=== PATIENT | female | born 1960 | race Caucasian/White ===

== ENCOUNTER 2018-12-11 23:20 | Inpatient (IN) | payer BC ==
[2018-12-11] MEDS ORDERED: Naloxone 0.4 mg/ml Inj (Adult) IVP STA ×2 (23:31→23:41)
[2018-12-11] MEDS ORDERED: Sodium Chloride 0.9% 1,000 ML IV STA (23:31)
[2018-12-12 00:15] LABS: BASO % 0.3 % (0.0-2.0); EOS % 0.1 % (0.0-4.0); LYMPH # 0.8 K/uL (1.0-4.3); LYMPH % 6.3 % (20.0-40.0); MEAN CELL VOLUME 89.6 fl (81.0-99.0); MEAN CORPUSCULAR HEMOGLOBIN 30.2 pg (27.0-31.0); MEAN CORPUSCULAR HGB CONC 33.7 g/dL (33.0-37.0); MEAN PLATELET VOLUME 7.7 fl (7.2-11.7); MONO # 0.7 K/uL (0.0-0.8); MONO % 6.1 % (0.0-10.0); NEUT # 10.6 K/uL (1.8-7.0); NEUT % 87.2 % (50.0-75.0); PLATELET COUNT 258 K/uL (130-400); RBC 4.32 Mil/uL (3.80-5.20); RED CELL DISTRIBUTION WIDTH 12.9 % (11.5-14.5); WHITE BLOOD COUNT 12.2 K/uL (4.8-10.8)
[2018-12-12 00:22] LABS: VENOUS BLOOD GAS PCO2 51 mmHg (40-60); VENOUS BLOOD GAS PO2 68 mm/Hg (30-55)
[2018-12-12 00:25] LABS: PROTHROMBIN TIME 11.7 Seconds (9.8-13.1)
[2018-12-12 00:27] LABS: PARTIAL THROMBOPLASTIN TIME 32.7 Seconds (25.6-37.1)
[2018-12-12 00:53] LABS: ACETAMINOPHEN < 10.0 ug/ml (10.0-30.0); SALICYLATE < 1.0 mg/dl
[2018-12-12 00:59] LABS: ALB/GLOB RATIO 1.2 (1.0-2.1); ALBUMIN 3.3 g/dL (3.5-5.0); ALT/SGPT 30 U/L (9-52); AST/SGOT 25 U/L (14-36); BLOOD UREA NITROGEN 15 mg/dl (7-17); CALCIUM 8.5 mg/dL (8.4-10.2); GFR NON-AFRICAN AMERICAN > 60; LIPASE 188 U/L (23-300)
[2018-12-12] MEDS ORDERED: Sodium Chloride 0.9% 1,000 ML IV STA ×2 (01:37→04:30)
--- NOTE | 2018-12-12 02:28 | CP.PCM.CON ---
History of Present Illness - History of Present Illness History of Present Illness: PMD: Loan Patrick MD Reason for Consult: Critical Care management Chief complaint: Altered Mental Status The patient was seen and examined in the ED with her daughter present HPI: The hx is obtained from the patient's daughter and after review of the laboratory, radiological and medical records. This is a 58 years old female with hx of chronic back pain, Fibromyalgia and depression who was brought to the ED with suspected drug overdose of some or all of Xanax, Oxycodone, Trazodone and Cymbalta, which are her usual medications. She was found unresponsive in bed by her son, with erratic breathing and vomiting white material. EMS gave Narcan in field. She arrived at the ED unresponsive with [id number] reacting sluggish to light. PMH: Anxiety and Depression; Back Problems with Herneated disc; Hypothyroidism;Fibromyalgia; Migraine treated with Botos to the head; Pinched nerve at the neck PSH: Surgery to the nose; Varicose Vein Removal; Cholecystectomy; Hysterectomy SH: Heavy Smoker; No alcohol; No illegal drug use; Live with family FH: No known family hx Allergies: Hydromorphone Medication: Xanax 1mg; Oxycodone 10mg and 30mg; Baclofen 10mg; zofran 4mg; Trazodone HS; Vit D3 1000IU; Cymbalta; Stool softener Review of Systems - Review of Systems Systems not reviewed;Unavailable: Altered Mental Status Review of Systems: Review of system limited as the patient is Unresponsive. Past Patient History - Past Social History Smoking Status: Heavy Smoker > 10 Cigarettes Daily Chewing Tobacco Use: No Cigar Use: No Alcohol: None Drugs: Denies Home Situation {Lives}: With Family - CARDIAC Hx Cardiac Disorders: No - PULMONARY Hx Respiratory Disorders: No - NEUROLOGICAL Hx Neurological Disorder: No Hx Migraine: Yes - HEENT Hx HEENT Problems: No - RENAL Hx Chronic Kidney Disease: No - ENDOCRINE/METABOLIC Hx Hypothyroidism: Yes - HEMATOLOGICAL/ONCOLOGICAL Hx Blood Disorders: No - INTEGUMENTARY Hx Dermatological Problems: No - MUSCULOSKELETAL/RHEUMATOLOGICAL Hx Back Pain: Yes Hx Herniated Disk: Yes - GASTROINTESTINAL Hx Gastrointestinal Disorders: No - GENITOURINARY/GYNECOLOGICAL Hx Genitourinary Disorders: No - PSYCHIATRIC Hx Anxiety: Yes Hx Depression: Yes Hx Substance Use: No Other/Comment: INSOMNIA - SURGICAL HISTORY Hx Cholecystectomy: Yes Hx Hysterectomy: Yes Other/Comment: NOSE SURGERY. VARICOSE VEIN REMOVAL - ANESTHESIA Hx Anesthesia: Yes Hx Anesthesia Reactions: No Meds Allergies/Adverse Reactions: Allergies Allergy/AdvReac Type Severity Reaction Status Date / Time hydromorphone [From Dilaudid] AdvReac HEADACHE Verified 12/11/18 23:24 - Medications Medications: Current Medications Sodium Chloride (Sodium Chloride 0.9%) 1,000 mls @ 250 mls/hr IV .Q4H STA Stop: 12/12/18 05:36 Last Admin: 12/12/18 01:59 Dose: 250 mls/hr Physical Exam - Constitutional Appears: No Acute Distress - Head Exam Head Exam: ATRAUMATIC, NORMAL INSPECTION, NORMOCEPHALIC - Eye Exam Additional comments: Pupils 2mm reacting sluggish to light - ENT Exam ENT Exam: Mucous Membranes Dry, Normal Exam, Normal External Ear Exam - Neck Exam Neck exam: Positive for: Normal Inspection. Negative for: Lymphadenopathy - Respiratory Exam Additional comments: Generalized bilateral inspiratory crackles - Cardiovascular Exam Cardiovascular Exam: REGULAR RHYTHM, +S1, +S2. absent: Gallop, JVD - GI/Abdominal Exam GI & Abdominal Exam: Normal Bowel Sounds, Soft. absent: Mass, Organomegaly, Tenderness - Rectal Exam Rectal Exam: Deferred - Extremities Exam Extremities exam: Positive for: normal inspection. Negative for: joint swelling, pedal edema - Back Exam Back exam: NORMAL INSPECTION - Neurological Exam Additional comments: Unresponsive, no facial droop, pupils 2mm reacting sluggish to light, divergent extrabism, All extremities flaccid - Psychiatric Exam Additional comments: Unresponsive - Skin Skin Exam: Dry, Intact, Normal Color, Warm Results - Vital Signs Recent Vital Signs: Last Vital Signs Temp Pulse 73 12/11/18 23:30 Resp 16 12/11/18 23:30 BP 115/67 12/11/18 23:30 Pulse Ox 99 12/11/18 23:30 - Labs Result Diagrams: 12/11/18 23:50 12/11/18 23:50 Labs: Laboratory Results - last 24 hr 12/11/18 12/11/18 12/11/18 23:34 23:50 23:50 WBC RBC Hgb Hct MCV MCH MCHC RDW Plt Count MPV Neut % (Auto) Lymph % (Auto) Nolan % (Auto) Eos % (Auto) Baso % (Auto) Neut # (Auto) Lymph # (Auto) Nolan # (Auto) Eos # (Auto) Baso # (Auto) PT INR APTT pO2 VBG pH VBG pCO2 VBG HCO3 VBG Total CO2 VBG O2 Sat (Calc) VBG Base Excess VBG Potassium Glucose Lactate FiO2 Sodium 135 Potassium 3.8 Chloride 104 Carbon Dioxide 23 Anion Gap 12 BUN 15 Creatinine 0.7 Est GFR ( Amer) > 60 Est GFR (Non-Af Amer) > 60 POC Glucose (mg/dL) 171 H Random Glucose 161 H Calcium 8.5 Phosphorus Magnesium Total Bilirubin 0.6 AST 25 ALT 30 Alkaline Phosphatase 106 Total Protein 6.0 L Albumin 3.3 L Globulin 2.7 Albumin/Globulin Ratio 1.2 Lipase 188 Venous Blood Potassium Salicylates < 1.0 Acetaminophen < 10.0 L Alcohol, Quantitative < 10 12/11/18 12/11/18 12/12/18 23:50 23:50 00:17 WBC 12.2 H D RBC 4.32 Hgb 13.0 Hct 38.7 MCV 89.6 MCH 30.2 MCHC 33.7 RDW 12.9 Plt Count 258 MPV 7.7 Neut % (Auto) 87.2 H Lymph % (Auto) 6.3 L Nolan % (Auto) 6.1 Eos % (Auto) 0.1 Baso % (Auto) 0.3 Neut # (Auto) 10.6 H Lymph # (Auto) 0.8 L Nolan # (Auto) 0.7 Eos # (Auto) 0.0 Baso # (Auto) 0.0 PT 11.7 INR 1.0 APTT 32.7 pO2 68 H VBG pH 7.30 L VBG pCO2 51 VBG HCO3 23.2 VBG Total CO2 26.7 VBG O2 Sat (Calc) 97.7 H VBG Base Excess -2.0 L VBG Potassium 3.7 Glucose 178 H Lactate 1.5 FiO2 21.0 Sodium 133.0 Potassium Chloride 105.0 Carbon Dioxide Anion Gap BUN Creatinine Est GFR ( Amer) Est GFR (Non-Af Amer) POC Glucose (mg/dL) Random Glucose Calcium Phosphorus Magnesium Total Bilirubin AST ALT Alkaline Phosphatase Total Protein Albumin Globulin Albumin/Globulin Ratio Lipase Venous Blood Potassium 3.7 Salicylates Acetaminophen Alcohol, Quantitative 12/12/18 01:48 WBC RBC Hgb Hct MCV MCH MCHC RDW Plt Count MPV Neut % (Auto) Lymph % (Auto) Nolan % (Auto) Eos % (Auto) Baso % (Auto) Neut # (Auto) Lymph # (Auto) Nolan # (Auto) Eos # (Auto) Baso # (Auto) PT INR APTT pO2 VBG pH VBG pCO2 VBG HCO3 VBG Total CO2 VBG O2 Sat (Calc) VBG Base Excess VBG Potassium Glucose Lactate FiO2 Sodium Potassium Chloride Carbon Dioxide Anion Gap BUN Creatinine Est GFR ( Amer) Est GFR (Non-Af Amer) POC Glucose (mg/dL) Random Glucose Calcium Phosphorus 4.0 Magnesium 1.8 Total Bilirubin AST ALT Alkaline Phosphatase Total Protein Albumin Globulin Albumin/Globulin Ratio Lipase Venous Blood Potassium Salicylates Acetaminophen Alcohol, Quantitative - Impressions Impression: Sinus bradycardia 54/min T wave inversion in II, III; aVf; V3-6 QT prolongation - Imaging and Cardiology CT scan - head Status: Image reviewed by me, Report reviewed by me Additional comment: 0119 CT Head Findings: Normal size of the ventricles and extra-axial spaces for the patient's age. Normal white matter tracts of the supratentorial brain. Normal basal ganglia and thalami. Normal brainstem. Normal cerebellum. There is no demonstrated extra-axial, intraparenchymal, or intraventricular hemorrhage. There are no findings of an acute ischemic infarction. Normal calvarium. There is no demonstrated fracture. Normal soft tissue structures. Normal visualized paranasal sinuses. IMPRESSION: Normal unenhanced CT scan of the brain. Chest x-ray Status: Image reviewed by me Additional comment: Bilateral interstitial infiltrate Right > Left Assessment & Plan - Assessment and Plan (Free Text) Assessment: #. AMS #. Drug Overdose #.Pneumonitis vs Aspiration Pneumonia #. Leukocytosis #. Hyperglycemia #. Anxiety /Depression #. Hypothyroidism Plan: 58 years old female with hx of chronic back pain, Fibromyalgia and depression who was brought to the ED with suspected drug overdose of some or all of Xanax, Oxycodone, Trazodone and Cymbalta, which are her usual medications. She was found unresponsive in bed by her son, with erratic breathing and vomiting white material. #. AMS due to toxic encephalopathy due to the overdose of medication, which could be the combination of Cymbalta, Trazodone, Zofran and Xanax causing Prolonged QT, Hypotension and Bradycardia.Poison control was called. The patient will be observed and treated symptomatically, Cardiac Monitoring, Correct Electrolytes, Magnesium sulfate given, Potassium should be at highte level of normal, IV Fluids for Hypotension and vasopressors if not controlled. Orotracheal intubation respiratory depression or failure. #.Pneumonitis vs Aspiration Pneumonia. ARDS picture - Oxygen to maintain SpO2 >94% - Zosyn - Consider Pulmonary consult #. Hyperglycemia - HbA1c #. Anxiety /Depression - Psychiatric Consult #. Hypothyroidism - Levothyroxin - TS #. DVT Prophylaxis with SCV and Lovenox #. Code Status: Full Jay Perez MD - Date & Time Date: 12/12/18 Time: 02:28
--- NOTE | 2018-12-12 02:39 | ED PDOC ---
HPI: Psych/Substance Abuse Time Seen by Provider: 12/11/18 23:30 Chief Complaint (Nursing): Altered Mental Status Chief Complaint (Provider): Altered Mental Status History Per: EMS, Family () History/Exam Limitations: clinical condition Additional Complaint(s): 58 years old female with a history of depression and chronic pain brought to ER for overdose. History provided by family in EMS. According to , patient went to bed at 8 o'clock and when he went to bed at 11 o'clock he noticed she was breathing erratically and vomiting white stuff all over herself. He states patient takes Oxycodone, Xanx, Tradazone and cymbalta and it is unclear how much she took of meds. reports patient was unresponsive, EMS was called and Narcan was not given in field. On arrival to ED, patient is unresponsive. PMD: None provided Past Medical History Reviewed: Historical Data, Nursing Documentation, Vital Signs Vital Signs: Last Vital Signs Temp Pulse 73 12/11/18 23:30 Resp 16 12/11/18 23:30 BP 115/67 12/11/18 23:30 Pulse Ox 99 12/11/18 23:30 - Medical History PMH: Anxiety, Back Problems, Depression, Fibromyalgia - Surgical History Surgical History: Cholecystectomy - Family History Family History: States: Unknown Family Hx - Home Medications Home Medications: Ambulatory Orders Medication Instructions Recorded Cyclobenzaprine HCl [Flexeril] 10 mg PO Q8 #20 tab 05/09/14 Naproxen [Naprosyn] 500 mg PO BID #20 tab 05/09/14 Oxycodone Hydrochloride [Oxycodone] 30 mg PO TID 05/09/14 - Allergies Allergies/Adverse Reactions: Allergies Allergy/AdvReac Type Severity Reaction Status Date / Time hydromorphone [From Dilaudid] AdvReac HEADACHE Verified 12/11/18 23:24 Review of Systems Review Of Systems: ROS cannot be obtained secondary to pt's inabilty to answer questions. Physical Exam - Reviewed Nursing Documentation Reviewed: Yes Vital Signs Reviewed: Yes - Physical Exam Appears: Positive for: In Acute Distress. Negative for: Well Head Exam: Positive for: ATRAUMATIC Skin: Positive for: Pallor Eye Exam: Positive for: Other (Pinpoint pupils) ENT: Positive for: Other (White substance around mouth) Neck: Positive for: Normal Cardiovascular/Chest: Positive for: Regular Rate, Rhythm. Negative for: Murmur Respiratory: Positive for: Rhonchi. Negative for: Respiratory Distress Gastrointestinal/Abdominal: Positive for: Normal Exam, Soft. Negative for: Tenderness Back: Positive for: Normal Inspection. Negative for: L CVA Tenderness, R CVA Tenderness Neurological/Psych: Positive for: Other (unresponsive). Negative for: Awake, Al ert, Oriented - Laboratory Results Result Diagrams: 12/11/18 23:50 12/11/18 23:50 Lab Results: pO2 68 mm/Hg (30-55) H 12/12/18 00:17 VBG pH 7.30 (7.32-7.43) L 12/12/18 00:17 VBG pCO2 51 mmHg (40-60) 12/12/18 00:17 VBG HCO3 23.2 mmol/L 12/12/18 00:17 VBG Total CO2 26.7 mmol/L (22-28) 12/12/18 00:17 VBG O2 Sat (Calc) 97.7 % (40-65) H 12/12/18 00:17 VBG Base Excess -2.0 mmol/L (0.0-2.0) L 12/12/18 00:17 VBG Potassium 3.7 mmol/L (3.6-5.2) 12/12/18 00:17 Sodium 133.0 mmol/L (132-148) 12/12/18 00:17 Chloride 105.0 mmol/L (98-107) 12/12/18 00:17 Glucose 178 mg/dL (65-105) H 12/12/18 00:17 Lactate 1.5 mmol/L (0.7-2.1) 12/12/18 00:17 FiO2 21.0 % 12/12/18 00:17 PT 11.7 Seconds (9.8-13.1) 12/11/18 23:50 INR 1.0 12/11/18 23:50 APTT 32.7 Seconds (25.6-37.1) 12/11/18 23:50 Total Bilirubin 0.6 mg/dl (0.2-1.3) 12/11/18 23:50 AST 25 U/L (14-36) 12/11/18 23:50 ALT 30 U/L (9-52) 12/11/18 23:50 Alkaline Phosphatase 106 U/L (38-126) 12/11/18 23:50 Total Protein 6.0 G/DL (6.3-8.2) L 12/11/18 23:50 Albumin 3.3 g/dL (3.5-5.0) L 12/11/18 23:50 Globulin 2.7 gm/dL (2.2-3.9) 12/11/18 23:50 Albumin/Globulin Ratio 1.2 (1.0-2.1) 12/11/18 23:50 Lipase 188 U/L (23-300) 12/11/18 23:50 - ECG O2 Sat by Pulse Oximetry: 99 (RA) Pulse Ox Interpretation: Normal - Critical Care Total Time (In Min): 90 Documented Critical Care: Time excludes all time spent performint seperately billable procedures Medical Decision Making Medical Decision Making: Time: 2330 A/P: Patient was immediately brought to trauma room for reversal opioid effect --Narcan was given x2 with some response --Pupils dilated and patient is easily arousable but still lethargic --Respiration increased --Patient is able to tolerate nasal cannula 0119 CT Head Findings: Normal size of the ventricles and extra-axial spaces for the patient's age. Normal white matter tracts of the supratentorial brain. Normal basal ganglia and thalami. Normal brainstem. Normal cerebellum. There is no demonstrated extra-axial, intraparenchymal, or intraventricular hemorrhage. There are no findings of an acute ischemic infarction. Normal calvarium. There is no demonstrated fracture. Normal soft tissue structures. Normal visualized paranasal sinuses. IMPRESSION: Normal unenhanced CT scan of the brain. [address] Patrick regarding the case and agrees to management and will see patient tomorrow. Nurse spoke to poison control who recommends symptomatic treatment. Dr. Perez is aware for ICU admission. 300 Spoke with poison control provider service representative Amanda Lerner who recommends magnesium for QTC prolongation -------- --------- ScribeAttestation: Documented bySnow Taylor, acting as a scribe for Lenard Jeter MD. Provider ScribeAttestation: All medical record entries made by the Scribe were at my direction and personally dictated by me. I have reviewed the chart and agree that the record accurately reflects my personal performance of the history, physical exam, medical decision making, and the department course for this patient. Disposition - Clinical Impression Clinical Impression: Overdose - Patient ED Disposition Is Patient to be Admitted: Yes Counseled Patient/Family Regarding: Studies Performed, Diagnosis - Disposition Disposition Time: 01:24 Condition: IMPROVED
[2018-12-12] MEDS ORDERED: Magnesium Sulfate 2 gm/50 ml 2 GM/50 ML BAG IVPB ONE (03:14)
[2018-12-12 03:15] LABS: BANDS 5 % (0-2); BASOPHIL 1 % (0-2); LYMPHOCYTE 8 % (20-50); METAMYELOCYTE 1 % (0-0); MONOCYTE 6 % (0-10); MYELOCYTE 1 % (0-0); NEUTROPHIL 78 % (42-75); TOTAL CELLS COUNTED 100
[2018-12-12] MEDS: Sodium Chloride 0.9% 1,000 ML IV SCH ×2 (03:15→04:15)
[2018-12-12 03:16] LABS: HYPERSEGMENTATION PRESENT; LARGE PLATELETS PRESENT; PLATELET ESTIMATE NORMAL (NORMAL); TOXIC GRANULATION PRESENT
[2018-12-12 03:17] LABS: SMUDGE CELLS PRESENT
[2018-12-12 03:19] LABS: OVALOCYTES SLIGHT
[2018-12-12 04:17] VITALS: BMI 24.4
[2018-12-12] MEDS ORDERED: Magnesium Sulfate 2 gm/50 ml 2 GM/50 ML BAG ONE (04:21)
[2018-12-12] MEDS ORDERED: Piperacillin/Tazobact 3.375 GM in Sodium Chloride 0.9% 100 ML IVPB SCH (05:30)
[2018-12-12 05:48] LABS: URINE BACTERIA RARE (<OCC); URINE BILIRUBIN NEGATIVE (NEGATIVE); URINE BLOOD SMALL (NEGATIVE); URINE CLARITY CLEAR (Clear); URINE COLOR AMBER (YELLOW); URINE GLUCOSE (UA) NEG (NEGATIVE); URINE LEUKOCYTE ESTERASE NEG Leu/uL (Negative); URINE PROTEIN NEGATIVE (NEGATIVE)
[2018-12-12 05:50] LABS: BARBITURATES, UR NEGATIVE (NEGATIVE); OPIATES, UR POSITIVE (NEGATIVE); PHENCYCLIDINE, UR NEGATIVE (NEGATIVE)
--- NOTE | 2018-12-12 06:23 | PCM.PROC ---
Procedures Attestation:: I certify that I have explained the specified Operation(s) or Procedure(s), risks, benefits and reasonable alternatives to the Patient and/or other person responsible. The opportunity was given to ask questions and all questions answered - Central Line Placement Internal Jugular Triple Lumen Catheter CVP Time Out Performed: Yes Pt. Placed on Pulse Ox Monitor: Yes Central Line Prep: Chlorhexidine-Alcohol Combination Local Anesthesia Used: Lidocaine 2% Ultrasound Used for Placement: Yes Central Line Lumen Inserted: triple Central Line Length: 20 cm Post Procedure: Sutured in Place, Good Blood Return, All Ports Aspirated, Flushed, Capped, Sterile Dressing Applied Secured by: Suture Post procedure dressing: Clear vapor permeable Post Procedure X-Ray: Yes Patient Tolerated Procedure: Well, No Complications (Patient hypotensive.)
[2018-12-12 06:25] LABS: BENZODIAZEPINES, UR POSITIVE (NEGATIVE)
[2018-12-12] MEDS ORDERED: Naloxone 0.4 mg/ml Inj (Adult) IVP STA (07:04)
[2018-12-12] MEDS ORDERED: Naloxone HCl 2mg/2ml syr IVP ONE (07:06)
[2018-12-12] MEDS ORDERED: Naloxone 0.4 mg/ml Inj (Adult) ONE (07:14)
[2018-12-12] MEDS ORDERED: Chlorhexidine Gluconate 1 APPL/PKT TP ONE (07:42)
[2018-12-12] MEDS ORDERED: Naloxone 0.4 mg/ml Inj (Adult) IVP ONE (07:45)
--- NOTE | 2018-12-12 07:49 | CP.CCUPN ---
CCU Subjective - Physician Review Subjective (Free Text): Arrived to ICU hypotensive, bradycardic and unresponsive to pain. Levophed ordered at 621AM and remains pending. RR 9-10, SPO2 92% on nasal cannula, SBP 70, HR 50 sinus. Temp 95F on leila huggar warming blanket. ROS: No other pertinent negs or positives on 10+ system review: unobtainable due to obtundation. PMSFH: All other Nursing and physician documentation reviewed to date; no new pertinent info noted relevant to current medical problems. EXAM- HEENT: no icterus, no gaze preference, pupils2 mm equal and reactive NECK: no JVD visible, supple, carotids equal upstroke bilat/no bruit CHEST: decreased BS at the bases, no wheezes audible HEART: irregular, distant, josie S1S2, no rubs ABD: soft, no distension, no focal tenderness, no tympany, no guarding, no organomegaly, BS hypoactive. EXT: trace LE edema, no mottling; no calf tenderness or palpable cords, barely palpable distal pulses (femoral) intact and symmetrical NEURO: no tone. SKIN: no rashes, warm and dry. LABS: (admission) WBC= 12.2 HGB= 13.0 PLTs= 258K Na= 135 K= 3.8 CL= 104 HCO3= 23 BUN/Cr= 15/0.7 BS= 101 7.30/51/68 with 97% satn UDS+ +opiates, + Benzos CXR: increase interstitial markings R > L lung, suggestive of Aspiration. IMPRESSION / MAJOR PROBLEMS NOW: 1. Obtundation 2 Multiple Medication OD including antipsychotics, opioids, and BZDPs ( amounts unknown) 2. Acute Resp Insuff 2 #1 and Aspiration pneumonia 3. Hypothermia 4. h/o Suicide Attempts 5. h/o Chronic Back pain Syndrome, H/o Depression PLAN: 1. Volume expansion- has recd 3.0L + fluid challenge already, Norepinephrine ordered. 2. Repeat Narcan dose at 2 mg resulted in patient exhibiting yawning and deeper respiratory efforts. Narcan drip infusion ordered at 0.8mg /hr until she becomes awake and alert, and spontaneous respirations are acceptable. Otherwise, may need to be intubated for airway protection. Check ABG shock panel. 3. TFTs, random cortisol level; passive warming with Leila-Huggar for now. 4. Serial EKGs to assess for QT intervals, given one dose of Mag given in ER. Last EKG now shows QT at 618 ms, with normal admission EKG. Will keep K levels high normal. Atropine prn. Watch for TdP. 5. 1:1 supervision now; and Psychiatry eval when awake and alert. 6. Serial CXR, watch temps, WBCs, started on empiric Zosyn in ED. 7. Neurochecks Q1H, Seizure precautions, HOB elevation, NPO for now. 8. Check repeat CPK levels. Time spent with this patient did not overlap with any other provider's medical or critical care time. Additionally the code selected for the services rendered in this note includes the time spent: talking to the patients family, as sociated physicians and reviewing hospital data/results not listed here which extended to a total of 40 minutes of critical care. Critical Care Progress Note - Nutrition Nutrition: Nutrition Category Date Time Status NPO Diet [DIET] Diets 12/12/18 Breakfast Active
[2018-12-12 07:58] LABS: ABG ALLEN TEST YES; ARTERIAL BLOOD GAS HCO3 19.1 mmol/L (21-28); ARTERIAL BLOOD GAS O2 SAT 80.4 % (95-98); ARTERIAL BLOOD GAS PCO2 62 mm/Hg (35-45); ARTERIAL BLOOD GAS PH 7.17 (7.35-7.45); ARTERIAL BLOOD GAS PO2 45 mm/Hg (80-100); ARTERIAL BLOOD GAS TCO2 24.5 mmol/L (22-28)
[2018-12-12] MEDS ORDERED: Propofol 10 mg/ml 1,000 MG/100 ML VIAL ONE (08:05)
[2018-12-12] MEDS ORDERED: Propofol 10 mg/ml Inj (20 ML) IV ONE (08:18)
--- NOTE | 2018-12-12 08:23 | PCM.PROC ---
Procedures Attestation:: I certify that I have explained the specified Operation(s) or Procedure(s), risks, benefits and reasonable alternatives to the Patient and/or other person responsible. The opportunity was given to ask questions and all questions answered - Intubation Sedative: Other (Propofol 70 mg IVP) Laryngoscope: Talia ET Tube Size: 7.5 ET Tube Uncuffed: No ET Tube Secured at Depth: 21 ET Tube Secured Locarion: Teeth ET Tube Placement Confirmation: Visualized Passing Through Cords, Breath Sounds Equal Bilaterally, No Breath Sounds Over Epigastrum, Confirmation w/Capnometry Patient Tolerated Procedure: Well Procedure Immediate Complications: None Additional comments: Pooling of bilious gastric secretions noted in posterior oliverio-pharynx; and required immediate suctioning of ETT after passage into trachea after notin. expulsion of same yellowish bilious fluid.
[2018-12-12] MEDS ORDERED: Lactated Ringer's 500 ML IV SCH (08:45)
[2018-12-12] MEDS ORDERED: Phenylephrine 30 MG in Sodium Chloride 0.9% 250 ML IV SCH (08:45)
--- NOTE | 2018-12-12 08:49 | RAD ---
Date of service: 12/12/2018 HISTORY: intubation COMPARISON: Portable chest 12/12/2018, 6:19 a.m.. TECHNIQUE: 1 view obtained. FINDINGS: Interval deployment of endotracheal tube terminating 4.5 cm above the adria. In addition, nasogastric tube is in place with advancement into the left alex abdomen, tip off the image inferiorly. Right central venous line unchanged. LUNGS: Improved aeration is appreciated bilaterally with diminishing right-sided infiltrates noted. No left-sided infiltrate. PLEURA: No significant pleural effusion identified, no pneumothorax apparent. CARDIOVASCULAR: Calcific atherosclerotic changes are seen related to the thoracic aorta. Normal cardiac size. No pulmonary vascular congestion. OSSEOUS STRUCTURES: No significant abnormalities. VISUALIZED UPPER ABDOMEN: Again noted right upper quadrant abdomen. OTHER FINDINGS: None. IMPRESSION: Endotracheal intubation leads to improved aeration bilaterally with limited diminishing infiltrates right lung identified. No left-sided infiltrate. No pneumothorax or pleural effusion bilaterally. Adequate endotracheal intubation and nasogastric tube deployment.
--- NOTE | 2018-12-12 08:55 | RAD ---
Date of service: 12/12/2018 HISTORY: Post right TLC insertion COMPARISON: Portable chest 12/12/2018 12:15 a.m.. TECHNIQUE: 1 view obtained. FINDINGS: LUNGS: Interval right central venous line deployment is been made by an apparent right internal jugular approach with the tip terminating at the right atrium. Mild increase in upper and lower right lobe pulmonary infiltrates is suggested with none on the left. PLEURA: No significant pleural effusion identified, no pneumothorax apparent. CARDIOVASCULAR: Calcific atherosclerotic changes are seen related to the thoracic aorta. Normal cardiac size. No pulmonary vascular congestion. OSSEOUS STRUCTURES: No significant abnormalities. VISUALIZED UPPER ABDOMEN: Surgical clips reiterated right upper quadrant abdomen. OTHER FINDINGS: None. IMPRESSION: Patchy infiltrates are somewhat increased at the right apex and base with left lung clear. Interval right IJ central venous line deployment as per above.
[2018-12-12] MEDS: Piperacillin/Tazobact 3.375 GM in Sodium Chloride 0.9% 100 ML IVPB SCH ×3 (09:02→21:24)
--- NOTE | 2018-12-12 09:21 | RAD ---
Date of service: 12/12/2018 HISTORY: overdose, vomiting COMPARISON: Chest radiographs 10/11/2012. TECHNIQUE: 1 view obtained. FINDINGS: LUNGS: Mild patchy infiltrates are seen the right apex and right base with none on the left. PLEURA: No significant pleural effusion identified, no pneumothorax apparent. CARDIOVASCULAR: Calcific atherosclerotic changes are seen related to the thoracic aorta. Normal cardiac size. No pulmonary vascular congestion. OSSEOUS STRUCTURES: No significant abnormalities. VISUALIZED UPPER ABDOMEN: Normal. OTHER FINDINGS: None. IMPRESSION: Interval limited, patchy infiltrates right apex and right base with none identified at the left. Remaining lung snow are clear. No pulmonary vascular congestion, pleural effusion or pneumothorax bilaterally.
--- NOTE | 2018-12-12 09:54 | CP.PCM.HP ---
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 She had vomited and there were copious secretions in her oropharynx. A recently filled bottle of 90 Trazodone tablets could not be found. She also had some small number of oxycodone and xanax tablets missing, as she had been taking these chronically (see below). Her said she had been more depressed than usual because her son from the mother of his child and patient had only limited time with her grandchild. She was referred for counselling but did not go. So, immediately on finding patient her called 911 and patient was rushed to ER where she had a limited response to Narcan and IV hydration. Subsequently CXR confirmed aspiration pneumonia with hypoxia, respiratory acidosis (ph 7.17), bradycardia with prolonged QTc (580), hypotension and continued limited responsiveness. She was started on IV Clindamycin, then IV Zosyn, Levophed, continued hydration with improved blood pressure. She vomited and it became clear that oxygen by mask was insufficient she was intubated and placed on a ventilator. During the intubation process large amounts of yellow/bilious liquid came up through the endotracheal tube and she was suctioned repeatedly. Past Psychiatric History: The patient was followed by psychiatrists at [facility] who tried various antidepressants including Paxil, Prozac, Abilify, Trintellix, Effexor and Remeron. It seemed that Traxodone and Cymbalta worked best with Xanax for anxiety, but the results were not very good and electroconvulsive therapy was recommended. The patient refused this because he mother had had a bad experience with this in the past. Past Medical History: Fibromyalgia with severe chronic pain. Lyrica was tried but it caused severe leg edema and had to be discontinued. Gabapentin helped a little. She could not tolerate NSAIDs due to gastritis. So, she was treated with oxycodone which was being slowly tapered from 60mg q4h a year or so ago down to 40mg q6h (as one 30mg and one 10mg tab) q6h. We were in the process of trying to eliminate the 10mg tablet as part of that tapering process. Cervical disc disease involving spondylosis and "disc ridge comples" at C5-6. Multiple sites of DJD throughout the spine. Mel's thyroidits and parathyroid adenoma - has been under care by Dr. Kash Cruz stitcher around. Recent labs 12/10/18 showed normal free T4 and TSH and calcium was 9.6. HOME MEDICATIONS: Xanax 1 mg tid and 2mg hs Trazodone 100mg qhs Levothyroxine 75 mcg qam Vitamin D 1000 IU qd Gabapentine 300mg ii bid Protonix 40mg qd Oxycodone 40mg q6h Cymbalta 40mg qd Multivitamin 1 qd Present on Admission - Present on Admission Any Indicators Present on Admission: No Review of Systems - Review of Systems Systems not reviewed;Unavailable: Acuity of Condition, Unstable Vital Signs, Respiratory Distress, Dementia, Altered Mental Status, Intoxicated, Uncooperative, Psychotic, Intubated, Language Barrier, Other Past Patient History - Past Social History Smoking Status: Heavy Smoker > 10 Cigarettes Daily Chewing Tobacco Use: No Cigar Use: No Alcohol: None Drugs: Denies, Prescription medications Home Situation {Lives}: With Family - CARDIAC Hx Cardiac Disorders: No - PULMONARY Hx Respiratory Disorders: No - NEUROLOGICAL Hx Neurological Disorder: Yes (Fibromyalgia) Hx Migraine: Yes (Had received Botox injections in the past with relief.) - HEENT Hx HEENT Problems: No - RENAL Hx Chronic Kidney Disease: No - ENDOCRINE/METABOLIC Hx Endocrine Disorders: Yes - HEMATOLOGICAL/ONCOLOGICAL Hx Blood Disorders: No - INTEGUMENTARY Hx Dermatological Problems: No - MUSCULOSKELETAL/RHEUMATOLOGICAL Hx Musculoskeletal Disorders: Yes Hx Back Pain: Yes Hx Herniated Disk: Yes (Cervical spine) - GASTROINTESTINAL Hx Gastrointestinal Disorders: No Hx Gastroesophageal Reflux: Yes - GENITOURINARY/GYNECOLOGICAL Hx Genitourinary Disorders: No - PSYCHIATRIC Hx Psychophysiologic Disorder: Yes Hx Anxiety: Yes Hx Depression: Yes - SURGICAL HISTORY Hx Cholecystectomy: Yes Hx Hysterectomy: Yes ([facility] and [facility]SO 2012) - ANESTHESIA Hx Anesthesia: Yes Hx Anesthesia Reactions: No Meds Allergies/Adverse Reactions: Allergies Allergy/AdvReac Type Severity Reaction Status Date / Time hydromorphone [From Dilaudid] AdvReac HEADACHE Verified 12/11/18 23:24 Abilify AdvReac Severe agitation Uncoded 12/12/18 10:21 Lyrica AdvReac Severe SWELLING Uncoded 12/12/18 10:19 Physical Exam - Constitutional Appears: Other Additional comments: Patient is intubated, restrained, does open eyes, not clear if she recognizes persons, movements are not purposeful. - Head Exam Head Exam: ATRAUMATIC - Eye Exam Eye Exam: EOMI, Normal appearance Pupil Exam: Miosis - ENT Exam Additional comments: Oral endotracheal tube in place. - Neck Exam Additional comments: No palpable masses. Right internal jugular TLC in place. - Respiratory Exam Additional comments: Markedly increased secretions in all the large airways make it difficult to evaluate for small airway disease. Respirations supported by ventilator. - Cardiovascular Exam Cardiovascular Exam: Bradycardia Additional comments: Difficult to evaluate due to respiratory noise. - GI/Abdominal Exam GI & Abdominal Exam: Soft Additional comments: Nasogastric tube suctioning out bilious liquid. - Rectal Exam Rectal Exam: Deferred - Extremities Exam Additional comments: No edema, good pedal pulses. - Back Exam Additional comments: Unable to evaluate. - Neurological Exam Neurological exam: Altered - Psychiatric Exam Additional comments: Unable to evaluate at this time. - Skin Skin Exam: Dry, Intact, Normal Color, Warm Results - Vital Signs Recent Vital Signs: Last Vital Signs Temp 95.7 F L 12/12/18 06:35 Pulse 66 12/12/18 07:39 Resp 10 L 12/12/18 07:39 BP 113/41 L 12/12/18 07:39 Pulse Ox 87 L 12/12/18 07:39 - Labs Result Diagrams: 12/11/18 23:50 12/11/18 23:50 Labs: Laboratory Results - last 24 hr 12/11/18 12/11/18 12/11/18 23:34 23:50 23:50 WBC RBC Hgb Hct MCV MCH MCHC RDW Plt Count MPV Neut % (Auto) Lymph % (Auto) Scurry % (Auto) Eos % (Auto) Baso % (Auto) Neut # (Auto) Lymph # (Auto) Scurry # (Auto) Eos # (Auto) Baso # (Auto) Neutrophils % (Manual) Band Neutrophils % Lymphocytes % (Manual) Monocytes % (Manual) Basophils % (Manual) Metamyelocytes % Myelocytes % Hypersegmented Polys Smudge Cells Toxic Granulation Platelet Estimate Large Platelets Ovalocytes PT INR APTT pCO2 pO2 HCO3 ABG pH ABG Total CO2 ABG O2 Saturation ABG Base Excess Jose Test ABG Potassium VBG pH VBG pCO2 VBG HCO3 VBG Total CO2 VBG O2 Sat (Calc) VBG Base Excess VBG Potassium A-a O2 Difference Glucose Lactate FiO2 Blood Gas Comments Crit Value Called To Crit Value Called By Crit Value Read Back Blood Gas Notified Time Sodium 135 Potassium 3.8 Chloride 104 Carbon Dioxide 23 Anion Gap 12 BUN 15 Creatinine 0.7 Est GFR ( Amer) > 60 Est GFR (Non-Af Amer) > 60 POC Glucose (mg/dL) 171 H Random Glucose 161 H Calcium 8.5 Phosphorus Magnesium Total Bilirubin 0.6 AST 25 ALT 30 Alkaline Phosphatase 106 Total Creatine Kinase Total Protein 6.0 L Albumin 3.3 L Globulin 2.7 Albumin/Globulin Ratio 1.2 Lipase 188 TSH 3rd Generation Arterial Blood Potassium Venous Blood Potassium Urine Color Urine Clarity Urine pH Ur Specific Cool Urine Protein Urine Glucose (UA) Urine Ketones Urine Blood Urine Nitrate Urine Bilirubin Urine Urobilinogen Ur Leukocyte Esterase Urine RBC (Auto) Urine Microscopic WBC Urine Bacteria Hyaline Casts Salicylates < 1.0 Urine Opiates Screen Urine Methadone Screen Acetaminophen < 10.0 L Ur Barbiturates Screen Ur Phencyclidine Scrn Ur Amphetamines Screen U Benzodiazepines Scrn U Oth Cocaine Metabols U Cannabinoids Screen Alcohol, Quantitative < 10 12/11/18 12/11/18 12/12/18 23:50 23:50 00:17 WBC 12.2 H D RBC 4.32 Hgb 13.0 Hct 38.7 MCV 89.6 MCH 30.2 MCHC 33.7 RDW 12.9 Plt Count 258 MPV 7.7 Neut % (Auto) 87.2 H Lymph % (Auto) 6.3 L Scurry % (Auto) 6.1 Eos % (Auto) 0.1 Baso % (Auto) 0.3 Neut # (Auto) 10.6 H Lymph # (Auto) 0.8 L Scurry # (Auto) 0.7 Eos # (Auto) 0.0 Baso # (Auto) 0.0 Neutrophils % (Manual) 78 H Band Neutrophils % 5 H Lymphocytes % (Manual) 8 L Monocytes % (Manual) 6 Basophils % (Manual) 1 Metamyelocytes % 1 H Myelocytes % 1 H Hypersegmented Polys Present Smudge Cells Present Toxic Granulation Present Platelet Estimate Normal Large Platelets Present Ovalocytes Slight PT 11.7 INR 1.0 APTT 32.7 pCO2 pO2 68 H HCO3 ABG pH ABG Total CO2 ABG O2 Saturation ABG Base Excess Jose Test ABG Potassium VBG pH 7.30 L VBG pCO2 51 VBG HCO3 23.2 VBG Total CO2 26.7 VBG O2 Sat (Calc) 97.7 H VBG Base Excess -2.0 L VBG Potassium 3.7 A-a O2 Difference Glucose 178 H Lactate 1.5 FiO2 21.0 Blood Gas Comments Crit Value Called To Crit Value Called By Crit Value Read Back Blood Gas Notified Time Sodium 133.0 Potassium Chloride 105.0 Carbon Dioxide Anion Gap BUN Creatinine Est GFR ( Amer) Est GFR (Non-Af Amer) POC Glucose (mg/dL) Random Glucose Calcium Phosphorus Magnesium Total Bilirubin AST ALT Alkaline Phosphatase Total Creatine Kinase Total Protein Albumin Globulin Albumin/Globulin Ratio Lipase TSH 3rd Generation Arterial Blood Potassium Venous Blood Potassium 3.7 Urine Color Urine Clarity Urine pH Ur Specific Cool Urine Protein Urine Glucose (UA) Urine Ketones Urine Blood Urine Nitrate Urine Bilirubin Urine Urobilinogen Ur Leukocyte Esterase Urine RBC (Auto) Urine Microscopic WBC Urine Bacteria Hyaline Casts Salicylates Urine Opiates Screen Urine Methadone Screen Acetaminophen Ur Barbiturates Screen Ur Phencyclidine Scrn Ur Amphetamines Screen U Benzodiazepines Scrn U Oth Cocaine Metabols U Cannabinoids Screen Alcohol, Quantitative 12/12/18 12/12/18 12/12/18 01:48 05:02 05:06 WBC RBC Hgb Hct MCV MCH MCHC RDW Plt Count MPV Neut % (Auto) Lymph % (Auto) Scurry % (Auto) Eos % (Auto) Baso % (Auto) Neut # (Auto) Lymph # (Auto) Scurry # (Auto) Eos # (Auto) Baso # (Auto) Neutrophils % (Manual) Band Neutrophils % Lymphocytes % (Manual) Monocytes % (Manual) Basophils % (Manual) Metamyelocytes % Myelocytes % Hypersegmented Polys Smudge Cells Toxic Granulation Platelet Estimate Large Platelets Ovalocytes PT INR APTT pCO2 pO2 HCO3 ABG pH ABG Total CO2 ABG O2 Saturation ABG Base Excess Jose Test ABG Potassium VBG pH VBG pCO2 VBG HCO3 VBG Total CO2 VBG O2 Sat (Calc) VBG Base Excess VBG Potassium A-a O2 Difference Glucose Lactate FiO2 Blood Gas Comments Crit Value Called To Crit Value Called By Crit Value Read Back Blood Gas Notified Time Sodium Potassium Chloride Carbon Dioxide Anion Gap BUN Creatinine Est GFR ( Amer) Est GFR (Non-Af Amer) POC Glucose (mg/dL) Random Glucose Calcium Phosphorus 4.0 Magnesium 1.8 Total Bilirubin AST ALT Alkaline Phosphatase Total Creatine Kinase 355 H Total Protein Albumin Globulin Albumin/Globulin Ratio Lipase TSH 3rd Generation Arterial Blood Potassium Venous Blood Potassium Urine Color Alysa Urine Clarity Clear Urine pH 5.0 Ur Specific Cool 1.019 Urine Protein Negative Urine Glucose (UA) Neg Urine Ketones Trace Urine Blood Small Urine Nitrate Negative Urine Bilirubin Negative Urine Urobilinogen 4.0 H Ur Leukocyte Esterase Neg Urine RBC (Auto) < 1 Urine Microscopic WBC 2 Urine Bacteria Rare Hyaline Casts 3-5 H Salicylates Urine Opiates Screen Positive H Urine Methadone Screen Negative Acetaminophen Ur Barbiturates Screen Negative Ur Phencyclidine Scrn Negative Ur Amphetamines Screen Negative U Benzodiazepines Scrn Positive U Oth Cocaine Metabols Negative U Cannabinoids Screen Negative Alcohol, Quantitative 12/12/18 12/12/18 07:46 08:49 WBC RBC Hgb Hct MCV MCH MCHC RDW Plt Count MPV Neut % (Auto) Lymph % (Auto) Scurry % (Auto) Eos % (Auto) Baso % (Auto) Neut # (Auto) Lymph # (Auto) Scurry # (Auto) Eos # (Auto) Baso # (Auto) Neutrophils % (Manual) Band Neutrophils % Lymphocytes % (Manual) Monocytes % (Manual) Basophils % (Manual) Metamyelocytes % Myelocytes % Hypersegmented Polys Smudge Cells Toxic Granulation Platelet Estimate Large Platelets Ovalocytes PT INR APTT pCO2 62 H pO2 45 L HCO3 19.1 L ABG pH 7.17 L* ABG Total CO2 24.5 ABG O2 Saturation 80.4 L ABG Base Excess -6.8 L Jose Test Yes ABG Potassium 3.6 VBG pH VBG pCO2 VBG HCO3 VBG Total CO2 VBG O2 Sat (Calc) VBG Base Excess VBG Potassium A-a O2 Difference 234.0 Glucose 185 H Lactate 1.0 FiO2 50.0 Blood Gas Comments 7l/m nc Crit Value Called To Bonnie kiran Crit Value Called By 15 Crit Value Read Back Y Blood Gas Notified Time 757 Sodium 134.0 Potassium Chloride 111.0 H Carbon Dioxide Anion Gap BUN Creatinine Est GFR ( Amer) Est GFR (Non-Af Amer) POC Glucose (mg/dL) Random Glucose Calcium Phosphorus Magnesium Total Bilirubin AST ALT Alkaline Phosphatase Total Creatine Kinase Total Protein Albumin Globulin Albumin/Globulin Ratio Lipase TSH 3rd Generation 0.23 L Arterial Blood Potassium 3.6 Venous Blood Potassium Urine Color Urine Clarity Urine pH Ur Specific Cool Urine Protein Urine Glucose (UA) Urine Ketones Urine Blood Urine Nitrate Urine Bilirubin Urine Urobilinogen Ur Leukocyte Esterase Urine RBC (Auto) Urine Microscopic WBC Urine Bacteria Hyaline Casts Salicylates Urine Opiates Screen Urine Methadone Screen Acetaminophen Ur Barbiturates Screen Ur Phencyclidine Scrn Ur Amphetamines Screen U Benzodiazepines Scrn U Oth Cocaine Metabols U Cannabinoids Screen Alcohol, Quantitative - EKG Data EKG Interpreted by: Myself - Impressions Impression: Sinus arrhythmia, bradycardia, prolonged QTc. - Imaging and Cardiology Chest x-ray Status: Report reviewed by me (Infiltrates right lung. Normal heart. Left lung appears to be clear.) Assessment & Plan (1) Overdose of drug/medicinal substance Assessment and Plan: ICU management by intensivists. Discussed with Dr. Anaya the need to address prior opioid and benzodiazepine use to avoid withdrawal problems should member improve in alertness and symptomatology . At appropriate time, we will need to call in psychiatric consultation and pain management to assist with this. Status: Acute (2) Aspiration pneumonia due to inhalation of vomitus Assessment and Plan: To continue ventilatory support and iv antibiotics. Status: Acute (3) Major depression, chronic Status: Acute (4) Fibromyalgia affecting multiple sites Status: Acute (5) Mel's thyroiditis Assessment and Plan: Dr Monk called into endocrine consultation. Status: Acute (6) Parathyroid adenoma Assessment and Plan: Since calcium is normal at 9.6, there is no need for urgent attention to this. Status: Acute (7) GERD (gastroesophageal reflux disease) Assessment and Plan: Patient is on IV Pepcid. Status: Acute (8) superintendent terminal (current) use of opiate analgesic Assessment and Plan: It may be appropriate to begin a detoxification with the help of anesthesiology once patient becomes stable. Status: Acute (9) Long-term current use of anxiolytic medication Assessment and Plan: We should use a benzodiazepine for sedation as patient becomes more awake/aware so as to avoid seizures potential caused by abrupt withdrawal. Status: Acute (10) Other specified dorsopathies, cervical region Assessment and Plan: Also other areas of spine with DJD. Status: Acute
[2018-12-12 10:10] LABS: ABG ALLEN TEST YES; ARTERIAL BLOOD GAS HCO3 20.2 mmol/L (21-28); ARTERIAL BLOOD GAS PCO2 34 mm/Hg (35-45); ARTERIAL BLOOD GAS PH 7.35 (7.35-7.45); ARTERIAL BLOOD GAS PO2 527 mm/Hg (80-100); ARTERIAL BLOOD GAS TCO2 19.8 mmol/L (22-28)
[2018-12-12] MEDS: Clindamycin 600mg/50ml D5W 600 MG/50 ML VIAL IVPB SCH ×2 (10:22→18:00)
[2018-12-12] MEDS: Lactated Ringer's 1,000 ML IV SCH ×2 (10:23→23:30)
[2018-12-12] MEDS: Potassium CL 10mEq/100ml 100 ML IVPB SCH ×3 (10:23→14:22)
--- NOTE | 2018-12-12 10:36 | CT ---
Date of service: 12/12/2018 PROCEDURE: CT HEAD WITHOUT CONTRAST. HISTORY: overdose COMPARISON: Unenhanced head CT 04/06/2008. TECHNIQUE: Axial computed tomography images were obtained through the head/brain without intravenous contrast. Radiation dose: Total exam DLP = 976.96 mGy-cm. This CT exam was performed using one or more of the following dose reduction techniques: Automated exposure control, adjustment of the mA and/or kV according to patient size, and/or use of iterative reconstruction technique. FINDINGS: HEMORRHAGE: No intracranial hemorrhage. BRAIN: Normal dent-white matter differentiation and density are appreciated throughout the cerebrum and cerebellum with the brainstem appearing unremarkable as well. There is no mass effect. There is no suspicious extra-axial fluid collection and the midline brain anatomy appears diffusely unremarkable. VENTRICLES: Unremarkable. No hydrocephalus. CALVARIUM: No destructive bony lesion or displaced fracture identified including through the skullbase. PARANASAL SINUSES: Unremarkable as visualized. No significant inflammatory changes. MASTOID AIR CELLS: Unremarkable as visualized. No inflammatory changes. OTHER FINDINGS: None. IMPRESSION: Stable, unremarkable unenhanced head CT. No acute intracranial findings or fracture identified. Concordant preliminary report from [facility], 12/12/2018, 1:19 a.m..
[2018-12-12] MEDS: Enoxaparin 40 mg Syringe SC SCH (11:15)
--- NOTE | 2018-12-12 13:36 | CARD ---
APPROVED REPORT Date of service: 12/11/2018 EKG Measurement Heart [id number] <Conclusion> Normal sinus rhythm Possible Left atrial enlargement T wave abnormality, consider anterolateral ischemia Abnormal ECG
[2018-12-12 14:34] LABS: BLOOD UREA NITROGEN 13 mg/dl (7-17); CALCIUM 8.1 mg/dL (8.4-10.2); GFR NON-AFRICAN AMERICAN > 60
--- NOTE | 2018-12-12 20:22 | CARD ---
APPROVED REPORT Date of service: 12/12/2018 EKG Measurement Heart [id number] <Conclusion> Normal sinus rhythm Prolonged QT Abnormal ECG
--- NOTE | 2018-12-12 20:36 | CARD ---
APPROVED REPORT Date of service: 12/12/2018 EKG Measurement Heart [id number] <Conclusion> Sinus bradycardia with premature atrial complexes Nonspecific ST and T wave abnormality Prolonged QT Abnormal ECG
[2018-12-13] MEDS: Clindamycin 600mg/50ml D5W 600 MG/50 ML VIAL IVPB SCH ×3 (00:03→16:25)
[2018-12-13] MEDS: Piperacillin/Tazobact 3.375 GM in Sodium Chloride 0.9% 100 ML IVPB SCH ×4 (03:17→21:39)
[2018-12-13 05:05] LABS: ABG ALLEN TEST YES; ARTERIAL BLOOD GAS HCO3 24.4 mmol/L (21-28); ARTERIAL BLOOD GAS HEMOGLOBIN 12.7 g/dL (11.7-17.4); ARTERIAL BLOOD GAS O2 CAPACITY 17.5 mL/dL (16-24); ARTERIAL BLOOD GAS O2 CONTENT 17.4 ML/dL (15-23); ARTERIAL BLOOD GAS O2 SAT 99.4 % (95-98); ARTERIAL BLOOD GAS PCO2 36 mm/Hg (35-45); ARTERIAL BLOOD GAS PH 7.42 (7.35-7.45); ARTERIAL BLOOD GAS PO2 121 mm/Hg (80-100); ARTERIAL BLOOD GAS TCO2 24.5 mmol/L (22-28)
[2018-12-13 05:17] LABS: HEMOGLOBIN 12.6 g/dL (12.0-16.0); MEAN CELL VOLUME 90.3 fl (81.0-99.0); MEAN CORPUSCULAR HEMOGLOBIN 30.4 pg (27.0-31.0); MEAN CORPUSCULAR HGB CONC 33.7 g/dL (33.0-37.0); RBC 4.15 Mil/uL (3.80-5.20); RED CELL DISTRIBUTION WIDTH 13.4 % (11.5-14.5); WHITE BLOOD COUNT 15.1 K/uL (4.8-10.8)
[2018-12-13 05:26] LABS: BLOOD UREA NITROGEN 12 mg/dl (7-17); CALCIUM 8.6 mg/dL (8.4-10.2); GFR NON-AFRICAN AMERICAN > 60
[2018-12-13] MEDS: Lactated Ringer's 1,000 ML IV SCH ×3 (05:56→17:27)
--- NOTE | 2018-12-13 06:43 | CON ---
DATE: 12/12/2018 ENDOCRINOLOGY CONSULTATION LOCATION: Room 435, ICU. HISTORY OF PRESENT ILLNESS: This is a 58-year-old female with known history of hypothyroidism and has been euthyroid, on levothyroxine replacement therapy and was actually found unresponsive by her son following an apparent drug overdose and is now here in the ICU unresponsive and intubated and is being referred now also for endocrine evaluation and management. PAST MEDICAL HISTORY: As mentioned above, history of generalized anxiety and depression, on multiple psychotropic medications, history of lumbar disc disease with chronic lower back pain and supervening fibromyalgia; history of hypothyroidism, on levothyroxine replacement therapy at 75 mcg daily; history of chronic migraine headaches and had previous treatment with Botox as given; history of cervicalgia with underlying cervical disk disease as noted. FAMILY HISTORY: Positive for hypertension and heart disease. SOCIAL HISTORY: The patient has a supportive family. She is a current active and heavy smoker. No known illicit drug use. REVIEW OF SYSTEMS: Not possible at this time but the chart has been reviewed in detail and the primary physician has discussed the details of the history accordingly. PHYSICAL EXAMINATION: GENERAL: This is an average-built female, currently intubated and unresponsive. VITAL SIGNS: Blood pressure of 80/60, pulse of 100 beats per minute and regular, temperature 99, respirations 20. Height is 5 feet 5 inches, weight is 147 pounds. HEENT: Head: Normocephalic. Eyes: Anicteric with pink conjunctivae. Funduscopy not possible at this time. Ears, nose and throat otherwise normal. NECK: Supple. Thyroid gland is normal in size. No carotid bruits or any cervical adenopathy. CARDIOPULMONARY: Some adynamic precordium. S1, S2, is rapid and regular. LUNGS: Show scattered rhonchi. ABDOMEN: Flat, soft with positive bowel sounds. EXTREMITIES: No peripheral edema. Pulses are +2 bilaterally. LABORATORY DATA: Her WBCs 12.2, hemoglobin of 13, hematocrit of 39, MCV 90, platelets is 258. Her chemistry showed a BUN of 15, sodium 135, potassium 3.8, chloride 104, CO2 of 23, glucose 164, and creatinine 0.7. Her CK is 385. Her TSH is 0.23 and subsequent creatinine kinase is 1587. Calcium is 8.1. Hemoglobin A1c is 5.8. ASSESSMENT: This is a 58-year-old female with an apparent drug overdose of multiple medications to include her psychotropic medications, narcotic analgesics, and anxiolytics as noted with severe underlying major depressive disorder with a previous suicidal gesture some years ago. She remains endotracheally intubated and unresponsive at this time with intravenous pressors and vigorous intravenous hydration as given and ongoing at this time. She has remained clinically and biochemically euthyroid on levothyroxine replacement therapy, but at this time, her suppressed thyroid stimulating hormone is expected with acute physical stressors as noted, and superimposed acute sick euthyroid syndrome. PLAN OF MANAGEMENT: We will concur with the present medical management as given and ordered, and we will obtain serial thyroid studies and observe her fluctuating thyroid values accordingly, and we will adjust her levothyroxine as indicated. We will obtain serial chemistries and supplement accordingly as needed. We will, at this time, actually hold the levothyroxine resumption because we are not sure if this was also one of the medications that she overdose on. We will obtain serial thyroid studies accordingly. We will follow. Ashlee Monk MD
[2018-12-13] MEDS: Enoxaparin 40 mg Syringe SC SCH (08:21)
--- NOTE | 2018-12-13 09:00 | CP.CCUPN ---
CCU Subjective - Physician Review Subjective (Free Text): Awake and following commands, becoming agitated, on bilat soft wrist restraints to prevent self extubation and maintain patient safety. Tolerating CPAP 5, PS 10, 40%. Narcan drip stopped after approx. 8 hr infusion. Afebrile, SBP 130s, HR 100, RR 17 when on AC 14 mode, SPO2 100% on 40% oxygen. ROS: No other pertinent negs or positives on 10+ system review: unobtainable due to obtundation. PMSFH: All other Nursing and physician documentation reviewed to date; no new pertinent info noted relevant to current medical problems. EXAM- HEENT: no icterus, no gaze preference, pupils 3 mm equal and reactive NECK: no JVD visible, supple, carotids equal upstroke bilat/no bruit CHEST: decreased BS at the bases, no wheezes audible HEART: irregular, distant, josie S1S2, no rubs ABD: soft, no distension, no focal tenderness, no tympany, no guarding, no organomegaly, BS hypoactive. EXT: trace LE edema, no mottling; no calf tenderness or palpable cords, distal pulses intact and symmetrical NEURO: no tone. SKIN: no rashes, warm and dry. LABS: WBC= 15.1 HGB= 12.6 PLTs= 216K 7.42/36/121 Na= 136 K= 4.1 CL= 108 HCO3= 24 BUN/Cr= 12/0.7 BS= 110 CPK 1587 CXR: (my interp): ETT position OK above adria, slight increase in bilat interstitial marking, no gross consolidation. IMPRESSION / MAJOR PROBLEMS NOW: 1. Obtundation 2 Multiple Medication OD including antipsychotics, opioids, and BZDPs ( amounts unknown) 2. Acute Resp Insuff 2 #1 and Aspiration pneumonia 3. Hypothermia 4. h/o Suicide Attempts 5. h/o Chronic Back pain Syndrome, H/o Depression PLAN: 1. Good tolerance to CPAP PS trial, may be extubated today, then 1:1 supervision, pending Psychiatric eval. 2. Body temps improved, off warming blankets. 3. Repeat EKGs show normal QT intervals. 4. Maintain IVF hydration, follow serial CPK levels.
[2018-12-13] MEDS: Acetaminophen 650mg/20.3ml solution UD PO PRN ×2 (13:24→23:14)
--- NOTE | 2018-12-13 13:51 | PN ---
DATE: 12/13/2018 LOCATION: Room 435, ICU SUBJECTIVE: This is a 58-year-old female with known history of hypothyroidism related to autoimmune thyroiditis, has presented here with an acute drug overdose of multiple medications and was found unresponsive by her son at home and subsequently intubated and sedated here in the hospital at this time and is being followed closely in the ICU for hemodynamic monitoring. She has become more awake and agitated this morning as noted, but remains intubated and tolerating the CPAP device as given. She remains clinically and biochemically euthyroid at this time. Her chemistry showed a BUN of 12, sodium 136, potassium 4.1, chloride 108, CO2 24, glucose 110 and creatinine 0.7. Her serum cortisol level is 47.2. Her TSH is 0.23 done yesterday and we are awaiting the reports of the thyroid indices done today as noted. ASSESSMENT This is a 58-year-old female with a suicidal gesture and drug overdose of multiple psychotropic and analgesic medications, presenting here unresponsive with concomitant acute aspiration pneumonitis as noted. She remains clinically euthyroid with biochemical evidence of TSH suppression which most likely could be related to the so-called acute sick euthyroid syndrome, but the strong possibility also of concomitant drug overdose from the levothyroxine medications is yet to be ascertained and clarified and this would also contribute to the TSH suppression thereof. PLAN OF MANAGEMENT: We will continue to hold off the resumption of the levothyroxine medications at this time and observe serial thyroid studies and determine the need to restart it accordingly. Serial chemistries will be obtained and will supplement accordingly needed. We will continue the present medical management and close hemodynamic monitoring in the ICU as given. We will follow. Ashlee Monk MD
--- NOTE | 2018-12-13 14:35 | RAD ---
Date of service: 12/13/2018 HISTORY: intubated COMPARISON: No prior. TECHNIQUE: 1 view obtained. FINDINGS: In situ ETT, tip of which lies approximately 3.9 cm above adria. NGT is present, the tip of which has not been included on this film though distal aspect does lie well below EG junction. Right IJ central line with tip in the SVC/RA junction unchanged. LUNGS: Poor inspiration with low lung volumes common crowded bronchovascular markings and mild bibasilar atelectasis. PLEURA: No significant pleural effusion identified, no pneumothorax apparent. CARDIOVASCULAR: No aortic atherosclerotic calcification present. Normal cardiac size. No pulmonary vascular congestion. OSSEOUS STRUCTURES: No significant abnormalities. VISUALIZED UPPER ABDOMEN: Normal. OTHER FINDINGS: None. IMPRESSION: Support lines and tubes as above. Poor inspiration with low lung volumes common crowded bronchovascular markings and mild bibasilar atelectasis.
--- NOTE | 2018-12-13 18:31 | CP.PCM.PN ---
Subjective - Date & Time of Evaluation Date of Evaluation: 12/13/18 Time of Evaluation: 18:20 - Subjective Subjective: As per Dr. Anaya's note, patient's respiratory status and mentation improved to the point where she could be extubated successfully. Patient is still quite "spaced out" and could not give a detailed account of what (she said "sleeping pills") or how many pills she took. She acknowledged that she has been upset about the condition of her grandchild (rashes, dirty diapers when comes for visitation). She also indicated marital problems. At this time I will focus on treating her physical condition and request psychiatric consultation to both explore the marital/grandchild situation and to revisit ECT (which had been recimmended by her previous [place] psychiatrist.) Earlier she complained to her daughter of being in pain and she was somewhat agitated. So, she received methadone 10mg for pain relief and xanax 0.5mg for anxiety. We are planning small tapering doses of methadone reduce any opioid withdrawal symptoms and small doses of xanax to treat anxiety and reduce the risk of seizures due to abrupt benzodiazepine withdrawal. I indicated to the patient that under the present circumstances we can no longer prescribe oxycodone and that we will be calling upon pain management to help her. She has been taking clear liquids in small amounts but without difficulty. Objective - Vital Signs/Intake and Output Vital Signs (last 24 hours): Temp Pulse Resp BP Pulse Ox 99.1 F 99 H 31 H 112/68 100 12/13/18 16:00 12/13/18 18:00 12/13/18 18:00 12/13/18 18:00 12/13/18 18:00 Intake and Output: 12/13/18 12/13/18 06:59 18:59 Intake Total 1350 2540 Output Total 950 5550 Balance 400 -3010 - Medications Medications: Current Medications Acetaminophen (Tylenol 650mg/20.3ml Solution Ud) 650 mg PO Q6 PRN PRN Reason: Headache Last Admin: 12/13/18 13:24 Dose: 650 mg Enoxaparin Sodium (Lovenox) 40 mg SC DAILY [facility]; Protocol Last Admin: 12/13/18 08:21 Dose: 40 mg Famotidine (Pepcid) 40 mg PO DAILY [facility] Piperacillin Sod/Tazobactam (Sod 3.375 gm/ Sodium Chloride) 100 mls @ 100 mls/hr IVPB Q6 [facility]; Protocol Last Admin: 12/13/18 16:26 Dose: 100 mls/hr Clindamycin Phosphate (Cleocin 600mg/50ml D5w) 600 mg in 50 mls @ 50 mls/hr IVPB Q8 [facility]; Protocol Last Admin: 12/13/18 16:25 Dose: 50 mls/hr Lactated Ringer's (Lactated Ringer's) 1,000 mls @ 100 mls/hr IV .Q10H [facility] Last Admin: 12/13/18 17:27 Dose: 100 mls/hr Methadone HCl (Methadone) 10 mg PO DAILY PRN PRN Reason: Pain, severe (8-10) Last Admin: 12/13/18 14:27 Dose: 10 mg Nicotine (Nicoderm Cq) 1 patch TD DAILY [facility] Last Admin: 12/13/18 10:44 Dose: 1 patch Ondansetron HCl (Zofran Inj) 4 mg IVP Q6 PRN PRN Reason: Nausea/Vomiting - Labs Labs: 12/13/18 04:19 12/13/18 04:19 PT 11.7 Seconds (9.8-13.1) 12/11/18 23:50 INR 1.0 12/11/18 23:50 APTT 32.7 Seconds (25.6-37.1) 12/11/18 23:50 - Constitutional Appears: Confused - Head Exam Head Exam: ATRAUMATIC - Eye Exam Eye Exam: EOMI, Normal appearance, PERRL - ENT Exam ENT Exam: Mucous Membranes Moist - Neck Exam Additional comments: Supple. TLC in right carotid. No palpable thyhromegaly or masses or adenopathy. - Respiratory Exam Additional comments: Markedly decreased breath sounds at right base, somewhat decreased breath soun ds at left base. Increased secretions in large airways. - Cardiovascular Exam Cardiovascular Exam: REGULAR RHYTHM, +S1, +S2 - GI/Abdominal Exam GI & Abdominal Exam: Soft - Extremities Exam Additional comments: Trace edema, good pulses. - Back Exam Back Exam: NORMAL INSPECTION - Neurological Exam Neurological Exam: Altered Additional comments: No focal or lateralizing deficits, but sl. confused and drowsy. - Psychiatric Exam Psychiatric exam: Depressed, Flat Affect Additional comments: Patient does not comment on her overdose in terms of suicide attempt, but simply states that she tood "some sleeping pills." Assessment and Plan (1) Overdose of drug/medicinal substance Assessment & Plan: Patient is now off the ventilator and pressor support and is maintaining good oxygen levels and other vital signs. ECG is improved, with normal QTc. Status: Acute (2) Aspiration pneumonia due to inhalation of vomitus Assessment & Plan: To continue IV Clindamycin and IV Zosyn. Continue nasal oxygen. Advance diet to regular soft starting in the AM. Status: Acute (3) Major depression, chronic Assessment & Plan: Psychiatric consultation requested for long-term major depression. This is second suicide attempt (lst in 2006). Patient was on Cymbalta, Trazodone, gabapentin, and xanax. Poor response to many other anti-depressants in the past( See my H & P). Need to address issues that precipitated this overdose - marital problms, grandchild issues, fear of ECT (based on her mother's experiences). Status: Acute (4) Fibromyalgia affecting multiple sites Assessment & Plan: Pain management consult reqjuested. She had severe swelling of legs on Lyrica and cannot take NSAIDs due to gastritis. She had been on gabapentin previously, but it is not clear how helpful this was. Status: Acute (5) Mel's thyroiditis Assessment & Plan: Awaiting endocrine consult Dr. Monk Status: Acute (6) Parathyroid adenoma Assessment & Plan: Awaiting endocrine consult Dr. Monk. 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 Anaya. We will try to use methadone judiciously over the next 5-7 days for relief of pain and gradual taper off opioids. I have told patient she cannot receive oxycodone any more given the present situation. Status: Acute (9) Long-term current use of anxiolytic medication Assessment & Plan: I have ordered Xanax 0.25mg po bid (not prn, but it will be held for oversedation). We need to use this judiciously to prevent the seizures that can occur with abrupt benzodiazepine withdrawal. Status: Acute (10) Other specified dorsopathies, cervical region Status: Acute
[2018-12-14] MEDS: Clindamycin 600mg/50ml D5W 600 MG/50 ML VIAL IVPB SCH ×3 (00:07→16:59)
[2018-12-14] MEDS: Piperacillin/Tazobact 3.375 GM in Sodium Chloride 0.9% 100 ML IVPB SCH ×4 (03:05→21:01)
[2018-12-14] MEDS: Lactated Ringer's 1,000 ML IV SCH ×2 (03:30→22:17)
[2018-12-14 05:24] LABS: BASO % 0.3 % (0.0-2.0); EOS % 0.4 % (0.0-4.0); HEMOGLOBIN 10.8 g/dL (12.0-16.0); LYMPH # 1.2 K/uL (1.0-4.3); LYMPH % 10.2 % (20.0-40.0); MEAN CELL VOLUME 89.9 fl (81.0-99.0); MEAN CORPUSCULAR HEMOGLOBIN 30.2 pg (27.0-31.0); MEAN CORPUSCULAR HGB CONC 33.6 g/dL (33.0-37.0); MEAN PLATELET VOLUME 8.2 fl (7.2-11.7); MONO # 0.6 K/uL (0.0-0.8); MONO % 4.6 % (0.0-10.0); NEUT # 10.3 K/uL (1.8-7.0); NEUT % 84.5 % (50.0-75.0); RBC 3.58 Mil/uL (3.80-5.20); RED CELL DISTRIBUTION WIDTH 13.6 % (11.5-14.5); WHITE BLOOD COUNT 12.2 K/uL (4.8-10.8)
[2018-12-14 05:52] LABS: ALBUMIN 2.3 g/dL (3.5-5.0); ALT/SGPT 34 U/L (9-52); AST/SGOT 87 U/L (14-36); BLOOD UREA NITROGEN 14 mg/dl (7-17); CALCIUM 8.3 mg/dL (8.4-10.2); GFR NON-AFRICAN AMERICAN > 60
[2018-12-14] MEDS ORDERED: Potassium Chloride 20 mEq ER Tab PO STA (06:40)
[2018-12-14] MEDS: Enoxaparin 40 mg Syringe SC SCH (08:50)
[2018-12-14] MEDS ORDERED: Potassium Chloride 20 mEq ER Tab PO ONE (09:00)
[2018-12-14] MEDS ORDERED: Magnesium Sulfate 1 gm in D5W 1 GM/100 ML BAG IVPB ONE (09:18)
[2018-12-14] MEDS ORDERED: Potassium Phosphate 30 MMOLE in Dextrose 5% In Water 250 ML IV ONE (09:18)
--- NOTE | 2018-12-14 09:18 | CP.CCUPN ---
CCU Subjective - Physician Review Subjective (Free Text): Awake and following commands, flat affect, not too talkative, no obvious distress. Afebrile, SBP 110s, HR 80s, RR 17, SPO2 96% on NC oxygen. ROS: No other pertinent negs or positives on 10+ system review: unobtainable due to obtundation. PMSFH: All other Nursing and physician documentation reviewed to date; no new pertinent info noted relevant to current medical problems. EXAM- HEENT: no icterus, no gaze preference, pupils 3 mm equal and reactive NECK: no JVD visible, supple, carotids equal upstroke bilat/no bruit CHEST: decreased BS at the bases, no wheezes audible HEART: irregular, distant, josie S1S2, no rubs ABD: soft, no distension, no focal tenderness, no tympany, no guarding, no organomegaly, BS hypoactive. EXT: trace LE edema, no mottling; no calf tenderness or palpable cords, distal pulses intact and symmetrical NEURO: no tone. SKIN: no rashes, warm and dry. LABS: WBC= 12.2 HGB= 10.8 PLTs= 195K Na= 141 K= 3.2 CL= 111 HCO3= 28 BUN/Cr= 14/0.7 BS= 80 CPK = 943 Phos= 1.8 Mag= 1.9 IMPRESSION / MAJOR PROBLEMS NOW: 1. Obtundation 2 Multiple Medication OD including antipsychotics, opioids, and BZDPs ( amounts unknown) 2. Acute Resp Insuff 2 #1 and Aspiration pneumonia 3. Hypothermia 4. h/o Suicide Attempts 5. h/o Chronic Back pain Syndrome, H/o Depression PLAN: 1. Psychiatric eval ordered, will place patient under 1:1 supervision pending eval. 2. Methadone started yesterday in order to avoid resuming her usual narcotic analgesics for chronic LBP. Low dose Xanax prn to avoid BZDP withdrawal. 3. Empiric abx coverage day # 3 4. Continue IVF hydration, replete Phos, supplement Magnesium. 5. Mobilize OOB, advance diet, discontinue Donovan; stable for tele bed.
--- NOTE | 2018-12-14 09:54 | CP.PCM.PN ---
Subjective - Date & Time of Evaluation Date of Evaluation: 12/14/18 Time of Evaluation: 09:51 - Subjective Subjective: Patient remains slightly obtunded - little spontaneous verbalization, very soft voice sl dysarthric. Respiratioins remain rapid (31/min) but with oxygen sat of 96 % on 3L/min nasal cannula. Pulse rapid. I note that wastewater process engineer added Toradol to medication regimen. We must be cautious because patient has a hx of NSAID intolerance due to gastritis, and she is on Lovenox. Awaiting psychiatry and pain management consults. Objective - Vital Signs/Intake and Output Vital Signs (last 24 hours): Temp Pulse Resp BP Pulse Ox 98.0 F 78 29 H 112/58 L 91 L 12/14/18 08:00 12/14/18 08:00 12/14/18 08:00 12/14/18 08:00 12/14/18 08:00 Intake and Output: 12/14/18 12/14/18 06:59 18:59 Intake Total 1470 Output Total 380 Balance 1090 - Medications Medications: Current Medications Acetaminophen (Tylenol 325mg Tab) 650 mg PO Q4 PRN PRN Reason: Headache Last Admin: 12/14/18 05:13 Dose: 650 mg Alprazolam (Xanax) 0.25 mg PO Q12 [facility] Stop: 12/20/18 21:01 Last Admin: 12/14/18 08:52 Dose: 0.25 mg Enoxaparin Sodium (Lovenox) 40 mg SC DAILY [facility]; Protocol Last Admin: 12/14/18 08:50 Dose: 40 mg Famotidine (Pepcid) 40 mg PO DAILY [facility] Last Admin: 12/14/18 08:51 Dose: 40 mg Piperacillin Sod/Tazobactam (Sod 3.375 gm/ Sodium Chloride) 100 mls @ 100 mls /hr IVPB Q6 [facility]; Protocol Last Admin: 12/14/18 03:05 Dose: 100 mls/hr Clindamycin Phosphate (Cleocin 600mg/50ml D5w) 600 mg in 50 mls @ 50 mls/hr IVPB Q8 [facility]; Protocol Last Admin: 12/14/18 08:48 Dose: 50 mls/hr Lactated Ringer's (Lactated Ringer's) 1,000 mls @ 100 mls/hr IV .Q10H [facility] Last Admin: 12/14/18 03:30 Dose: 100 mls/hr Magnesium Sulfate/Dextrose (Magnesium Sulfate 1 Gm/100 Ml D5w) 1 gm in 100 mls @ 100 mls/hr IVPB ONCE ONE Stop: 12/14/18 10:17 Potassium Phosphate 30 mmole/ (Dextrose) 260 mls @ 84 mls/hr IV .Q3H6M ONE Stop: 12/14/18 12:23 Ketorolac Tromethamine (Toradol) 15 mg IVP Q6 PRN PRN Reason: Pain, moderate (4-7) Last Admin: 12/13/18 20:33 Dose: 15 mg Ketorolac Tromethamine (Toradol) 30 mg IVP Q6 PRN PRN Reason: Pain, severe (8-10) Methadone HCl (Methadone) 10 mg PO DAILY PRN PRN Reason: Pain, severe (8-10) Last Admin: 12/13/18 14:27 Dose: 10 mg Nicotine (Nicoderm Cq) 1 patch TD DAILY [facility] Last Admin: 12/14/18 08:50 Dose: 1 patch Ondansetron HCl (Zofran Inj) 4 mg IVP Q6 PRN PRN Reason: Nausea/Vomiting Last Admin: 12/14/18 00:28 Dose: 4 mg - Labs Labs: 12/14/18 04:10 12/14/18 04:10 PT 11.7 Seconds (9.8-13.1) 12/11/18 23:50 INR 1.0 12/11/18 23:50 APTT 32.7 Seconds (25.6-37.1) 12/11/18 23:50 - Constitutional Appears: Other (Slightly obtunded, but a bit improved since yesterday. Little spontaneous speech.) - Head Exam Head Exam: NORMAL INSPECTION - ENT Exam ENT Exam: Mucous Membranes Moist - Neck Exam Additional comments: As before TLC right carotid. Otherwise negative. - Respiratory Exam Additional comments: Rapid rate (31/min) Dullness and almost absent breath sounds right base. L lung clear. Increased secretions in all large airways. - Cardiovascular Exam Cardiovascular Exam: Tachycardia, REGULAR RHYTHM, +S1, +S2 - GI/Abdominal Exam GI & Abdominal Exam: Soft - Extremities Exam Additional comments: Edema right hand. Trace pedal edema. - Back Exam Back Exam: NORMAL INSPECTION - Neurological Exam Additional comments: SEE PSYCHIATRIC EVALUATION. No focal or lateralizing signs. Altered mental state. Assessment and Plan (1) Overdose of drug/medicinal substance Assessment & Plan: See H & P and my note of 12/13 for details. Discussed with Dr. Chavez, psychiatrist who will follow patient and arrange psychiatric admission once medically stable. Status: Acute (2) Aspiration pneumonia due to inhalation of vomitus Assessment & Plan: Still with severe aspiration pneumonia right lung. To continue present tx. Status: Acute (3) Major depression, chronic Assessment & Plan: See above. Status: Acute (4) Fibromyalgia affecting multiple sites Assessment & Plan: Electronics Hardware Design Engineer ordered Toradol. Since this is an NSAID we must observe closely for adverse effects. SEE SUBJECTIVE ABOVE. Status: Acute (5) Mel's thyroiditis Assessment & Plan: AWAITING ENDOCRINE CONSULT - We should probably resume levothyroxine tomorrow. Status: Acute (6) Parathyroid adenoma Status: Acute (7) GERD (gastroesophageal reflux disease) Assessment & Plan: Continue Pepcid 40mg daily . 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 Mello. Status: Acute (9) Long-term current use of anxiolytic medication Assessment & Plan: Continue Xanax 0.25mg bid to avoid abrupt benzodiazepine withdrawal. Status: Acute (10) Other specified dorsopathies, cervical region Status: Acute
--- NOTE | 2018-12-14 14:45 | CP.PCM.CON ---
History of Present Illness - History of Present Illness History of Present Illness: PT IS A 58 year old female with previous diagnosis of major depression and at least one previous suicide attempt in 2006 was brought to ER after a suicidal attempt by overdose pt was found in her bed unresponsive last evening. A recently filled bottle of 90 Trazodone tablets could not be found. She also had some small number of oxycodone and xanax tablets pt reported that she has been lately more depressed because her son from the mother of his child and patient had only limited time with her grandchild. pt also has been having conflicts with her who as per pt has been increasingly mean to her on day of admission pt reported that she felt hopeless about her situation and wanted to end her life on evaluation pt is alert and awake, partial eye contact, speech is soft and slow mood depressed affect tearfull, thought form coherent continues to report passive suicidal ideation , denied perceptual disturbances Past Patient History - Past Medical History & Family History Past Medical History?: Yes - Past Social History Smoking Status: Heavy Smoker > 10 Cigarettes Daily Chewing Tobacco Use: No Cigar Use: No Alcohol: None Drugs: Denies, Prescription medications Home Situation {Lives}: With Family - CARDIAC Hx Cardiac Disorders: No - PULMONARY Hx Respiratory Disorders: No - NEUROLOGICAL Hx Neurological Disorder: Yes (Fibromyalgia) Hx Migraine: Yes (Had received Botox injections in the past with relief.) - HEENT Hx HEENT Problems: No - RENAL Hx Chronic Kidney Disease: No - ENDOCRINE/METABOLIC Hx Endocrine Disorders: Yes - HEMATOLOGICAL/ONCOLOGICAL Hx Blood Disorders: No - INTEGUMENTARY Hx Dermatological Problems: No - MUSCULOSKELETAL/RHEUMATOLOGICAL Hx Musculoskeletal Disorders: Yes Hx Back Pain: Yes Hx Herniated Disk: Yes (Cervical spine) - GASTROINTESTINAL Hx Gastrointestinal Disorders: No Hx Gastroesophageal Reflux: Yes - GENITOURINARY/GYNECOLOGICAL Hx Genitourinary Disorders: No - PSYCHIATRIC Hx Psychophysiologic Disorder: Yes Hx Anxiety: Yes Hx Depression: Yes - SURGICAL HISTORY Hx Cholecystectomy: Yes Hx Hysterectomy: Yes ([facility] and BSO 2012) - ANESTHESIA Hx Anesthesia: Yes Hx Anesthesia Reactions: No Meds Allergies/Adverse Reactions: Allergies Allergy/AdvReac Type Severity Reaction Status Date / Time hydromorphone [From Dilaudid] AdvReac HEADACHE Verified 12/11/18 23:24 Abilify AdvReac Severe agitation Uncoded 12/12/18 10:21 Lyrica AdvReac Severe SWELLING Uncoded 12/12/18 10:19 - Medications Medications: Current Medications Acetaminophen (Tylenol 325mg Tab) 650 mg PO Q4 PRN PRN Reason: Headache Last Admin: 12/14/18 11:54 Dose: 650 mg Alprazolam (Xanax) 0.25 mg PO Q12 [facility] Stop: 12/20/18 21:01 Last Admin: 12/14/18 08:52 Dose: 0.25 mg Clotrimazole (Lotrimin 1% Cream) 1 applic TOP BID [facility] Enoxaparin Sodium (Lovenox) 40 mg SC DAILY [facility]; Protocol Last Admin: 12/14/18 08:50 Dose: 40 mg Famotidine (Pepcid) 40 mg PO DAILY [facility] Last Admin: 12/14/18 08:51 Dose: 40 mg Piperacillin Sod/Tazobactam (Sod 3.375 gm/ Sodium Chloride) 100 mls @ 100 mls/hr IVPB Q6 [facility]; Protocol Last Admin: 12/14/18 10:00 Dose: 100 mls/hr Clindamycin Phosphate (Cleocin 600mg/50ml D5w) 600 mg in 50 mls @ 50 mls/hr IVPB Q8 [facility]; Protocol Last Admin: 12/14/18 08:48 Dose: 50 mls/hr Lactated Ringer's (Lactated Ringer's) 1,000 mls @ 100 mls/hr IV .Q10H [facility] Last Admin: 12/14/18 03:30 Dose: 100 mls/hr Ketorolac Tromethamine (Toradol) 15 mg IVP Q6 PRN PRN Reason: Pain, moderate (4-7) Last Admin: 12/13/18 20:33 Dose: 15 mg Ketorolac Tromethamine (Toradol) 30 mg IVP Q6 PRN PRN Reason: Pain, severe (8-10) Methadone HCl (Methadone) 10 mg PO DAILY PRN PRN Reason: Pain, severe (8-10) Last Admin: 12/13/18 14:27 Dose: 10 mg Nicotine (Nicoderm Cq) 1 patch TD DAILY [facility] Last Admin: 12/14/18 08:50 Dose: 1 patch Ondansetron HCl (Zofran Inj) 4 mg IVP Q6 PRN PRN Reason: Nausea/Vomiting Last Admin: 12/14/18 00:28 Dose: 4 mg Results - Vital Signs Recent Vital Signs: Last Vital Signs Temp 983 F H 12/14/18 12:00 Pulse 97 H 12/14/18 12:00 Resp 23 12/14/18 12:00 BP 116/49 L 12/14/18 12:00 Pulse Ox 965 H 12/14/18 12:00 - Labs Result Diagrams: 12/14/18 04:10 12/14/18 04:10 Labs: Laboratory Results - last 24 hr 12/14/18 12/14/18 12/14/18 04:10 04:10 04:10 WBC 12.2 H RBC 3.58 L Hgb 10.8 L Hct 32.2 L MCV 89.9 MCH 30.2 MCHC 33.6 RDW 13.6 Plt Count 195 MPV 8.2 Neut % (Auto) 84.5 H Lymph % (Auto) 10.2 L [place] % (Auto) 4.6 Eos % (Auto) 0.4 Baso % (Auto) 0.3 Neut # (Auto) 10.3 H Lymph # (Auto) 1.2 [place] # (Auto) 0.6 Eos # (Auto) 0.0 Baso # (Auto) 0.0 Sodium 141 Potassium 3.2 L Chloride 111 H Carbon Dioxide 28 Anion Gap 5 L BUN 14 Creatinine 0.7 Est GFR ( Amer) > 60 Est GFR (Non-Af Amer) > 60 Random Glucose 80 Lactic Acid Calcium 8.3 L Phosphorus 1.8 L Magnesium 1.9 Total Bilirubin 0.4 AST 87 H D ALT 34 Alkaline Phosphatase 75 Total Creatine Kinase 943 H Total Protein 4.8 L Albumin 2.3 L D Globulin 2.4 Albumin/Globulin Ratio 1.0 Free T4 1.47 12/14/18 04:15 WBC RBC Hgb Hct MCV MCH MCHC RDW Plt Count MPV Neut % (Auto) Lymph % (Auto) [place] % (Auto) Eos % (Auto) Baso % (Auto) Neut # (Auto) Lymph # (Auto) [place] # (Auto) Eos # (Auto) Baso # (Auto) Sodium Potassium Chloride Carbon Dioxide Anion Gap BUN Creatinine Est GFR ( Amer) Est GFR (Non-Af Amer) Random Glucose Lactic Acid 0.6 L Calcium Phosphorus Magnesium Total Bilirubin AST ALT Alkaline Phosphatase Total Creatine Kinase Total Protein Albumin Globulin Albumin/Globulin Ratio Free T4 Assessment & Plan - Assessment and Plan (Free Text) Assessment: major depression recurrent severe without psychotic features Plan: continue 1;1 observation as pt continues to be high risk of suicide upon medical clearance pt needs to be transferred to psychiatry for further stabilization pt could be restarted on cymbalta 40mg daily after normal qtc on ekg recommend to discontinue xananx and start ativan 0.5mg q12 prn
--- NOTE | 2018-12-14 20:25 | PN ---
DATE: 12/14/2018 ENDOCRINOLOGY FOLLOWUP NOTE LOCATION: ICU, room 435. SUBJECTIVE: This is a 58-year-old female presenting here with acute drug overdose and respiratory failure and subsequent intubation and has since then improved clinically and hemodynamically as noted thereof. She was extubated yesterday and has tolerated oxygen by nasal cannula as given. She remains more awake and responsive at this time. Her chemistries today showed a BUN of 14, sodium 141, potassium 3.2, chloride 111, CO2 28, glucose 80 and creatinine 0.7. Her thyroid levels initially showed a TSH of 0.23 and repeat thyroid studies done today are still pending at this time. Her free T4 is 1.47 as noted. ASSESSMENT: This is a 58-year-old female with known history of hypothyroidism and was previously clinically and biochemically euthyroid on low-dose levothyroxine replacement therapy and presented here with acute drug overdose of multiple medications with acute respiratory failure and has since then improved clinically and hemodynamically with subsequent extubation and has remained alert and responsive at this time. PLAN OF MANAGEMENT: We will hold off the resumption of levothyroxine replacement therapy as there was initial evidence of TSH suppression biochemically, which could have been either from the concomitant drug overdose including her levothyroxine medications with superimposed acute sick thyroid syndrome. We will await the reports of the repeat thyroid stimulating hormone and thyroxine levels accordingly and determine the need to restart her levothyroxine replacement therapy as indicated. We will obtain serial chemistries and supplement accordingly as needed. We will follow. Ashlee Monk MD
[2018-12-15] MEDS: Piperacillin/Tazobact 3.375 GM in Sodium Chloride 0.9% 100 ML IVPB SCH ×4 (04:20→22:00)
[2018-12-15 06:15] LABS: BASO # 0.1 K/uL (0.0-0.2); BASO % 0.4 % (0.0-2.0); EOS # 0.3 K/uL (0.0-0.7); EOS % 2.4 % (0.0-4.0); LYMPH # 1.3 K/uL (1.0-4.3); LYMPH % 8.9 % (20.0-40.0); MEAN CELL VOLUME 89.9 fl (81.0-99.0); MEAN CORPUSCULAR HEMOGLOBIN 29.8 pg (27.0-31.0); MEAN CORPUSCULAR HGB CONC 33.1 g/dL (33.0-37.0); MEAN PLATELET VOLUME 7.6 fl (7.2-11.7); MONO # 0.7 K/uL (0.0-0.8); MONO % 5.2 % (0.0-10.0); NEUT # 11.7 K/uL (1.8-7.0); NEUT % 83.1 % (50.0-75.0); PLATELET COUNT 213 K/uL (130-400); RED CELL DISTRIBUTION WIDTH 13.6 % (11.5-14.5); WHITE BLOOD COUNT 14.1 K/uL (4.8-10.8)
[2018-12-15 06:32] LABS: ALBUMIN 2.5 g/dL (3.5-5.0); ALT/SGPT 37 U/L (9-52); AST/SGOT 53 U/L (14-36); BLOOD UREA NITROGEN 11 mg/dl (7-17); CALCIUM 8.1 mg/dL (8.4-10.2); GFR NON-AFRICAN AMERICAN > 60
--- NOTE | 2018-12-15 07:47 | CP.PCM.CON ---
History of Present Illness - History of Present Illness History of Present Illness: Chart reviewed, case discussed with staff. Patient was admitted to ICU after suicide attempt by overdose and resultant aspiration PNA and is now referred for pain management. Patient appears comfortable in bed but overnight had complained of severe headache. She's been started on Methadone, which is ordered as a PRN order for now. At home, she takes Oxycodone 30mg, 3x daily. She's under the management of a neurologist for chronic migraine, and has gotten botox injections in the past. She does have neck pain as well, which radiates into her arms. She's too lethargic to provide a more detailed history this morning. Per chart, she has a diagnosis of fibromyalgia as well. There is documented allergy to Lyrica. Past Patient History - Past Medical History & Family History Past Medical History?: Yes - Past Social History Smoking Status: Heavy Smoker > 10 Cigarettes Daily Chewing Tobacco Use: No Cigar Use: No Alcohol: None Drugs: Denies, Prescription medications Home Situation {Lives}: With Family - CARDIAC Hx Cardiac Disorders: No - PULMONARY Hx Respiratory Disorders: No - NEUROLOGICAL Hx Neurological Disorder: Yes (Fibromyalgia) Hx Migraine: Yes (Had received Botox injections in the past with relief.) - HEENT Hx HEENT Problems: No - RENAL Hx Chronic Kidney Disease: No - ENDOCRINE/METABOLIC Hx Endocrine Disorders: Yes - HEMATOLOGICAL/ONCOLOGICAL Hx Blood Disorders: No - INTEGUMENTARY Hx Dermatological Problems: No - MUSCULOSKELETAL/RHEUMATOLOGICAL Hx Musculoskeletal Disorders: Yes Hx Back Pain: Yes Hx Herniated Disk: Yes (Cervical spine) - GASTROINTESTINAL Hx Gastrointestinal Disorders: No Hx Gastroesophageal Reflux: Yes - GENITOURINARY/GYNECOLOGICAL Hx Genitourinary Disorders: No - PSYCHIATRIC Hx Substance Use: No - SURGICAL HISTORY Hx Cholecystectomy: Yes Hx Hysterectomy: Yes ([facility] and BSO 2012) - ANESTHESIA Hx Anesthesia: Yes Hx Anesthesia Reactions: No Meds Allergies/Adverse Reactions: Allergies Allergy/AdvReac Type Severity Reaction Status Date / Time hydromorphone [From Dilaudid] AdvReac HEADACHE Verified 12/11/18 23:24 Abilify AdvReac Severe agitation Uncoded 12/12/18 10:21 Lyrica AdvReac Severe SWELLING Uncoded 12/12/18 10:19 - Medications Medications: Current Medications Acetaminophen (Tylenol 325mg Tab) 650 mg PO Q4 PRN PRN Reason: Temperature Last Admin: 12/14/18 17:05 Dose: 650 mg Clotrimazole (Lotrimin 1% Cream) 1 applic TOP BID [facility] Last Admin: 12/14/18 16:59 Dose: 1 applic Enoxaparin Sodium (Lovenox) 40 mg SC DAILY [facility]; Protocol Last Admin: 12/14/18 08:50 Dose: 40 mg Famotidine (Pepcid) 40 mg PO DAILY [facility] Last Admin: 12/14/18 08:51 Dose: 40 mg Piperacillin Sod/Tazobactam (Sod 3.375 gm/ Sodium Chloride) 100 mls @ 100 mls/hr IVPB Q6 [facility]; Protocol Last Admin: 12/15/18 04:20 Dose: 100 mls/hr Lactated Ringer's (Lactated Ringer's) 1,000 mls @ 100 mls/hr IV .Q10H [facility] Last Admin: 12/14/18 22:17 Dose: 100 mls/hr Vancomycin HCl 1 gm/ Sodium (Chloride) 250 mls @ 166.667 mls/hr IVPB DAILY [facility]; Protocol Last Admin: 12/14/18 18:50 Dose: 166.667 mls/hr Ketorolac Tromethamine (Toradol) 15 mg IVP Q6 PRN PRN Reason: Pain, moderate (4-7) Last Admin: 12/13/18 20:33 Dose: 15 mg Ketorolac Tromethamine (Toradol) 30 mg IVP Q6 PRN PRN Reason: Pain, severe (8-10) Last Admin: 12/14/18 18:30 Dose: 30 mg Lorazepam (Ativan) 0.5 mg PO Q12 PRN PRN Reason: Anxiety Methadone HCl (Methadone) 10 mg PO DAILY PRN PRN Reason: Pain, severe (8-10) Last Admin: 12/14/18 21:03 Dose: 10 mg Nicotine (Nicoderm Cq) 1 patch TD DAILY [facility] Last Admin: 12/14/18 08:50 Dose: 1 patch Ondansetron HCl (Zofran Inj) 4 mg IVP Q6 PRN PRN Reason: Nausea/Vomiting Last Admin: 12/14/18 00:28 Dose: 4 mg Physical Exam - Constitutional Appears: Non-toxic, No Acute Distress - Head Exam Head Exam: NORMAL INSPECTION - Neck Exam Neck exam: Positive for: Full Rom, Normal Inspection, Tenderness Results - Vital Signs Recent Vital Signs: Last Vital Signs Temp 98.7 F 12/15/18 04:00 Pulse 90 12/15/18 06:00 Resp 26 H 12/15/18 06:00 BP 130/70 12/15/18 06:00 Pulse Ox 97 12/15/18 06:00 - Labs Result Diagrams: 12/15/18 06:10 12/15/18 06:10 Labs: Laboratory Results - last 24 hr 12/15/18 12/15/18 12/15/18 06:10 06:10 06:10 WBC 14.1 H RBC 3.70 L Hgb 11.0 L Hct 33.2 L MCV 89.9 MCH 29.8 MCHC 33.1 RDW 13.6 Plt Count 213 MPV 7.6 Neut % (Auto) 83.1 H Lymph % (Auto) 8.9 L [place] % (Auto) 5.2 Eos % (Auto) 2.4 Baso % (Auto) 0.4 Neut # (Auto) 11.7 H Lymph # (Auto) 1.3 [place] # (Auto) 0.7 Eos # (Auto) 0.3 Baso # (Auto) 0.1 Sodium 139 Potassium 3.7 Chloride 109 H Carbon Dioxide 27 Anion Gap 7 L BUN 11 Creatinine 0.6 L Est GFR ( Amer) > 60 Est GFR (Non-Af Amer) > 60 Random Glucose 87 Calcium 8.1 L Phosphorus 2.8 Magnesium 1.9 Total Bilirubin 0.5 AST 53 H D ALT 37 Alkaline Phosphatase 78 Total Creatine Kinase 307 H Total Protein 5.0 L Albumin 2.5 L Globulin 2.5 Albumin/Globulin Ratio 1.0 Free T4 1.14 Thyroxine (T4) 6.16 TSH 3rd Generation 0.75 Assessment & Plan (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 Psych is onboard and recommends psych admission after she's medically cleared. Patient is not able to give a clear history of her chronic pain at the moment, but given the circumstances of her admission, outpatient opioid use is likely not advisable. Opioid use is also not indicated for fibromyalgia and migraine, but I will defer to treating neurologist and PMD for now. Methadone has been started, which I think is appropriate in the current setting in order to prevent withdrawal. Going forward, patient should see an icu specialist to be put on medications like Subuxone or Belbuca. - f/u psych rec's - change Methadone to 10mg daily for now, wouldn't recommend increasing further, as larger doses aren't likely to help her pain and will just make transitioning to another agonist/antagonist that much more difficult, will need a couple of more days before the full effect of Methadone is evident - maximize neuropathic medications, will defer to neurology/PMD since I do not know patient's medication history, though caution will need to be exercised since patient can overdose on these as well - patient needs to see an icu specialist after discharge Status: Acute
--- NOTE | 2018-12-15 08:01 | CP.CCUPN ---
CCU Subjective - Physician Review Events Since Last Encounter (Free Text): 12/15/18 17:16 The patient was Seen/interviewed and examined by me at the bedside during ICU round, Medical records reviewed and Management issues were discussed and formulated with the house staff. Events reviewed Patient is 68 years old female with past medical history of anxiety/depression, fibromyalgia, cervical disc disease and chronic back pain Who presents to the emergency room for evaluation of drug overdose According to the the patient with breathing erratically and vomited thing, he stated that she took oxycodone, Xanax, trazodone and Cymbalta but is unclear about how much she took Hospital course complicated by acute respiratory failure requiring mechanical ventilation for airway protection The patient was successfully extubated Currently being treated for aspiration pneumonia with IV via vancomycin and Zosyn She was evaluated this morning by the pain management consult On medication that she overdosed on currently on hold She is currently on inch on methadone plus as needed Xanax Patient doing slightly better today, she is alert and awake In no apparent distress at rest but she is dyspneic with minimal exertion CCU Objective - Vital Signs / Intake & Output Vital Signs (Last 4 hours): Vital Signs Pulse Resp BP Pulse Ox 12/15/18 06:00 90 26 H 130/70 97 Intake and Output (Last 8hrs): Intake & Output 12/14/18 12/15/18 12/15/18 22:59 06:59 14:59 Intake Total 1050 800 Balance 1050 800 Weight 160 lb Intake: IV 400 800 Intake, Piggyback 300 Oral 350 Other: # Voids Urethral (Donovan) 1 1 0 # Bowel Movements 1 - Physical Exam Physical Exam Limitations: Positive for: Clinical Condition Head: Positive for: Atraumatic, Normocephalic Pupils: Positive for: PERRL Extroacular Muscles: Positive for: EOMI Conjunctiva: Positive for: Normal Mouth: Positive for: Moist Mucous Membranes Neck: Positive for: Normal Range of Motion, Trachea Midline Respiratory/Chest: Positive for: Wheezes, Rales, Rhonchi. Negative for: Clear to Auscultation, Respiratory Distress, Accessory Muscle Use Cardiovascular: Positive for: Regular Rate and Rhythm, Normal S1, S2, Peripheal Pulses Present, Tachycardic. Negative for: Murmurs, Rub, Gallop Abdomen: Positive for: Normal Bowel Sounds. Negative for: Tenderness, Distention Psychiatric: Positive for: Alert, Oriented x 3, Normal Insight, Anxious - Medications Active Medications: Active Medications Generic Name Dose Route Start Last Admin Trade Name Freq PRN Reason Stop Dose Admin Acetaminophen 650 mg 12/14/18 17:00 12/14/18 17:05 Tylenol 325mg Tab PO 650 mg Q4 PRN Administration Temperature Clotrimazole 1 applic 12/14/18 14:24 12/14/18 16:59 Lotrimin 1% Cream TOP 1 applic BID [facility] Administration Enoxaparin Sodium 40 mg 12/12/18 09:00 12/14/18 08:50 Lovenox SC 40 mg DAILY [facility] Administration Protocol Famotidine 40 mg 12/14/18 09:00 12/14/18 08:51 Pepcid PO 40 mg DAILY [facility] Administration Piperacillin Sod/Tazobactam 100 mls @ 100 mls/hr 12/12/18 10:00 12/15/18 04:20 Sod 3.375 gm/ Sodium Chloride IVPB 100 mls/hr Q6 [facility]ICA[facility]A Administration Protocol Lactated Ringer's 1,000 mls @ 100 mls/hr 12/13/18 16:51 12/14/18 22:17 Lactated Ringer's IV 100 mls/hr .Q10H [facility] Administration Vancomycin HCl 1 gm/ Sodium 250 mls @ 166.667 mls/hr 12/14/18 17:01 12/14/18 18:50 Chloride IVPB 166.667 mls/hr DAILY [facility] Administration Protocol Ketorolac Tromethamine 15 mg 12/13/18 20:15 12/13/18 20:33 Toradol IVP 15 mg Q6 PRN Administration Pain, moderate (4-7) Ketorolac Tromethamine 30 mg 12/13/18 20:20 12/14/18 18:30 Toradol IVP 30 mg Q6 PRN Administration Pain, severe (8-10) Lorazepam 0.5 mg 12/14/18 14:53 Ativan PO Q12 PRN Anxiety Methadone HCl 10 mg 12/15/18 09:00 Methadone PO DAILY [facility] Nicotine 1 patch 12/13/18 10:00 12/14/18 08:50 Nicoderm Cq TD 1 patch DAILY [facility] Administration Ondansetron HCl 4 mg 12/12/18 07:38 12/14/18 00:28 Zofran Inj IVP 4 mg Q6 PRN Administration Nausea/Vomiting - Patient Studies Lab Studies: Microbiology Studies 12/11/18 00:15 Blood Culture - Preliminary Blood-Venous NO GROWTH AFTER 3 DAYS 12/11/18 23:50 Blood Culture - Preliminary Blood-Venous NO GROWTH AFTER 3 DAYS 12/12/18 14:00 Gram Stain - Final Sputum Sputum Culture - Final Staphylococcus Aureus Lab Studies 12/15/18 12/15/18 12/15/18 Range/Units 06:10 06:10 06:10 WBC 14.1 H (4.8-10.8) K/uL RBC 3.70 L (3.80-5.20) Mil/uL Hgb 11.0 L (12.0-16.0) g/dL Hct 33.2 L (34.0-47.0) % MCV 89.9 (81.0-99.0) fl MCH 29.8 (27.0-31.0) pg MCHC 33.1 (33.0-37.0) g/dL RDW 13.6 (11.5-14.5) % Plt Count 213 (130-400) K/uL MPV 7.6 (7.2-11.7) fl Neut % (Auto) 83.1 H (50.0-75.0) % Lymph % (Auto) 8.9 L (20.0-40.0) % [place] % (Auto) 5.2 (0.0-10.0) % Eos % (Auto) 2.4 (0.0-4.0) % Baso % (Auto) 0.4 (0.0-2.0) % Neut # (Auto) 11.7 H (1.8-7.0) K/uL Lymph # (Auto) 1.3 (1.0-4.3) K/uL [place] # (Auto) 0.7 (0.0-0.8) K/uL Eos # (Auto) 0.3 (0.0-0.7) K/uL Baso # (Auto) 0.1 (0.0-0.2) K/uL Sodium 139 (132-148) mmol/l Potassium 3.7 (3.6-5.0) MMOL/L Chloride 109 H (98-107) mmol/L Carbon Dioxide 27 (22-30) mmol/L Anion Gap 7 L (10-20) BUN 11 (7-17) mg/dl Creatinine 0.6 L (0.7-1.2) mg/dl Est GFR ( Amer) > 60 Est GFR (Non-Af Amer) > 60 Random Glucose 87 (65-105) mg/dL Calcium 8.1 L (8.4-10.2) mg/dL Phosphorus 2.8 (2.5-4.5) mg/dl Magnesium 1.9 (1.6-2.3) MG/DL Total Bilirubin 0.5 (0.2-1.3) mg/dl AST 53 H D (14-36) U/L ALT 37 (9-52) U/L Alkaline Phosphatase 78 (38-126) U/L Total Creatine Kinase 307 H (30-135) U/L Total Protein 5.0 L (6.3-8.2) G/DL Albumin 2.5 L (3.5-5.0) g/dL Globulin 2.5 (2.2-3.9) gm/dL Albumin/Globulin Ratio 1.0 (1.0-2.1) Free T4 1.14 (0.78-2.19) ng/dL Thyroxine (T4) 6.16 (5.5-11.0) ug/dl TSH 3rd Generation 0.75 (0.46-4.68) mIU/ML Laboratory Results - last 24 hr 12/15/18 12/15/18 12/15/18 06:10 06:10 06:10 WBC 14.1 H RBC 3.70 L Hgb 11.0 L Hct 33.2 L MCV 89.9 MCH 29.8 MCHC 33.1 RDW 13.6 Plt Count 213 MPV 7.6 Neut % (Auto) 83.1 H Lymph % (Auto) 8.9 L [place] % (Auto) 5.2 Eos % (Auto) 2.4 Baso % (Auto) 0.4 Neut # (Auto) 11.7 H Lymph # (Auto) 1.3 [place] # (Auto) 0.7 Eos # (Auto) 0.3 Baso # (Auto) 0.1 Sodium 139 Potassium 3.7 Chloride 109 H Carbon Dioxide 27 Anion Gap 7 L BUN 11 Creatinine 0.6 L Est GFR ( Amer) > 60 Est GFR (Non-Af Amer) > 60 Random Glucose 87 Calcium 8.1 L Phosphorus 2.8 Magnesium 1.9 Total Bilirubin 0.5 AST 53 H D ALT 37 Alkaline Phosphatase 78 Total Creatine Kinase 307 H Total Protein 5.0 L Albumin 2.5 L Globulin 2.5 Albumin/Globulin Ratio 1.0 Free T4 1.14 Thyroxine (T4) 6.16 TSH 3rd Generation 0.75 Fingerstick Blood Sugar Results: 171 Review of Systems - Constitutional Constitutional: absent: Fever, Chills - Cardiovascular Cardiovascular: absent: Chest Pain, Chest Pain at Rest, Chest Pain with Activity, Claudication, Diaphoresis - Respiratory Respiratory: Cough, Dyspnea, Dyspnea on Exertion, Wheezing. absent: Hemoptysis, Snoring, Stridor Critical Care Progress Note - Extremities/Vascular Does the Patient have a Central Venous Catheter?: No Does the Patient need a Central Venous Catheter?: No Does the Patient have a Donovan Catheter?: No Does the Patient need a Donovan Catheter?: No - Nutrition Nutrition: Nutrition Category Date Time Status Regular Diet [DIET] Diets 12/14/18 Breakfast Active Assessment/Plan (1) Aspiration pneumonia Current Visit: Yes Status: Acute Priority: High Comment: Continue current intravenous antibiotic Patient on broad-spectrum antibiotic with IV vancomycin and Zosyn Maintain aspiration precaution Supplemental oxygen to keep saturation above 92% Bronchodilator nebulizer treatment (2) Overdose of drug/medicinal substance Current Visit: Yes Status: Acute Priority: High Comment: Patient overdosed on oxycodone, Xanax, trazodone and Cymbalta Patient was evaluated by pain management consult Currently on methadone and the plan for quick taper As needed Ativan Methadone HCl (Methadone) 10 mg PO DAILY Lorazepam (Ativan) 0.5 mg PO Q12 PRN (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
[2018-12-15] MEDS: Enoxaparin 40 mg Syringe SC SCH (08:52)
--- NOTE | 2018-12-15 09:18 | CP.PCM.CON ---
History of Present Illness - History of Present Illness History of Present Illness: Asked to evaluate this 58 yesar old female who was admitted to ICU with altered mental status due to suspected drug overdose, was orally intubated and mechanically ventilated, treated with fluid resuscitation and antibiotics. Responded to therapy and was successfully extubated on the following day. There was vomiting and suspected aspiration pneumonia was entertained. Noted also was bilious fluid suctioned from the endotracheal tube during intubation. She is awake and cooperative with the exam and states that her cough is congested, but it is presently non-productive. Past Patient History - Past Medical History & Family History Past Medical History?: Yes - Past Social History Smoking Status: Heavy Smoker > 10 Cigarettes Daily Chewing Tobacco Use: No Cigar Use: No Alcohol: None Drugs: Denies, Prescription medications Home Situation {Lives}: With Family - CARDIAC Hx Cardiac Disorders: No - PULMONARY Hx Respiratory Disorders: No - NEUROLOGICAL Hx Neurological Disorder: Yes (Fibromyalgia) Hx Migraine: Yes (Had received Botox injections in the past with relief.) - HEENT Hx HEENT Problems: No - RENAL Hx Chronic Kidney Disease: No - ENDOCRINE/METABOLIC Hx Hypothyroidism: Yes - HEMATOLOGICAL/ONCOLOGICAL Hx Blood Disorders: No - INTEGUMENTARY Hx Dermatological Problems: No - MUSCULOSKELETAL/RHEUMATOLOGICAL Hx Back Pain: Yes Hx Herniated Disk: Yes (Cervical spine) - GASTROINTESTINAL Hx Gastroesophageal Reflux: Yes - GENITOURINARY/GYNECOLOGICAL Hx Genitourinary Disorders: No - PSYCHIATRIC Hx Depression: Yes Hx Substance Use: No - SURGICAL HISTORY Hx Cholecystectomy: Yes Hx Hysterectomy: Yes ([facility] and [facility]SO 2012) - ANESTHESIA Hx Anesthesia: Yes Hx Anesthesia Reactions: No Meds Allergies/Adverse Reactions: Allergies Allergy/AdvReac Type Severity Reaction Status Date / Time hydromorphone [From Dilaudid] AdvReac HEADACHE Verified 12/11/18 23:24 Abilify AdvReac Severe agitation Uncoded 12/12/18 10:21 Lyrica AdvReac Severe SWELLING Uncoded 12/12/18 10:19 - Medications Medications: Current Medications Acetaminophen (Tylenol 325mg Tab) 650 mg PO Q4 PRN PRN Reason: Temperature Last Admin: 12/14/18 17:05 Dose: 650 mg Clotrimazole (Lotrimin 1% Cream) 1 applic TOP BID [facility] Last Admin: 12/15/18 08:58 Dose: 1 applic Enoxaparin Sodium (Lovenox) 40 mg SC DAILY [facility]; Protocol Last Admin: 12/15/18 08:52 Dose: 40 mg Famotidine (Pepcid) 40 mg PO DAILY [facility] Last Admin: 12/15/18 08:52 Dose: 40 mg Piperacillin Sod/Tazobactam (Sod 3.375 gm/ Sodium Chloride) 100 mls @ 100 mls/hr IVPB Q6 [facility]; Protocol Last Admin: 12/15/18 04:20 Dose: 100 mls/hr Lactated Ringer's (Lactated Ringer's) 1,000 mls @ 100 mls/hr IV .Q10H [facility] Last Admin: 12/14/18 22:17 Dose: 100 mls/hr Vancomycin HCl 1 gm/ Sodium (Chloride) 250 mls @ 166.667 mls/hr IVPB DAILY [facility]; Protocol Last Admin: 12/15/18 08:47 Dose: 166.667 mls/hr Ketorolac Tromethamine (Toradol) 15 mg IVP Q6 PRN PRN Reason: Pain, moderate (4-7) Last Admin: 12/13/18 20:33 Dose: 15 mg Ketorolac Tromethamine (Toradol) 30 mg IVP Q6 PRN PRN Reason: Pain, severe (8-10) Last Admin: 12/14/18 18:30 Dose: 30 mg Lorazepam (Ativan) 0.5 mg PO Q12 PRN PRN Reason: Anxiety Methadone HCl (Methadone) 10 mg PO DAILY [facility] Last Admin: 12/15/18 08:50 Dose: 10 mg Nicotine (Nicoderm Cq) 1 patch TD DAILY [facility] Last Admin: 12/15/18 08:53 Dose: 1 patch Ondansetron HCl (Zofran Inj) 4 mg IVP Q6 PRN PRN Reason: Nausea/Vomiting Last Admin: 12/14/18 00:28 Dose: 4 mg Physical Exam - Additional Findings Additional findings: Well nourished, well developed female seated upright in bed. Awake and cooperative with the exam. Pharynx is injected, MM moist, no exudate. Conjunctivae pink and non-icteric. Neck supple and trachea midline, no carotid bruit, no JVD. No dullness on chest percussion anteriorly, dull in lower lobes posteriorly. Scattered rhonchi bilaterally with dry rales antrriorly on the left. Bronchial breath sounds/egophony present bilaterally in LLs. No audible wheezes appreciated. Heart sounds well heard, regular rhythm. No dependant edema, no cyanosis. Results - Vital Signs Recent Vital Signs: Last Vital Signs Temp 97.5 F L 12/15/18 08:00 Pulse 95 H 12/15/18 08:00 Resp 38 H 12/15/18 08:00 BP 153/75 H 12/15/18 08:00 Pulse Ox 96 12/15/18 08:00 - Labs Result Diagrams: 12/15/18 06:10 12/15/18 06:10 Labs: Laboratory Results - last 24 hr 12/11/18 12/15/18 12/15/18 23:18 06:10 06:10 WBC 14.1 H RBC 3.70 L Hgb 11.0 L Hct 33.2 L MCV 89.9 MCH 29.8 MCHC 33.1 RDW 13.6 Plt Count 213 MPV 7.6 Neut % (Auto) 83.1 H Lymph % (Auto) 8.9 L [place] % (Auto) 5.2 Eos % (Auto) 2.4 Baso % (Auto) 0.4 Neut # (Auto) 11.7 H Lymph # (Auto) 1.3 [place] # (Auto) 0.7 Eos # (Auto) 0.3 Baso # (Auto) 0.1 Sodium 139 Potassium 3.7 Chloride 109 H Carbon Dioxide 27 Anion Gap 7 L BUN 11 Creatinine 0.6 L Est GFR ( Amer) > 60 Est GFR (Non-Af Amer) > 60 POC Glucose (mg/dL) 157 H Random Glucose 87 Calcium 8.1 L Phosphorus 2.8 Magnesium 1.9 Total Bilirubin 0.5 AST 53 H D ALT 37 Alkaline Phosphatase 78 Total Creatine Kinase 307 H Total Protein 5.0 L Albumin 2.5 L Globulin 2.5 Albumin/Globulin Ratio 1.0 Free T4 Thyroxine (T4) 6.16 TSH 3rd Generation 0.75 12/15/18 06:10 WBC RBC Hgb Hct MCV MCH MCHC RDW Plt Count MPV Neut % (Auto) Lymph % (Auto) [place] % (Auto) Eos % (Auto) Baso % (Auto) Neut # (Auto) Lymph # (Auto) [place] # (Auto) Eos # (Auto) Baso # (Auto) Sodium Potassium Chloride Carbon Dioxide Anion Gap BUN Creatinine Est GFR ( Amer) Est GFR (Non-Af Amer) POC Glucose (mg/dL) Random Glucose Calcium Phosphorus Magnesium Total Bilirubin AST ALT Alkaline Phosphatase Total Creatine Kinase Total Protein Albumin Globulin Albumin/Globulin Ratio Free T4 1.14 Thyroxine (T4) TSH 3rd Generation Assessment & Plan (1) Aspiration pneumonia due to inhalation of vomitus Status: Suspected Priority: High Comment: Presently has adequate oxygenation, but remains tachypneic. Leukocytosis remains elevated at 14, renal function stable. May require more NPPV to avoid fatigue, watch closely for possible need for re-intubation. Initial sputum culture report is staph aureus (clinda resistant/vanco sensitive). Diffuse clinical and radiographic disease in both lungs. Will add low to moderate dose steroids. Consider ID consult if not further improved by the AM. - Date & Time Date: 12/15/18 Time: 09:18
--- NOTE | 2018-12-15 09:23 | CP.PCM.PN ---
Subjective - Date & Time of Evaluation Date of Evaluation: 12/15/18 Time of Evaluation: 09:12 - Subjective Subjective: Day # 3 post overdose of multiple meds for suicide attempt. Patient was found unresponsive, had massive aspiration of vomitus, was intubated and is now awake but remains somewhat "spaced out" with slow,quiet, dysarthric speech. Although on iv Clindamycin and Zosyn for right lung aspiration pneumonia, she continues to have dullness and decr breath sounds at right base and copious secretions in large airways. After sputum culture came back positive for Staph aureus, she was started on iv Vancomycin. I have asked Dr. Richardson to see her in pulmonary consultation. Chronic pain - fibromyalgia and cervical disc disease - I have informed her that oxycodone is no longer an option. She is now on methadone 10mg daily, and I will decrease to 5 mg starting tomorrow with a view to discontinuing all methadone in a few days. Patient was seen in pain management consultation by Dr. Mello. I told him that I did not believe she would be appropriate for Suboxone, but that I hope he will follow her here and that she will be able to follow-up in the pain management clinic after discharge. Last ecg on 12/12 still showed some QTc prolongation, so will get repeat ecg at his suggestion to see if we can restart Cymbalta at 40mg/d. Xanax was stopped and patent is now on Ativan 0.5mg q12h prn. (Hx of assisted benzodiazepine use) Hypothyroidism and parathyroid adenoma. Await re-evaluation by Dr. Monk. She should probably be restarted on levothyroxine at this time. Objective - Vital Signs/Intake and Output Vital Signs (last 24 hours): Temp Pulse Resp BP Pulse Ox 97.5 F L 95 H 38 H 153/75 H 96 12/15/18 08:00 12/15/18 08:00 12/15/18 08:00 12/15/18 08:00 12/15/18 08:00 Intake and Output: 12/15/18 12/15/18 06:59 18:59 Intake Total 1350 Balance 1350 - Medications Medications: Current Medications Acetaminophen (Tylenol 325mg Tab) 650 mg PO Q4 PRN PRN Reason: Temperature Last Admin: 12/14/18 17:05 Dose: 650 mg Clotrimazole (Lotrimin 1% Cream) 1 applic TOP BID [facility] Last Admin: 12/15/18 08:58 Dose: 1 applic Enoxaparin Sodium (Lovenox) 40 mg SC DAILY [facility]; Protocol Last Admin: 12/15/18 08:52 Dose: 40 mg Famotidine (Pepcid) 40 mg PO DAILY [facility] Last Admin: 12/15/18 08:52 Dose: 40 mg Piperacillin Sod/Tazobactam (Sod 3.375 gm/ Sodium Chloride) 100 mls @ 100 mls/hr IVPB Q6 [facility]; Protocol Last Admin: 12/15/18 04:20 Dose: 100 mls/hr Lactated Ringer's (Lactated Ringer's) 1,000 mls @ 100 mls/hr IV .Q10H [facility] Last Admin: 12/14/18 22:17 Dose: 100 mls/hr Vancomycin HCl 1 gm/ Sodium (Chloride) 250 mls @ 166.667 mls/hr IVPB DAILY [facility]; Protocol Last Admin: 12/15/18 08:47 Dose: 166.667 mls/hr Ketorolac Tromethamine (Toradol) 15 mg IVP Q6 PRN PRN Reason: Pain, moderate (4-7) Last Admin: 12/13/18 20:33 Dose: 15 mg Ketorolac Tromethamine (Toradol) 30 mg IVP Q6 PRN PRN Reason: Pain, severe (8-10) Last Admin: 12/14/18 18:30 Dose: 30 mg Lorazepam (Ativan) 0.5 mg PO Q12 PRN PRN Reason: Anxiety Methadone HCl (Methadone) 10 mg PO DAILY [facility] Last Admin: 12/15/18 08:50 Dose: 10 mg Nicotine (Nicoderm Cq) 1 patch TD DAILY [facility] Last Admin: 12/15/18 08:53 Dose: 1 patch Ondansetron HCl (Zofran Inj) 4 mg IVP Q6 PRN PRN Reason: Nausea/Vomiting Last Admin: 12/14/18 00:28 Dose: 4 mg - Labs Labs: 12/15/18 06:10 12/15/18 06:10 PT 11.7 Seconds (9.8-13.1) 12/11/18 23:50 INR 1.0 12/11/18 23:50 APTT 32.7 Seconds (25.6-37.1) 12/11/18 23:50 - Constitutional Appears: Other (Drowsy, slow, quiet, sl dysarthric speech. Knows place, year, month, etc.) - Eye Exam Eye Exam: Normal appearance - ENT Exam ENT Exam: Mucous Membranes Moist - Neck Exam Additional comments: TLC right carotid. No masses or thyromegaly. - Respiratory Exam Additional comments: Dullness and very decreased breath sounds right base. Copious secretions in all the large airways and some expiratory wheeze. - Cardiovascular Exam Cardiovascular Exam: REGULAR RHYTHM, +S1, +S2 - GI/Abdominal Exam GI & Abdominal Exam: Soft - Extremities Exam Extremities Exam: Normal Inspection - Back Exam Back Exam: NORMAL INSPECTION - Psychiatric Exam Psychiatric exam: Depressed, Flat Affect - Skin Skin Exam: Dry, Intact, Normal Color, Warm Assessment and Plan (1) Overdose of drug/medicinal substance Assessment & Plan: Psychaitric eval and care begun. Status: Acute (2) Aspiration pneumonia due to inhalation of vomitus Assessment & Plan: Requested pulmonary consult Dr. Richardson. Status: Acute (3) Major depression, chronic Status: Acute (4) Fibromyalgia affecting multiple sites Assessment & Plan: Will check ECG and if QTc OK we could restart the Cymbalta at 40mg daily. Status: Acute (5) Mel's thyroiditis Assessment & Plan: Awaiting endocrine consult - Dr. Monk Status: Acute (6) Parathyroid adenoma Status: Acute (7) GERD (gastroesophageal reflux disease) Assessment & Plan: Continue Pepcid 40mg daily. Try to avoid oral NSAIDs. Status: Acute (8) senior living (current) use of opiate analgesic Assessment & Plan: As per subjective (above) we are tapering off the Methadone. Status: Acute (9) Long-term current use of anxiolytic medication Assessment & Plan: Off Xanax and now on Ativan 0.5mg q12h prn only. Status: Acute (10) Other specified dorsopathies, cervical region Status: Acute
[2018-12-15] MEDS: Lactated Ringer's 1,000 ML IV SCH (13:38)
[2018-12-15 15:01] LABS: TOTAL CELLS COUNTED 100
[2018-12-15 15:02] LABS: EOSINOPHIL 3 % (0-7); HYPOCHROMIC SLIGHT; LYMPHOCYTE 11 % (20-50); MONOCYTE 5 % (0-10); NEUTROPHIL 81 % (42-75); PLATELET ESTIMATE NORMAL (NORMAL)
[2018-12-15] MEDS ORDERED: Albuterol-Ipratrop 3 mg / 0.5 (3 ml) UD INH PRN (17:24)
[2018-12-15] MEDS: Albuterol 0.083% Inhal Sol (2.5 mg/3 mL) UD INH SCH (20:47)
[2018-12-15] MEDS: Acetylcysteine 20% Inhal Soln (4ml) INH SCH (20:47)
[2018-12-16] MEDS ORDERED: Hydrocortisone- 100 MG in Sodium Chloride 0.9% 100 ML IV SCH (01:00)
--- NOTE | 2018-12-16 01:28 | PN ---
DATE: 12/15/2018 ENDOCRINOLOGY FOLLOWUP NOTE LOCATION: Room 435, ICU. SUBJECTIVE: This is a 58-year-old female with recent drug overdose and suicidal gestures with intake of multiple medications and supervening unresponsiveness and acute respiratory failure and since then improved clinically and hemodynamically as noted thereof. She has since then been extubated and is improving both clinically and metabolically as noted thereof. Her repeat chemistry showed a BUN of 11, sodium 139, potassium of 3.7, chloride of 109, CO2 of 27, glucose 87, and creatinine 0.6. Her repeat thyroid studies showed T4 or thyroxine level of 6.16 with a TSH of 0.75 and a free T4 of 1.14. ASSESSMENT: This is a 58-year-old female with a recent drug overdose and suicidal gestures with also concomitant transient thyroid-stimulating hormone suppression with acute sick euthyroid syndrome superimposed on the aforementioned and is now being followed closely for metabolic management. PLAN OF MANAGEMENT: There is also the possibility that the patient also inadvertently took extra levothyroxine replacement therapy possibly with transient TSH supression thereof. So we will prudently hold off the levothyroxine replacement therapy at this time and obtain serial thyroid studies and determine the need to resume her levothyroxine medications as indicated. We will obtain serial chemistries and supplement accordingly as needed. We will follow. Ashlee Monk MD
[2018-12-16] MEDS: Piperacillin/Tazobact 3.375 GM in Sodium Chloride 0.9% 100 ML IVPB SCH ×4 (04:10→21:52)
[2018-12-16 05:02] LABS: ABG ALLEN TEST YES; ARTERIAL BLOOD GAS HCO3 27.6 mmol/L (21-28); ARTERIAL BLOOD GAS HEMOGLOBIN 11.8 g/dL (11.7-17.4); ARTERIAL BLOOD GAS O2 CAPACITY 15.9 mL/dL (16-24); ARTERIAL BLOOD GAS O2 CONTENT 14.1 ML/dL (15-23); ARTERIAL BLOOD GAS O2 SAT 88.6 % (95-98); ARTERIAL BLOOD GAS PCO2 52 mm/Hg (35-45); ARTERIAL BLOOD GAS PH 7.37 (7.35-7.45); ARTERIAL BLOOD GAS PO2 48 mm/Hg (80-100); ARTERIAL BLOOD GAS TCO2 31.7 mmol/L (22-28)
[2018-12-16 05:21] LABS: HEMOGLOBIN 10.8 g/dL (12.0-16.0); MEAN CELL VOLUME 90.7 fl (81.0-99.0); MEAN CORPUSCULAR HEMOGLOBIN 29.4 pg (27.0-31.0); MEAN CORPUSCULAR HGB CONC 32.4 g/dL (33.0-37.0); RBC 3.67 Mil/uL (3.80-5.20); RED CELL DISTRIBUTION WIDTH 13.6 % (11.5-14.5); WHITE BLOOD COUNT 15.1 K/uL (4.8-10.8)
[2018-12-16 05:43] LABS: ALBUMIN 2.6 g/dL (3.5-5.0); ALT/SGPT 32 U/L (9-52); AST/SGOT 37 U/L (14-36); BLOOD UREA NITROGEN 10 mg/dl (7-17); CALCIUM 8.2 mg/dL (8.4-10.2); GFR NON-AFRICAN AMERICAN > 60
--- NOTE | 2018-12-16 08:28 | RAD ---
Date of service: 12/16/2018 HISTORY: pneumonia COMPARISON: Portable chest 12/15/2018. TECHNIQUE: 1 view obtained. FINDINGS: Right central venous line unchanged in position. LUNGS: Extensive diffuse left infiltrate is unchanged with potentially increased infiltrate the mid inferior right lung zones previously sequestered at the right base. PLEURA: Mild right pleural effusion is unchanged. None is appreciated at the left. No pneumothorax bilaterally. CARDIOVASCULAR: No aortic atherosclerotic calcification present. Normal cardiac size. No pulmonary vascular congestion. OSSEOUS STRUCTURES: No significant abnormalities. VISUALIZED UPPER ABDOMEN: Normal. OTHER FINDINGS: None. IMPRESSION: No interval change in left-sided pulmonary infiltrate diffusely with increasing mid to inferior right sided pulmonary infiltrate. Stable limited right pleural effusion with none on the left. No definite pulmonary vascular congestion.
[2018-12-16] MEDS: Enoxaparin 40 mg Syringe SC SCH (09:04)
[2018-12-16] MEDS: Acetylcysteine 20% Inhal Soln (4ml) INH SCH ×2 (09:05→19:13)
[2018-12-16] MEDS: Albuterol 0.083% Inhal Sol (2.5 mg/3 mL) UD INH SCH ×2 (09:05→19:13)
--- NOTE | 2018-12-16 09:29 | CP.PCM.PN ---
Subjective - Date & Time of Evaluation Date of Evaluation: 12/16/18 Time of Evaluation: 09:27 - Subjective Subjective: Interim events reviewed. All chest x-rays reviewed. Case discussed with PMD and functional architect. Has remained afebrile, O2 via HFNC increased to 60%. Leukocytosis slightly higher this morning. Arterial blood gas with PaCO2 up to 52, PaO2 48, pH 7.37. Follow up CXRs show diffuse left lung infiltrates plus RLL infiltrate as well as pleural effusion. She has been afebrile for the past 36 hours on Vanco/Zosyn. Hydrocortisone was added yesterday evening along with aerosolized mucomyst.albuterol. Cough is congested, but remains non-productive. She is seated up in bed with HFNC at 60% oxygen with SpO2 94%. There is respiratory muscle recruitment, but no IC retractions. She speaks in full sentences, is well oriented, mildly tachypneic. + dependant edema without cyanosis or calf tenderness. Neck is supple and trachea midline. Dullness on percussion noted in both bases. Sonorous rhonchi in both lower lobes with few medium rales. No audible wheezes are heard, but E phase is slightly prolonged. Spoke to Infectious disease who recommends adding doxycycline to the current regimen. Will continue present aerosol therapy and solucortef as well as HFNC. Discussed with functional architect regarding possibility of reintubation. Close monitoring of the respiratory status for signs of deterioration agreed upon. If she is indeed reintubated, flexible bronchoscopy via the ETT would be indicated. Objective - Vital Signs/Intake and Output Vital Signs (last 24 hours): Temp Pulse Resp BP Pulse Ox 97.3 F L 96 H 27 H 151/79 H 95 12/16/18 08:00 12/16/18 08:00 12/16/18 08:00 12/16/18 08:00 12/16/18 08:00 Intake and Output: 12/15/18 12/16/18 23:59 11:59 Intake Total 1820 1854 Output Total 500 Balance 1320 1854 - Medications Medications: Current Medications Acetaminophen (Tylenol 325mg Tab) 650 mg PO Q4 PRN PRN Reason: Temperature Last Admin: 12/16/18 07:18 Dose: 650 mg Acetylcysteine (Acetylcysteine 20%) 2 ml INH RBID [facility] Last Admin: 12/15/18 20:47 Dose: 2 ml Albuterol Sulfate (Albuterol 0.083% Inhal Judith (2.5 Mg/3 Ml) Ud) 2.5 mg INH RBID [facility] Last Admin: 12/15/18 20:47 Dose: 2.5 mg Albuterol/Ipratropium (Duoneb 3 Mg/0.5 Mg (3 Ml) Ud) 3 ml INH RQ4 PRN PRN Reason: Shortness of Breath Last Admin: 12/15/18 17:58 Dose: 3 ml Clotrimazole (Lotrimin 1% Cream) 1 applic TOP BID [facility] Last Admin: 12/16/18 09:03 Dose: 1 applic Enoxaparin Sodium (Lovenox) 40 mg SC DAILY [facility]; Protocol Last Admin: 12/16/18 09:04 Dose: 40 mg Famotidine (Pepcid) 40 mg PO DAILY [facility] Last Admin: 12/16/18 09:06 Dose: 40 mg Hydrocortisone Sodium Succinate (Solu-Cortef) 100 mg IV Q8 [facility] Last Admin: 12/16/18 09:06 Dose: 100 mg Piperacillin Sod/Tazobactam (Sod 3.375 gm/ Sodium Chloride) 100 mls @ 100 mls/hr IVPB Q6 [facility]; Protocol Last Admin: 12/16/18 09:07 Dose: 100 mls/hr Lactated Ringer's (Lactated Ringer's) 1,000 mls @ 100 mls/hr IV .Q10H [facility] Last Admin: 12/15/18 13:38 Dose: 100 mls/hr Vancomycin HCl 1 gm/ Sodium (Chloride) 250 mls @ 166.667 mls/hr IVPB DAILY [facility]; Protocol Last Admin: 12/15/18 08:47 Dose: 166.667 mls/hr Doxycycline Hyclate 100 mg/ (Sodium Chloride) 100 mls @ 100 mls/hr IVPB Q12 [facility]; Protocol Ketorolac Tromethamine (Toradol) 15 mg IVP Q6 PRN PRN Reason: Pain, moderate (4-7) Last Admin: 12/13/18 20:33 Dose: 15 mg Ketorolac Tromethamine (Toradol) 30 mg IVP Q6 PRN PRN Reason: Pain, severe (8-10) Last Admin: 12/16/18 01:50 Dose: 30 mg Lorazepam (Ativan) 0.5 mg PO Q12 PRN PRN Reason: Anxiety Last Admin: 12/15/18 17:26 Dose: 0.5 mg Methadone HCl (Methadone) 10 mg PO DAILY [facility] Last Admin: 12/16/18 09:05 Dose: 10 mg Nicotine (Nicoderm Cq) 1 patch TD DAILY [facility] Last Admin: 12/16/18 09:05 Dose: 1 patch Ondansetron HCl (Zofran Inj) 4 mg IVP Q6 PRN PRN Reason: Nausea/Vomiting Last Admin: 12/16/18 07:18 Dose: 4 mg Ondansetron HCl (Zofran Inj) 4 mg IVP Q6 PRN PRN Reason: Nausea/Vomiting - Labs Labs: 12/16/18 05:13 12/16/18 05:13 PT 11.7 Seconds (9.8-13.1) 12/11/18 23:50 INR 1.0 12/11/18 23:50 APTT 32.7 Seconds (25.6-37.1) 12/11/18 23:50 Assessment and Plan (1) Aspiration pneumonia due to inhalation of vomitus Status: Acute (2) Hypoxemia requiring supplemental oxygen Status: Acute (3) Hypercapnia Status: Acute
--- NOTE | 2018-12-16 11:37 | CP.PCM.PN ---
Subjective - Date & Time of Evaluation Date of Evaluation: 12/16/18 Time of Evaluation: 11:30 - Subjective Subjective: Patient is more awake today. Per staff, she's starting to show signs of withdrawal, ie tachycardia and diarrhea, as well as headache, nausea, and generalized pain. The PNA is also progressing, but there hasn't been signs of decompensation clinically. She's on Methadone 10mg qdaily currently. Objective - Vital Signs/Intake and Output Vital Signs (last 24 hours): Temp Pulse Resp BP Pulse Ox 97.3 F L 80 20 155/86 H 95 12/16/18 08:00 12/16/18 10:00 12/16/18 10:00 12/16/18 10:00 12/16/18 10:00 Intake and Output: 12/16/18 12/16/18 06:59 18:59 Intake Total 2254 850 Balance 2254 850 - Medications Medications: Current Medications Acetaminophen (Tylenol 325mg Tab) 650 mg PO Q4 PRN PRN Reason: Temperature Last Admin: 12/16/18 07:18 Dose: 650 mg Acetylcysteine (Acetylcysteine 20%) 2 ml INH RBID [facility] Last Admin: 12/16/18 09:05 Dose: 2 ml Albuterol Sulfate (Albuterol 0.083% Inhal Judith (2.5 Mg/3 Ml) Ud) 2.5 mg INH RBID [facility] Last Admin: 12/16/18 09:05 Dose: 2.5 mg Albuterol/Ipratropium (Duoneb 3 Mg/0.5 Mg (3 Ml) Ud) 3 ml INH RQ4 PRN PRN Reason: Shortness of Breath Last Admin: 12/15/18 17:58 Dose: 3 ml Clotrimazole (Lotrimin 1% Cream) 1 applic TOP BID [facility] Last Admin: 12/16/18 09:03 Dose: 1 applic Enoxaparin Sodium (Lovenox) 40 mg SC DAILY [facility]; Protocol Last Admin: 12/16/18 09:04 Dose: 40 mg Famotidine (Pepcid) 40 mg PO DAILY [facility] Last Admin: 12/16/18 09:06 Dose: 40 mg Hydrocortisone Sodium Succinate (Solu-Cortef) 100 mg IV Q8 [facility] Last Admin: 12/16/18 09:06 Dose: 100 mg Piperacillin Sod/Tazobactam (Sod 3.375 gm/ Sodium Chloride) 100 mls @ 100 mls/hr IVPB Q6 [facility]; Protocol Last Admin: 12/16/18 09:07 Dose: 100 mls/hr Lactated Ringer's (Lactated Ringer's) 1,000 mls @ 100 mls/hr IV .Q10H [facility] Last Admin: 12/15/18 13:38 Dose: 100 mls/hr Vancomycin HCl 1 gm/ Sodium (Chloride) 250 mls @ 166.667 mls/hr IVPB DAILY [facility]; Protocol Last Admin: 12/16/18 10:08 Dose: 166.667 mls/hr Doxycycline Hyclate 100 mg/ (Sodium Chloride) 100 mls @ 100 mls/hr IVPB Q12 [facility]; Protocol Ketorolac Tromethamine (Toradol) 15 mg IVP Q6 PRN PRN Reason: Pain, moderate (4-7) Last Admin: 12/13/18 20:33 Dose: 15 mg Ketorolac Tromethamine (Toradol) 30 mg IVP Q6 PRN PRN Reason: Pain, severe (8-10) Last Admin: 12/16/18 01:50 Dose: 30 mg Lorazepam (Ativan) 0.5 mg PO Q12 PRN PRN Reason: Anxiety Last Admin: 12/15/18 17:26 Dose: 0.5 mg Methadone HCl (Methadone) 10 mg PO DAILY [facility] Last Admin: 12/16/18 09:05 Dose: 10 mg Nicotine (Nicoderm Cq) 1 patch TD DAILY [facility] Last Admin: 12/16/18 09:05 Dose: 1 patch Ondansetron HCl (Zofran Inj) 4 mg IVP Q6 PRN PRN Reason: Nausea/Vomiting Last Admin: 12/16/18 07:18 Dose: 4 mg Ondansetron HCl (Zofran Inj) 4 mg IVP Q6 PRN PRN Reason: Nausea/Vomiting - Labs Labs: 12/16/18 05:13 12/16/18 05:13 PT 11.7 Seconds (9.8-13.1) 12/11/18 23:50 INR 1.0 12/11/18 23:50 APTT 32.7 Seconds (25.6-37.1) 12/11/18 23:50 - Constitutional Appears: Non-toxic, No Acute Distress - Neck Exam Neck Exam: Normal Inspection, Tenderness Assessment and Plan (1) halfway (current) use of opiate analgesic Assessment & Plan: 58 yo woman w/ aspiration PNA from a suicide attempt, chronic pain on high dose opioids. Patient is starting to exhibit signs of withdrawal, after being transitioned from Oxycodone 30mg + 10mg at home to Methadone 10mg qdaily. - may increase Methadone to 10mg BID if patient continues to have tachycardia/diarrhea attributable to withdrawal - would recommend weaning pain medications once patient is in in-patient psych and medically stable - pain management follow-up as outpatient for interventions only Status: Chronic
--- NOTE | 2018-12-16 12:42 | RAD ---
Date of service: 12/15/2018 HISTORY: Shortness of breath COMPARISON: 12/13/2018 FINDINGS: The right IJV line terminates in the right atrium. LUNGS: The lungs are well inflated. There is interval development of fluffy confluent airspace disease in the right lower lobe with diffuse involvement of the left lung. PLEURA: New small right pleural effusion. No large left pleural effusion. No pneumothorax CARDIOVASCULAR: The heart is normal in size. No aortic atherosclerotic calcifications present. OSSEOUS STRUCTURES: Within normal limits for the patient's age. VISUALIZED UPPER ABDOMEN: Normal. OTHER FINDINGS: None. IMPRESSION: Findings may represent interval development of pulmonary edema versus multifocal pneumonia. Small right pleural effusion.
--- NOTE | 2018-12-16 12:43 | RAD ---
Date of service: 12/15/2018 HISTORY: nausea COMPARISON: None available. TECHNIQUE: 1 view obtained. FINDINGS: BOWEL: There is mild gaseous distension of the small bowel loops and gas in the colon. BONES: Normal. OTHER FINDINGS: None. IMPRESSION: Gas-filled small bowel loops and colon. No bowel obstruction.
--- NOTE | 2018-12-16 16:58 | PN ---
DATE: 12/16/2018 ENDO FOLLOWUP NOTE LOCATION: ICU room 435. SUBJECTIVE: This is a 58-year-old female with recent acute suicidal gesture and drug overdose with a brief bout of unresponsiveness and acute respiratory failure and has since then improved clinically and hemodynamically as noted thereof. She is more awake and responsive at this time and is currently tolerating nasal cannula oxygen delivery as noted. She has remained clinically euthyroid and biochemically, had transient TSH suppression as noted thereof. Her latest chemistry showed a BUN of 10, sodium 138, potassium 3.7, chloride 106, CO2 31, glucose 102 and creatinine 0.6. Her thyroxine levels done yesterday showed a T4 of 6.16 with a free T4 of 1.14 and a TSH of 0.75. So at this time, we will continue the present medical management, especially she also has persistent leukocytosis from the recent acute aspiration pneumonitis as noted. We will continue the serial chemistries and supplement accordingly needed. We will also obtain serial thyroid studies and determine the need to resume her levothyroxine oral replacement therapy as indicated. For now, we will hold off the medical therapy for hypothyroidism until her TSH levels have improved accordingly. We will follow. ASSESSMENT: This is a 58-year-old female with known history of hypothyroidism and has been clinically and biochemically euthyroid on levothyroxine replacement therapy, presenting here with an acute drug overdose and supervening acute respiratory failure and has since then improved hemodynamically with subsequent extubation as noted thereof. Ashlee Monk MD
--- NOTE | 2018-12-16 17:14 | CP.PCM.PN ---
Subjective - Date & Time of Evaluation Date of Evaluation: 12/16/18 Time of Evaluation: 17:08 - Subjective Subjective: Consultations by Drs. Richardson, Riaz, and Joshua appreciated. As per detailed note by Dr. Richardson (see his note), IV Doxycycline as been added to the antibiotic regimen. Nasal oxygen has been increased to high flow. Her respiratory status remains precarious Patient is more alert but anxious and having symptoms of opioid withdrawal - diarrhea, restlessness, nausea, headache. So methadone was increase to 10mg bid. Patient had been on gabapentin 300mg tid in the past per neurologist for rocking agitatin. Will restart this at 200mg bid. Will check ecg and if QTc is not prolongd will restart Cymbalta at 40mg for fibromyalgia pain. Objective - Vital Signs/Intake and Output Vital Signs (last 24 hours): Temp Pulse Resp BP Pulse Ox 98.2 F 114 H 24 160/91 H 96 12/16/18 16:00 12/16/18 16:00 12/16/18 15:49 12/16/18 16:00 12/16/18 16:00 Intake and Output: 12/16/18 12/16/18 06:59 18:59 Intake Total 2254 1550 Balance 2254 1550 - Medications Medications: Current Medications Acetaminophen (Tylenol 325mg Tab) 650 mg PO Q4 PRN PRN Reason: Temperature Last Admin: 12/16/18 07:18 Dose: 650 mg Acetylcysteine (Acetylcysteine 20%) 2 ml INH RBID [facility] Last Admin: 12/16/18 09:05 Dose: 2 ml Albuterol Sulfate (Albuterol 0.083% Inhal Judith (2.5 Mg/3 Ml) Ud) 2.5 mg INH RBID [facility] Last Admin: 12/16/18 09:05 Dose: 2.5 mg Albuterol/Ipratropium (Duoneb 3 Mg/0.5 Mg (3 Ml) Ud) 3 ml INH RQ4 PRN PRN Reason: Shortness of Breath Last Admin: 12/15/18 17:58 Dose: 3 ml Clotrimazole (Lotrimin 1% Cream) 1 applic TOP BID [facility] Last Admin: 12/16/18 16:14 Dose: 1 applic Enoxaparin Sodium (Lovenox) 40 mg SC DAILY [facility]; Protocol Last Admin: 12/16/18 09:04 Dose: 40 mg Famotidine (Pepcid) 40 mg PO DAILY [facility] Last Admin: 12/16/18 09:06 Dose: 40 mg Hydrocortisone Sodium Succinate (Solu-Cortef) 100 mg IV Q8 [facility] Last Admin: 12/16/18 16:15 Dose: 100 mg Piperacillin Sod/Tazobactam (Sod 3.375 gm/ Sodium Chloride) 100 mls @ 100 mls/hr IVPB Q6 [facility]; Protocol Last Admin: 12/16/18 16:15 Dose: 100 mls/hr Lactated Ringer's (Lactated Ringer's) 1,000 mls @ 100 mls/hr IV .Q10H [facility] Last Admin: 12/15/18 13:38 Dose: 100 mls/hr Vancomycin HCl 1 gm/ Sodium (Chloride) 250 mls @ 166.667 mls/hr IVPB DAILY [facility]; Protocol Last Admin: 12/16/18 10:08 Dose: 166.667 mls/hr Doxycycline Hyclate 100 mg/ (Sodium Chloride) 100 mls @ 100 mls/hr IVPB Q12 [facility]; Protocol Last Admin: 12/16/18 13:10 Dose: 100 mls/hr Ketorolac Tromethamine (Toradol) 15 mg IVP Q6 PRN PRN Reason: Pain, moderate (4-7) Last Admin: 12/13/18 20:33 Dose: 15 mg Ketorolac Tromethamine (Toradol) 30 mg IVP Q6 PRN PRN Reason: Pain, severe (8-10) Last Admin: 12/16/18 01:50 Dose: 30 mg Lorazepam (Ativan) 0.5 mg PO Q12 PRN PRN Reason: Anxiety Last Admin: 12/16/18 16:14 Dose: 0.5 mg Methadone HCl (Methadone) 10 mg PO Q12 [facility] Nicotine (Nicoderm Cq) 1 patch TD DAILY [facility] Last Admin: 12/16/18 09:05 Dose: 1 patch Ondansetron HCl (Zofran Inj) 4 mg IVP Q6 PRN PRN Reason: Nausea/Vomiting Last Admin: 12/16/18 13:10 Dose: 4 mg Ondansetron HCl (Zofran Inj) 4 mg IVP Q4 PRN PRN Reason: Nausea/Vomiting Last Admin: 12/16/18 16:19 Dose: 4 mg - Labs Labs: 12/16/18 05:13 12/16/18 05:13 PT 11.7 Seconds (9.8-13.1) 12/11/18 23:50 INR 1.0 12/11/18 23:50 APTT 32.7 Seconds (25.6-37.1) 12/11/18 23:50 - Constitutional Appears: Agitated, Chronically Ill, Other (No longer confused.) - Head Exam Head Exam: NORMAL INSPECTION - Eye Exam Eye Exam: Normal appearance - ENT Exam ENT Exam: Mucous Membranes Moist - Neck Exam Neck Exam: Normal Inspection - Respiratory Exam Additional comments: Dullness and decreased breath sounds at both bases with cough on inspiration but non-productive. Increased secretions in large airways. - Cardiovascular Exam Cardiovascular Exam: REGULAR RHYTHM - GI/Abdominal Exam GI & Abdominal Exam: Soft, Hyperactive Bowel Sounds - Extremities Exam Additional comments: Trace edema. - Back Exam Back Exam: NORMAL INSPECTION Assessment and Plan (1) Overdose of drug/medicinal substance Assessment & Plan: Mentation is back to normal. Status: Acute (2) Aspiration pneumonia due to inhalation of vomitus Assessment & Plan: see subjective. Status: Acute (3) Major depression, chronic Status: Acute (4) Fibromyalgia affecting multiple sites Status: Acute (5) Mel's thyroiditis Status: Acute (6) Parathyroid adenoma Status: Chronic (7) GERD (gastroesophageal reflux disease) Status: Acute (8) half-way (current) use of opiate analgesic Assessment & Plan: Methadone increased to bid. Status: Chronic (9) Long-term current use of anxiolytic medication Assessment & Plan: On Ativan 0.5mg [id number]. Status: Acute (10) Other specified dorsopathies, cervical region Status: Acute
[2018-12-16] MEDS: Lactated Ringer's 1,000 ML IV SCH (18:16)
--- NOTE | 2018-12-16 18:19 | CP.CCUPN ---
CCU Subjective - Physician Review Subjective (Free Text): 12/16/18 17:27 The patient was Seen/interviewed and examined by me at the bedside during ICU round, Medical records reviewed and Management issues were discussed and formulated with the house staff. Events reviewed Patient is 58 years old female with past medical history of anxiety/depression, fibromyalgia, cervical disc disease and chronic back pain Who presents to the emergency room for evaluation of drug overdose According to the the patient with breathing erratically and vomited thing, he stated that she took oxycodone, Xanax, trazodone and Cymbalta but is unclear about how much she took Hospital course complicated by acute respiratory failure requiring mechanical ventilation for airway protection The patient was successfully extubated on 12/13 Patient doing slightly better today, she is alert and awake In no apparent distress at rest but she is dyspneic with minimal exertion Patient more awake today, All medication that she overdosed on currently on hold Currently being treated for aspiration pneumonia with IV via vancomycin and Zosyn and Doxycycline was added today since the CXR revealed the bilateral infiltrate She was evaluated by the pain management consult and currently on Methadone 10 mg daily, but since she showing Sx of withdrawal will increase to twice daily CCU Objective - Vital Signs / Intake & Output Vital Signs (Last 4 hours): Vital Signs Temp Pulse Resp BP Pulse Ox 12/16/18 16:00 98.2 F 114 H 160/91 H 96 12/16/18 15:49 24 12/16/18 14:00 98 H 13 157/86 H 95 Intake and Output (Last 8hrs): Intake & Output 12/16/18 12/16/18 12/16/18 06:59 14:59 22:59 Intake Total 1854 1550 Balance 1854 1550 Weight 159 lb Intake: IV 1504 800 Intake, Piggyback 350 450 Oral 300 - Physical Exam Head: Positive for: Atraumatic, Normocephalic Pupils: Positive for: PERRL Extroacular Muscles: Positive for: EOMI Conjunctiva: Positive for: Normal Mouth: Positive for: Moist Mucous Membranes Neck: Positive for: Normal Range of Motion, Trachea Midline Respiratory/Chest: Positive for: Wheezes, Rales, Rhonchi. Negative for: Clear to Auscultation, Respiratory Distress, Accessory Muscle Use Cardiovascular: Positive for: Regular Rate and Rhythm, Normal S1, S2, Peripheal Pulses Present, Tachycardic. Negative for: Murmurs, Rub, Gallop Abdomen: Positive for: Normal Bowel Sounds. Negative for: Tenderness, Distention Psychiatric: Positive for: Alert, Oriented x 3, Normal Insight, Anxious - Medications Active Medications: Active Medications Generic Name Dose Route Start Last Admin Trade Name Freq PRN Reason Stop Dose Admin Acetaminophen 650 mg 12/14/18 17:00 12/16/18 07:18 Tylenol 325mg Tab PO 650 mg Q4 PRN Administration Temperature Acetylcysteine 2 ml 12/15/18 20:00 12/16/18 09:05 Acetylcysteine 20% INH 2 ml RBID [facility] Administration Albuterol Sulfate 2.5 mg 12/15/18 20:15 12/16/18 09:05 Albuterol 0.083% Inhal Judith (2.5 Mg/3 Ml) Ud INH 2.5 mg RBID [facility] Administration Albuterol/Ipratropium 3 ml 12/15/18 17:24 12/15/18 17:58 Duoneb 3 Mg/0.5 Mg (3 Ml) Ud INH 3 ml RQ4 PRN Administration Shortness of Breath Clotrimazole 1 applic 12/14/18 14:24 12/16/18 16:14 Lotrimin 1% Cream TOP 1 applic BID [facility] Administration Enoxaparin Sodium 40 mg 12/12/18 09:00 12/16/18 09:04 Lovenox SC 40 mg DAILY [facility] Administration Protocol Famotidine 40 mg 12/14/18 09:00 12/16/18 09:06 Pepcid PO 40 mg DAILY [facility] Administration Gabapentin 200 mg 12/16/18 18:00 Neurontin PO BID [facility] Hydrocortisone Sodium Succinate 100 mg 12/16/18 01:00 12/16/18 16:15 Solu-Cortef IV 100 mg Q8 [facility] Administration Piperacillin Sod/Tazobactam 100 mls @ 100 mls/hr 12/12/18 10:00 12/16/18 16:15 Sod 3.375 gm/ Sodium Chloride IVPB 100 mls/hr Q6 [facility] Administration Protocol Lactated Ringer's 1,000 mls @ 100 mls/hr 12/13/18 16:51 12/15/18 13:38 Lactated Ringer's IV 100 mls/hr .Q10H [facility] Administration Vancomycin HCl 1 gm/ Sodium 250 mls @ 166.667 mls/hr 12/14/18 17:01 12/16/18 10:08 Chloride IVPB 166.667 mls/hr DAILY [facility] Administration Protocol Doxycycline Hyclate 100 mg/ 100 mls @ 100 mls/hr 12/16/18 09:30 12/16/18 13:1 0 Sodium Chloride IVPB 100 mls/hr Q12 [facility] Administration Protocol Ketorolac Tromethamine 15 mg 12/13/18 20:15 12/13/18 20:33 Toradol IVP 15 mg Q6 PRN Administration Pain, moderate (4-7) Ketorolac Tromethamine 30 mg 12/13/18 20:20 12/16/18 01:50 Toradol IVP 30 mg Q6 PRN Administration Pain, severe (8-10) Lorazepam 0.5 mg 12/14/18 14:53 12/16/18 16:14 Ativan PO 0.5 mg Q12 PRN Administration Anxiety Methadone HCl 10 mg 12/16/18 21:00 Methadone PO Q12 [facility] Nicotine 1 patch 12/13/18 10:00 12/16/18 09:05 Nicoderm Cq TD 1 patch DAILY [facility] Administration Ondansetron HCl 4 mg 12/12/18 07:38 12/16/18 13:10 Zofran Inj IVP 4 mg Q6 PRN Administration Nausea/Vomiting Ondansetron HCl 4 mg 12/16/18 16:04 12/16/18 16:19 Zofran Inj IVP 4 mg Q4 PRN Administration Nausea/Vomiting - Patient Studies Lab Studies: Microbiology Studies 12/11/18 00:15 Blood Culture - Preliminary Blood-Venous NO GROWTH AFTER 4 DAYS 12/11/18 23:50 Blood Culture - Preliminary Blood-Venous NO GROWTH AFTER 4 DAYS Lab Studies 12/16/18 12/16/18 12/16/18 Range/Units 05:13 05:13 04:44 WBC 15.1 H (4.8-10.8) K/uL RBC 3.67 L (3.80-5.20) Mil/uL Hgb 10.8 L (12.0-16.0) g/dL Hct 33.3 L (34.0-47.0) % MCV 90.7 (81.0-99.0) fl MCH 29.4 (27.0-31.0) pg MCHC 32.4 L (33.0-37.0) g/dL RDW 13.6 (11.5-14.5) % Plt Count 215 (130-400) K/uL pCO2 52 H (35-45) mm/Hg pO2 48 L (80-100) mm/Hg HCO3 27.6 (21-28) mmol/L ABG pH 7.37 (7.35-7.45) ABG Total CO2 31.7 H (22-28) mmol/L ABG O2 Saturation 88.6 L (95-98) % ABG O2 Content 14.1 L (15-23) ML/dL ABG Base Excess 3.8 H (-2.0-3.0) mmol/L ABG Hemoglobin 11.8 (11.7-17.4) g/dL ABG Carboxyhemoglobin 2.0 H (0.5-1.5) % POC ABG HHb (Measured) 11.0 H (0.0-5.0) % ABG Methemoglobin 1.6 (0.0-3.0) % ABG O2 Capacity 15.9 L (16-24) mL/dL Jose Test Yes A-a O2 Difference 315.0 mm/Hg Hgb O2 Saturation 85.3 L (95.0-98.0) % Liter Flow 35 Vent Mode High flow lpm FiO2 60.0 % Sodium 138 (132-148) mmol/l Potassium 3.7 (3.6-5.0) MMOL/L Chloride 106 (98-107) mmol/L Carbon Dioxide 31 H (22-30) mmol/L Anion Gap 5 L (10-20) BUN 10 (7-17) mg/dl Creatinine 0.6 L (0.7-1.2) mg/dl Est GFR ( Amer) > 60 Est GFR (Non-Af Amer) > 60 Random Glucose 102 (65-105) mg/dL Calcium 8.2 L (8.4-10.2) mg/dL Total Bilirubin 0.4 (0.2-1.3) mg/dl AST 37 H D (14-36) U/L ALT 32 (9-52) U/L Alkaline Phosphatase 94 (38-126) U/L Total Protein 5.2 L (6.3-8.2) G/DL Albumin 2.6 L (3.5-5.0) g/dL Globulin 2.6 (2.2-3.9) gm/dL Albumin/Globulin Ratio 1.0 (1.0-2.1) Laboratory Results - last 24 hr 12/16/18 12/16/18 12/16/18 04:44 05:13 05:13 WBC 15.1 H RBC 3.67 L Hgb 10.8 L Hct 33.3 L MCV 90.7 MCH 29.4 MCHC 32.4 L RDW 13.6 Plt Count 215 pCO2 52 H pO2 48 L HCO3 27.6 ABG pH 7.37 ABG Total CO2 31.7 H ABG O2 Saturation 88.6 L ABG O2 Content 14.1 L ABG Base Excess 3.8 H ABG Hemoglobin 11.8 ABG Carboxyhemoglobin 2.0 H POC ABG HHb (Measured) 11.0 H ABG Methemoglobin 1.6 ABG O2 Capacity 15.9 L Jose Test Yes A-a O2 Difference 315.0 Hgb O2 Saturation 85.3 L Liter Flow 35 Vent Mode High flow lpm FiO2 60.0 Sodium 138 Potassium 3.7 Chloride 106 Carbon Dioxide 31 H Anion Gap 5 L BUN 10 Creatinine 0.6 L Est GFR ( Amer) > 60 Est GFR (Non-Af Amer) > 60 Random Glucose 102 Calcium 8.2 L Total Bilirubin 0.4 AST 37 H D ALT 32 Alkaline Phosphatase 94 Total Protein 5.2 L Albumin 2.6 L Globulin 2.6 Albumin/Globulin Ratio 1.0 Radiology Impressions: Radiology Impressions Abdomen X-Ray 12/15/18 17:07 IMPRESSION: Gas-filled small bowel loops and colon. No bowel obstruction. Chest X-Ray 12/15/18 17:07 IMPRESSION: Findings may represent interval development of pulmonary edema versus multifocal pneumonia. Small right pleural effusion. Chest X-Ray 12/16/18 05:00 IMPRESSION: No interval change in left-sided pulmonary infiltrate diffusely with increasing mid to inferior right sided pulmonary infiltrate. Stable limited right pleural effusion with none on the left. No definite pulmonary vascular congestion. EKG/Cardiology Studies: Cardiology / EKG Studies 12/17/18 17:19 ELECTROCARDIOGRAM Routine Comment: Mode Of Transportation: PORTABLE Reason For Exam: Check for prolonged QTc and for ischemia Fingerstick Blood Sugar Results: 171 Review of Systems - Cardiovascular Cardiovascular: absent: Chest Pain, Chest Pain at Rest, Chest Pain with Activity, Claudication - Respiratory Respiratory: Cough, Dyspnea, Dyspnea on Exertion. absent: Hemoptysis, Wheezing, Snoring, Stridor Critical Care Progress Note - Extremities/Vascular Does the Patient have a Central Venous Catheter?: No Does the Patient need a Central Venous Catheter?: No Does the Patient have a Donovan Catheter?: No Does the Patient need a Donovan Catheter?: No - Nutrition Nutrition: Nutrition Category Date Time Status Regular Diet [DIET] Diets 12/14/18 Breakfast Active Assessment/Plan (1) Aspiration pneumonia Current Visit: Yes Status: Acute Priority: High Comment: Continue current intravenous antibiotic Patient on broad-spectrum antibiotic with IV vancomycin and Zosyn Doxycycline was added today since the CXR revealed the bilateral infiltrate Maintain aspiration precaution Supplemental oxygen to keep saturation above 92% Bronchodilator nebulizer treatment (2) Overdose of drug/medicinal substance Current Visit: Yes Status: Acute Priority: High Comment: Patient overdosed on oxycodone, Xanax, trazodone and Cymbalta Patient was evaluated by pain management consult Currently on methadone and the plan for quick taper As needed Ativan Methadone HCl (Methadone) 10 mg PO DAILY Lorazepam (Ativan) 0.5 mg PO Q12 PRN (3) group home (current) use of opiate analgesic Current Visit: Yes Status: Chronic Priority: High (4) Fibromyalgia affecting multiple sites Current Visit: Yes Status: Acute Priority: High (5) Nicotine dependence Current Visit: Yes Status: Chronic Priority: High Comment: Nicotine (Nicoderm Cq) 1 patch TD DAILY Continue nebulizer treatment (6) Hypothyroidism Current Visit: Yes Status: Chronic Priority: High (7) Parathyroid adenoma Current Visit: Yes Status: Chronic Priority: Medium
--- NOTE | 2018-12-16 19:30 | CP.PCM.PN ---
Subjective - Date & Time of Evaluation Date of Evaluation: 12/16/18 Time of Evaluation: 07:28 - Subjective Subjective: I D NOTE PATIENT EXAMINED ,CHART REVIEWED HISTORY TAKEN ,DISCUSSED c PATIENT AND FAMILY RX :CONTINUE ANTIBIOTICS DISCUSSED c Objective - Vital Signs/Intake and Output Vital Signs (last 24 hours): Temp Pulse Resp BP Pulse Ox 98.2 F 86 20 164/80 H 96 12/16/18 16:00 12/16/18 18:00 12/16/18 19:13 12/16/18 18:00 12/16/18 18:00 Intake and Output: 12/16/18 12/17/18 18:59 06:59 Intake Total 1720 Balance 1720 - Medications Medications: Current Medications Acetaminophen (Tylenol 325mg Tab) 650 mg PO Q4 PRN PRN Reason: Temperature Last Admin: 12/16/18 07:18 Dose: 650 mg Acetylcysteine (Acetylcysteine 20%) 2 ml INH RBID [facility] Last Admin: 12/16/18 19:13 Dose: 2 ml Albuterol Sulfate (Albuterol 0.083% Inhal Judith (2.5 Mg/3 Ml) Ud) 2.5 mg INH RBID [facility] Last Admin: 12/16/18 19:13 Dose: 2.5 mg Albuterol/Ipratropium (Duoneb 3 Mg/0.5 Mg (3 Ml) Ud) 3 ml INH RQ4 PRN PRN Reason: Shortness of Breath Last Admin: 12/15/18 17:58 Dose: 3 ml Clotrimazole (Lotrimin 1% Cream) 1 applic TOP BID [facility] Last Admin: 12/16/18 16:14 Dose: 1 applic Enoxaparin Sodium (Lovenox) 40 mg SC DAILY [facility]; Protocol Last Admin: 12/16/18 09:04 Dose: 40 mg Famotidine (Pepcid) 40 mg PO DAILY [facility] Last Admin: 12/16/18 09:06 Dose: 40 mg Gabapentin (Neurontin) 200 mg PO BID [facility] Last Admin: 12/16/18 18:15 Dose: 200 mg Hydrocortisone Sodium Succinate (Solu-Cortef) 100 mg IV Q8 [facility] Last Admin: 12/16/18 16:15 Dose: 100 mg Piperacillin Sod/Tazobactam (Sod 3.375 gm/ Sodium Chloride) 100 mls @ 100 mls/hr IVPB Q6 [facility]; Protocol Last Admin: 12/16/18 16:15 Dose: 100 mls/hr Vancomycin HCl 1 gm/ Sodium (Chloride) 250 mls @ 166.667 mls/hr IVPB DAILY [facility]; Protocol Last Admin: 12/16/18 10:08 Dose: 166.667 mls/hr Doxycycline Hyclate 100 mg/ (Sodium Chloride) 100 mls @ 100 mls/hr IVPB Q12 [facility]; Protocol Last Admin: 12/16/18 13:10 Dose: 100 mls/hr Ketorolac Tromethamine (Toradol) 15 mg IVP Q6 PRN PRN Reason: Pain, moderate (4-7) Last Admin: 12/13/18 20:33 Dose: 15 mg Ketorolac Tromethamine (Toradol) 30 mg IVP Q6 PRN PRN Reason: Pain, severe (8-10) Last Admin: 12/16/18 01:50 Dose: 30 mg Lorazepam (Ativan) 0.5 mg PO Q12 PRN PRN Reason: Anxiety Last Admin: 12/16/18 16:14 Dose: 0.5 mg Methadone HCl (Methadone) 10 mg PO Q12 [facility] Nicotine (Nicoderm Cq) 1 patch TD DAILY [facility] Last Admin: 12/16/18 09:05 Dose: 1 patch Ondansetron HCl (Zofran Inj) 4 mg IVP Q6 PRN PRN Reason: Nausea/Vomiting Last Admin: 12/16/18 13:10 Dose: 4 mg Ondansetron HCl (Zofran Inj) 4 mg IVP Q4 PRN PRN Reason: Nausea/Vomiting Last Admin: 12/16/18 16:19 Dose: 4 mg - Labs Labs: 12/16/18 05:13 12/16/18 05:13 PT 11.7 Seconds (9.8-13.1) 12/11/18 23:50 INR 1.0 12/11/18 23:50 APTT 32.7 Seconds (25.6-37.1) 12/11/18 23:50
[2018-12-17] MEDS: Piperacillin/Tazobact 3.375 GM in Sodium Chloride 0.9% 100 ML IVPB SCH ×4 (04:27→21:04)
[2018-12-17 05:01] LABS: BASO % 0.2 % (0.0-2.0); EOS % 0.1 % (0.0-4.0); HEMOGLOBIN 10.5 g/dL (12.0-16.0); LYMPH # 0.9 K/uL (1.0-4.3); LYMPH % 6.7 % (20.0-40.0); MEAN CELL VOLUME 89.8 fl (81.0-99.0); MEAN CORPUSCULAR HEMOGLOBIN 29.8 pg (27.0-31.0); MEAN CORPUSCULAR HGB CONC 33.2 g/dL (33.0-37.0); MEAN PLATELET VOLUME 7.7 fl (7.2-11.7); MONO # 0.8 K/uL (0.0-0.8); MONO % 6.4 % (0.0-10.0); NEUT # 11.2 K/uL (1.8-7.0); NEUT % 86.6 % (50.0-75.0); RBC 3.52 Mil/uL (3.80-5.20); RED CELL DISTRIBUTION WIDTH 13.7 % (11.5-14.5); WHITE BLOOD COUNT 12.9 K/uL (4.8-10.8)
[2018-12-17 05:03] LABS: ALB/GLOB RATIO 0.9 (1.0-2.1); ALBUMIN 2.6 g/dL (3.5-5.0); ALT/SGPT 30 U/L (9-52); AST/SGOT 32 U/L (14-36); BLOOD UREA NITROGEN 13 mg/dl (7-17); CALCIUM 8.8 mg/dL (8.4-10.2); GFR NON-AFRICAN AMERICAN > 60
--- NOTE | 2018-12-17 05:48 | CON ---
DATE: 12/16/2018 INFECTIOUS DISEASE CONSULT HISTORY OF PRESENT ILLNESS: The patient is a 58-year-old female who was in ICU with altered mental status after a suspected . She was mechanically ventilated and intubated and also treated with antibiotics. She responded to therapy and was successfully extubated the following day. The working diagnosis on this besides struggle with those was that it was an aspiration pneumonia, and there was fluid suctioned from the ET tube during intubation. I saw her on 12/16/2018 in the evening, and she is awake, alert, and again off the respirator. She states she has history of fever and chills. PAST MEDICAL HISTORY: History of hypothyroidism and had history of herniated disc, esophageal reflux. PAST SURGICAL HISTORY: History of SEAMUS and cholecystectomy. SOCIAL HISTORY: Includes cigarette smoking. No alcohol. The patient lives with her family. MEDICATIONS: The patient had been on vancomycin and Zosyn and discussed with Dr. Richardson this morning and put her also on doxycycline. Her microbiology cultures in the sputum grew MMSA but was resistant to clindamycin. PHYSICAL EXAMINATION: GENERAL: The patient is alert, cooperative, and oriented to time and place. HEENT: Pharynx is injected. NECK: Supple. No JVP. No bruits. LUNGS: Scattered rhonchi at the bases and possibly rales at the bases also underneath. HEART: Regular sinus rhythm. ABDOMEN: Soft. Positive bowel sounds. EXTREMITIES: No edema. ASSESSMENT AND PLAN: At the present time, I agree that this is an aspiration pneumonia. We would continue treatment with vancomycin, Zosyn, and doxycycline. If no improvement, may consider a change to Unasyn from the Zosyn. Krunal Lewis MD
[2018-12-17] MEDS: Lactated Ringer's 1,000 ML IV SCH ×2 (06:00→16:06)
[2018-12-17] MEDS: Acetylcysteine 20% Inhal Soln (4ml) INH SCH (07:48)
[2018-12-17] MEDS: Albuterol 0.083% Inhal Sol (2.5 mg/3 mL) UD INH SCH (07:48)
--- NOTE | 2018-12-17 08:14 | CP.PCM.PN ---
Subjective - Date & Time of Evaluation Date of Evaluation: 12/17/18 Time of Evaluation: 08:14 - Subjective Subjective: Chest x-ray reviewed. Interim events and EMR entries noted. Remains on HFNC at 60%-35L with good oxygenation. Complaining of nausea and relating it to need for resumption of Cymbalta. No complaints of dyspnea or chest pain. Still no sputum expectorated. Vital signs have remained stable, afebrile. Leukocytosis decreased slightly this morning. Hgb and platelets are stable, renal function stable, TCO2 slightly higher today. Generalized edema +, no cyanosis. Extremities are pink and warm. No calf tenderness , ecchymosis or rash. Neck is supple, trachea midline. No dullness on percussion of anterior chest wall. Breath sounds are still diminished posteriorly in the lower lobes. medium rales are present in lower lobes, but less pronounced. No bronchial breath sounds or egophony. Heart sounds are distant, rhythm is regular. May begin weaning HFNC as tolerated. Continue triple antibiotic use for the present. Will back of slightly on aerosol therapy. Appears as though re-intubation has been averted. ICU time 30min. Objective - Vital Signs/Intake and Output Vital Signs (last 24 hours): Temp Pulse Resp BP Pulse Ox 97.7 F 64 22 146/74 94 L 12/17/18 04:00 12/17/18 06:00 12/17/18 07:48 12/17/18 06:00 12/17/18 04:00 Intake and Output: 12/16/18 12/17/18 23:59 11:59 Intake Total 1470 1000 Balance 1470 1000 - Medications Medications: Current Medications Acetaminophen (Tylenol 325mg Tab) 650 mg PO Q4 PRN PRN Reason: Temperature Last Admin: 12/16/18 07:18 Dose: 650 mg Acetaminophen (Tylenol 325mg Tab) 650 mg PO Q6 PRN PRN Reason: Pain, Mild (1-3) Last Admin: 12/17/18 00:54 Dose: 650 mg Acetylcysteine (Acetylcysteine 20%) 2 ml INH RBID [facility] Last Admin: 12/17/18 07:48 Dose: 2 ml Albuterol Sulfate (Albuterol 0.083% Inhal Judith (2.5 Mg/3 Ml) Ud) 2.5 mg INH RBID [facility] Last Admin: 12/17/18 07:48 Dose: 2.5 mg Albuterol/Ipratropium (Duoneb 3 Mg/0.5 Mg (3 Ml) Ud) 3 ml INH RQ4 PRN PRN Reason: Shortness of Breath Last Admin: 12/15/18 17:58 Dose: 3 ml Clotrimazole (Lotrimin 1% Cream) 1 applic TOP BID [facility] Last Admin: 12/16/18 16:14 Dose: 1 applic Enoxaparin Sodium (Lovenox) 40 mg SC DAILY [facility]; Protocol Last Admin: 12/16/18 09:04 Dose: 40 mg Famotidine (Pepcid) 40 mg PO DAILY [facility] Last Admin: 12/16/18 09:06 Dose: 40 mg Gabapentin (Neurontin) 200 mg PO BID [facility] Last Admin: 12/16/18 18:15 Dose: 200 mg Hydrocortisone Sodium Succinate (Solu-Cortef) 100 mg IV Q8 [facility] Last Admin: 12/17/18 00:35 Dose: 100 mg Piperacillin Sod/Tazobactam (Sod 3.375 gm/ Sodium Chloride) 100 mls @ 100 mls/hr IVPB Q6 [facility]; Protocol Last Admin: 12/17/18 04:27 Dose: 100 mls/hr Vancomycin HCl 1 gm/ Sodium (Chloride) 250 mls @ 166.667 mls/hr IVPB DAILY [facility]; Protocol Last Admin: 12/16/18 10:08 Dose: 166.667 mls/hr Doxycycline Hyclate 100 mg/ (Sodium Chloride) 100 mls @ 100 mls/hr IVPB Q12 [facility]; Protocol Last Admin: 12/16/18 21:51 Dose: 100 mls/hr Lactated Ringer's (Lactated Ringer's) 1,000 mls @ 100 mls/hr IV .Q10H [facility] Last Admin: 12/17/18 06:00 Dose: 100 mls/hr Ketorolac Tromethamine (Toradol) 15 mg IVP Q6 PRN PRN Reason: Pain, moderate (4-7) Last Admin: 12/13/18 20:33 Dose: 15 mg Ketorolac Tromethamine (Toradol) 30 mg IVP Q6 PRN PRN Reason: Pain, severe (8-10) Last Admin: 12/17/18 02:26 Dose: 30 mg Lorazepam (Ativan) 0.5 mg PO Q12 PRN PRN Reason: Anxiety Last Admin: 12/17/18 06:00 Dose: 0.5 mg Methadone HCl (Methadone) 10 mg PO Q12 [facility] Last Admin: 12/16/18 21:50 Dose: 10 mg Nicotine (Nicoderm Cq) 1 patch TD DAILY [facility] Last Admin: 12/16/18 09:05 Dose: 1 patch Ondansetron HCl (Zofran Inj) 4 mg IVP Q6 PRN PRN Reason: Nausea/Vomiting Last Admin: 12/16/18 13:10 Dose: 4 mg Ondansetron HCl (Zofran Inj) 4 mg IVP Q4 PRN PRN Reason: Nausea/Vomiting Last Admin: 12/17/18 00:35 Dose: 4 mg - Labs Labs: 12/17/18 04:10 12/17/18 04:10 PT 11.7 Seconds (9.8-13.1) 12/11/18 23:50 INR 1.0 12/11/18 23:50 APTT 32.7 Seconds (25.6-37.1) 12/11/18 23:50 Assessment and Plan (1) Aspiration pneumonia due to inhalation of vomitus Status: Acute (2) Hypoxemia requiring supplemental oxygen Status: Acute (3) Hypercapnia Status: Acute
[2018-12-17] MEDS: Enoxaparin 40 mg Syringe SC SCH (08:31)
[2018-12-17] MEDS ORDERED: Albuterol 0.083% Inhal Sol (2.5 mg/3 mL) UD INH PRN (09:02)
--- NOTE | 2018-12-17 10:03 | CP.PCM.PN ---
Subjective - Date & Time of Evaluation Date of Evaluation: 12/17/18 Time of Evaluation: 09:58 - Subjective Subjective: Patient is very agitated. C/o nausea, c/o perineal rash, She did receive methadone and Ativan as well as Zofran this morning. She believes that restarting Cymbalta would help. I explained that she has an underlying condition of anxiey-depression, which Dr. Chavez will be addressing. However, much of her distress is part of the opioid withdrawal process. We can hope to ameliorate this, but we cannot eliminate it completely. ECG reviewed. QTc is 453. So will restart Cymbalta 40mg daily. Discussed with Dr. Richardson (see his note). Dr. Lewis's note also appreciated, and blood tests are pending. Discussed with Dr. Monk who repeated thyroid studies this morning and recommended restart of L-thyroxine at 75mcg daily. Will order. Poor appetite - will request dietary supplement. Objective - Vital Signs/Intake and Output Vital Signs (last 24 hours): Temp Pulse Resp BP Pulse Ox 97.7 F 64 22 146/74 94 L 12/17/18 04:00 12/17/18 06:00 12/17/18 07:48 12/17/18 06:00 12/17/18 04:00 Intake and Output: 12/17/18 12/17/18 06:59 18:59 Intake Total 1600 200 Balance 1600 200 - Medications Medications: Current Medications Acetaminophen (Tylenol 325mg Tab) 650 mg PO Q4 PRN PRN Reason: Temperature Last Admin: 12/16/18 07:18 Dose: 650 mg Acetaminophen (Tylenol 325mg Tab) 650 mg PO Q6 PRN PRN Reason: Pain, Mild (1-3) Last Admin: 12/17/18 00:54 Dose: 650 mg Albuterol Sulfate (Albuterol 0.083% Inhal Judith (2.5 Mg/3 Ml) Ud) 2.5 mg INH RQ4 PRN PRN Reason: Shortness of Breath Clotrimazole (Lotrimin 1% Cream) 1 applic TOP BID [facility] Last Admin: 12/16/18 16:14 Dose: 1 applic Enoxaparin Sodium (Lovenox) 40 mg SC DAILY [facility]; Protocol Last Admin: 12/17/18 08:31 Dose: 40 mg Famotidine (Pepcid) 40 mg PO DAILY [facility] Last Admin: 12/17/18 08:33 Dose: 40 mg Gabapentin (Neurontin) 200 mg PO BID [facility] Last Admin: 12/17/18 08:32 Dose: 200 mg Hydrocortisone Sodium Succinate (Solu-Cortef) 100 mg IV Q12H [facility] Piperacillin Sod/Tazobactam (Sod 3.375 gm/ Sodium Chloride) 100 mls @ 100 mls/hr IVPB Q6 [facility]; Protocol Last Admin: 12/17/18 04:27 Dose: 100 mls/hr Vancomycin HCl 1 gm/ Sodium (Chloride) 250 mls @ 166.667 mls/hr IVPB DAILY [facility]; Protocol Last Admin: 12/17/18 08:43 Dose: 166.667 mls/hr Doxycycline Hyclate 100 mg/ (Sodium Chloride) 100 mls @ 100 mls/hr IVPB Q12 [facility]; Protocol Last Admin: 12/17/18 08:42 Dose: 100 mls/hr Lactated Ringer's (Lactated Ringer's) 1,000 mls @ 100 mls/hr IV .Q10H [facility] Last Admin: 12/17/18 06:00 Dose: 100 mls/hr Ketorolac Tromethamine (Toradol) 15 mg IVP Q6 PRN PRN Reason: Pain, moderate (4-7) Last Admin: 12/13/18 20:33 Dose: 15 mg Ketorolac Tromethamine (Toradol) 30 mg IVP Q6 PRN PRN Reason: Pain, severe (8-10) Last Admin: 12/17/18 02:26 Dose: 30 mg Lorazepam (Ativan) 0.5 mg PO Q12 PRN PRN Reason: Anxiety Last Admin: 12/17/18 06:00 Dose: 0.5 mg Methadone HCl (Methadone) 10 mg PO Q12 [facility] Last Admin: 12/17/18 08:47 Dose: 10 mg Nicotine (Nicoderm Cq) 1 patch TD DAILY [facility] Last Admin: 12/17/18 08:33 Dose: 1 patch Ondansetron HCl (Zofran Inj) 4 mg IVP Q6 PRN PRN Reason: Nausea/Vomiting Last Admin: 12/16/18 13:10 Dose: 4 mg Ondansetron HCl (Zofran Inj) 4 mg IVP Q4 PRN PRN Reason: Nausea/Vomiting Last Admin: 12/17/18 08:48 Dose: 4 mg - Labs Labs: 12/17/18 04:10 12/17/18 04:10 PT 11.7 Seconds (9.8-13.1) 12/11/18 23:50 INR 1.0 12/11/18 23:50 APTT 32.7 Seconds (25.6-37.1) 12/11/18 23:50 - Constitutional Appears: Agitated - Head Exam Head Exam: NORMAL INSPECTION - Eye Exam Eye Exam: Normal appearance - ENT Exam ENT Exam: Mucous Membranes Moist - Neck Exam Neck Exam: Normal Inspection Additional comments: TLC right carotid - dressing intact. No palpable thyromegaly or masses or adenopathy. No JVD. - Respiratory Exam Additional comments: Still with decreased breath sounds at bases and inspiratory crackles at bases. Cough but no sputum production. - Cardiovascular Exam Cardiovascular Exam: REGULAR RHYTHM, +S1, +S2 - GI/Abdominal Exam GI & Abdominal Exam: Soft - Extremities Exam Additional comments: Edema 2+ of hands and feet and legs. Non-tender. - Back Exam Back Exam: NORMAL INSPECTION - Neurological Exam Neurological Exam: Alert, Awake, CN II-XII Intact Additional comments: No sensory or motor deficits. - Psychiatric Exam Psychiatric exam: Agitated, Anxious, Depressed - Skin Skin Exam: Dry, Intact, Normal Color, Warm Assessment and Plan (1) Overdose of drug/medicinal substance Assessment & Plan: We are working on gradual taper of methadone, but at this time since patient is exhibiting very distressing withdrawal symptoms will continue methadone at 10mg bid. Status: Acute (2) Aspiration pneumonia due to inhalation of vomitus Assessment & Plan: Improving slowly on IV Zosyn, Vancomycin, and doxycycline - with the help of pulmonary and ID consultants. To begin taper of high flow nasal oxygen as able. Status: Acute (3) Major depression, chronic Assessment & Plan: Once medically stable, patient will be transferred to psychiatric unit. Dr. Chavez is following. Status: Acute (4) Fibromyalgia affecting multiple sites Assessment & Plan: gabapentin restarted at 200mg bid. Since she is not oversedated will increase to 300mg tid po. Also restarted Cymbalta at 40mg daily. Status: Acute (5) Mel's thyroiditis Assessment & Plan: As discussed with Dr. Monk, will restart levothyroxine. Status: Acute (6) Parathyroid adenoma Assessment & Plan: Monitoring. Status: Chronic (7) GERD (gastroesophageal reflux disease) Assessment & Plan: Continue Pepcid 40mg daily po. Status: Acute (8) [facility] (current) use of opiate analgesic Assessment & Plan: Being addressed. Status: Chronic (9) Long-term current use of anxiolytic medication Assessment & Plan: Being addressed. Status: Acute (10) Other specified dorsopathies, cervical region Assessment & Plan: We want to avoid oral NSAIDs, so will call upon pain management (Dr. Mello) for help with this. Status: Acute
--- NOTE | 2018-12-17 11:02 | CARD ---
APPROVED REPORT Date of service: 12/17/2018 EKG Measurement Heart [id number] <Conclusion> Normal sinus rhythm with sinus arrhythmia Normal Electrocardiogram
[2018-12-17] MEDS: Levothyroxine 75 MCG TAB PO SCH (12:10)
--- NOTE | 2018-12-17 13:18 | PN ---
DATE: 12/17/2018 ENDOCRINOLOGY FOLLOWUP NOTE LOCATION: Room 435, ICU. SUBJECTIVE: This is a 58-year-old female with recent acute drug overdose and suicidal gestures, admitted here unresponsive and subsequently intubated with remarkable hemodynamic and clinical response thereof. She has since then been extubated and is improving clinically as noted thereof. She remains clinically euthyroid, biochemically hypertension, TSH suppression as noted thereof. LABORATORY DATA: Her latest thyroid studies showed a T4 or thyroxine of 6.16 with a TSH of 0.75 and a free T4 of 1.14. Her latest chemistry showed a BUN of 13, sodium 140, potassium 3.8, chloride 105, CO2 of 33, glucose 125, and creatinine 0.6. ASSESSMENT AND PLAN: So at this time, we will recommend resumption of her levothyroxine replacement therapy given as 75 mcg once daily as ordered. We will obtain serial chemistries and supplement accordingly as needed. We will also obtain serial thyroid studies and titrate her dose regimen accordingly. Ashlee Monk MD
--- NOTE | 2018-12-17 13:24 | CP.PCM.PN ---
Subjective - Date & Time of Evaluation Date of Evaluation: 12/17/18 Time of Evaluation: 13:15 - Subjective Subjective: Patient denies diarrhea, but continues to have nausea. Pain is present, but at baseline, mainly around the neck. Clinically she's stable, though still being treated for PNA. Objective - Vital Signs/Intake and Output Vital Signs (last 24 hours): Temp Pulse Resp BP Pulse Ox 97.5 F L 70 19 160/81 H 96 12/17/18 12:00 12/17/18 12:00 12/17/18 12:00 12/17/18 12:00 12/17/18 12:00 Intake and Output: 12/17/18 12/17/18 06:59 18:59 Intake Total 1600 650 Balance 1600 650 - Medications Medications: Current Medications Acetaminophen (Tylenol 325mg Tab) 650 mg PO Q4 PRN PRN Reason: Temperature Last Admin: 12/16/18 07:18 Dose: 650 mg Acetaminophen (Tylenol 325mg Tab) 650 mg PO Q6 PRN PRN Reason: Pain, Mild (1-3) Last Admin: 12/17/18 00:54 Dose: 650 mg Albuterol Sulfate (Albuterol 0.083% Inhal Judith (2.5 Mg/3 Ml) Ud) 2.5 mg INH RQ4 PRN PRN Reason: Shortness of Breath Clotrimazole (Lotrimin 1% Cream) 1 applic TOP BID [facility] Last Admin: 12/16/18 16:14 Dose: 1 applic Duloxetine HCl (Cymbalta) 40 mg PO DAILY [facility] Last Admin: 12/17/18 10:09 Dose: 40 mg Enoxaparin Sodium (Lovenox) 40 mg SC DAILY [facility]; Protocol Last Admin: 12/17/18 08:31 Dose: 40 mg Famotidine (Pepcid) 40 mg PO DAILY [facility] Last Admin: 12/17/18 08:33 Dose: 40 mg Gabapentin (Neurontin) 300 mg PO TID [facility] Last Admin: 12/17/18 12:10 Dose: 300 mg Hydrocortisone Sodium Succinate (Solu-Cortef) 100 mg IV Q12H [facility] Last Admin: 12/17/18 10:38 Dose: Not Given Piperacillin Sod/Tazobactam (Sod 3.375 gm/ Sodium Chloride) 100 mls @ 100 mls/hr IVPB Q6 [facility]; Protocol Last Admin: 12/17/18 10:09 Dose: 100 mls/hr Vancomycin HCl 1 gm/ Sodium (Chloride) 250 mls @ 166.667 mls/hr IVPB DAILY [facility]; Protocol Last Admin: 12/17/18 08:43 Dose: 166.667 mls/hr Doxycycline Hyclate 100 mg/ (Sodium Chloride) 100 mls @ 100 mls/hr IVPB Q12 [facility]; Protocol Last Admin: 12/17/18 08:42 Dose: 100 mls/hr Lactated Ringer's (Lactated Ringer's) 1,000 mls @ 100 mls/hr IV .Q10H [facility] Last Admin: 12/17/18 06:00 Dose: 100 mls/hr Levothyroxine Sodium (Synthroid) 75 mcg PO DAILY@0630 [facility] Last Admin: 12/17/18 12:10 Dose: 75 mcg Lorazepam (Ativan) 0.5 mg PO Q12 PRN PRN Reason: Anxiety Last Admin: 12/17/18 06:00 Dose: 0.5 mg Methadone HCl (Methadone) 10 mg PO Q12 [facility] Last Admin: 12/17/18 08:47 Dose: 10 mg Nicotine (Nicoderm Cq) 1 patch TD DAILY [facility] Last Admin: 12/17/18 08:33 Dose: 1 patch Ondansetron HCl (Zofran Inj) 4 mg IVP Q4 PRN PRN Reason: Nausea/Vomiting Last Admin: 12/17/18 08:48 Dose: 4 mg - Labs Labs: 12/17/18 04:10 12/17/18 04:10 PT 11.7 Seconds (9.8-13.1) 12/11/18 23:50 INR 1.0 12/11/18 23:50 APTT 32.7 Seconds (25.6-37.1) 12/11/18 23:50 - Constitutional Appears: Non-toxic, No Acute Distress - Neck Exam Neck Exam: Tenderness Assessment and Plan (1) [facility] (current) use of opiate analgesic Assessment & Plan: 58 yo woman s/p suicidal attempt/overose, chronic pain, and now aspiration PNA. Methadone 10mg BID is probably appropriate for her current condition. Further increase might exacerbate nausea, and it's probably premature to start weaning. - continue Methadone 10mg BID for now - will f/u once patient is in in-patient psych to touch base regarding future injections - care per ICU, primary, pulm, and psych Status: Chronic
--- NOTE | 2018-12-17 14:02 | RAD ---
Date of service: 12/17/2018 HISTORY: pneumonia COMPARISON: Multiple serial examinations preceding the most recent study: December 16, 2018. FINDINGS: LUNGS: Extensive bilateral infiltrates left greater than right. PLEURA: Right pleural effusion again identified. CARDIOVASCULAR: No atherosclerotic calcification present Venous access catheter in stable, satisfactory position. OSSEOUS STRUCTURES: No significant abnormalities. VISUALIZED UPPER ABDOMEN: Normal. OTHER FINDINGS: None. IMPRESSION: Accounting for differences in technique, stable bilateral multifocal infiltrates. Overall no interval change.
--- NOTE | 2018-12-17 15:58 | CP.CCUPN ---
CCU Subjective - Physician Review Subjective (Free Text): Awake and following commands, sitting up in bed, flat affect, not too talkative, no obvious distress. Afebrile, no temp spikes last 2 days. SBP 110s, HR 80s, RR 17, SPO2 96% on HFNC 45% oxygen at 35 LPM. ROS: No other pertinent negs or positives on 10+ system review: unobtainable due to obtundation. PMSFH: All other Nursing and physician documentation reviewed to date; no new pertinent info noted relevant to current medical problems. EXAM- HEENT: no icterus, no gaze preference, pupils 3 mm equal and reactive NECK: no JVD visible, supple, carotids equal upstroke bilat/no bruit CHEST: decreased BS at the bases, no wheezes audible HEART: irregular, distant, josie S1S2, no rubs ABD: soft, no distension, no focal tenderness, no tympany, no guarding, no organomegaly, BS hypoactive. EXT: trace LE edema, no mottling; no calf tenderness or palpable cords, distal pulses intact and symmetrical NEURO: no tone. SKIN: no rashes, warm and dry. LABS: WBC= 12.9 HGB= 10.5 PLTs= 219K Na= 140 K= 3.8 CL= 105 HCO3= 33 BUN/Cr= 13/0.6 BS= 125 Last CPK on 12/15/18 = 943 to 307 Phos= 2.9 Mag= 2.0 IMPRESSION / MAJOR PROBLEMS NOW: 1. s/p Obtundation 2 Multiple Medication OD including antipsychotics, opioids, and BZDPs ( amounts unknown) 2. Acute Resp Insuff 2 #1 and Aspiration pneumonia 3. Hypothermia 4. h/o Suicide Attempts 5. h/o Chronic Back pain Syndrome, H/o Depression PLAN: 1. Ongoing Abx coverage with Zosyn/Vanco/Vibramycin. 2. CXR shows persistent bilay infiltrates, with Left worse than Right. 3. Cymbalta resumed as per PMD / Psych. 4. Follow repeat CPK levels. 5. Get OOB to chair as tolerated. 6. She remains stable for Tele bed unless she needs MV or other hemodynamic support. 7. Try to obtain peripheral IV access, if satisfactory, could remove TLC from R neck.
[2018-12-17] MEDS: Alum-Mag Hydrox-Simethicone Susp (30 mL) PO PRN (20:46)
[2018-12-18] MEDS: Lactated Ringer's 1,000 ML IV SCH (02:38)
[2018-12-18] MEDS: Piperacillin/Tazobact 3.375 GM in Sodium Chloride 0.9% 100 ML IVPB SCH ×4 (03:47→21:06)
[2018-12-18] MEDS ORDERED: Propofol 10 mg/ml 1,000 MG/100 ML VIAL ONE (05:12)
[2018-12-18] MEDS: Levothyroxine 75 MCG TAB PO SCH (05:30)
[2018-12-18 07:10] LABS: BASO % 0.1 % (0.0-2.0); EOS % 0.3 % (0.0-4.0); HEMOGLOBIN 11.2 g/dL (12.0-16.0); LYMPH # 1.2 K/uL (1.0-4.3); MEAN CELL VOLUME 90.2 fl (81.0-99.0); MEAN CORPUSCULAR HEMOGLOBIN 29.9 pg (27.0-31.0); MEAN CORPUSCULAR HGB CONC 33.2 g/dL (33.0-37.0); MEAN PLATELET VOLUME 7.5 fl (7.2-11.7); MONO # 0.9 K/uL (0.0-0.8); MONO % 6.8 % (0.0-10.0); NEUT # 11.5 K/uL (1.8-7.0); NEUT % 83.8 % (50.0-75.0); RBC 3.72 Mil/uL (3.80-5.20); RED CELL DISTRIBUTION WIDTH 13.6 % (11.5-14.5); WHITE BLOOD COUNT 13.7 K/uL (4.8-10.8)
[2018-12-18 07:28] LABS: ALBUMIN 2.9 g/dL (3.5-5.0); ALT/SGPT 29 U/L (9-52); AST/SGOT 30 U/L (14-36); BLOOD UREA NITROGEN 18 mg/dl (7-17); CALCIUM 9.1 mg/dL (8.4-10.2); GFR NON-AFRICAN AMERICAN > 60
[2018-12-18] MEDS: Enoxaparin 40 mg Syringe SC SCH (08:23)
--- NOTE | 2018-12-18 10:09 | CP.CCUPN ---
CCU Subjective - Physician Review Subjective (Free Text): Sleeping now after being given methadone and anxiolytics, was reported very agitated and uncooperative overnight, required multiple doses of Ativan and Haldol for sedation and preventing self injury. Afebrile, no temp spikes last 3 days. SBP 150s, HR 80-100s, RR 18, SPO2 96% on HFNC 45% oxygen at 35 LPM. ROS: No other pertinent negs or positives on 10+ system review: unobtainable due to sedation. PMSFH: All other Nursing and physician documentation reviewed to date; no new pertinent info noted relevant to current medical problems. EXAM- HEENT: no icterus, no gaze preference, pupils 3 mm equal and reactive NECK: no JVD visible, supple, carotids equal upstroke bilat/no bruit CHEST: decreased BS at the bases, no wheezes audible HEART: irregular, distant, josie S1S2, no rubs ABD: soft, no distension, no focal tenderness, no tympany, no guarding, no organomegaly, BS hypoactive. EXT: trace LE edema, no mottling; no calf tenderness or palpable cords, distal pulses intact and symmetrical NEURO: no tone. SKIN: no rashes, warm and dry. LABS: WBC= 13.7 HGB= 11.2 PLTs= 340K Na= 142 K= 3.4 CL= 103 HCO3= 33 BUN/Cr= 18/0.6 BS= 110 CPK = 26 today PCT= 0.32 normal IMPRESSION / MAJOR PROBLEMS NOW: 1. s/p Obtundation 2 Multiple Medication OD including antipsychotics, opioids, and BZDPs (amounts unknown) 2. Acute Resp Insuff 2 #1 and Aspiration pneumonia 3. Hypothermia 4. h/o Suicide Attempts 5. h/o Chronic Back pain Syndrome, H/o Depression PLAN: 1. Ongoing Abx coverage with Zosyn/Vanco/Vibramycin. 2. CXR shows persistent bilay infiltrates, with Left worse than Right: now suspect most likely Aspiration pneumonitis and not pneumonia. 3. Cymbalta resumed as per PMD / Psych. 4. Normalization of CPK levels with IVFs noted, supplement K. 5. Get OOB to chair as tolerated, may help any Delirium component thats present. 6. Try to obtain peripheral IV access, if satisfactory, could remove TLC from R neck.
--- NOTE | 2018-12-18 11:11 | RAD ---
Date of service: 12/18/2018 HISTORY: pneumonia COMPARISON: 12/17/2018 FINDINGS: Right IJV line terminates in the right atrium. LUNGS: The lungs are well inflated. There is little interval change in confluent airspace disease in the right upper and lower lobes and diffuse airspace disease in the left lung. PLEURA: Small right pleural effusion. No pneumothorax. CARDIOVASCULAR: The heart is normal in size. No aortic atherosclerotic calcifications present. OSSEOUS STRUCTURES: Within normal limits for the patient's age. VISUALIZED UPPER ABDOMEN: Normal. OTHER FINDINGS: None. IMPRESSION: Little interval change in multifocal confluent airspace disease in the lungs, with diffuse opacification of the left lung. Findings could represent multifocal pneumonia however pulmonary edema is also a consideration. Follow-up is advised.
--- NOTE | 2018-12-18 16:18 | PN ---
DATE: 12/18/2018 ENDO FOLLOWUP NOTE LOCATION: ICU room 435. SUBJECTIVE: This is a 58-year-old female with recent acute drug overdose and suicidal gesture with underlying chronic schizoaffective disorder and is now being followed closely for metabolic management. She has remained clinically euthyroid at this time and biochemically her thyroid indices have improved accordingly since admission as noted. Her repeat thyroxine or T4 level is 7.7 with a TSH of 2.23 and a free T4 of 0.96. Her chemistry showed a BUN of 18, sodium 142, potassium 3.4, chloride 103, CO2 33, glucose 110 and creatinine 0.6. So at this time, we will recommend the resumption of her levothyroxine replacement therapy given as 75 mcg once daily as ordered. We will obtain serial thyroid studies and titrate her dose regimen accordingly. We will also obtain serial chemistries and supplement accordingly as needed, especially with a low normal potassium levels as noted. We will follow. Ashlee Monk MD
--- NOTE | 2018-12-18 16:56 | CP.PCM.PN ---
Subjective - Date & Time of Evaluation Date of Evaluation: 12/18/18 Time of Evaluation: 16:52 - Subjective Subjective: Notes by Drs. Mello and Héctor appreciated. As discussed with Dr. Anaya and nursing staff, patient became extremely agitated last night, cursing at nurses and attempting to pull out her iv lines and oxygen. She required manual restraints and was given multiple doses of IV Ativan along with her pm methadone dose. When this failed to subdue her she was given 5mg of Haldol IV, and she became calm. In the morning she received her usual doses of Cymbalta 0mg, gabapentin 600mg, methadone 10mg and Ativan 0.5mg po. She subsequently became very lethargic, with slurred speech and inability to stay awake unless stimulated. As discussed with Dr. Anaya, the patient's low procalcitonin suggests that the pneumonis is not bacterial, but rather that she has a chemical pneumonitis due to aspiration of gastric acid and bile. Dr. Richardson has ordered high dose coticosteroids for the chemical pneumonitis. She seems to be breathing easier today with good oxygenaton on high flow nasal oxygen, but pulmonary exam remains quite abnrmal. The current thinking is that the patient may be suffering from steroid psychosis or even "ICU psychosis," with opioid and benzodiazepine withdrawal as less likely causes of behavioral/mental change. As per Dr. Mello, we should not decrease methadone yet until patient is more stable medically. Now on levothyroxine per Dr. Monk's recommendation. She continues on triple IV antibiotics. Objective - Vital Signs/Intake and Output Vital Signs (last 24 hours): Temp Pulse Resp BP Pulse Ox 98.0 F 80 13 156/86 H 92 L 12/18/18 16:00 12/18/18 16:00 12/18/18 16:00 12/18/18 16:00 12/18/18 16:00 Intake and Output: 12/18/18 12/18/18 06:59 18:59 Intake Total 1300 1270 Output Total 150 Balance 1300 1120 - Medications Medications: Current Medications Acetaminophen (Tylenol 325mg Tab) 650 mg PO Q4 PRN PRN Reason: Temperature Last Admin: 12/16/18 07:18 Dose: 650 mg Acetaminophen (Tylenol 325mg Tab) 650 mg PO Q6 PRN PRN Reason: Pain, Mild (1-3) Last Admin: 12/17/18 00:54 Dose: 650 mg Al Hydrox/Mg Hydrox/Simethicone (Maalox Plus 30 Ml) 30 ml PO Q6 PRN PRN Reason: Indigestion / Heartburn Last Admin: 12/17/18 20:46 Dose: 30 ml Albuterol Sulfate (Albuterol 0.083% Inhal Judith (2.5 Mg/3 Ml) Ud) 2.5 mg INH RQ4 PRN PRN Reason: Shortness of Breath Clotrimazole (Lotrimin 1% Cream) 1 applic TOP BID [facility] Last Admin: 12/18/18 16:12 Dose: 1 applic Duloxetine HCl (Cymbalta) 40 mg PO DAILY [facility] Last Admin: 12/18/18 08:24 Dose: 40 mg Enoxaparin Sodium (Lovenox) 40 mg SC DAILY [facility]; Protocol Last Admin: 12/18/18 08:23 Dose: 40 mg Famotidine (Pepcid) 40 mg PO DAILY [facility] Last Admin: 12/18/18 08:23 Dose: 40 mg Gabapentin (Neurontin) 300 mg PO TID [facility] Last Admin: 12/18/18 16:11 Dose: 300 mg Hydrocortisone Sodium Succinate (Solu-Cortef) 100 mg IV DAILY [facility] Last Admin: 12/18/18 12:52 Dose: Not Given Piperacillin Sod/Tazobactam (Sod 3.375 gm/ Sodium Chloride) 100 mls @ 100 mls/hr IVPB Q6 [facility]; Protocol Last Admin: 12/18/18 15:49 Dose: 100 mls/hr Vancomycin HCl 1 gm/ Sodium (Chloride) 250 mls @ 166.667 mls/hr IVPB DAILY [facility]; Protocol Last Admin: 12/18/18 08:56 Dose: 166.667 mls/hr Doxycycline Hyclate 100 mg/ (Sodium Chloride) 100 mls @ 100 mls/hr IVPB Q12 [facility]; Protocol Last Admin: 12/18/18 08:26 Dose: 100 mls/hr Lactated Ringer's (Lactated Ringer's) 1,000 mls @ 100 mls/hr IV .Q10H [facility] Last Admin: 12/18/18 02:38 Dose: 100 mls/hr Ketorolac Tromethamine (Toradol) 30 mg IVP Q6 PRN PRN Reason: Pain, severe (8-10) Last Admin: 12/17/18 17:26 Dose: 30 mg Levothyroxine Sodium (Synthroid) 75 mcg PO DAILY@0630 [facility] Last Admin: 12/18/18 05:30 Dose: Not Given Lorazepam (Ativan) 0.5 mg PO Q12 PRN PRN Reason: Anxiety Last Admin: 12/17/18 23:25 Dose: 0.5 mg Methadone HCl (Methadone) 10 mg PO Q12 [facility] Last Admin: 12/18/18 08:40 Dose: 10 mg Nicotine (Nicoderm Cq) 1 patch TD DAILY [facility] Last Admin: 12/18/18 08:24 Dose: 1 patch Ondansetron HCl (Zofran Inj) 4 mg IVP Q4 PRN PRN Reason: Nausea/Vomiting Last Admin: 12/17/18 21:04 Dose: 4 mg - Labs Labs: 12/18/18 05:40 12/18/18 05:40 PT 11.7 Seconds (9.8-13.1) 12/11/18 23:50 INR 1.0 12/11/18 23:50 APTT 32.7 Seconds (25.6-37.1) 12/11/18 23:50 - Constitutional Appears: Other (Obtunded, lacking in insight and memory with regard to events of last night.) - Eye Exam Additional comments: Sl droop left upper eyelid is not new and did occur after receiving Botox for migraines. - ENT Exam ENT Exam: Mucous Membranes Moist - Neck Exam Neck Exam: Normal Inspection - Respiratory Exam Additional comments: Still with very decreased breath sounds at both bases, dullness at right base, inspiratory crackles at bases bilaterally. - Cardiovascular Exam Cardiovascular Exam: REGULAR RHYTHM, +S1, +S2 - GI/Abdominal Exam GI & Abdominal Exam: Soft - Extremities Exam Additional comments: 1+ hand and pedal edema. good peripheral pulses. - Back Exam Back Exam: NORMAL INSPECTION - Neurological Exam Neurological Exam: Altered - Psychiatric Exam Psychiatric exam: Anxious, Depressed, Flat Affect - Skin Skin Exam: Dry, Intact, Normal Color, Warm Assessment and Plan (1) Overdose of drug/medicinal substance Status: Acute (2) Aspiration pneumonia due to inhalation of vomitus Assessment & Plan: Being managed by Dr. Richadrson Status: Acute (3) Major depression, chronic Assessment & Plan: Last nigh's episode of agitation could be steroid psychosis, ICU psychosis, psychosis associated with severe depression. Less likely is it due to opioid or benzodiazepine withdrawal. Will ask Dr. Chavez to re-evaluate patient tomorrow. Status: Acute (4) Fibromyalgia affecting multiple sites Assessment & Plan: Pain is not severe and is being managed by Toradol. 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
[2018-12-18] MEDS: Alum-Mag Hydrox-Simethicone Susp (30 mL) PO PRN (20:08)
[2018-12-19] MEDS: Piperacillin/Tazobact 3.375 GM in Sodium Chloride 0.9% 100 ML IVPB SCH ×4 (04:04→22:15)
[2018-12-19 05:33] LABS: BASO % 0.1 % (0.0-2.0); EOS # 0.6 K/uL (0.0-0.7); EOS % 3.6 % (0.0-4.0); HEMOGLOBIN 10.2 g/dL (12.0-16.0); LYMPH # 2.8 K/uL (1.0-4.3); LYMPH % 18.3 % (20.0-40.0); MEAN CELL VOLUME 89.4 fl (81.0-99.0); MEAN CORPUSCULAR HEMOGLOBIN 29.9 pg (27.0-31.0); MEAN CORPUSCULAR HGB CONC 33.5 g/dL (33.0-37.0); MONO # 1.3 K/uL (0.0-0.8); MONO % 8.6 % (0.0-10.0); NEUT # 10.8 K/uL (1.8-7.0); NEUT % 69.4 % (50.0-75.0); RBC 3.41 Mil/uL (3.80-5.20); RED CELL DISTRIBUTION WIDTH 13.5 % (11.5-14.5); WHITE BLOOD COUNT 15.5 K/uL (4.8-10.8)
[2018-12-19 05:41] LABS: BLOOD UREA NITROGEN 16 mg/dl (7-17); CALCIUM 8.6 mg/dL (8.4-10.2); GFR NON-AFRICAN AMERICAN > 60
[2018-12-19 05:43] LABS: MEAN PLATELET VOLUME 6.9 fl (7.2-11.7)
[2018-12-19] MEDS: Levothyroxine 75 MCG TAB PO SCH (06:16)
[2018-12-19] MEDS: Enoxaparin 40 mg Syringe SC SCH (08:49)
--- NOTE | 2018-12-19 09:04 | CP.PCM.PN ---
Subjective - Date & Time of Evaluation Date of Evaluation: 12/19/18 Time of Evaluation: 09:04 - Subjective Subjective: Seen on rounds in the ICU this morning. Case discussed with PMD and fountain waitress/waiter. SpO2 93-97%, RR 20 BPM. Awake and alert, mildly sedated. No chest x-ray this morning. Remains on HFNC at 35 LPM - 55% O2. Has complaint of diarrhea today. Respiratory muscle recruitment noted, no IC retractions. Neck is supple and trachea midline. No palpable adenopathy. No dullness on chest percussion. Breath sounds are well heard bilaterally. Coarse sonorous and sibilant rhonchi are heard in both lungs. No discrete wheezing or bronchial breathing. Expiratory phase appears prolonged. Heart sounds are well heard. + dependant edema of ankles and hands bilaterally. Ongoing infectious process seems improved, but chemical pneumonitis is pronounced. Will increase hydrocortisone to 100MG Q8H. Mucomyst with albuterol via neb BID. Continue antibiotic regimen for the present time. Agree with c dif screening. HFNC changes O2 50% and flow 30 LPM. Objective - Vital Signs/Intake and Output Vital Signs (last 24 hours): Temp Pulse Resp BP Pulse Ox 98.4 F 70 18 156/72 H 95 12/19/18 04:00 12/19/18 06:00 12/19/18 06:00 12/19/18 06:00 12/19/18 06:00 Intake and Output: 12/18/18 12/19/18 23:59 11:59 Intake Total 1044 212 Output Total 150 4 Balance 894 208 - Medications Medications: Current Medications Acetaminophen (Tylenol 325mg Tab) 650 mg PO Q4 PRN PRN Reason: Temperature Last Admin: 12/16/18 07:18 Dose: 650 mg Acetaminophen (Tylenol 325mg Tab) 650 mg PO Q6 PRN PRN Reason: Pain, Mild (1-3) Last Admin: 12/19/18 06:18 Dose: 650 mg Al Hydrox/Mg Hydrox/Simethicone (Maalox Plus 30 Ml) 30 ml PO Q6 PRN PRN Reason: Indigestion / Heartburn Last Admin: 12/18/18 20:08 Dose: 30 ml Albuterol Sulfate (Albuterol 0.083% Inhal Judith (2.5 Mg/3 Ml) Ud) 2.5 mg INH RQ4 PRN PRN Reason: Shortness of Breath Clotrimazole (Lotrimin 1% Cream) 1 applic TOP BID [facility] Last Admin: 12/19/18 08:52 Dose: 1 applic Duloxetine HCl (Cymbalta) 40 mg PO DAILY [facility] Last Admin: 12/19/18 08:48 Dose: 40 mg Enoxaparin Sodium (Lovenox) 40 mg SC DAILY [facility]; Protocol Last Admin: 12/19/18 08:49 Dose: 40 mg Famotidine (Pepcid) 40 mg PO DAILY [facility] Last Admin: 12/19/18 09:00 Dose: 40 mg Gabapentin (Neurontin) 300 mg PO TID [facility] Last Admin: 12/19/18 08:48 Dose: 300 mg Hydrocortisone Sodium Succinate (Solu-Cortef) 100 mg IV DAILY [facility] Last Admin: 12/19/18 08:49 Dose: 100 mg Piperacillin Sod/Tazobactam (Sod 3.375 gm/ Sodium Chloride) 100 mls @ 100 mls/hr IVPB Q6 [facility]; Protocol Last Admin: 12/19/18 04:04 Dose: 100 mls/hr Vancomycin HCl 1 gm/ Sodium (Chloride) 250 mls @ 166.667 mls/hr IVPB DAILY [facility]; Protocol Last Admin: 12/19/18 08:51 Dose: 166.667 mls/hr Doxycycline Hyclate 100 mg/ (Sodium Chloride) 100 mls @ 100 mls/hr IVPB Q12 [facility]; Protocol Last Admin: 12/19/18 08:50 Dose: 100 mls/hr Lactated Ringer's (Lactated Ringer's) 1,000 mls @ 100 mls/hr IV .Q10H [facility] Last Admin: 12/18/18 02:38 Dose: 100 mls/hr Ketorolac Tromethamine (Toradol) 30 mg IVP Q6 PRN PRN Reason: Pain, severe (8-10) Last Admin: 12/19/18 04:03 Dose: 30 mg Levothyroxine Sodium (Synthroid) 75 mcg PO DAILY@0630 [facility] Last Admin: 12/19/18 06:16 Dose: 75 mcg Lorazepam (Ativan) 0.5 mg PO Q12 PRN PRN Reason: Anxiety Last Admin: 12/17/18 23:25 Dose: 0.5 mg Methadone HCl (Methadone) 10 mg PO Q12 [facility] Last Admin: 12/19/18 08:54 Dose: 10 mg Nicotine (Nicoderm Cq) 1 patch TD DAILY [facility] Last Admin: 12/19/18 08:48 Dose: 1 patch Ondansetron HCl (Zofran Inj) 4 mg IVP Q4 PRN PRN Reason: Nausea/Vomiting Last Admin: 12/19/18 09:00 Dose: 4 mg - Labs Labs: 12/19/18 05:10 12/19/18 05:10 PT 11.7 Seconds (9.8-13.1) 12/11/18 23:50 INR 1.0 12/11/18 23:50 APTT 32.7 Seconds (25.6-37.1) 12/11/18 23:50 Assessment and Plan (1) Aspiration pneumonia due to inhalation of vomitus Status: Acute (2) Hypoxemia requiring supplemental oxygen Status: Acute (3) Hypercapnia Status: Acute
--- NOTE | 2018-12-19 09:05 | CP.PCM.PN ---
Subjective - Date & Time of Evaluation Date of Evaluation: 12/19/18 Time of Evaluation: 08:57 - Subjective Subjective: Patient was sleeping, breakfast tray by the side of the bed. She did awake when her name was called, but she is a bit "groggy" with sl. slurred speech. She complained that it was a male aide who cleaned her "private parts" last nigh t after she had incontinence of water stool. She said he did not touch her inappropriately, but that she was not comfortable having a man do that. She complains of headache and that she is unhappy here in the ICU with the way the staff is treating her, but she was not specific. Her blood pressure went up to 179 systolic last night so she was given clonidine 0.2mg po. This may be contributing to her lethargic state. Patient continues to have watery diarrhea - is on 3 antibiotics (Zosyn, Vanco, Doxycycline). I discussed this with Dr. Richardson, who thinks we may be able to cut back on antibiotics since the pneumonitis appears to be "chemical" in nature. He will re-evaluate . Meanwhile, he is increasing the corticosteroids, and I will order clostridium difficile studies. We are requesting that Dr. Chavez, psychiatrist, re-evaluate the patient's medications. It may be that the benzodiazepine can now be discontinued or reduced to 0.25mg of Ativan bid (instead of 0.5mg). Since Dr. Richardson is increasing the iv corticosteroid dose, we may need to add an anti-psychotic in view of her meltdown the night before last when she needed iv Haldol. Objective - Vital Signs/Intake and Output Vital Signs (last 24 hours): Temp Pulse Resp BP Pulse Ox 98.4 F 70 18 156/72 H 95 12/19/18 04:00 12/19/18 06:00 12/19/18 06:00 12/19/18 06:00 12/19/18 06:00 Intake and Output: 12/19/18 12/19/18 06:59 18:59 Intake Total 316 Output Total 3 1 Balance 313 -1 - Medications Medications: Current Medications Acetaminophen (Tylenol 325mg Tab) 650 mg PO Q4 PRN PRN Reason: Temperature Last Admin: 12/16/18 07:18 Dose: 650 mg Acetaminophen (Tylenol 325mg Tab) 650 mg PO Q6 PRN PRN Reason: Pain, Mild (1-3) Last Admin: 12/19/18 06:18 Dose: 650 mg Al Hydrox/Mg Hydrox/Simethicone (Maalox Plus 30 Ml) 30 ml PO Q6 PRN PRN Reason: Indigestion / Heartburn Last Admin: 12/18/18 20:08 Dose: 30 ml Albuterol Sulfate (Albuterol 0.083% Inhal Judith (2.5 Mg/3 Ml) Ud) 2.5 mg INH RQ4 PRN PRN Reason: Shortness of Breath Clotrimazole (Lotrimin 1% Cream) 1 applic TOP BID [facility] Last Admin: 12/19/18 08:52 Dose: 1 applic Duloxetine HCl (Cymbalta) 40 mg PO DAILY [facility] Last Admin: 12/19/18 08:48 Dose: 40 mg Enoxaparin Sodium (Lovenox) 40 mg SC DAILY [facility]; Protocol Last Admin: 12/19/18 08:49 Dose: 40 mg Famotidine (Pepcid) 40 mg PO DAILY [facility] Last Admin: 12/18/18 08:23 Dose: 40 mg Gabapentin (Neurontin) 300 mg PO TID [facility] Last Admin: 12/19/18 08:48 Dose: 300 mg Hydrocortisone Sodium Succinate (Solu-Cortef) 100 mg IV DAILY [facility] Last Admin: 12/19/18 08:49 Dose: 100 mg Piperacillin Sod/Tazobactam (Sod 3.375 gm/ Sodium Chloride) 100 mls @ 100 mls/hr IVPB Q6 [facility]; Protocol Last Admin: 12/19/18 04:04 Dose: 100 mls/hr Vancomycin HCl 1 gm/ Sodium (Chloride) 250 mls @ 166.667 mls/hr IVPB DAILY [facility]; Protocol Last Admin: 12/19/18 08:51 Dose: 166.667 mls/hr Doxycycline Hyclate 100 mg/ (Sodium Chloride) 100 mls @ 100 mls/hr IVPB Q12 [facility]; Protocol Last Admin: 12/19/18 08:50 Dose: 100 mls/hr Lactated Ringer's (Lactated Ringer's) 1,000 mls @ 100 mls/hr IV .Q10H [facility] Last Admin: 12/18/18 02:38 Dose: 100 mls/hr Ketorolac Tromethamine (Toradol) 30 mg IVP Q6 PRN PRN Reason: Pain, severe (8-10) Last Admin: 12/19/18 04:03 Dose: 30 mg Levothyroxine Sodium (Synthroid) 75 mcg PO DAILY@0630 [facility] Last Admin: 12/19/18 06:16 Dose: 75 mcg Lorazepam (Ativan) 0.5 mg PO Q12 PRN PRN Reason: Anxiety Last Admin: 12/17/18 23:25 Dose: 0.5 mg Methadone HCl (Methadone) 10 mg PO Q12 [facility] Last Admin: 12/19/18 08:54 Dose: 10 mg Nicotine (Nicoderm Cq) 1 patch TD DAILY [facility] Last Admin: 12/19/18 08:48 Dose: 1 patch Ondansetron HCl (Zofran Inj) 4 mg IVP Q4 PRN PRN Reason: Nausea/Vomiting Last Admin: 12/18/18 21:11 Dose: 4 mg - Labs Labs: 12/19/18 05:10 12/19/18 05:10 PT 11.7 Seconds (9.8-13.1) 12/11/18 23:50 INR 1.0 12/11/18 23:50 APTT 32.7 Seconds (25.6-37.1) 12/11/18 23:50 - Head Exam Head Exam: NORMAL INSPECTION - Eye Exam Eye Exam: Normal appearance - ENT Exam ENT Exam: Mucous Membranes Moist - Neck Exam Neck Exam: Normal Inspection - Respiratory Exam Additional comments: Decreased breath sounds at bases with loud inspiratory crackling and prolonged expiration. Increased secretions in large airways, but patient is not coughing up sputum. - Cardiovascular Exam Cardiovascular Exam: REGULAR RHYTHM, +S1, +S2 - GI/Abdominal Exam GI & Abdominal Exam: Soft - Extremities Exam Additional comments: 1-2+ hand and foot edema. No calf tenderness. good pulses. - Back Exam Back Exam: NORMAL INSPECTION - Neurological Exam Neurological Exam: Altered - Psychiatric Exam Psychiatric exam: Anxious, Depressed - Skin Skin Exam: Dry, Intact, Normal Color, Warm Assessment and Plan (1) Overdose of drug/medicinal substance Status: Acute (2) Aspiration pneumonia due to inhalation of vomitus Assessment & Plan: SEE SUBJECTIVE Status: Acute (3) Major depression, chronic Assessment & Plan: SEE SUBJECTIVE Status: Acute (4) Fibromyalgia affecting multiple sites Status: Acute (5) Mel's thyroiditis Status: Acute (6) Parathyroid adenoma Status: Chronic (7) GERD (gastroesophageal reflux disease) Status: Acute (8) roasterman (current) use of opiate analgesic Status: Chronic (9) Long-term current use of anxiolytic medication Status: Acute (10) Other specified dorsopathies, cervical region Status: Acute
--- NOTE | 2018-12-19 16:00 | PN ---
DATE: 12/19/2018 ENDO FOLLOWUP NOTE LOCATION: ICU room 435. SUBJECTIVE: This is a 58-year-old female with known history of hypothyroidism related to underlying autoimmune thyroiditis, presenting here with acute drug overdose and suicidal gestures and is now being followed closely for metabolic management. She remains clinically euthyroid and biochemically. Her thyroid indices have improved remarkably since admission. The latest thyroxine or T4 level is 7.77 with a TSH of 2.23 and a free T4 of 0.96. Her chemistry showed a BUN of 16, sodium 141, potassium 3, chloride 103, CO2 of 37, glucose 96, and creatinine 0.6. So at this time, we will continue the same levothyroxine given as 75 mcg daily as resumed yesterday morning as ordered. We will obtain serial thyroid studies and titrate her dose regimen accordingly. We will also obtain serial chemistries and supplement accordingly as needed, especially now with a lower potassium levels as noted. We will follow and advise accordingly. Ashlee Monk MD
[2018-12-19] MEDS: Potassium Chloride 20 mEq/15 ml LIQ UD PO ONE ×2 (16:16→16:27)
[2018-12-19] MEDS ORDERED: Potassium Chloride 20 mEq ER Tab PO ONE (16:27)
[2018-12-19] MEDS: Acetylcysteine 20% Inhal Soln (4ml) INH SCH (19:18)
[2018-12-19] MEDS: Albuterol 0.083% Inhal Sol (2.5 mg/3 mL) UD INH SCH (19:19)
[2018-12-19] MEDS ORDERED: DiphenhydrAMINE 50 mg/ml Inj IM STA (21:56)
[2018-12-19] MEDS ORDERED: DiphenhydrAMINE 50 mg/ml Inj ONE (21:56)
[2018-12-20] MEDS: Piperacillin/Tazobact 3.375 GM in Sodium Chloride 0.9% 100 ML IVPB SCH ×4 (03:31→22:14)
[2018-12-20] MEDS: Levothyroxine 75 MCG TAB PO SCH (06:15)
[2018-12-20 07:50] LABS: BASO # 0.1 K/uL (0.0-0.2); BASO % 0.3 % (0.0-2.0); EOS % 0.2 % (0.0-4.0); HEMOGLOBIN 11.5 g/dL (12.0-16.0); LYMPH # 1.8 K/uL (1.0-4.3); MEAN CELL VOLUME 90.2 fl (81.0-99.0); MEAN CORPUSCULAR HEMOGLOBIN 29.9 pg (27.0-31.0); MEAN CORPUSCULAR HGB CONC 33.1 g/dL (33.0-37.0); MEAN PLATELET VOLUME 7.4 fl (7.2-11.7); MONO # 0.8 K/uL (0.0-0.8); NEUT # 17.2 K/uL (1.8-7.0); NEUT % 86.5 % (50.0-75.0); PLATELET COUNT 441 K/uL (130-400); RBC 3.84 Mil/uL (3.80-5.20); RED CELL DISTRIBUTION WIDTH 13.4 % (11.5-14.5); WHITE BLOOD COUNT 19.8 K/uL (4.8-10.8)
--- NOTE | 2018-12-20 08:11 | CP.CCUPN ---
CCU Subjective - Physician Review Events Since Last Encounter (Free Text): Patient awake, no distress, no fever, no vomiting, events reviewed CCU Objective - Vital Signs / Intake & Output Vital Signs (Last 4 hours): Vital Signs Pulse Resp BP Pulse Ox 12/20/18 06:31 21 12/20/18 06:00 79 16 156/72 H 87 L Intake and Output (Last 8hrs): Intake & Output 12/19/18 12/20/18 12/20/18 22:59 06:59 14:59 Intake Total 204 304 Output Total 250 Balance -46 304 Weight 171 lb 4.8 oz Intake: IV 4 4 Intake, Piggyback 200 300 Output: Urine 250 Urethral (Donovan) 250 Other: # Voids Urethral (Donovan) 1 Urine, Voided 2 # Bowel Movements 2 - Physical Exam Head: Positive for: Atraumatic, Normocephalic Pupils: Positive for: PERRL Extroacular Muscles: Positive for: EOMI Conjunctiva: Positive for: Normal Mouth: Positive for: Moist Mucous Membranes Neck: Positive for: Normal Range of Motion, Trachea Midline Respiratory/Chest: Positive for: Wheezes, Rales, Rhonchi. Negative for: Clear to Auscultation, Respiratory Distress, Accessory Muscle Use Cardiovascular: Positive for: Regular Rate and Rhythm, Normal S1, S2, Peripheal Pulses Present, Tachycardic. Negative for: Murmurs, Rub, Gallop Abdomen: Positive for: Normal Bowel Sounds. Negative for: Tenderness, Distention Upper Extremity: Positive for: Normal Inspection Lower Extremity: Positive for: Normal Inspection Psychiatric: Positive for: Alert, Oriented x 3, Normal Insight, Anxious - Medications Active Medications: Active Medications Generic Name Dose Route Start Last Admin Trade Name Freq PRN Reason Stop Dose Admin Acetaminophen 650 mg 12/14/18 17:00 12/16/18 07:18 Tylenol 325mg Tab PO 650 mg Q4 PRN Administration Temperature Acetaminophen 650 mg 12/17/18 00:45 12/19/18 06:18 Tylenol 325mg Tab PO 650 mg Q6 PRN Administration Pain, Mild (1-3) Acetylcysteine 2 ml 12/19/18 20:00 12/19/18 19:18 Acetylcysteine 20% INH 2 ml RBID [facility] Administration Al Hydrox/Mg Hydrox/Simethicone 30 ml 12/17/18 20:38 12/18/18 20:08 Maalox Plus 30 Ml PO 30 ml Q6 PRN Administration Indigestion / Heartburn Albuterol Sulfate 2.5 mg 12/17/18 09:02 Albuterol 0.083% Inhal Judith (2.5 Mg/3 Ml) Ud INH RQ4 PRN Shortness of Breath Albuterol Sulfate 2.5 mg 12/19/18 20:00 12/19/18 19:19 Albuterol 0.083% Inhal Judith (2.5 Mg/3 Ml) Ud INH 2.5 mg RBID [facility] Administration Clotrimazole 1 applic 12/14/18 14:24 12/19/18 16:18 Lotrimin 1% Cream TOP 1 applic BID [facility] Administration Duloxetine HCl 40 mg 12/17/18 11:00 12/19/18 08:48 Cymbalta PO 40 mg DAILY [facility] Administration Enoxaparin Sodium 40 mg 12/12/18 09:00 12/19/18 08:49 Lovenox SC 40 mg DAILY [facility] Administration Protocol Famotidine 40 mg 12/14/18 09:00 12/19/18 09:00 Pepcid PO 40 mg DAILY [facility] Administration Gabapentin 300 mg 12/17/18 13:00 12/19/18 16:19 Neurontin PO 300 mg TID [facility] Administration Hydrocortisone Sodium Succinate 100 mg 12/19/18 09:15 12/20/18 01:03 Solu-Cortef IV 100 mg Q8H [facility] Administration Piperacillin Sod/Tazobactam 100 mls @ 100 mls/hr 12/12/18 10:00 12/20/18 03:31 Sod 3.375 gm/ Sodium Chloride IVPB 100 mls/hr Q6 [facility] Administration Protocol Vancomycin HCl 1 gm/ Sodium 250 mls @ 166.667 mls/hr 12/14/18 17:01 12/19/18 08:51 Chloride IVPB 166.667 mls/hr DAILY [facility] Administration Protocol Doxycycline Hyclate 100 mg/ 100 mls @ 100 mls/hr 12/16/18 09:30 12/20/18 08:01 Sodium Chloride IVPB 100 mls/hr Q12 [facility] Administration Protocol Lactated Ringer's 1,000 mls @ 100 mls/hr 12/17/18 06:00 12/18/18 02:38 Lactated Ringer's IV 100 mls/hr .Q10H [facility] Administration Ketorolac Tromethamine 30 mg 12/17/18 17:16 12/19/18 04:03 Toradol IVP 30 mg Q6 PRN Administration Pain, severe (8-10) Levothyroxine Sodium 75 mcg 12/17/18 11:45 12/20/18 06:15 Synthroid PO 75 mcg DAILY@0630 [facility] Administration Lorazepam 0.5 mg 12/14/18 14:53 12/17/18 23:25 Ativan PO 0.5 mg Q12 PRN Administration Anxiety Methadone HCl 10 mg 12/16/18 21:00 12/19/18 21:03 Methadone PO 10 mg Q12 [facility] Administration Nicotine 1 patch 12/13/18 10:00 12/19/18 08:48 Nicoderm Cq TD 1 patch DAILY [facility] Administration Ondansetron HCl 4 mg 12/16/18 16:04 12/19/18 09:00 Zofran Inj IVP 4 mg Q4 PRN Administration Nausea/Vomiting - Patient Studies Lab Studies: Lab Studies 12/20/18 Range/Units 06:00 WBC 19.8 H (4.8-10.8) K/uL RBC 3.84 (3.80-5.20) Mil/uL Hgb 11.5 L (12.0-16.0) g/dL Hct 34.7 (34.0-47.0) % MCV 90.2 (81.0-99.0) fl MCH 29.9 (27.0-31.0) pg MCHC 33.1 (33.0-37.0) g/dL RDW 13.4 (11.5-14.5) % Plt Count 441 H (130-400) K/uL MPV 7.4 (7.2-11.7) fl Neut % (Auto) 86.5 H (50.0-75.0) % Lymph % (Auto) 9.0 L (20.0-40.0) % [place] % (Auto) 4.0 (0.0-10.0) % Eos % (Auto) 0.2 (0.0-4.0) % Baso % (Auto) 0.3 (0.0-2.0) % Neut # (Auto) 17.2 H (1.8-7.0) K/uL Lymph # (Auto) 1.8 (1.0-4.3) K/uL [place] # (Auto) 0.8 (0.0-0.8) K/uL Eos # (Auto) 0.0 (0.0-0.7) K/uL Baso # (Auto) 0.1 (0.0-0.2) K/uL Laboratory Results - last 24 hr 12/20/18 06:00 WBC 19.8 H RBC 3.84 Hgb 11.5 L Hct 34.7 MCV 90.2 MCH 29.9 MCHC 33.1 RDW 13.4 Plt Count 441 H MPV 7.4 Neut % (Auto) 86.5 H Lymph % (Auto) 9.0 L [place] % (Auto) 4.0 Eos % (Auto) 0.2 Baso % (Auto) 0.3 Neut # (Auto) 17.2 H Lymph # (Auto) 1.8 [place] # (Auto) 0.8 Eos # (Auto) 0.0 Baso # (Auto) 0.1 Fingerstick Blood Sugar Results: 171 Critical Care Progress Note - Nutrition Nutrition: Nutrition Category Date Time Status Regular Diet [DIET] Diets 12/14/18 Breakfast Active Assessment/Plan - Assessment and Plan (Free Text) Assessment: A/P Respiratory insufficiency, drug overdose, hypothermia, h/o suicidal attempts, h/o depression, h/o chronic back pain - Continue meds - Pulmonary toilets - Psychiatry follow up - Follow up labs
[2018-12-20 08:17] LABS: BLOOD UREA NITROGEN 10 mg/dl (7-17); CALCIUM 8.8 mg/dL (8.4-10.2); GFR NON-AFRICAN AMERICAN > 60
[2018-12-20] MEDS: Acetylcysteine 20% Inhal Soln (4ml) INH SCH ×2 (08:31→19:32)
[2018-12-20] MEDS: Albuterol 0.083% Inhal Sol (2.5 mg/3 mL) UD INH SCH ×2 (08:31→19:32)
[2018-12-20] MEDS: Enoxaparin 40 mg Syringe SC SCH (08:35)
--- NOTE | 2018-12-20 08:38 | RAD ---
Date of service: 12/20/2018 HISTORY: pneumonia COMPARISON: Portable chest 12/18/2018. TECHNIQUE: 1 view obtained. FINDINGS: LUNGS: Right central venous line unchanged in position. Persistent mixed infiltrates are identified at the left chest, not simply changed in the interval. Mixed infiltrate at the right upper lobe is increased now abutting the minor fissure although right basilar opacity is diminished. PLEURA: No significant pleural effusion identified, no pneumothorax apparent. CARDIOVASCULAR: No aortic atherosclerotic calcification present. Normal cardiac size. No pulmonary vascular congestion. OSSEOUS STRUCTURES: No significant abnormalities. VISUALIZED UPPER ABDOMEN: Normal. OTHER FINDINGS: None. IMPRESSION: Stable diffuse left mixed alveolar and interstitial infiltrate with mild increase in right upper lobe and infiltrate. Exam otherwise stable in the interval.
[2018-12-20 11:28] LABS: EOSINOPHIL 1 % (0-7); LYMPHOCYTE 10 % (20-50); MONOCYTE 6 % (0-10); NEUTROPHIL 83 % (42-75); TOTAL CELLS COUNTED 100
[2018-12-20 11:32] LABS: PLATELET ESTIMATE SLIGHTLY INCREASED (NORMAL)
--- NOTE | 2018-12-20 11:47 | CP.PCM.PN ---
Subjective - Date & Time of Evaluation Date of Evaluation: 12/20/18 Time of Evaluation: 11:44 - Subjective Subjective: Seen on rounds in the intensive care unit. Case discussed with guest relations coordinator. Interim events and recent EMR entries noted. Today's CXR was reviewed showing further increased infiltrates in the RUL. Diffuse patchy infiltrates throughout the left lung is essentially the same. Cough is non-productive when coached, sounds congested. Not visibly SOB, oxygenation has remained good. Leukocytosis is up to 19.8 this morning. Restless, heavily sedated. Not in respiratory distress although muscle recruitment is noted. No intercostal retractions seen. Breath sounds are well heard in both lungs. Low pitched sonorous rhonchi throughout the left lung and RUL. No bronchial breath sounds or egophony, no wheezes.] Few scattered medium rales are heard in the LLL. Heart sounds are well heard, regular rhythm. + generalized edema, no cyanosis, extremities are pink and warm. Continue current antibiotic regimen and re-eval daily. Monitor chest x-ray daily. HFNC has been reduced to 25L/40%. Will reduce solucortef to 100MG Q12H. Continues to manifest major psychiatric symptoms. Good oxygenation is positive sign despite the progression of infiltrates on CXR. Continue close monitoring for development of ARDS. CC time 45 min. Objective - Vital Signs/Intake and Output Vital Signs (last 24 hours): Temp Pulse Resp BP Pulse Ox 99.1 F 69 20 141/63 100 12/20/18 08:00 12/20/18 11:00 12/20/18 11:33 12/20/18 11:00 12/20/18 11:00 Intake and Output: 12/19/18 12/20/18 23:59 11:59 Intake Total 304 874 Output Total 250 200 Balance 54 674 - Medications Medications: Current Medications Acetaminophen (Tylenol 325mg Tab) 650 mg PO Q4 PRN PRN Reason: Temperature Last Admin: 12/16/18 07:18 Dose: 650 mg Acetaminophen (Tylenol 325mg Tab) 650 mg PO Q6 PRN PRN Reason: Pain, Mild (1-3) Last Admin: 12/19/18 06:18 Dose: 650 mg Acetylcysteine (Acetylcysteine 20%) 2 ml INH RBID [facility] Last Admin: 04/06/19 08:31 Dose: 2 ml Al Hydrox/Mg Hydrox/Simethicone (Maalox Plus 30 Ml) 30 ml PO Q6 PRN PRN Reason: Indigestion / Heartburn Last Admin: 12/18/18 20:08 Dose: 30 ml Albuterol Sulfate (Albuterol 0.083% Inhal Judith (2.5 Mg/3 Ml) Ud) 2.5 mg INH RQ4 PRN PRN Reason: Shortness of Breath Albuterol Sulfate (Albuterol 0.083% Inhal Judith (2.5 Mg/3 Ml) Ud) 2.5 mg INH RBID [facility] Last Admin: 12/20/18 08:31 Dose: 2.5 mg Clotrimazole (Lotrimin 1% Cream) 1 applic TOP BID [facility] Last Admin: 12/19/18 16:18 Dose: 1 applic Duloxetine HCl (Cymbalta) 40 mg PO DAILY [facility] Last Admin: 12/20/18 08:35 Dose: 40 mg Enoxaparin Sodium (Lovenox) 40 mg SC DAILY [facility]; Protocol Last Admin: 12/20/18 08:35 Dose: 40 mg Famotidine (Pepcid) 40 mg PO DAILY [facility] Last Admin: 12/20/18 08:35 Dose: 40 mg Gabapentin (Neurontin) 300 mg PO TID [facility] Last Admin: 12/20/18 08:35 Dose: 300 mg Hydrocortisone Sodium Succinate (Solu-Cortef) 100 mg IV Q8H [facility] Stop: 12/21/18 09:00 Last Admin: 12/20/18 08:33 Dose: 100 mg Hydrocortisone Sodium Succinate (Solu-Cortef) 100 mg IV Q12H [facility] Piperacillin Sod/Tazobactam (Sod 3.375 gm/ Sodium Chloride) 100 mls @ 100 mls/hr IVPB Q6 [facility]; Protocol Last Admin: 12/20/18 09:34 Dose: 100 mls/hr Vancomycin HCl 1 gm/ Sodium (Chloride) 250 mls @ 166.667 mls/hr IVPB DAILY [facility]; Protocol Last Admin: 12/20/18 08:36 Dose: 166.667 mls/hr Doxycycline Hyclate 100 mg/ (Sodium Chloride) 100 mls @ 100 mls/hr IVPB Q12 [facility]; Protocol Last Admin: 12/20/18 08:01 Dose: 100 mls/hr Lactated Ringer's (Lactated Ringer's) 1,000 mls @ 100 mls/hr IV .Q10H [facility] Last Admin: 12/18/18 02:38 Dose: 100 mls/hr Ketorolac Tromethamine (Toradol) 30 mg IVP Q6 PRN PRN Reason: Pain, severe (8-10) Last Admin: 12/19/18 04:03 Dose: 30 mg Levothyroxine Sodium (Synthroid) 75 mcg PO DAILY@0630 [facility] Last Admin: 12/20/18 06:15 Dose: 75 mcg Lorazepam (Ativan) 0.5 mg PO Q12 PRN PRN Reason: Anxiety Last Admin: 12/17/18 23:25 Dose: 0.5 mg Methadone HCl (Methadone) 10 mg PO Q12 [facility] Last Admin: 12/20/18 08:38 Dose: 10 mg Nicotine (Nicoderm Cq) 1 patch TD DAILY [facility] Last Admin: 12/20/18 08:34 Dose: 1 patch Ondansetron HCl (Zofran Inj) 4 mg IVP Q4 PRN PRN Reason: Nausea/Vomiting Last Admin: 12/19/18 09:00 Dose: 4 mg - Labs Labs: 12/20/18 06:00 12/20/18 06:00 PT 11.7 Seconds (9.8-13.1) 12/11/18 23:50 INR 1.0 12/11/18 23:50 APTT 32.7 Seconds (25.6-37.1) 12/11/18 23:50 Assessment and Plan (1) Aspiration pneumonia due to inhalation of vomitus Status: Acute (2) Hypoxemia requiring supplemental oxygen Status: Acute (3) Hypercapnia Status: Acute
--- NOTE | 2018-12-20 16:44 | PN ---
DATE: 12/20/2018 ENDOCRINOLOGY FOLLOWUP NOTE LOCATION: ICU Room 435. SUBJECTIVE: This is a 58-year-old female with recent acute drug overdose and suicidal gestures, currently being followed closely for metabolic management. She also has developed acute aspiration pneumonia, most prominent in the right upper lobe with productive cough and intermittent shortness of breath and generalized body weakness as noted. She is currently on nasal cannula oxygen delivery as noted. She has remained clinically euthyroid at this time and tolerating the levothyroxine given orally as noted. LABORATORY DATA: Her chemistries today showed a BUN of 10, sodium 140, potassium 3.3, chloride 98, CO2 of 36, glucose 112, and creatinine 0.4. Her glycemic fluctuations are expected with intercurrent IV steroids as given. Her latest thyroid studies showed a thyroxine or T4 level of 7.77 with a free T4 of 0.96 and a TSH of 2.23 as noted. ASSESSMENT: This is a 58-year-old female with acute aspiration pneumonitis and previous acute respiratory failure and has since then been extubated and doing fairly well on nasal oxygen delivery as given. She also has remained clinically euthyroid and biochemically has improved her thyroid function studies as noted. She has underlying autoimmune thyroiditis with a concomitant nodular goiter. PLAN OF MANAGEMENT: We will continue the levothyroxine given as 75 mcg once daily in the morning as ordered. We will titrate incrementally as indicated to optimize metabolic control. We will obtain serial chemistries and supplement accordingly as needed. We will also continue the low dose correction scale using regular insulin as ordered. Moreover, we will continue also the serial thyroid studies and we will titrate the dose regimen accordingly. Ashlee Monk MD
--- NOTE | 2018-12-20 17:35 | CP.PCM.PN ---
Subjective - Date & Time of Evaluation Date of Evaluation: 12/20/18 Time of Evaluation: 17:32 - Subjective Subjective: SUMMARY UPDATE - PLEASE SEE MY ADMISSION H & P FOR DETAILS OF PAST HISTORY Patient was admitted to ICU on 12/12 after attempted suicide by drug overdose (involving large quantity of Trazodone, some opioids and benzodiazepines). She was found unconscious by and had aspirated large amount of gastric and bilious fluids. She was hypoxic (required intubation/ventilatio) and hypotensive (required pressors). Pneumonia has been treated with triple antibiotics, but based on poor response to this, she was begun on high dose iv corticosteroids for chemical pneumonitis. There has been improvement in respiratory status with stable oxygenation on high flow nasal oxygen. Patient has a long hx of major depression (see H & P) which has responded poorly to medications. Dr. Chavez saw her initially and was planning to accept her to the psychiatric unit once medically cleared. Mel's thyroiditis is well managed by levothyroxine. GERD is controlled with iv Pepcid. Fibromyalgia is a chronic problem as is painful cervical disc disease. She is on Cymbalta 40mg daily for this. Dr. Mello (anesthesia/pain managemet) has been recommending continuation of DrChar methadone 10mg bid (for prior opioid dependence) and low dose Ativan bid prn (for prior benzodiazepine dependence). The plan is to taper off both these medications. As the patient's medical condition has improved, her mental state has deteriorated. She has become agitated, trying to pull out her iv lines, trying to remove her nasal oxygen, spitting out medications and arguing with nurses. She believes people are mistreating her here in the ICU. She is now hearing disturbing noises, but not "voices." Of course, she is on 1:1 observation. Of note, the patient has requested removal of the nicotine patch, which she has had daily x 24 hrs. She says it is giving her a headache. At home she would remove the patch at hs and replace in the morning. Her believes she may not need the patch anymore, so I will discontinue it and observe. Over the past few days the medical team for ICU has had to give iv Haldol several times, and the patient has required physical restraints at times. But, then she becomes very oversedated. This evening I just gave Seroquel 25mg po, and it seems to have helped calm her (but not entirely). I was unable to reach Dr. Chavez and had to leave a message on her voice mail. The psychiatrist recreation programmer is Dr. Latanya Bowman. I had to leave a message on her phone also, asking for her help in treating Ms. Sykes. At this time the differential dx for the psychosis is: (1) corticosteroid induced (so Dr. Richardson just decreased the iv solumedrol to 100mg q12h) (2) "ICU psychosis" (so we are trying to get her oob to chair, etc etc) (3) psychosis associated with major depressive disorder Objective - Vital Signs/Intake and Output Vital Signs (last 24 hours): Temp Pulse Resp BP Pulse Ox 99.1 F 81 21 150/71 94 L 12/20/18 16:00 12/20/18 17:00 12/20/18 17:00 12/20/18 17:00 12/20/18 17:00 Intake and Output: 12/20/18 12/20/18 06:59 18:59 Intake Total 408 1030 Output Total 200 Balance 408 830 - Medications Medications: Current Medications Acetaminophen (Tylenol 325mg Tab) 650 mg PO Q4 PRN PRN Reason: Temperature Last Admin: 12/16/18 07:18 Dose: 650 mg Acetaminophen (Tylenol 325mg Tab) 650 mg PO Q6 PRN PRN Reason: Pain, Mild (1-3) Last Admin: 12/19/18 06:18 Dose: 650 mg Acetylcysteine (Acetylcysteine 20%) 2 ml INH RBID [facility] Last Admin: 12/20/18 08:31 Dose: 2 ml Al Hydrox/Mg Hydrox/Simethicone (Maalox Plus 30 Ml) 30 ml PO Q6 PRN PRN Reason: Indigestion / Heartburn Last Admin: 12/18/18 20:08 Dose: 30 ml Albuterol Sulfate (Albuterol 0.083% Inhal Judith (2.5 Mg/3 Ml) Ud) 2.5 mg INH RQ4 PRN PRN Reason: Shortness of Breath Albuterol Sulfate (Albuterol 0.083% Inhal Judith (2.5 Mg/3 Ml) Ud) 2.5 mg INH RBID [facility] Last Admin: 12/20/18 08:31 Dose: 2.5 mg Clotrimazole (Lotrimin 1% Cream) 1 applic TOP BID [facility] Last Admin: 12/20/18 16:21 Dose: 1 applic Duloxetine HCl (Cymbalta) 40 mg PO DAILY [facility] Last Admin: 12/20/18 08:35 Dose: 40 mg Enoxaparin Sodium (Lovenox) 40 mg SC DAILY [facility]; Protocol Last Admin: 12/20/18 08:35 Dose: 40 mg Famotidine (Pepcid) 40 mg PO DAILY [facility] Last Admin: 12/20/18 08:35 Dose: 40 mg Gabapentin (Neurontin) 300 mg PO TID [facility] Last Admin: 12/20/18 16:06 Dose: 300 mg Hydrocortisone Sodium Succinate (Solu-Cortef) 100 mg IV Q8H [facility] Stop: 12/21/18 09:00 Last Admin: 12/20/18 16:22 Dose: 100 mg Hydrocortisone Sodium Succinate (Solu-Cortef) 100 mg IV Q12H [facility] Piperacillin Sod/Tazobactam (Sod 3.375 gm/ Sodium Chloride) 100 mls @ 100 mls/hr IVPB Q6 [facility]; Protocol Last Admin: 12/20/18 15:08 Dose: 100 mls/hr Vancomycin HCl 1 gm/ Sodium (Chloride) 250 mls @ 166.667 mls/hr IVPB DAILY [facility]; Protocol Last Admin: 12/20/18 08:36 Dose: 166.667 mls/hr Doxycycline Hyclate 100 mg/ (Sodium Chloride) 100 mls @ 100 mls/hr IVPB Q12 [facility]; Protocol Last Admin: 12/20/18 08:01 Dose: 100 mls/hr Lactated Ringer's (Lactated Ringer's) 1,000 mls @ 100 mls/hr IV .Q10H [facility] Last Admin: 12/18/18 02:38 Dose: 100 mls/hr Ketorolac Tromethamine (Toradol) 30 mg IVP Q6 PRN PRN Reason: Pain, severe (8-10) Last Admin: 12/19/18 04:03 Dose: 30 mg Levothyroxine Sodium (Synthroid) 75 mcg PO DAILY@0630 [facility] Last Admin: 12/20/18 06:15 Dose: 75 mcg Lorazepam (Ativan) 0.5 mg PO Q12 PRN PRN Reason: Anxiety Last Admin: 12/17/18 23:25 Dose: 0.5 mg Methadone HCl (Methadone) 10 mg PO Q12 [facility] Last Admin: 12/20/18 08:38 Dose: 10 mg Nicotine (Nicoderm Cq) 1 patch TD DAILY [facility] Last Admin: 12/20/18 08:34 Dose: 1 patch Ondansetron HCl (Zofran Inj) 4 mg IVP Q4 PRN PRN Reason: Nausea/Vomiting Last Admin: 12/19/18 09:00 Dose: 4 mg - Labs Labs: 12/20/18 06:00 12/20/18 06:00 PT 11.7 Seconds (9.8-13.1) 12/11/18 23:50 INR 1.0 12/11/18 23:50 APTT 32.7 Seconds (25.6-37.1) 12/11/18 23:50 CLOSTRIDIUM DIFFICILE AG/AB - NEGATIVE - Constitutional Appears: Agitated, Other (paranoid) - Head Exam Head Exam: NORMAL INSPECTION - Eye Exam Eye Exam: Normal appearance - ENT Exam ENT Exam: Mucous Membranes Moist - Neck Exam Neck Exam: Normal Inspection - Respiratory Exam Additional comments: Breath sounds are now clearly audible at the bases although there are inspiratory crackles throuhout the lungs. The expirations are no longer prolonged. Overall, there is improved air flow. - Cardiovascular Exam Cardiovascular Exam: REGULAR RHYTHM, +S1, +S2 - GI/Abdominal Exam GI & Abdominal Exam: Soft Additional comments: Bowel movements are now soft, but not liquid. - Extremities Exam Additional comments: Marked had and foot edema. - Neurological Exam Neurological Exam: Altered Additional comments: No focal or lateralizing sensory or motor deficits - Psychiatric Exam Psychiatric exam: Agitated Additional comments: hearing "noises" paranoid ideation - Skin Skin Exam: Dry, Intact, Normal Color, Warm Assessment and Plan (1) Overdose of drug/medicinal substance Assessment & Plan: SEE SUBJECTIVE. Status: Acute (2) Aspiration pneumonia due to inhalation of vomitus Assessment & Plan: SEE SUBJECTIVE Status: Acute (3) Major depression, chronic Assessment & Plan: SEE SUBJECTIVE Status: Acute (4) Fibromyalgia affecting multiple sites Assessment & Plan: SEE SUBJECTIVE Status: Acute (5) Mel's thyroiditis Assessment & Plan: SEE SUBJECTIVE Status: Acute (6) Parathyroid adenoma Status: Chronic (7) GERD (gastroesophageal reflux disease) Assessment & Plan: SEE SUBJECTIVE Status: Acute (8) [facility] (current) use of opiate analgesic Status: Chronic (9) Long-term current use of anxiolytic medication Status: Acute (10) Other specified dorsopathies, cervical region Status: Acute
[2018-12-21] MEDS: Piperacillin/Tazobact 3.375 GM in Sodium Chloride 0.9% 100 ML IVPB SCH ×2 (03:17→09:03)
[2018-12-21] MEDS: Levothyroxine 75 MCG TAB PO SCH ×2 (06:36→06:39)
[2018-12-21 06:40] LABS: HEMOGLOBIN 9.4 g/dL (12.0-16.0); MEAN CELL VOLUME 89.3 fl (81.0-99.0); MEAN CORPUSCULAR HEMOGLOBIN 29.4 pg (27.0-31.0); MEAN CORPUSCULAR HGB CONC 32.9 g/dL (33.0-37.0); RBC 3.21 Mil/uL (3.80-5.20); RED CELL DISTRIBUTION WIDTH 13.3 % (11.5-14.5); WHITE BLOOD COUNT 17.7 K/uL (4.8-10.8)
[2018-12-21 06:54] LABS: ALB/GLOB RATIO 0.9 (1.0-2.1); ALBUMIN 2.5 g/dL (3.5-5.0); ALT/SGPT 42 U/L (9-52); AST/SGOT 33 U/L (14-36); BLOOD UREA NITROGEN 13 mg/dl (7-17); CALCIUM 8.4 mg/dL (8.4-10.2); GFR NON-AFRICAN AMERICAN > 60
--- NOTE | 2018-12-21 07:21 | CP.CCUPN ---
CCU Subjective - Physician Review Events Since Last Encounter (Free Text): Patient awake, no distress, no fever, no vomiting, events reviewed CCU Objective - Vital Signs / Intake & Output Vital Signs (Last 4 hours): Vital Signs Pulse Resp BP Pulse Ox 12/21/18 06:00 68 18 143/49 L 92 L 12/21/18 04:50 22 12/21/18 04:00 71 22 158/82 H 96 Intake and Output (Last 8hrs): Intake & Output 12/20/18 12/21/18 12/21/18 22:59 06:59 14:59 Intake Total 642 304 Output Total 300 200 Balance 342 104 Weight 163 lb 11.2 oz Intake: IV 2 24 Intake, Piggyback 200 200 Oral 440 80 Output: Urine 300 200 Urine, Voided 300 200 Other: # Bowel Movements 1 - Physical Exam Head: Positive for: Atraumatic, Normocephalic Pupils: Positive for: PERRL Extroacular Muscles: Positive for: EOMI Conjunctiva: Positive for: Normal Mouth: Positive for: Moist Mucous Membranes Neck: Positive for: Normal Range of Motion, Trachea Midline Respiratory/Chest: Positive for: Wheezes, Rales, Rhonchi. Negative for: Clear to Auscultation, Respiratory Distress, Accessory Muscle Use Cardiovascular: Positive for: Regular Rate and Rhythm, Normal S1, S2, Peripheal Pulses Present, Tachycardic. Negative for: Murmurs, Rub, Gallop Abdomen: Positive for: Normal Bowel Sounds. Negative for: Tenderness, Distention Upper Extremity: Positive for: Normal Inspection Lower Extremity: Positive for: Normal Inspection Psychiatric: Positive for: Alert, Oriented x 3, Normal Insight, Anxious - Medications Active Medications: Active Medications Generic Name Dose Route Start Last Admin Trade Name Freq PRN Reason Stop Dose Admin Acetaminophen 650 mg 12/14/18 17:00 12/16/18 07:18 Tylenol 325mg Tab PO 650 mg Q4 PRN Administration Temperature Acetaminophen 650 mg 12/17/18 00:45 12/19/18 06:18 Tylenol 325mg Tab PO 650 mg Q6 PRN Administration Pain, Mild (1-3) Acetylcysteine 2 ml 12/19/18 20:00 12/20/18 19:32 Acetylcysteine 20% INH 2 ml RBID MICAELA Administration Al Hydrox/Mg Hydrox/Simethicone 30 ml 12/17/18 20:38 12/18/18 20:08 Maalox Plus 30 Ml PO 30 ml Q6 PRN Administration Indigestion / Heartburn Albuterol Sulfate 2.5 mg 12/17/18 09:02 Albuterol 0.083% Inhal Judith (2.5 Mg/3 Ml) Ud INH RQ4 PRN Shortness of Breath Albuterol Sulfate 2.5 mg 12/19/18 20:00 12/20/18 19:32 Albuterol 0.083% Inhal Judith (2.5 Mg/3 Ml) Ud INH 2.5 mg RBID MICAELA Administration Clotrimazole 1 applic 12/14/18 14:24 12/20/18 16:21 Lotrimin 1% Cream TOP 1 applic BID MICAELA Administration Duloxetine HCl 40 mg 12/17/18 11:00 12/20/18 08:35 Cymbalta PO 40 mg DAILY MICAELA Administration Enoxaparin Sodium 40 mg 12/12/18 09:00 12/20/18 08:35 Lovenox SC 40 mg DAILY MICAELA Administration Protocol Famotidine 40 mg 12/14/18 09:00 12/20/18 08:35 Pepcid PO 40 mg DAILY MICAELA Administration Gabapentin 300 mg 12/17/18 13:00 12/20/18 16:06 Neurontin PO 300 mg TID MICAELA Administration Hydrocortisone Sodium Succinate 100 mg 12/19/18 09:15 12/21/18 01:10 Solu-Cortef IV 12/21/18 09:00 100 mg Q8H MICAELA Administration Hydrocortisone Sodium Succinate 100 mg 12/21/18 09:00 Solu-Cortef IV Q12H MICAELA Piperacillin Sod/Tazobactam 100 mls @ 100 mls/hr 12/12/18 10:00 12/21/18 03:17 Sod 3.375 gm/ Sodium Chloride IVPB 100 mls/hr Q6 MICAELA Administration Protocol Vancomycin HCl 1 gm/ Sodium 250 mls @ 166.667 mls/hr 12/14/18 17:01 12/20/18 08:36 Chloride IVPB 166.667 mls/hr DAILY MICAELA Administration Protocol Doxycycline Hyclate 100 mg/ 100 mls @ 100 mls/hr 12/16/18 09:30 12/20/18 20:21 Sodium Chloride IVPB 100 mls/hr Q12 MICAELA Administration Protocol Lactated Ringer's 1,000 mls @ 100 mls/hr 12/17/18 06:00 12/18/18 02:38 Lactated Ringer's IV 100 mls/hr .Q10H MICAELA Administration Ketorolac Tromethamine 30 mg 12/17/18 17:16 12/19/18 04:03 Toradol IVP 30 mg Q6 PRN Administration Pain, severe (8-10) Levothyroxine Sodium 75 mcg 12/17/18 11:45 12/21/18 06:39 Synthroid PO Not Given DAILY@0630 [facility] Lorazepam 0.5 mg 12/14/18 14:53 12/21/18 03:19 Ativan PO 0.5 mg Q12 PRN Administration Anxiety Methadone HCl 10 mg 12/16/18 21:00 12/20/18 21:32 Methadone PO 10 mg Q12 MICAELA Administration Ondansetron HCl 4 mg 12/16/18 16:04 12/21/18 03:06 Zofran Inj IVP 4 mg Q4 PRN Administration Nausea/Vomiting - Patient Studies Lab Studies: Lab Studies 12/21/18 12/21/18 12/20/18 Range/Units 04:30 04:30 13:51 WBC 17.7 H (4.8-10.8) K/uL RBC 3.21 L (3.80-5.20) Mil/uL Hgb 9.4 L D (12.0-16.0) g/dL Hct 28.7 L (34.0-47.0) % MCV 89.3 (81.0-99.0) fl MCH 29.4 (27.0-31.0) pg MCHC 32.9 L (33.0-37.0) g/dL RDW 13.3 (11.5-14.5) % Plt Count 429 H (130-400) K/uL MPV (7.2-11.7) fl Neut % (Auto) (50.0-75.0) % Lymph % (Auto) (20.0-40.0) % [place] % (Auto) (0.0-10.0) % Eos % (Auto) (0.0-4.0) % Baso % (Auto) (0.0-2.0) % Neut # (Auto) (1.8-7.0) K/uL Lymph # (Auto) (1.0-4.3) K/uL [place] # (Auto) (0.0-0.8) K/uL Eos # (Auto) (0.0-0.7) K/uL Baso # (Auto) (0.0-0.2) K/uL Neutrophils % (Manual) (42-75) % Lymphocytes % (Manual) (20-50) % Monocytes % (Manual) (0-10) % Eosinophils % (Manual) (0-7) % Platelet Estimate (NORMAL) RBC Morphology (NORMAL) Sodium 140 (132-148) mmol/l Potassium 2.8 L (3.6-5.0) MMOL/L Chloride 98 (98-107) mmol/L Carbon Dioxide 37 H (22-30) mmol/L Anion Gap 8 L (10-20) BUN 13 (7-17) mg/dl Creatinine 0.5 L (0.7-1.2) mg/dl Est GFR ( Amer) > 60 Est GFR (Non-Af Amer) > 60 Random Glucose 100 (65-105) mg/dL Calcium 8.4 (8.4-10.2) mg/dL Total Bilirubin 0.6 (0.2-1.3) mg/dl AST 33 (14-36) U/L ALT 42 (9-52) U/L Alkaline Phosphatase 73 (38-126) U/L Total Protein 5.3 L (6.3-8.2) G/DL Albumin 2.5 L (3.5-5.0) g/dL Globulin 2.7 (2.2-3.9) gm/dL Albumin/Globulin Ratio 0.9 L (1.0-2.1) C. difficile Ag & Toxin Negative (NEGATIVE) 12/20/18 12/20/18 Range/Units 06:00 06:00 WBC 19.8 H (4.8-10.8) K/uL RBC 3.84 (3.80-5.20) Mil/uL Hgb 11.5 L (12.0-16.0) g/dL Hct 34.7 (34.0-47.0) % MCV 90.2 (81.0-99.0) fl MCH 29.9 (27.0-31.0) pg MCHC 33.1 (33.0-37.0) g/dL RDW 13.4 (11.5-14.5) % Plt Count 441 H (130-400) K/uL MPV 7.4 (7.2-11.7) fl Neut % (Auto) 86.5 H (50.0-75.0) % Lymph % (Auto) 9.0 L (20.0-40.0) % [place] % (Auto) 4.0 (0.0-10.0) % Eos % (Auto) 0.2 (0.0-4.0) % Baso % (Auto) 0.3 (0.0-2.0) % Neut # (Auto) 17.2 H (1.8-7.0) K/uL Lymph # (Auto) 1.8 (1.0-4.3) K/uL [place] # (Auto) 0.8 (0.0-0.8) K/uL Eos # (Auto) 0.0 (0.0-0.7) K/uL Baso # (Auto) 0.1 (0.0-0.2) K/uL Neutrophils % (Manual) 83 H (42-75) % Lymphocytes % (Manual) 10 L (20-50) % Monocytes % (Manual) 6 (0-10) % Eosinophils % (Manual) 1 (0-7) % Platelet Estimate Slightly increased H (NORMAL) RBC Morphology Normal (NORMAL) Sodium 140 (132-148) mmol/l Potassium 3.3 L (3.6-5.0) MMOL/L Chloride 98 (98-107) mmol/L Carbon Dioxide 36 H (22-30) mmol/L Anion Gap 9 L (10-20) BUN 10 (7-17) mg/dl Creatinine 0.4 L (0.7-1.2) mg/dl Est GFR ( Amer) > 60 Est GFR (Non-Af Amer) > 60 Random Glucose 112 H (65-105) mg/dL Calcium 8.8 (8.4-10.2) mg/dL Total Bilirubin (0.2-1.3) mg/dl AST (14-36) U/L ALT (9-52) U/L Alkaline Phosphatase (38-126) U/L Total Protein (6.3-8.2) G/DL Albumin (3.5-5.0) g/dL Globulin (2.2-3.9) gm/dL Albumin/Globulin Ratio (1.0-2.1) C. difficile Ag & Toxin (NEGATIVE) Laboratory Results - last 24 hr 12/20/18 12/20/18 12/20/18 06:00 06:00 13:51 WBC 19.8 H RBC 3.84 Hgb 11.5 L Hct 34.7 MCV 90.2 MCH 29.9 MCHC 33.1 RDW 13.4 Plt Count 441 H MPV 7.4 Neut % (Auto) 86.5 H Lymph % (Auto) 9.0 L [place] % (Auto) 4.0 Eos % (Auto) 0.2 Baso % (Auto) 0.3 Neut # (Auto) 17.2 H Lymph # (Auto) 1.8 [place] # (Auto) 0.8 Eos # (Auto) 0.0 Baso # (Auto) 0.1 Neutrophils % (Manual) 83 H Lymphocytes % (Manual) 10 L Monocytes % (Manual) 6 Eosinophils % (Manual) 1 Platelet Estimate Slightly increased H RBC Morphology Normal Sodium 140 Potassium 3.3 L Chloride 98 Carbon Dioxide 36 H Anion Gap 9 L BUN 10 Creatinine 0.4 L Est GFR ( Amer) > 60 Est GFR (Non-Af Amer) > 60 Random Glucose 112 H Calcium 8.8 Total Bilirubin AST ALT Alkaline Phosphatase Total Protein Albumin Globulin Albumin/Globulin Ratio C. difficile Ag & Toxin Negative 12/21/18 12/21/18 04:30 04:30 WBC 17.7 H RBC 3.21 L Hgb 9.4 L D Hct 28.7 L MCV 89.3 MCH 29.4 MCHC 32.9 L RDW 13.3 Plt Count 429 H MPV Neut % (Auto) Lymph % (Auto) [place] % (Auto) Eos % (Auto) Baso % (Auto) Neut # (Auto) Lymph # (Auto) [place] # (Auto) Eos # (Auto) Baso # (Auto) Neutrophils % (Manual) Lymphocytes % (Manual) Monocytes % (Manual) Eosinophils % (Manual) Platelet Estimate RBC Morphology Sodium 140 Potassium 2.8 L Chloride 98 Carbon Dioxide 37 H Anion Gap 8 L BUN 13 Creatinine 0.5 L Est GFR ( Amer) > 60 Est GFR (Non-Af Amer) > 60 Random Glucose 100 Calcium 8.4 Total Bilirubin 0.6 AST 33 ALT 42 Alkaline Phosphatase 73 Total Protein 5.3 L Albumin 2.5 L Globulin 2.7 Albumin/Globulin Ratio 0.9 L C. difficile Ag & Toxin Radiology Impressions: Radiology Impressions Chest X-Ray 12/20/18 05:00 IMPRESSION: Stable diffuse left mixed alveolar and interstitial infiltrate with mild increase in right upper lobe and infiltrate. Exam otherwise stable in the interval. Fingerstick Blood Sugar Results: 171 Critical Care Progress Note - Nutrition Nutrition: Nutrition Category Date Time Status Regular Diet [DIET] Diets 12/14/18 Breakfast Active Assessment/Plan - Assessment and Plan (Free Text) Assessment: A/P Respiratory insufficiency, drug overdose, hypothermia, h/o suicidal attempts, h/o depression, h/o chronic back pain - Continue meds - Pulmonary toilets - Psychiatry follow up - Follow up labs
[2018-12-21] MEDS: Acetylcysteine 20% Inhal Soln (4ml) INH SCH ×2 (08:10→19:05)
[2018-12-21] MEDS: Albuterol 0.083% Inhal Sol (2.5 mg/3 mL) UD INH SCH ×2 (08:10→19:05)
--- NOTE | 2018-12-21 08:23 | RAD ---
Date of service: 12/21/2018 HISTORY: pneumonia COMPARISON: Portable chest 12/20/2018. TECHNIQUE: 1 view obtained. FINDINGS: LUNGS: Right central venous line unchanged. No significant interval change in bilateral mixed infiltrates which remain greater the left than right. PLEURA: No significant pleural effusion identified, no pneumothorax apparent. CARDIOVASCULAR: No aortic atherosclerotic calcification present. Normal cardiac size. No pulmonary vascular congestion. OSSEOUS STRUCTURES: No significant abnormalities. VISUALIZED UPPER ABDOMEN: Normal. OTHER FINDINGS: None. IMPRESSION: No interval change in left greater than right mixed infiltrates. Right central venous line unchanged.
[2018-12-21] MEDS: Enoxaparin 40 mg Syringe SC SCH (08:59)
--- NOTE | 2018-12-21 11:54 | CP.PCM.PN ---
Subjective - Date & Time of Evaluation Date of Evaluation: 12/21/18 Time of Evaluation: 11:46 - Subjective Subjective: Patient is much improved after receiving Seroquel 25mg po last night. We also discontinued the nicotine patch. She slept most of the night, ate a fairly good breakfast, and is now calm and no longer exhibiting psychotic symptoms. We are awaiting recommendations from psychiatry. (See yesterday's note). Meanwhile, I have ordered daily Seroquel 25mg to be given at suppertime. Pt is coughing now, somewhat looser but still not raising much sputum. Dr. Richardson had decreased both the iv corticosteroid dose and the flow rate for nasal oxygen. She is showing good oxygenation on the lower rate of oxygen and her vital signs are stable. Labs show low potassium of 2.8 this morning, so I have ordered IV KCL to be administered slowly over the next 20 hrs. Edema persists. Ensure-HP reordered for bid to help with this. She is still on methadone 10mg bid. Will consider decrease to 7.5mg bid tomorrow - if OK with Dr. Mello. Will decrease the Ativan to 0.25mg q12h prn. Cymbalta appears to be helping the fibromyalgia and cervical disc disease pain. Objective - Vital Signs/Intake and Output Vital Signs (last 24 hours): Temp Pulse Resp BP Pulse Ox 98.1 F 91 H 20 147/69 97 12/21/18 08:00 12/21/18 08:00 12/21/18 08:10 12/21/18 08:00 12/21/18 08:00 Intake and Output: 12/21/18 12/21/18 06:59 18:59 Intake Total 606 12 Output Total 500 200 Balance 106 -188 - Medications Medications: Current Medications Acetaminophen (Tylenol 325mg Tab) 650 mg PO Q4 PRN PRN Reason: Temperature Last Admin: 12/16/18 07:18 Dose: 650 mg Acetaminophen (Tylenol 325mg Tab) 650 mg PO Q6 PRN PRN Reason: Pain, Mild (1-3) Last Admin: 12/19/18 06:18 Dose: 650 mg Acetylcysteine (Acetylcysteine 20%) 2 ml INH RBID MICAELA Last Admin: 12/21/18 08:10 Dose: 2 ml Al Hydrox/Mg Hydrox/Simethicone (Maalox Plus 30 Ml) 30 ml PO Q6 PRN PRN Reason: Indigestion / Heartburn Last Admin: 12/18/18 20:08 Dose: 30 ml Albuterol Sulfate (Albuterol 0.083% Inhal Judith (2.5 Mg/3 Ml) Ud) 2.5 mg INH RQ4 PRN PRN Reason: Shortness of Breath Albuterol Sulfate (Albuterol 0.083% Inhal Judith (2.5 Mg/3 Ml) Ud) 2.5 mg INH RBID [facility] Last Admin: 12/21/18 08:10 Dose: 2.5 mg Clotrimazole (Lotrimin 1% Cream) 1 applic TOP BID [facility] Last Admin: 12/21/18 09:00 Dose: 1 applic Duloxetine HCl (Cymbalta) 40 mg PO DAILY [facility] Last Admin: 12/21/18 09:00 Dose: 40 mg Enoxaparin Sodium (Lovenox) 40 mg SC DAILY [facility]; Protocol Last Admin: 12/21/18 08:59 Dose: 40 mg Famotidine (Pepcid) 40 mg PO DAILY [facility] Last Admin: 12/21/18 08:59 Dose: 40 mg Gabapentin (Neurontin) 300 mg PO TID [facility] Last Admin: 12/21/18 08:59 Dose: 300 mg Hydrocortisone Sodium Succinate (Solu-Cortef) 100 mg IV Q12H [facility] Last Admin: 12/21/18 09:01 Dose: 100 mg Piperacillin Sod/Tazobactam (Sod 3.375 gm/ Sodium Chloride) 100 mls @ 100 mls/hr IVPB Q6 MICAELA; Protocol Last Admin: 12/21/18 09:03 Dose: 100 mls/hr Vancomycin HCl 1 gm/ Sodium (Chloride) 250 mls @ 166.667 mls/hr IVPB DAILY [facility]; Protocol Last Admin: 12/21/18 09:02 Dose: 166.667 mls/hr Doxycycline Hyclate 100 mg/ (Sodium Chloride) 100 mls @ 100 mls/hr IVPB Q12 [facility]; Protocol Last Admin: 12/21/18 09:03 Dose: 100 mls/hr Lactated Ringer's (Lactated Ringer's) 1,000 mls @ 100 mls/hr IV .Q10H [facility]ICAELA Last Admin: 12/18/18 02:38 Dose: 100 mls/hr Potassium Chloride/Dextrose/Sod Cl (D5-Ns1l+40meq Kcl) 1,000 mls @ 100 mls/hr IV .Q10H [facility] Stop: 12/22/18 06:00 Ketorolac Tromethamine (Toradol) 30 mg IVP Q6 PRN PRN Reason: Pain, severe (8-10) Last Admin: 12/19/18 04:03 Dose: 30 mg Levothyroxine Sodium (Synthroid) 75 mcg PO DAILY@0630 [facility] Last Admin: 12/21/18 06:39 Dose: Not Given Lorazepam (Ativan) 0.5 mg PO Q12 PRN PRN Reason: Anxiety Last Admin: 12/21/18 03:19 Dose: 0.5 mg Methadone HCl (Methadone) 10 mg PO Q12 [facility] Last Admin: 12/21/18 09:08 Dose: 10 mg Ondansetron HCl (Zofran Inj) 4 mg IVP Q4 PRN PRN Reason: Nausea/Vomiting Last Admin: 12/21/18 03:06 Dose: 4 mg Quetiapine Fumarate (Seroquel) 25 mg PO HS [facility] - Labs Labs: 12/21/18 04:30 12/21/18 04:30 PT 11.7 Seconds (9.8-13.1) 12/11/18 23:50 INR 1.0 12/11/18 23:50 APTT 32.7 Seconds (25.6-37.1) 12/11/18 23:50 - Constitutional Appears: Other (Alert and oriented, calm and coherent, but looks ill) - Head Exam Head Exam: NORMAL INSPECTION - Eye Exam Eye Exam: Normal appearance - ENT Exam ENT Exam: Mucous Membranes Moist - Neck Exam Neck Exam: Normal Inspection Additional comments: TLC R internal carotid intact. - Respiratory Exam Additional comments: Much improved breath sounds but still inspiratory crackles especially at bases and increased secretions in the large airways. No wheezes. - Cardiovascular Exam Cardiovascular Exam: REGULAR RHYTHM, +S1, +S2 - GI/Abdominal Exam GI & Abdominal Exam: Soft - Extremities Exam Extremities Exam: Normal Capillary Refill, Pedal Edema Additional comments: Edema in hands and feet. No calf tenderness. Good pulses. - Back Exam Back Exam: NORMAL INSPECTION - Neurological Exam Neurological Exam: Alert, Oriented x3 Additional comments: We are going to get patient oob today. - Psychiatric Exam Psychiatric exam: Anxious, Depressed - Skin Skin Exam: Dry, Intact, Normal Color, Warm Assessment and Plan (1) Overdose of drug/medicinal substance Assessment & Plan: Patient is being weaned off opioids and benzoeiazepines - per instructions by Dr. Mello, anesthesiologist/pain mgmt. Status: Acute (2) Aspiration pneumonia due to inhalation of vomitus Assessment & Plan: Will see if antibiotic regimen can be changed - Dr. Richardson and Dr. Lewis are attending to this. Patient is on lowered corticosteroid dosing as her chemical pneumonitis appears to be improving. Status: Acute (3) Major depression, chronic Assessment & Plan: Now on serogquel 25mg po daily. SEE SUBJECTIVE ABOVE. Status: Acute (4) Fibromyalgia affecting multiple sites Assessment & Plan: cONTINUE CYMBALTA. Status: Acute (5) Mel's thyroiditis Status: Acute (6) Parathyroid adenoma Status: Chronic (7) GERD (gastroesophageal reflux disease) Status: Acute (8) Other specified dorsopathies, cervical region Status: Acute
--- NOTE | 2018-12-21 12:06 | CP.PCM.CON ---
History of Present Illness - History of Present Illness History of Present Illness: Psychiatry consult follow-up note CC: Periods of confusion/agitation/paranoia, now improving HPI: 58 yo female admitted to the ICU s/p suicide attempt by overdose, has had periods of agitation, confusion and paranoia towards staff. Patient currently calm, cooperative, oriented x 3. She denies acute AH/VH. She continues to express some mild paranoia towards an unnamed nurse that bothered her by playing music, but denies acute paranoia that someone wants to harm/kill her. She expresses remorse about her recent suicide attempt. She was started on Seroquel 25 mg PO HS by her primary team. She is not agreeable to psychiatric admission at this time. Marketing Support Coordinator informed patient that we will offer her psychiatric admission when she is medically stable. Impression: 58 yo female w/ recent suicide attempt, has had periods of delirium and paranoia, could be secondary to acute medical issues vs steriod induced psychosis. -Recommend to continue Cymbalta -Recommend acute psychiatric admission when she is medically stable -Can continue Seroquel 25 mg PO HS; can titrate if patient continues to have periods of agitation and paranoia Past Patient History - Past Medical History & Family History Past Medical History?: Yes - Past Social History Smoking Status: Heavy Smoker > 10 Cigarettes Daily Chewing Tobacco Use: No Cigar Use: No Alcohol: None Drugs: Denies, Prescription medications Home Situation {Lives}: With Family - CARDIAC Hx Cardiac Disorders: No - PULMONARY Hx Respiratory Disorders: No - NEUROLOGICAL Hx Neurological Disorder: Yes (Fibromyalgia) Hx Migraine: Yes (Had received Botox injections in the past with relief.) - HEENT Hx HEENT Problems: No - RENAL Hx Chronic Kidney Disease: No - ENDOCRINE/METABOLIC Hx Hypothyroidism: Yes - HEMATOLOGICAL/ONCOLOGICAL Hx Blood Disorders: No - INTEGUMENTARY Hx Dermatological Problems: No - MUSCULOSKELETAL/RHEUMATOLOGICAL Hx Back Pain: Yes Hx Herniated Disk: Yes (Cervical spine) - GASTROINTESTINAL Hx Gastroesophageal Reflux: Yes - GENITOURINARY/GYNECOLOGICAL Hx Genitourinary Disorders: No - PSYCHIATRIC Hx Substance Use: Yes - SURGICAL HISTORY Hx Cholecystectomy: Yes Hx Hysterectomy: Yes ([facility] and BSO 2012) - ANESTHESIA Hx Anesthesia: Yes Hx Anesthesia Reactions: No Meds Allergies/Adverse Reactions: Allergies Allergy/AdvReac Type Severity Reaction Status Date / Time hydromorphone [From Dilaudid] AdvReac HEADACHE Verified 12/11/18 23:24 [place] AdvReac Severe agitation Uncoded 12/12/18 10:21 Lyrica AdvReac Severe SWELLING Uncoded 12/12/18 10:19 - Medications Medications: Current Medications Acetaminophen (Tylenol 325mg Tab) 650 mg PO Q4 PRN PRN Reason: Temperature Last Admin: 12/16/18 07:18 Dose: 650 mg Acetaminophen (Tylenol 325mg Tab) 650 mg PO Q6 PRN PRN Reason: Pain, Mild (1-3) Last Admin: 12/19/18 06:18 Dose: 650 mg Acetylcysteine (Acetylcysteine 20%) 2 ml INH RBID [facility]ICAEL[facility] Last Admin: 12/21/18 08:10 Dose: 2 ml Al Hydrox/Mg Hydrox/Simethicone (Maalox Plus 30 Ml) 30 ml PO Q6 PRN PRN Reason: Indigestion / Heartburn Last Admin: 12/18/18 20:08 Dose: 30 ml Albuterol Sulfate (Albuterol 0.083% Inhal Judith (2.5 Mg/3 Ml) Ud) 2.5 mg INH RQ4 PRN PRN Reason: Shortness of Breath Albuterol Sulfate (Albuterol 0.083% Inhal Judith (2.5 Mg/3 Ml) Ud) 2.5 mg INH RBID [facility] Last Admin: 12/21/18 08:10 Dose: 2.5 mg Clotrimazole (Lotrimin 1% Cream) 1 applic TOP BID [facility] Last Admin: 12/21/18 09:00 Dose: 1 applic Duloxetine HCl (Cymbalta) 40 mg PO DAILY [facility] Last Admin: 12/21/18 09:00 Dose: 40 mg Enoxaparin Sodium (Lovenox) 40 mg SC DAILY [facility]; Protocol Last Admin: 12/21/18 08:59 Dose: 40 mg Famotidine (Pepcid) 40 mg PO DAILY [facility] Last Admin: 12/21/18 08:59 Dose: 40 mg Gabapentin (Neurontin) 300 mg PO TID [facility] Last Admin: 12/21/18 08:59 Dose: 300 mg Hydrocortisone Sodium Succinate (Solu-Cortef) 100 mg IV Q12H [facility] Last Admin: 12/21/18 09:01 Dose: 100 mg Piperacillin Sod/Tazobactam (Sod 3.375 gm/ Sodium Chloride) 100 mls @ 100 mls/hr IVPB Q6 [facility]; Protocol Last Admin: 12/21/18 09:03 Dose: 100 mls/hr Vancomycin HCl 1 gm/ Sodium (Chloride) 250 mls @ 166.667 mls/hr IVPB DAILY [facility]; Protocol Last Admin: 12/21/18 09:02 Dose: 166.667 mls/hr Doxycycline Hyclate 100 mg/ (Sodium Chloride) 100 mls @ 100 mls/hr IVPB Q12 [facility]; Protocol Last Admin: 12/21/18 09:03 Dose: 100 mls/hr Lactated Ringer's (Lactated Ringer's) 1,000 mls @ 100 mls/hr IV .Q10H [facility] Last Admin: 12/18/18 02:38 Dose: 100 mls/hr Potassium Chloride/Dextrose/Sod Cl (D5-Ns1l+40meq Kcl) 1,000 mls @ 100 mls/hr IV .Q10H [facility] Stop: 12/22/18 06:00 Ketorolac Tromethamine (Toradol) 30 mg IVP Q6 PRN PRN Reason: Pain, severe (8-10) Last Admin: 12/19/18 04:03 Dose: 30 mg Levothyroxine Sodium (Synthroid) 75 mcg PO DAILY@0630 [facility] Last Admin: 12/21/18 06:39 Dose: Not Given Lorazepam (Ativan) 0.5 mg PO Q12 PRN PRN Reason: Anxiety Last Admin: 12/21/18 03:19 Dose: 0.5 mg Methadone HCl (Methadone) 10 mg PO Q12 [facility] Last Admin: 12/21/18 09:08 Dose: 10 mg Ondansetron HCl (Zofran Inj) 4 mg IVP Q4 PRN PRN Reason: Nausea/Vomiting Last Admin: 12/21/18 03:06 Dose: 4 mg Quetiapine Fumarate (Seroquel) 25 mg PO [facility] Results - Vital Signs Recent Vital Signs: Last Vital Signs Temp 98.1 F 12/21/18 08:00 Pulse 91 H 12/21/18 08:00 Resp 20 12/21/18 08:10 BP 147/69 12/21/18 08:00 Pulse Ox 97 12/21/18 08:00 - Labs Result Diagrams: 12/21/18 04:30 12/21/18 04:30 Labs: Laboratory Results - last 24 hr 12/20/18 12/21/18 12/21/18 13:51 04:30 04:30 WBC 17.7 H RBC 3.21 L Hgb 9.4 L D Hct 28.7 L MCV 89.3 MCH 29.4 MCHC 32.9 L RDW 13.3 Plt Count 429 H Sodium 140 Potassium 2.8 L Chloride 98 Carbon Dioxide 37 H Anion Gap 8 L BUN 13 Creatinine 0.5 L Est GFR ( Amer) > 60 Est GFR (Non-Af Amer) > 60 Random Glucose 100 Calcium 8.4 Total Bilirubin 0.6 AST 33 ALT 42 Alkaline Phosphatase 73 Total Protein 5.3 L Albumin 2.5 L Globulin 2.7 Albumin/Globulin Ratio 0.9 L C. difficile Ag & Toxin Negative
--- NOTE | 2018-12-21 13:05 | CP.PCM.PN ---
Subjective - Date & Time of Evaluation Date of Evaluation: 12/21/18 Time of Evaluation: 13:00 - Subjective Subjective: I D NOTE REVIEWED CXRs AND WBCs AND HAVE D/Dionte ZOSYN and STARTED UNASYN AND INCREASED DOSE OF VANCOMYCIN Objective - Vital Signs/Intake and Output Vital Signs (last 24 hours): Temp Pulse Resp BP Pulse Ox 98.1 F 91 H 22 147/69 97 12/21/18 08:00 12/21/18 08:00 12/21/18 12:08 12/21/18 08:00 12/21/18 08:00 Intake and Output: 12/21/18 12/21/18 06:59 18:59 Intake Total 606 12 Output Total 500 200 Balance 106 -188 - Medications Medications: Current Medications Acetaminophen (Tylenol 325mg Tab) 650 mg PO Q4 PRN PRN Reason: Temperature Last Admin: 12/16/18 07:18 Dose: 650 mg Acetaminophen (Tylenol 325mg Tab) 650 mg PO Q6 PRN PRN Reason: Pain, Mild (1-3) Last Admin: 12/19/18 06:18 Dose: 650 mg Acetylcysteine (Acetylcysteine 20%) 2 ml INH RBID [facility] Last Admin: 12/21/18 08:10 Dose: 2 ml Al Hydrox/Mg Hydrox/Simethicone (Maalox Plus 30 Ml) 30 ml PO Q6 PRN PRN Reason: Indigestion / Heartburn Last Admin: 12/18/18 20:08 Dose: 30 ml Albuterol Sulfate (Albuterol 0.083% Inhal Judith (2.5 Mg/3 Ml) Ud) 2.5 mg INH RQ4 PRN PRN Reason: Shortness of Breath Albuterol Sulfate (Albuterol 0.083% Inhal Judith (2.5 Mg/3 Ml) Ud) 2.5 mg INH RBID [facility] Last Admin: 12/21/18 08:10 Dose: 2.5 mg Clotrimazole (Lotrimin 1% Cream) 1 applic TOP BID [facility] Last Admin: 12/21/18 09:00 Dose: 1 applic Duloxetine HCl (Cymbalta) 40 mg PO DAILY [facility] Last Admin: 12/21/18 09:00 Dose: 40 mg Enoxaparin Sodium (Lovenox) 40 mg SC DAILY [facility]; Protocol Last Admin: 12/21/18 08:59 Dose: 40 mg Famotidine (Pepcid) 40 mg PO DAILY [facility] Last Admin: 12/21/18 08:59 Dose: 40 mg Gabapentin (Neurontin) 300 mg PO TID [facility] Last Admin: 12/21/18 12:39 Dose: 300 mg Hydrocortisone Sodium Succinate (Solu-Cortef) 100 mg IV Q12H [facility] Last Admin: 12/21/18 09:01 Dose: 100 mg Doxycycline Hyclate 100 mg/ (Sodium Chloride) 100 mls @ 100 mls/hr IVPB Q12 [facility]; Protocol Last Admin: 12/21/18 09:03 Dose: 100 mls/hr Lactated Ringer's (Lactated Ringer's) 1,000 mls @ 100 mls/hr IV .Q10H [facility] Last Admin: 12/18/18 02:38 Dose: 100 mls/hr Potassium Chloride/Dextrose/Sod Cl (D5-Ns1l+40meq Kcl) 1,000 mls @ 100 mls/hr IV .Q10H [facility] Stop: 12/22/18 06:00 Vancomycin HCl 1 gm/ Sodium (Chloride) 250 mls @ 166.667 mls/hr IVPB Q12 [facility]; Protocol Ampicillin Sodium/Sulbactam (Sodium 1.5 gm/ Sodium Chloride) 100 mls @ 100 mls/hr IVPB Q8H [facility]; Protocol Ketorolac Tromethamine (Toradol) 30 mg IVP Q6 PRN PRN Reason: Pain, severe (8-10) Last Admin: 12/19/18 04:03 Dose: 30 mg Levothyroxine Sodium (Synthroid) 75 mcg PO DAILY@0630 [facility] Last Admin: 12/21/18 06:39 Dose: Not Given Lorazepam (Ativan) 0.25 mg PO Q12 PRN PRN Reason: Anxiety Methadone HCl (Methadone) 10 mg PO Q12 [facility] Last Admin: 12/21/18 09:08 Dose: 10 mg Ondansetron HCl (Zofran Inj) 4 mg IVP Q4 PRN PRN Reason: Nausea/Vomiting Last Admin: 12/21/18 03:06 Dose: 4 mg Quetiapine Fumarate (Seroquel) 25 mg PO HS [facility] - Labs Labs: 12/21/18 04:30 12/21/18 04:30 PT 11.7 Seconds (9.8-13.1) 12/11/18 23:50 INR 1.0 12/11/18 23:50 APTT 32.7 Seconds (25.6-37.1) 12/11/18 23:50
[2018-12-21] MEDS: Potassium Chl 40 mEq in D5-NS 1,000 ML IV SCH (13:23)
--- NOTE | 2018-12-21 21:13 | PN ---
DATE: 12/21/2018 LOCATION: Room 435 ICU. SUBJECTIVE: This is a 58-year-old female with recent acute drug overdose and suicidal gestures and supervening respiratory failure and has since then improved clinically and hemodynamically and currently extubated at this time and doing fairly well on nasal oxygen delivery as given. However, she has intermittent bouts of agitation and restlessness as noted thereof. She remains clinically euthyroid at this time and biochemically, her latest thyroid indices have improved remarkably with a total T4 or thyroxine level of 7.77 with a TSH of 2.23 and a free T4 of 0.96. Her chemistry showed a BUN of 13, sodium 140, potassium 2.8, chloride 98, CO2 of 37, glucose 100 and creatinine 0.5. She has also ongoing IV antibiotic management for recent acute right aspiration pneumonitis as given and noted. We will continue also at this time the same levothyroxine replacement therapy given as 75 mcg once daily as ordered. We will obtain serial chemistries and supplement accordingly as needed. We will also obtain serial thyroid studies and titrate her dose regimen accordingly. We will follow up. Ashlee Monk MD
[2018-12-22] MEDS: Potassium Chl 40 mEq in D5-NS 1,000 ML IV SCH (00:11)
[2018-12-22 05:43] LABS: HEMOGLOBIN 9.6 g/dL (12.0-16.0); MEAN CELL VOLUME 89.3 fl (81.0-99.0); MEAN CORPUSCULAR HEMOGLOBIN 30.2 pg (27.0-31.0); MEAN CORPUSCULAR HGB CONC 33.8 g/dL (33.0-37.0); RBC 3.19 Mil/uL (3.80-5.20); RED CELL DISTRIBUTION WIDTH 13.7 % (11.5-14.5); WHITE BLOOD COUNT 18.1 K/uL (4.8-10.8)
[2018-12-22 06:24] LABS: ALB/GLOB RATIO 0.9 (1.0-2.1); ALBUMIN 2.5 g/dL (3.5-5.0); ALT/SGPT 33 U/L (9-52); AST/SGOT 34 U/L (14-36); BLOOD UREA NITROGEN 12 mg/dl (7-17); CALCIUM 8.2 mg/dL (8.4-10.2); GFR NON-AFRICAN AMERICAN > 60
[2018-12-22] MEDS: Levothyroxine 75 MCG TAB PO SCH (06:35)
[2018-12-22] MEDS ORDERED: Potassium Chloride 20 mEq ER Tab PO ONE ×2 (08:00→10:00)
--- NOTE | 2018-12-22 08:36 | CP.PCM.PN ---
Subjective - Date & Time of Evaluation Date of Evaluation: 12/22/18 Time of Evaluation: 08:36 - Subjective Subjective: Seen on rounds in ICU. Case discussed with PMD and nursing. Respiratory therapist in room as well. Interim events reviewed and recent entries in EMR noted. Today's chest x-ray still noted to have diffuse left sided infiltrates and RUL/R base. On room air SpO2 is 87%, on HFNC 92-94%. Occasional cough w/o sputum expectoration. Remains afebrile, but WBC up to 18.1 this morning. She appears more calm and cooperative today. Dependant edema seems a little less as well. No cyanosis or jaundice. Neck is supple and trachea midline. No dullness on chest percussion, equal expansion. Breath sounds present equally in both lungs. Only scattered rhonchi (few) auscultated w/o wheeze. Scattered dry rales are present in bases, no bronchial breath sounds. Heart sounds well heard. Sputum induction requested. May need flexible bronchoscopy to obtain specimen. Continue triple antibiotic therapy. Daily CXR until improvement is seen. Will reduce parenteral hydrocortisone to 100MG daily. Objective - Vital Signs/Intake and Output Vital Signs (last 24 hours): Temp Pulse Resp BP Pulse Ox 98.5 F 68 17 160/62 H 92 L 12/22/18 00:00 12/22/18 06:00 12/22/18 06:00 12/22/18 06:00 12/22/18 06:00 Intake and Output: 12/21/18 12/22/18 23:59 11:59 Intake Total 1660 1150 Output Total 450 500 Balance 1210 650 - Medications Medications: Current Medications Acetaminophen (Tylenol 325mg Tab) 650 mg PO Q4 PRN PRN Reason: Temperature Last Admin: 12/16/18 07:18 Dose: 650 mg Acetaminophen (Tylenol 325mg Tab) 650 mg PO Q6 PRN PRN Reason: Pain, Mild (1-3) Last Admin: 12/19/18 06:18 Dose: 650 mg Acetylcysteine (Acetylcysteine 20%) 2 ml INH RBID [facility] Last Admin: 12/21/18 19:05 Dose: 2 ml Al Hydrox/Mg Hydrox/Simethicone (Maalox Plus 30 Ml) 30 ml PO Q6 PRN PRN Reason: Indigestion / Heartburn Last Admin: 12/18/18 20:08 Dose: 30 ml Albuterol Sulfate (Albuterol 0.083% Inhal Judith (2.5 Mg/3 Ml) Ud) 2.5 mg INH RQ4 PRN PRN Reason: Shortness of Breath Albuterol Sulfate (Albuterol 0.083% Inhal Judith (2.5 Mg/3 Ml) Ud) 2.5 mg INH RBID [facility] Last Admin: 12/21/18 19:05 Dose: 2.5 mg Clotrimazole (Lotrimin 1% Cream) 1 applic TOP BID [facility] Last Admin: 12/21/18 17:04 Dose: 1 applic Duloxetine HCl (Cymbalta) 40 mg PO DAILY [facility] Last Admin: 12/21/18 09:00 Dose: 40 mg Enoxaparin Sodium (Lovenox) 40 mg SC DAILY [facility]; Protocol Last Admin: 12/21/18 08:59 Dose: 40 mg Famotidine (Pepcid) 40 mg PO DAILY [facility] Last Admin: 12/21/18 08:59 Dose: 40 mg Gabapentin (Neurontin) 300 mg PO TID [facility] Last Admin: 12/21/18 17:04 Dose: 300 mg Hydrocortisone Sodium Succinate (Solu-Cortef) 100 mg IV Q12H [facility] Last Admin: 12/21/18 20:28 Dose: 100 mg Doxycycline Hyclate 100 mg/ (Sodium Chloride) 100 mls @ 100 mls/hr IVPB Q12 [facility]; Protocol Last Admin: 12/21/18 20:31 Dose: 100 mls/hr Lactated Ringer's (Lactated Ringer's) 1,000 mls @ 100 mls/hr IV .Q10H [facility] Last Admin: 12/18/18 02:38 Dose: 100 mls/hr Vancomycin HCl 1 gm/ Sodium (Chloride) 250 mls @ 166.667 mls/hr IVPB Q12 [facility]; Protocol Last Admin: 12/21/18 20:26 Dose: 166.667 mls/hr Ampicillin Sodium/Sulbactam (Sodium 1.5 gm/ Sodium Chloride) 100 mls @ 100 mls/hr IVPB Q8H [facility]; Protocol Last Admin: 12/22/18 04:16 Dose: 100 mls/hr Ketorolac Tromethamine (Toradol) 30 mg IVP Q6 PRN PRN Reason: Pain, severe (8-10) Last Admin: 12/19/18 04:03 Dose: 30 mg Levothyroxine Sodium (Synthroid) 75 mcg PO DAILY@0630 [facility] Last Admin: 12/22/18 06:35 Dose: 75 mcg Lorazepam (Ativan) 0.25 mg PO Q12 PRN PRN Reason: Anxiety Methadone HCl (Methadone) 10 mg PO Q12 [facility] Last Admin: 12/21/18 21:55 Dose: Not Given Ondansetron HCl (Zofran Inj) 4 mg IVP Q4 PRN PRN Reason: Nausea/Vomiting Last Admin: 12/22/18 03:05 Dose: 4 mg Potassium Chloride (K-Dur 20 Meq Er Tab) 20 meq PO ONCE ONE Stop: 12/22/18 10:01 Quetiapine Fumarate (Seroquel) 25 mg PO [facility] Last Admin: 12/21/18 17:06 Dose: 25 mg - Labs Labs: 12/22/18 05:19 12/22/18 05:19 PT 11.7 Seconds (9.8-13.1) 12/11/18 23:50 INR 1.0 12/11/18 23:50 APTT 32.7 Seconds (25.6-37.1) 12/11/18 23:50 Assessment and Plan (1) Aspiration pneumonia due to inhalation of vomitus Status: Acute (2) Hypoxemia requiring supplemental oxygen Status: Acute (3) Hypercapnia Status: Acute
[2018-12-22] MEDS: Acetylcysteine 20% Inhal Soln (4ml) INH SCH (08:41)
[2018-12-22] MEDS: Albuterol 0.083% Inhal Sol (2.5 mg/3 mL) UD INH SCH (08:42)
[2018-12-22] MEDS: Enoxaparin 40 mg Syringe SC SCH (09:05)
[2018-12-22] MEDS ORDERED: Sodium Chloride 3% for Inhalation 4 ML VIAL.NEB IH PRN (09:14)
--- NOTE | 2018-12-22 09:36 | RAD ---
Date of service: 12/22/2018 HISTORY: pneumonia COMPARISON: 12/21/2018. FINDINGS: Right-sided central venous catheter terminates in the right atrium. LUNGS: There is pulmonary hyperinflation. There is no significant interval change in multifocal airspace disease in the lungs, worse on the left. PLEURA: No pleural effusions or pneumothorax. CARDIOVASCULAR: The heart is normal in size. No aortic atherosclerotic calcifications present. OSSEOUS STRUCTURES: Within normal limits for the patient's age. VISUALIZED UPPER ABDOMEN: Normal. OTHER FINDINGS: None. IMPRESSION: No significant interval change in multifocal airspace disease in the lungs, worse on the left which may represent multifocal pneumonia or pulmonary edema. Follow-up is advised. Stable position of right central venous catheter terminating in the right atrium.
--- NOTE | 2018-12-22 10:19 | CP.PCM.PN ---
Subjective - Date & Time of Evaluation Date of Evaluation: 12/22/18 Time of Evaluation: 09:10 - Subjective Subjective: Patient seen with Dr. Richardson. Consultations by Drs. Lewis and Colby (psychiatry) appreciated (qv).. S/P Aspiration of gastric contents - being treated with high flow nasal oxygen and now reduced dose of Solucortef to 100mg iv daily for chemical pneumonitis. Iv antibiotics just changed to IV Unasyn instead of Zosyn. Vancomycin increased to 1 gm q12h and Doxycycline continued. Xray shows little change with bilateral infiltrates, but patient is breathing more easily. Efforts will be made to obtain sputum for culture, but if this fails she may need bronchoscopy. With regard to pain and opioid withdrawal management, patient is doing very well and did refuse last night's methadone dose. Her diarrhea has subsided and she is eating better. I have decreased the methadone to 5mg po q12h PRN. The Ativan is at 0.25mg q12h pen. While Dr. Bowman did agree to continuation of Seroquel 25mg qhs (even recommended increase to 50mg if needed), she may not fully appreciate the patient's issues at home and history of failed efforts to treat major depression medically - to the point where a number of psychiatrists have recommended ECT. Since this is the patient's second suicide attempt, I do not believe the chio ent would be safe to go home once the pneumonia has resolved. Remorse about the overdose not withstanding I have strongly encouraged the patient to go to the psychiatric unit voluntarily once cleared by our medical team. Whether the patient decompensated over steroid-induced psychosis, ICU psychosis, or depression-related psychosis, the fact that the patient is calm and cooperative now (on Seroquel 25mg qhs) should not allow us to forget that she was trying to pull out her lines, accusing the nurses of trying to hurt her, and needed to be physically restrained until IV Haldol calmed her into an obtunded state. The Seroquel is working, and that may be because there is an underlying psychosis that needs to be treated. Hopefully that would be the start of consistent localnpsychiatric care going forward. There is less hand edema. Patient is on a regular diet with Ensure-Plus bid. Her low potassium has been treated. Objective - Vital Signs/Intake and Output Vital Signs (last 24 hours): Temp Pulse Resp BP Pulse Ox 99.4 F 93 H 20 153/68 H 92 L 12/22/18 08:00 12/22/18 08:00 12/22/18 08:45 12/22/18 08:00 12/22/18 08:00 Intake and Output: 12/22/18 12/22/18 06:59 18:59 Intake Total 1810 Output Total 650 Balance 1160 - Medications Medications: Current Medications Acetaminophen (Tylenol 325mg Tab) 650 mg PO Q4 PRN PRN Reason: Temperature Last Admin: 12/16/18 07:18 Dose: 650 mg Acetaminophen (Tylenol 325mg Tab) 650 mg PO Q6 PRN PRN Reason: Pain, Mild (1-3) Last Admin: 12/19/18 06:18 Dose: 650 mg Al Hydrox/Mg Hydrox/Simethicone (Maalox Plus 30 Ml) 30 ml PO Q6 PRN PRN Reason: Indigestion / Heartburn Last Admin: 12/18/18 20:08 Dose: 30 ml Albuterol Sulfate (Albuterol 0.083% Inhal Judith (2.5 Mg/3 Ml) Ud) 2.5 mg INH RQ4 PRN PRN Reason: Shortness of Breath Clotrimazole (Lotrimin 1% Cream) 1 applic TOP BID [facility] Last Admin: 12/22/18 09:05 Dose: 1 applic Duloxetine HCl (Cymbalta) 40 mg PO DAILY [facility] Last Admin: 12/22/18 09:03 Dose: 40 mg Enoxaparin Sodium (Lovenox) 40 mg SC DAILY [facility]; Protocol Last Admin: 12/22/18 09:05 Dose: 40 mg Famotidine (Pepcid) 40 mg PO DAILY [facility] Last Admin: 12/22/18 09:05 Dose: 40 mg Gabapentin (Neurontin) 300 mg PO TID [facility] Last Admin: 12/22/18 09:05 Dose: 300 mg Hydrocortisone Sodium Succinate (Solu-Cortef) 100 mg IV Q12H [facility] Last Admin: 12/21/18 20:28 Dose: 100 mg Doxycycline Hyclate 100 mg/ (Sodium Chloride) 100 mls @ 100 mls/hr IVPB Q12 [facility]; Protocol Last Admin: 12/21/18 20:31 Dose: 100 mls/hr Lactated Ringer's (Lactated Ringer's) 1,000 mls @ 100 mls/hr IV .Q10H [facility] Last Admin: 12/18/18 02:38 Dose: 100 mls/hr Vancomycin HCl 1 gm/ Sodium (Chloride) 250 mls @ 166.667 mls/hr IVPB Q12 [facility]; Protocol Last Admin: 12/22/18 09:06 Dose: 166.667 mls/hr Ampicillin Sodium/Sulbactam (Sodium 1.5 gm/ Sodium Chloride) 100 mls @ 100 mls/hr IVPB Q8H [facility]; Protocol Last Admin: 12/22/18 04:16 Dose: 100 mls/hr Ketorolac Tromethamine (Toradol) 30 mg IVP Q6 PRN PRN Reason: Pain, severe (8-10) Last Admin: 12/19/18 04:03 Dose: 30 mg Levothyroxine Sodium (Synthroid) 75 mcg PO DAILY@0630 [facility] Last Admin: 12/22/18 06:35 Dose: 75 mcg Lorazepam (Ativan) 0.25 mg PO Q12 PRN PRN Reason: Anxiety Methadone HCl (Methadone) 5 mg PO Q12 PRN PRN Reason: opioid withdrawal therapy Ondansetron HCl (Zofran Inj) 4 mg IVP Q4 PRN PRN Reason: Nausea/Vomiting Last Admin: 12/22/18 03:05 Dose: 4 mg Quetiapine Fumarate (Seroquel) 25 mg PO HS [facility] Last Admin: 12/21/18 17:06 Dose: 25 mg - Labs Labs: 12/22/18 05:19 12/22/18 05:19 PT 11.7 Seconds (9.8-13.1) 12/11/18 23:50 INR 1.0 12/11/18 23:50 APTT 32.7 Seconds (25.6-37.1) 12/11/18 23:50 - Constitutional Appears: Other (Still appears to be slightly "dazed" and ill, but calm and coherent and cooperative.) - Head Exam Head Exam: NORMAL INSPECTION - Eye Exam Eye Exam: Normal appearance - ENT Exam ENT Exam: Mucous Membranes Moist - Neck Exam Neck Exam: Normal Inspection - Respiratory Exam Additional comments: Respirations 19/min Decreased, but improved breath sounds at bases. Inspiratory crackles at both bases. Increased secretions in large airways, but was unable to cough up sputum. - Cardiovascular Exam Cardiovascular Exam: REGULAR RHYTHM, +S1, +S2 - GI/Abdominal Exam GI & Abdominal Exam: Soft, Normal Bowel Sounds - Extremities Exam Additional comments: Almost no hand edema now, but still with considerable (2+) pitting leg and foot edema bilaterally. No calf tenderness. good pulses. - Back Exam Back Exam: NORMAL INSPECTION - Skin Skin Exam: Dry, Intact, Normal Color, Warm Assessment and Plan (1) Overdose of drug/medicinal substance Assessment & Plan: SEE SUBJECTIVE. Status: Acute (2) Aspiration pneumonia due to inhalation of vomitus Assessment & Plan: SEE SUBJECTIVE. Status: Acute (3) Major depression, chronic Assessment & Plan: SEE SUBJECTIVE. Status: Acute (4) Fibromyalgia affecting multiple sites Status: Acute (5) Mel's thyroiditis Status: Acute (6) Parathyroid adenoma Status: Chronic (7) GERD (gastroesophageal reflux disease) Status: Acute (8) Other specified dorsopathies, cervical region Status: Acute
--- NOTE | 2018-12-22 17:22 | CP.CCUPN ---
CCU Subjective - Physician Review Subjective (Free Text): 12/22/18 17:14 The patient was Seen/interviewed and examined by me at the bedside during ICU round, Medical records reviewed and Management issues were discussed and formulated with the house staff. Events reviewed Patient is 58 years old female with past medical history of anxiety/depression, fibromyalgia, cervical disc disease and chronic back pain Who presents to the emergency room for evaluation of drug overdose According to the the patient with breathing erratically and vomited thing, he stated that she took oxycodone, Xanax, trazodone and Cymbalta but is unclear about how much she took Hospital course complicated by acute respiratory failure requiring mechanical ventilation for airway protection The patient was successfully extubated on 12/13 Currently being treated for aspiration pneumonia with IV Vancomycin, Doxycycline and Ampicillin Sodium/Sulbactam was added today CXR revealed improved bilateral infiltrate She was evaluated by the pain management consult and currently on Methadone 10 mg daily Patient doing better today, she is alert, awake and more coherent In no apparent distress at rest but she is dyspneic with minimal exertion Patient more awake today, All medication that she overdosed on currently on hold Restarted on Neurontin 300 mg PO TID Hospital course is also noted for delirium, initially managed with Haldol and as needed Ativan But currently the delirium is better controlled since she started on quetiapine Fumarate (Seroquel) 25 mg PO HS CCU Objective - Vital Signs / Intake & Output Vital Signs (Last 4 hours): Vital Signs Temp Pulse Resp BP Pulse Ox 12/22/18 15:36 98.2 F 79 15 177/69 H 95 12/22/18 15:30 18 12/22/18 14:00 104 H 19 150/92 H 92 L Intake and Output (Last 8hrs): Intake & Output 12/22/18 12/22/18 12/22/18 06:59 14:59 22:59 Intake Total 1150 1250 200 Output Total 500 Balance 650 1250 200 Weight 165 lb Intake: IV 800 800 200 Intake, Piggyback 350 250 Oral 200 Output: Urine 500 Urine, Voided 500 Other: # Voids Urine, Voided 1 # Bowel Movements 1 - Physical Exam Head: Positive for: Atraumatic, Normocephalic Pupils: Positive for: PERRL Extroacular Muscles: Positive for: EOMI Conjunctiva: Positive for: Normal Mouth: Positive for: Moist Mucous Membranes Neck: Positive for: Normal Range of Motion, Trachea Midline Respiratory/Chest: Positive for: Wheezes, Rales, Rhonchi. Negative for: Clear to Auscultation, Respiratory Distress, Accessory Muscle Use Cardiovascular: Positive for: Regular Rate and Rhythm, Normal S1, S2, Peripheal Pulses Present, Tachycardic. Negative for: Murmurs, Rub, Gallop Abdomen: Positive for: Normal Bowel Sounds. Negative for: Tenderness, Distention Upper Extremity: Positive for: Normal Inspection Lower Extremity: Positive for: Normal Inspection Psychiatric: Positive for: Alert, Oriented x 3, Normal Insight, Anxious - Medications Active Medications: Active Medications Generic Name Dose Route Start Last Admin Trade Name Freq PRN Reason Stop Dose Admin Acetaminophen 650 mg 12/14/18 17:00 12/16/18 07:18 Tylenol 325mg Tab PO 650 mg Q4 PRN Administration Temperature Acetaminophen 650 mg 12/17/18 00:45 12/19/18 06:18 Tylenol 325mg Tab PO 650 mg Q6 PRN Administration Pain, Mild (1-3) Al Hydrox/Mg Hydrox/Simethicone 30 ml 12/17/18 20:38 12/18/18 20:08 Maalox Plus 30 Ml PO 30 ml Q6 PRN Administration Indigestion / Heartburn Albuterol Sulfate 2.5 mg 12/17/18 09:02 Albuterol 0.083% Inhal Judith (2.5 Mg/3 Ml) Ud INH RQ4 PRN Shortness of Breath Clotrimazole 1 applic 12/14/18 14:24 12/22/18 16:19 Lotrimin 1% Cream TOP 1 applic BID MICAELA Administration Duloxetine HCl 40 mg 12/17/18 11:00 12/22/18 09:03 Cymbalta PO 40 mg DAILY MICAELA Administration Enoxaparin Sodium 40 mg 12/12/18 09:00 12/22/18 09:05 Lovenox SC 40 mg DAILY MICAELA Administration Protocol Famotidine 40 mg 12/14/18 09:00 12/22/18 09:05 Pepcid PO 40 mg DAILY MICAELA Administration Gabapentin 300 mg 12/17/18 13:00 12/22/18 16:19 Neurontin PO 300 mg TID MICAELA Administration Hydrocortisone Sodium Succinate 100 mg 12/21/18 09:00 12/22/18 10:15 Solu-Cortef IV 100 mg Q12H MICAELA Administration Doxycycline Hyclate 100 mg/ 100 mls @ 100 mls/hr 12/16/18 09:30 12/22/18 10:15 Sodium Chloride IVPB 100 mls/hr Q12 MICAELA Administration Protocol Lactated Ringer's 1,000 mls @ 100 mls/hr 12/17/18 06:00 12/18/18 02:38 Lactated Ringer's IV 100 mls/hr .Q10H MICAELA Administration Vancomycin HCl 1 gm/ Sodium 250 mls @ 166.667 mls/hr 12/21/18 21:00 12/22/18 09:06 Chloride IVPB 166.667 mls/hr Q12 MICAELA Administration Protocol Ampicillin Sodium/Sulbactam 100 mls @ 100 mls/hr 12/21/18 13:00 12/22/18 12:45 Sodium 1.5 gm/ Sodium Chloride IVPB 100 mls/hr Q8H MICAELA Administration Protocol Ketorolac Tromethamine 30 mg 12/17/18 17:16 12/19/18 04:03 Toradol IVP 30 mg Q6 PRN Administration Pain, severe (8-10) Levothyroxine Sodium 75 mcg 12/17/18 11:45 12/22/18 06:35 Synthroid PO 75 mcg DAILY@0630 MICAELA Administration Lorazepam 0.25 mg 12/21/18 12:08 Ativan PO Q12 PRN Anxiety Methadone HCl 5 mg 12/22/18 10:10 Methadone PO Q12 PRN opioid withdrawal therapy Ondansetron HCl 4 mg 12/16/18 16:04 12/22/18 03:05 Zofran Inj IVP 4 mg Q4 PRN Administration Nausea/Vomiting Quetiapine Fumarate 25 mg 12/21/18 18:00 12/21/18 17:06 Seroquel PO 25 mg HS MICAELA Administration - Patient Studies Lab Studies: Lab Studies 12/22/18 12/22/18 Range/Units 05:19 05:19 WBC 18.1 H (4.8-10.8) K/uL RBC 3.19 L (3.80-5.20) Mil/uL Hgb 9.6 L (12.0-16.0) g/dL Hct 28.4 L (34.0-47.0) % MCV 89.3 (81.0-99.0) fl MCH 30.2 (27.0-31.0) pg MCHC 33.8 (33.0-37.0) g/dL RDW 13.7 (11.5-14.5) % Plt Count 486 H (130-400) K/uL Sodium 141 (132-148) mmol/l Potassium 3.0 L (3.6-5.0) MMOL/L Chloride 102 (98-107) mmol/L Carbon Dioxide 38 H (22-30) mmol/L Anion Gap 4 L (10-20) BUN 12 (7-17) mg/dl Creatinine 0.5 L (0.7-1.2) mg/dl Est GFR ( Amer) > 60 Est GFR (Non-Af Amer) > 60 Random Glucose 139 H (65-105) mg/dL Calcium 8.2 L (8.4-10.2) mg/dL Total Bilirubin 0.4 (0.2-1.3) mg/dl AST 34 (14-36) U/L ALT 33 (9-52) U/L Alkaline Phosphatase 67 (38-126) U/L Total Protein 5.3 L (6.3-8.2) G/DL Albumin 2.5 L (3.5-5.0) g/dL Globulin 2.8 (2.2-3.9) gm/dL Albumin/Globulin Ratio 0.9 L (1.0-2.1) Laboratory Results - last 24 hr 12/22/18 12/22/18 05:19 05:19 WBC 18.1 H RBC 3.19 L Hgb 9.6 L Hct 28.4 L MCV 89.3 MCH 30.2 MCHC 33.8 RDW 13.7 Plt Count 486 H Sodium 141 Potassium 3.0 L Chloride 102 Carbon Dioxide 38 H Anion Gap 4 L BUN 12 Creatinine 0.5 L Est GFR ( Amer) > 60 Est GFR (Non-Af Amer) > 60 Random Glucose 139 H Calcium 8.2 L Total Bilirubin 0.4 AST 34 ALT 33 Alkaline Phosphatase 67 Total Protein 5.3 L Albumin 2.5 L Globulin 2.8 Albumin/Globulin Ratio 0.9 L Radiology Impressions: Radiology Impressions Chest X-Ray 12/22/18 08:34 IMPRESSION: No significant interval change in multifocal airspace disease in the lungs, worse on the left which may represent multifocal pneumonia or pulmonary edema. Follow-up is advised. Stable position of right central venous catheter terminating in the right atrium. Fingerstick Blood Sugar Results: 171 Critical Care Progress Note - Nutrition Nutrition: Nutrition Category Date Time Status Regular Diet [DIET] Diets 12/14/18 Breakfast Active Assessment/Plan (1) Aspiration pneumonia Current Visit: Yes Status: Acute Priority: High Comment: Continue current intravenous antibiotic Patient on broad-spectrum antibiotic with IV vancomycin, Doxycycline and Ampicillin Sodium/Sulbactam 12/22 CXR revealed improvement of the bilateral infiltrate Maintain aspiration precaution Supplemental oxygen to keep saturation above 92% Bronchodilator nebulizer treatment (2) Overdose of drug/medicinal substance Current Visit: Yes Status: Acute Priority: High Comment: Patient overdosed on oxycodone, Xanax, trazodone and Cymbalta Patient was evaluated by pain management consult Currently on methadone and the plan for quick taper As needed Ativan Methadone HCl (Methadone) 10 mg PO DAILY Lorazepam (Ativan) 0.5 mg PO Q12 PRN (3) longterm (current) use of opiate analgesic Current Visit: Yes Status: Chronic Priority: High (4) Fibromyalgia affecting multiple sites Current Visit: Yes Status: Acute Priority: High (5) Nicotine dependence Current Visit: Yes Status: Chronic Priority: High Comment: Nicotine (Nicoderm Cq) 1 patch TD DAILY Continue nebulizer treatment (6) Hypothyroidism Current Visit: Yes Status: Chronic Priority: High (7) Parathyroid adenoma Current Visit: Yes Status: Chronic Priority: Medium
--- NOTE | 2018-12-22 21:02 | PN ---
DATE: 12/22/2018 ENDOCRINOLOGY FOLLOWUP NOTE LOCATION: ICU, room 435. SUBJECTIVE: This is a 58-year-old female with known history of hypothyroidism and has been euthyroid both clinically and metabolically on a low-dose levothyroxine replacement therapy as noted. She was admitted here with acute drug overdose and suicidal gesture with supervening acute respiratory failure and has since then improved clinically and hemodynamically as noted thereof. However, she continues to have persistent pneumonitis in both right upper lobes and left-sided infiltrates indicative of possible acute aspiration pneumonitis as noted. LABORATORY DATA: Her glycemic levels are improved, and her chemistries showed a BUN of 12, sodium 141, potassium 3, chloride 102, CO2 of 38, glucose 139 and creatinine of 0.5. Her latest thyroxine levels showed a free T4 of 0.96 and a total T4 of 7.77 and a TSH of 2.23. ASSESSMENT: This is a 58-year-old female who remains clinically and biochemically euthyroid, now on levothyroxine replacement therapy as noted. She also had a recent suicidal gesture with acute drug overdose of her current psychotropic medications as noted. PLAN OF MANAGEMENT: So, we will continue the same levothyroxine dose regimen as 75 mcg daily as ordered, and we will titrate incrementally as indicated to optimize metabolic control. We will also try to obtain serial chemistries accordingly and also serial thyroid studies and adjust her dose regimen accordingly. Ashlee Monk MD
[2018-12-23 05:19] LABS: BLOOD UREA NITROGEN 10 mg/dl (7-17); CALCIUM 8.3 mg/dL (8.4-10.2); GFR NON-AFRICAN AMERICAN > 60
[2018-12-23 05:22] LABS: BASO % 0.1 % (0.0-2.0); EOS # 0.1 K/uL (0.0-0.7); EOS % 0.3 % (0.0-4.0); LYMPH # 1.3 K/uL (1.0-4.3); MEAN CELL VOLUME 89.3 fl (81.0-99.0); MEAN CORPUSCULAR HEMOGLOBIN 29.6 pg (27.0-31.0); MEAN CORPUSCULAR HGB CONC 33.1 g/dL (33.0-37.0); MONO # 1.1 K/uL (0.0-0.8); NEUT % 86.6 % (50.0-75.0); RBC 3.36 Mil/uL (3.80-5.20); RED CELL DISTRIBUTION WIDTH 13.6 % (11.5-14.5); WHITE BLOOD COUNT 18.5 K/uL (4.8-10.8)
[2018-12-23] MEDS: Levothyroxine 75 MCG TAB PO SCH (05:58)
--- NOTE | 2018-12-23 08:09 | CP.PCM.PN ---
Subjective - Date & Time of Evaluation Date of Evaluation: 12/23/18 Time of Evaluation: 07:59 - Subjective Subjective: Seen in ICU on morning rounds. She remains afebrile and mildly hypertensive. Oxygenation has remained steady on lower HFNC settings. No chest x-ray yet this morning. Unable to provide sputum sample despite induction. WBC has increased slightly this morning, all other labs remain stable. She appears more comfortable and less tense. Breathing comfortably, seated upright in bed. Conversant without becoming SOB. On exam there is dullness in the left base posteriorly. Breath sounds are more decreased in the left base as well. The right lung sounds clear on auscultation. No wheezes or bronchial breath sounds in either lung. Pharynx is pink and moist w/o exudate. Neck is supple and trachea remains midline. Dependant edema +, but slowly decreasing. No cyanosis or jaundice, no rash or ecchymosis. Aspiration pneumonia; does not appear to be developing ARDS. I doubt a secondary bacterial reinfection, but this is my major concern. This is lasting too long to be simply 'chemical pneumonitis'. Have reduced hydrocortisone this morning and will consider stopping it tomorrow. Antibiotic treatments will continue for the present time. Procalcitonin was reported 0.05 two days ago...will discuss with ID and glass wool blanket machine feeder. Will review today's chest x-ray when taken. CC time 40min. Objective - Vital Signs/Intake and Output Vital Signs (last 24 hours): Temp Pulse Resp BP Pulse Ox 98.2 F 67 17 159/76 H 93 L 12/23/18 04:00 12/23/18 06:00 12/23/18 06:00 12/23/18 06:00 12/23/18 06:00 Intake and Output: 12/22/18 12/23/18 23:59 11:59 Intake Total 800 550 Balance 800 550 - Medications Medications: Current Medications Acetaminophen (Tylenol 325mg Tab) 650 mg PO Q4 PRN PRN Reason: Temperature Last Admin: 12/16/18 07:18 Dose: 650 mg Acetaminophen (Tylenol 325mg Tab) 650 mg PO Q6 PRN PRN Reason: Pain, Mild (1-3) Last Admin: 12/19/18 06:18 Dose: 650 mg Al Hydrox/Mg Hydrox/Simethicone (Maalox Plus 30 Ml) 30 ml PO Q6 PRN PRN Reason: Indigestion / Heartburn Last Admin: 12/18/18 20:08 Dose: 30 ml Albuterol Sulfate (Albuterol 0.083% Inhal Judith (2.5 Mg/3 Ml) Ud) 2.5 mg INH RQ4 PRN PRN Reason: Shortness of Breath Clotrimazole (Lotrimin 1% Cream) 1 applic TOP BID [facility] Last Admin: 12/22/18 16:19 Dose: 1 applic Duloxetine HCl (Cymbalta) 40 mg PO DAILY [facility] Last Admin: 12/22/18 09:03 Dose: 40 mg Enoxaparin Sodium (Lovenox) 40 mg SC DAILY [facility]; Protocol Last Admin: 12/22/18 09:05 Dose: 40 mg Famotidine (Pepcid) 40 mg PO DAILY [facility] Last Admin: 12/22/18 09:05 Dose: 40 mg Gabapentin (Neurontin) 300 mg PO TID [facility] Last Admin: 12/22/18 16:19 Dose: 300 mg Hydrocortisone Sodium Succinate (Solu-Cortef) 100 mg IV DAILY [facility] Doxycycline Hyclate 100 mg/ (Sodium Chloride) 100 mls @ 100 mls/hr IVPB Q12 [facility]; Protocol Last Admin: 12/22/18 21:10 Dose: 100 mls/hr Lactated Ringer's (Lactated Ringer's) 1,000 mls @ 100 mls/hr IV .Q10H [facility] Last Admin: 12/18/18 02:38 Dose: 100 mls/hr Vancomycin HCl 1 gm/ Sodium (Chloride) 250 mls @ 166.667 mls/hr IVPB Q12 [facility]; Protocol Last Admin: 12/22/18 21:12 Dose: 166.667 mls/hr Ampicillin Sodium/Sulbactam (Sodium 1.5 gm/ Sodium Chloride) 100 mls @ 100 mls/hr IVPB Q8H [facility]; Protocol Last Admin: 12/23/18 05:58 Dose: 100 mls/hr Ketorolac Tromethamine (Toradol) 30 mg IVP Q6 PRN PRN Reason: Pain, severe (8-10) Last Admin: 12/19/18 04:03 Dose: 30 mg Levothyroxine Sodium (Synthroid) 75 mcg PO DAILY@0630 [facility] Last Admin: 12/23/18 05:58 Dose: 75 mcg Lorazepam (Ativan) 0.25 mg PO Q12 PRN PRN Reason: Anxiety Methadone HCl (Methadone) 5 mg PO Q12 PRN PRN Reason: opioid withdrawal therapy Ondansetron HCl (Zofran Inj) 4 mg IVP Q4 PRN PRN Reason: Nausea/Vomiting Last Admin: 12/22/18 03:05 Dose: 4 mg Quetiapine Fumarate (Seroquel) 25 mg PO HS MICAELA Last Admin: 12/22/18 21:14 Dose: 25 mg - Labs Labs: 12/23/18 05:02 12/23/18 05:02 PT 11.7 Seconds (9.8-13.1) 12/11/18 23:50 INR 1.0 12/11/18 23:50 APTT 32.7 Seconds (25.6-37.1) 12/11/18 23:50 Assessment and Plan (1) Aspiration pneumonia due to inhalation of vomitus Status: Acute (2) Hypoxemia requiring supplemental oxygen Status: Acute (3) Hypercapnia Status: Acute
[2018-12-23] MEDS: Enoxaparin 40 mg Syringe SC SCH (08:29)
--- NOTE | 2018-12-23 12:27 | CP.CCUPN ---
CCU Subjective - Physician Review Subjective (Free Text): 12/23/18 15:35 The patient was Seen/interviewed and examined by me at the bedside during ICU round, Medical records reviewed and Management issues were discussed and formulated with the house staff. Events reviewed Patient is 58 years old female with past medical history of anxiety/depression, fibromyalgia, cervical disc disease and chronic back pain Who presents to the emergency room for evaluation of drug overdose According to the the patient with breathing erratically and vomited thing, he stated that she took oxycodone, Xanax, trazodone and Cymbalta but is unclear about how much she took Hospital course complicated by acute respiratory failure requiring mechanical ventilation for airway protection The patient was successfully extubated on 12/13 Currently being treated for aspiration pneumonia with IV Vancomycin, Doxycycline and Ampicillin Sodium/Sulbactam was added today CXR revealed improved bilateral infiltrate She was evaluated by the pain management consult and currently on Methadone 10 mg daily Patient doing better today, she is alert, awake and more coherent In no apparent distress at rest but she is dyspneic with minimal exertion Patient more awake today, All medication that she overdosed on currently on hold Restarted on Neurontin 300 mg PO TID Hospital course is also noted for delirium, initially managed with Haldol and as needed Ativan But currently the delirium is better controlled since she started on quetiapine Fumarate (Seroquel) 25 mg PO HS Patient respiratory status gradually improving, and her delirium symptoms are better controlled, she is currently stable to be transferred out of the ICU CCU Objective - Vital Signs / Intake & Output Vital Signs (Last 4 hours): Vital Signs Pulse Resp BP Pulse Ox 12/23/18 10:00 71 22 141/60 93 L Intake and Output (Last 8hrs): Intake & Output 12/22/18 12/23/18 12/23/18 22:59 06:59 14:59 Intake Total 300 550 450 Balance 300 550 450 Weight 165 lb 12.8 oz Intake: IV 200 0 Intake, Piggyback 550 250 Oral 100 200 Other: # Voids Urethral (Donovan) 1 1 1 Urine, Voided 1 2 1 # Bowel Movements 1 - Physical Exam Head: Positive for: Atraumatic, Normocephalic Pupils: Positive for: PERRL Extroacular Muscles: Positive for: EOMI Conjunctiva: Positive for: Normal Mouth: Positive for: Moist Mucous Membranes Neck: Positive for: Normal Range of Motion, Trachea Midline Respiratory/Chest: Positive for: Wheezes, Rales, Rhonchi. Negative for: Clear to Auscultation, Respiratory Distress, Accessory Muscle Use Cardiovascular: Positive for: Regular Rate and Rhythm, Normal S1, S2, Peripheal Pulses Present, Tachycardic. Negative for: Murmurs, Rub, Gallop Abdomen: Positive for: Normal Bowel Sounds. Negative for: Tenderness, Distention Upper Extremity: Positive for: Normal Inspection Lower Extremity: Positive for: Normal Inspection Psychiatric: Positive for: Alert, Oriented x 3, Normal Insight, Anxious - Medications Active Medications: Active Medications Generic Name Dose Route Start Last Admin Trade Name Freq PRN Reason Stop Dose Admin Acetaminophen 650 mg 12/14/18 17:00 12/16/18 07:18 Tylenol 325mg Tab PO 650 mg Q4 PRN Administration Temperature Acetaminophen 650 mg 12/17/18 00:45 12/19/18 06:18 Tylenol 325mg Tab PO 650 mg Q6 PRN Administration Pain, Mild (1-3) Al Hydrox/Mg Hydrox/Simethicone 30 ml 12/17/18 20:38 12/18/18 20:08 Maalox Plus 30 Ml PO 30 ml Q6 PRN Administration Indigestion / Heartburn Albuterol Sulfate 2.5 mg 12/17/18 09:02 Albuterol 0.083% Inhal Judith (2.5 Mg/3 Ml) Ud INH RQ4 PRN Shortness of Breath Clotrimazole 1 applic 12/14/18 14:24 12/23/18 08:29 Lotrimin 1% Cream TOP 1 applic BID MICAELA Administration Duloxetine HCl 40 mg 12/17/18 11:00 12/23/18 08:29 Cymbalta PO 40 mg DAILY MICAELA Administration Enoxaparin Sodium 40 mg 12/12/18 09:00 12/23/18 08:29 Lovenox SC 40 mg DAILY MICAELA Administration Protocol Famotidine 40 mg 12/14/18 09:00 12/23/18 08:30 Pepcid PO 40 mg DAILY MICAELA Administration Gabapentin 300 mg 12/17/18 13:00 12/23/18 08:30 Neurontin PO 300 mg TID MICAELA Administration Hydrocortisone Sodium Succinate 100 mg 12/23/18 09:00 12/23/18 08:30 Solu-Cortef IV 100 mg DAILY MICAELA Administration Doxycycline Hyclate 100 mg/ 100 mls @ 100 mls/hr 12/16/18 09:30 12/23/18 08:31 Sodium Chloride IVPB 100 mls/hr Q12 MICALEA Administration Protocol Lactated Ringer's 1,000 mls @ 100 mls/hr 12/17/18 06:00 12/18/18 02:38 Lactated Ringer's IV 100 mls/hr .Q10H MICAELA Administration Vancomycin HCl 1 gm/ Sodium 250 mls @ 166.667 mls/hr 12/21/18 21:00 12/23/18 09:41 Chloride IVPB 166.667 mls/hr Q12 MICAELA Administration Protocol Ampicillin Sodium/Sulbactam 100 mls @ 100 mls/hr 12/21/18 13:00 12/23/18 05:58 Sodium 1.5 gm/ Sodium Chloride IVPB 100 mls/hr Q8H MICAELA Administration Protocol Ketorolac Tromethamine 30 mg 12/17/18 17:16 12/19/18 04:03 Toradol IVP 30 mg Q6 PRN Administration Pain, severe (8-10) Levothyroxine Sodium 75 mcg 12/17/18 11:45 12/23/18 05:58 Synthroid PO 75 mcg DAILY@0630 MICAELA Administration Lorazepam 0.25 mg 12/21/18 12:08 Ativan PO Q12 PRN Anxiety Methadone HCl 5 mg 12/22/18 10:10 Methadone PO Q12 PRN opioid withdrawal therapy Ondansetron HCl 4 mg 12/16/18 16:04 12/22/18 03:05 Zofran Inj IVP 4 mg Q4 PRN Administration Nausea/Vomiting Quetiapine Fumarate 25 mg 12/21/18 18:00 12/22/18 21:14 Seroquel PO 25 mg HS MICAELA Administration - Patient Studies Lab Studies: Lab Studies 12/23/18 12/23/18 Range/Units 05:02 05:02 WBC 18.5 H (4.8-10.8) K/uL RBC 3.36 L (3.80-5.20) Mil/uL Hgb 10.0 L (12.0-16.0) g/dL Hct 30.0 L (34.0-47.0) % MCV 89.3 (81.0-99.0) fl MCH 29.6 (27.0-31.0) pg MCHC 33.1 (33.0-37.0) g/dL RDW 13.6 (11.5-14.5) % Plt Count 450 H (130-400) K/uL MPV 7.0 L (7.2-11.7) fl Neut % (Auto) 86.6 H (50.0-75.0) % Lymph % (Auto) 7.0 L (20.0-40.0) % [place] % (Auto) 6.0 (0.0-10.0) % Eos % (Auto) 0.3 (0.0-4.0) % Baso % (Auto) 0.1 (0.0-2.0) % Neut # (Auto) 16.0 H (1.8-7.0) K/uL Lymph # (Auto) 1.3 (1.0-4.3) K/uL [place] # (Auto) 1.1 H (0.0-0.8) K/uL Eos # (Auto) 0.1 (0.0-0.7) K/uL Baso # (Auto) 0.0 (0.0-0.2) K/uL Sodium 140 (132-148) mmol/l Potassium 3.3 L (3.6-5.0) MMOL/L Chloride 101 (98-107) mmol/L Carbon Dioxide 35 H (22-30) mmol/L Anion Gap 7 L (10-20) BUN 10 (7-17) mg/dl Creatinine 0.5 L (0.7-1.2) mg/dl Est GFR ( Amer) > 60 Est GFR (Non-Af Amer) > 60 Random Glucose 103 (65-105) mg/dL Calcium 8.3 L (8.4-10.2) mg/dL Laboratory Results - last 24 hr 12/23/18 12/23/18 05:02 05:02 WBC 18.5 H RBC 3.36 L Hgb 10.0 L Hct 30.0 L MCV 89.3 MCH 29.6 MCHC 33.1 RDW 13.6 Plt Count 450 H MPV 7.0 L Neut % (Auto) 86.6 H Lymph % (Auto) 7.0 L [place] % (Auto) 6.0 Eos % (Auto) 0.3 Baso % (Auto) 0.1 Neut # (Auto) 16.0 H Lymph # (Auto) 1.3 [place] # (Auto) 1.1 H Eos # (Auto) 0.1 Baso # (Auto) 0.0 Sodium 140 Potassium 3.3 L Chloride 101 Carbon Dioxide 35 H Anion Gap 7 L BUN 10 Creatinine 0.5 L Est GFR ( Amer) > 60 Est GFR (Non-Af Amer) > 60 Random Glucose 103 Calcium 8.3 L Fingerstick Blood Sugar Results: 171 Review of Systems - Constitutional Constitutional: absent: Fever, Chills, Sweats, Weakness - Cardiovascular Cardiovascular: absent: Acrocyanosis, Chest Pain, Chest Pain at Rest, Chest Pain with Activity, Claudication - Respiratory Respiratory: Cough, Dyspnea on Exertion. absent: Dyspnea, Hemoptysis, Wheezing, Snoring - Gastrointestinal Gastrointestinal: absent: Abdominal Pain Critical Care Progress Note - Extremities/Vascular Does the Patient have a Central Venous Catheter?: No Does the Patient need a Central Venous Catheter?: No Does the Patient have a Donovan Catheter?: No Does the Patient need a Donovan Catheter?: No - Nutrition Nutrition: Nutrition Category Date Time Status Regular Diet [DIET] Diets 12/14/18 Breakfast Active Assessment/Plan (1) Aspiration pneumonia Current Visit: Yes Status: Acute Priority: High Comment: Continue current intravenous antibiotic Patient on broad-spectrum antibiotic with IV vancomycin, Doxycycline and Ampicillin Sodium/Sulbactam 12/22 CXR revealed improvement of the bilateral infiltrate Maintain aspiration precaution Supplemental oxygen to keep saturation above 92% Bronchodilator nebulizer treatment (2) Overdose of drug/medicinal substance Current Visit: Yes Status: Acute Priority: High Comment: Patient overdosed on oxycodone, Xanax, trazodone and Cymbalta Patient was evaluated by pain management consult Currently on methadone and the plan for quick taper As needed Ativan Methadone HCl (Methadone) 10 mg PO DAILY Lorazepam (Ativan) 0.5 mg PO Q12 PRN (3) FDC (current) use of opiate analgesic Current Visit: Yes Status: Chronic Priority: High (4) Fibromyalgia affecting multiple sites Current Visit: Yes Status: Acute Priority: High (5) Nicotine dependence Current Visit: Yes Status: Chronic Priority: High Comment: Nicotine (Nicoderm Cq) 1 patch TD DAILY Continue nebulizer treatment (6) Hypothyroidism Current Visit: Yes Status: Chronic Priority: High (7) Parathyroid adenoma Current Visit: Yes Status: Chronic Priority: Medium
--- NOTE | 2018-12-23 14:17 | RAD ---
Date of service: 12/23/2018 HISTORY: pneumonia COMPARISON: Portable chest 12/22/2018. TECHNIQUE: 1 view obtained. FINDINGS: LUNGS: Persistent pneumonia pattern is favored over pulmonary edema at the left greater than right upper lung zones with the bases remaining clear. PLEURA: No significant pleural effusion identified, no pneumothorax apparent. CARDIOVASCULAR: No aortic atherosclerotic calcification present. Normal cardiac size. No pulmonary vascular congestion. Right central venous line is been removed. OSSEOUS STRUCTURES: No significant abnormalities. VISUALIZED UPPER ABDOMEN: Normal. OTHER FINDINGS: None. IMPRESSION: Persistent bilateral upper lung zone pulmonary infiltrates favored over pulmonary edema. Cardiac size is stable. Right central venous line appears to have been removed in the interval.
--- NOTE | 2018-12-23 19:49 | CP.PCM.PN ---
Subjective - Date & Time of Evaluation Date of Evaluation: 12/23/18 Time of Evaluation: 19:44 - Subjective Subjective: Patient is more comfortable. She remains afebrile. Now on nasal oxygen at 4l/min with respiratory rate of 16 and oxygen saturation of 94% Internal jugular central line is out. Temperatures remain in normal range, but wbc is up to 18.5. Patient is still not able to raise sputum. Dr. Richardson's concerns regarding possible bacterial superinfection noted. The iv Solucortef is now at 100mg per day. The nasal oxygen is being humidified in the hope of encouraging sputum production. Poor appetite, but she did eat a little better today than yesterday. Patient says she cannot taste the food. Opioid withdrawal proceeding nicely, and we will see if the methadone can be stopped within a day or so. Patient continues of Seroquel 25mg qpm and has had no further episodes of severe agitation/dysphoria. Objective - Vital Signs/Intake and Output Vital Signs (last 24 hours): Temp Pulse Resp BP Pulse Ox 98.2 F 61 18 143/70 95 12/23/18 16:00 12/23/18 18:00 12/23/18 18:00 12/23/18 18:00 12/23/18 18:00 Intake and Output: 12/23/18 12/24/18 18:59 06:59 Intake Total 1300 Balance 1300 - Medications Medications: Current Medications Acetaminophen (Tylenol 325mg Tab) 650 mg PO Q4 PRN PRN Reason: Temperature Last Admin: 12/16/18 07:18 Dose: 650 mg Acetaminophen (Tylenol 325mg Tab) 650 mg PO Q6 PRN PRN Reason: Pain, Mild (1-3) Last Admin: 12/19/18 06:18 Dose: 650 mg Al Hydrox/Mg Hydrox/Simethicone (Maalox Plus 30 Ml) 30 ml PO Q6 PRN PRN Reason: Indigestion / Heartburn Last Admin: 12/18/18 20:08 Dose: 30 ml Albuterol Sulfate (Albuterol 0.083% Inhal Judith (2.5 Mg/3 Ml) Ud) 2.5 mg INH RQ4 PRN PRN Reason: Shortness of Breath Clotrimazole (Lotrimin 1% Cream) 1 applic TOP BID [facility] Last Admin: 12/23/18 16:28 Dose: 1 applic Duloxetine HCl (Cymbalta) 40 mg PO DAILY [facility] Last Admin: 12/23/18 08:29 Dose: 40 mg Enoxaparin Sodium (Lovenox) 40 mg SC DAILY [facility] TO [facility]; Protocol Last Admin: 12/23/18 08:29 Dose: 40 mg Famotidine (Pepcid) 40 mg PO DAILY [facility] Last Admin: 12/23/18 08:30 Dose: 40 mg Gabapentin (Neurontin) 300 mg PO TID [facility] Last Admin: 12/23/18 16:28 Dose: 300 mg Hydrocortisone Sodium Succinate (Solu-Cortef) 100 mg IV DAILY [facility] TO [facility] Last Admin: 12/23/18 08:30 Dose: 100 mg Doxycycline Hyclate 100 mg/ (Sodium Chloride) 100 mls @ 100 mls/hr IVPB Q12 [facility] TO [facility]; Protocol Last Admin: 12/23/18 08:31 Dose: 100 mls/hr Lactated Ringer's (Lactated Ringer's) 1,000 mls @ 100 mls/hr IV .Q10H [facility]ENDING [facility] TO [facility] Last Admin: 12/18/18 02:38 Dose: 100 mls/hr Vancomycin HCl 1 gm/ Sodium (Chloride) 250 mls @ 166.667 mls/hr IVPB Q12 [facility]; Protocol Last Admin: 12/23/18 09:41 Dose: 166.667 mls/hr Ampicillin Sodium/Sulbactam (Sodium 1.5 gm/ Sodium Chloride) 100 mls @ 100 mls/hr IVPB Q8H [facility] TO [facility]; Protocol Last Admin: 12/23/18 12:35 Dose: 100 mls/hr Ketorolac Tromethamine (Toradol) 30 mg IVP Q6 PRN PRN Reason: Pain, severe (8-10) Last Admin: 12/19/18 04:03 Dose: 30 mg Levothyroxine Sodium (Synthroid) 75 mcg PO DAILY@0630 [facility] Last Admin: 12/23/18 05:58 Dose: 75 mcg Lorazepam (Ativan) 0.25 mg PO Q12 PRN PRN Reason: Anxiety Methadone HCl (Methadone) 5 mg PO Q12 PRN PRN Reason: opioid withdrawal therapy Ondansetron HCl (Zofran Inj) 4 mg IVP Q4 PRN PRN Reason: Nausea/Vomiting Last Admin: 12/22/18 03:05 Dose: 4 mg Quetiapine Fumarate (Seroquel) 25 mg PO HS [facility]ING [facility] Last Admin: 12/22/18 21:14 Dose: 25 mg - Labs Labs: 12/23/18 05:02 12/23/18 05:02 PT 11.7 Seconds (9.8-13.1) 12/11/18 23:50 INR 1.0 12/11/18 23:50 APTT 32.7 Seconds (25.6-37.1) 12/11/18 23:50 - Constitutional Appears: No Acute Distress - Head Exam Head Exam: NORMAL INSPECTION - Eye Exam Eye Exam: Normal appearance - ENT Exam ENT Exam: Mucous Membranes Moist - Neck Exam Neck Exam: Normal Inspection - Respiratory Exam Additional comments: Still with decreased breath sounds at bases, jet on the left and with inspiratory crackles at both bases, but better air flow overall. - Cardiovascular Exam Cardiovascular Exam: REGULAR RHYTHM, +S1, +S2 - GI/Abdominal Exam GI & Abdominal Exam: Soft - Extremities Exam Additional comments: Bipedal and leg edema, but no calf tenderness. Good pulses. - Neurological Exam Neurological Exam: Alert, Awake, CN II-XII Intact, Oriented x3 - Psychiatric Exam Psychiatric exam: Anxious, Depressed, Flat Affect - Skin Skin Exam: Dry, Intact, Normal Color, Warm Assessment and Plan (1) Overdose of drug/medicinal substance Assessment & Plan: Need to address underlying depression and factors that prompted this suicide attempt. Patient is not stable to go home until this has been achieved. Status: Acute (2) Aspiration pneumonia due to inhalation of vomitus Assessment & Plan: Being managed by Drs. Richardson and Joshua. Not responding as rapidly to treatment as we would have wished. On Iv Unasyn, Vancomycin, Doxycycline. Will check Vanco level in am. Status: Acute (3) Major depression, chronic Assessment & Plan: See above. Status: Acute (4) Fibromyalgia affecting multiple sites Assessment & Plan: Cymbalta 40mg qd appears to be relieving the pain for now. Status: Acute (5) Mel's thyroiditis Assessment & Plan: On levothyroxine. Status: Acute (6) Parathyroid adenoma Assessment & Plan: Being monitored. Status: Chronic (7) GERD (gastroesophageal reflux disease) Assessment & Plan: Continues on Pepcid 40mg po qd. Status: Acute (8) Other specified dorsopathies, cervical region Assessment & Plan: Not a major issue at this time. Status: Acute - Assessment and Plan (Free Text) Plan: Dr. Cordova has ordered transfer to Telemetry unit as patient appears to be stable and no longer in need of ICU level care. Will monitor closely.
--- NOTE | 2018-12-23 23:52 | PN ---
DATE: 12/23/2018 ENDOCRINOLOGY FOLLOWUP NOTE LOCATION: ICU, room 435. SUBJECTIVE: This is a 58-year-old female with known history of hypothyroidism related to underlying autoimmune thyroiditis and currently restarted back on her levothyroxine replacement therapy for which she is tolerating fairly well at this time. She also had a recent acute respiratory failure following an acute drug overdose and suicidal gesture with underlying chronic schizoaffective disorder. She also has concomitant aspiration pneumonitis and currently receiving IV antibiotic management as given. She remains clinically euthyroid, and biochemically her thyroid function studies have improved remarkably since admission. LABORATORY DATA: Her latest chemistry showed a BUN of 10, sodium 140, potassium 3.3, chloride 101, CO2 of 35, glucose 103 and creatinine 0.5. Her latest thyroxine level is 7.77 with a TSH of 2.23 and a free T4 of 0.96. PLAN OF MANAGEMENT: So, at this time we will continue the same levothyroxine replacement therapy given as 75 mcg once daily in the morning as ordered. We will obtain serial chemistries and supplement accordingly as needed. We will follow. Ashlee Monk MD
[2018-12-24] MEDS: Levothyroxine 75 MCG TAB PO SCH (05:59)
[2018-12-24 06:02] LABS: HEMOGLOBIN 10.7 g/dL (12.0-16.0); MEAN CELL VOLUME 89.2 fl (81.0-99.0); MEAN CORPUSCULAR HEMOGLOBIN 29.7 pg (27.0-31.0); MEAN CORPUSCULAR HGB CONC 33.3 g/dL (33.0-37.0); RBC 3.6 Mil/uL (3.80-5.20); RED CELL DISTRIBUTION WIDTH 13.5 % (11.5-14.5); WHITE BLOOD COUNT 18.6 K/uL (4.8-10.8)
[2018-12-24 06:11] LABS: BLOOD UREA NITROGEN 10 mg/dl (7-17); CALCIUM 8.1 mg/dL (8.4-10.2); GFR NON-AFRICAN AMERICAN > 60
[2018-12-24] MEDS ORDERED: Magnesium Sulfate 1 gm in D5W 1 GM/100 ML BAG IVPB ONE (07:30)
[2018-12-24] MEDS ORDERED: Potassium Chloride 20 mEq/15 ml LIQ UD PO ONE (07:30)
[2018-12-24] MEDS: Enoxaparin 40 mg Syringe SC SCH (08:16)
--- NOTE | 2018-12-24 08:36 | CP.PCM.PN ---
Subjective - Date & Time of Evaluation Date of Evaluation: 12/24/18 Time of Evaluation: 08:32 - Subjective Subjective: Seen on morning rounds in the ICU. Interim events and recent EMR entries reviewed. presently seated upright in bed in no distress. Using standard nasal canula @ 4 LPM with HFNC on standby. SpO2 sensor (finger) on forehead reading 100%. Sensor changed to index finger 95%. She appears comfortable w/o recruitment. With coaching there is a congested, but non-productive cough. She continues to be afebrile with the WBCs remaining at 18. On exam her edema is decreasing, no cyanosis or jaundice. Neck is supple and trachea midline. No palpable lymphadenopathy. Dullness on percussion in the left base posteriorly. breath sounds are improving daily with few scattered rhonchi. Occasional rales are heard, mostly in the left base posteriorly. No audible wheezes or bronchial breath sounds. Heart sounds well heard and regular rhythm. If today's chest film is improved further I would stop the hydrocortisone. I would consider stopping some of the antibiotic therapy now as well. Increased OOB activity and transfer out of ICU is anticipated now also. Chest x-ray shows continuing improvement in expansion, lower lobes clearing of infiltrates, improving upper lobe infiltrates and probable small left sided effusion. Objective - Vital Signs/Intake and Output Vital Signs (last 24 hours): Temp Pulse Resp BP Pulse Ox 98.3 F 84 24 155/110 H 95 12/24/18 00:00 12/24/18 02:00 12/24/18 02:00 12/24/18 02:00 12/24/18 02:00 Intake and Output: 12/23/18 12/24/18 23:59 11:59 Intake Total 1400 Output Total 0 Balance 1400 0 - Medications Medications: Current Medications Acetaminophen (Tylenol 325mg Tab) 650 mg PO Q4 PRN PRN Reason: Temperature Last Admin: 12/16/18 07:18 Dose: 650 mg Acetaminophen (Tylenol 325mg Tab) 650 mg PO Q6 PRN PRN Reason: Pain, Mild (1-3) Last Admin: 12/19/18 06:18 Dose: 650 mg Al Hydrox/Mg Hydrox/Simethicone (Maalox Plus 30 Ml) 30 ml PO Q6 PRN PRN Reason: Indigestion / Heartburn Last Admin: 12/18/18 20:08 Dose: 30 ml Albuterol Sulfate (Albuterol 0.083% Inhal Judith (2.5 Mg/3 Ml) Ud) 2.5 mg INH RQ4 PRN PRN Reason: Shortness of Breath Clotrimazole (Lotrimin 1% Cream) 1 applic TOP BID [facility] Last Admin: 12/24/18 08:19 Dose: 1 applic Duloxetine HCl (Cymbalta) 40 mg PO DAILY [facility] Last Admin: 12/24/18 08:18 Dose: 40 mg Enoxaparin Sodium (Lovenox) 40 mg SC DAILY [facility]; Protocol Last Admin: 12/24/18 08:16 Dose: 40 mg Famotidine (Pepcid) 40 mg PO DAILY [facility] Last Admin: 12/23/18 08:30 Dose: 40 mg Gabapentin (Neurontin) 300 mg PO TID [facility] Last Admin: 12/24/18 08:16 Dose: 300 mg Hydrocortisone Sodium Succinate (Solu-Cortef) 100 mg IV DAILY [facility] Last Admin: 12/24/18 08:20 Dose: 100 mg Doxycycline Hyclate 100 mg/ (Sodium Chloride) 100 mls @ 100 mls/hr IVPB Q12 [facility]; Protocol Last Admin: 12/24/18 08:13 Dose: 100 mls/hr Lactated Ringer's (Lactated Ringer's) 1,000 mls @ 100 mls/hr IV .Q10H [facility] Last Admin: 12/18/18 02:38 Dose: 100 mls/hr Vancomycin HCl 1 gm/ Sodium (Chloride) 250 mls @ 166.667 mls/hr IVPB Q12 [facility]; Protocol Last Admin: 12/23/18 20:01 Dose: 166.667 mls/hr Ampicillin Sodium/Sulbactam (Sodium 1.5 gm/ Sodium Chloride) 100 mls @ 100 mls/hr IVPB Q8H [facility]; Protocol Last Admin: 12/24/18 05:45 Dose: 100 mls/hr Potassium Chloride (Potassium Chloride 10 Meq/100 Ml) 100 mls @ 100 mls/hr IVPB Q1 [facility] Stop: 12/24/18 11:59 Ketorolac Tromethamine (Toradol) 30 mg IVP Q6 PRN PRN Reason: Pain, severe (8-10) Last Admin: 12/19/18 04:03 Dose: 30 mg Levothyroxine Sodium (Synthroid) 75 mcg PO DAILY@0630 [facility] Last Admin: 12/24/18 05:59 Dose: 75 mcg Lorazepam (Ativan) 0.25 mg PO Q12 PRN PRN Reason: Anxiety Last Admin: 12/24/18 02:05 Dose: 0.25 mg Methadone HCl (Methadone) 5 mg PO Q12 PRN PRN Reason: opioid withdrawal therapy Ondansetron HCl (Zofran Inj) 4 mg IVP Q4 PRN PRN Reason: Nausea/Vomiting Last Admin: 12/22/18 03:05 Dose: 4 mg Quetiapine Fumarate (Seroquel) 25 mg PO HS [facility]A Last Admin: 12/23/18 21:15 Dose: 25 mg - Labs Labs: 12/24/18 05:40 12/24/18 05:40 PT 11.7 Seconds (9.8-13.1) 12/11/18 23:50 INR 1.0 12/11/18 23:50 APTT 32.7 Seconds (25.6-37.1) 12/11/18 23:50 Assessment and Plan (1) Aspiration pneumonia due to inhalation of vomitus Status: Acute (2) Hypoxemia requiring supplemental oxygen Status: Acute (3) Hypercapnia Status: Acute
[2018-12-24] MEDS: Potassium CL 10mEq/100ml 100 ML IVPB SCH ×4 (09:07→11:58)
--- NOTE | 2018-12-24 09:34 | RAD ---
Date of service: 12/24/2018 HISTORY: pneumonia COMPARISON: 12/23/2018 TECHNIQUE: 1 view obtained. FINDINGS: LUNGS: The patchy coalescent airspace opacities in each upper lobe are redemonstrated. Those on the right appear similar. Possible trace interval increased pleural parenchymal density along the inferior right upper lobe versus slight change due to technique is a consideration. There are coalescent the lucencies concerning for coalescent small cavitary lesions in the parenchyma pleural homogeneous opacity component here. If focal peripheral pleural-based collection abscesses are cavities are 1 consideration. Locules in a developing left upper lobe empyema are another. Each lung base appears fairly clear as before. PLEURA: No significant pleural effusion identified, no pneumothorax apparent. CARDIOVASCULAR: No aortic atherosclerotic calcification present. Normal cardiac size. An element of concomitant mild pulmonary venous congestion is possible now and before-no interval change in this regard appreciated. OSSEOUS STRUCTURES: No significant abnormalities. VISUALIZED UPPER ABDOMEN: Right upper quadrant cholecystectomy clips inferred OTHER FINDINGS: None. IMPRESSION: Interval air-fluid levels concerning for developing cavities and/or locule left empyema in the left upper lobe as detailed above. Consider contrast enhanced CT of the chest to further evaluate. Most of the prior right upper lobe coalescent airspace opacities in the medial left airspace opacities appear similar. This regards by lateral upper lobe infiltrates are inferred. Other findings as above. Comments: Study marked for PA review .
--- NOTE | 2018-12-24 11:38 | CP.PCM.PN ---
Subjective - Date & Time of Evaluation Date of Evaluation: 12/24/18 Time of Evaluation: 11:35 - Subjective Subjective: Patient if feeling better but she still has no taste, and she is still feeling depressed. As we discussed, she has not really had any manic episodes that either of us can recall, so the past diagnosis of bipolar disorder is probably not correct. She does suffer from major depression. That is clear and that will need to be addressed further before it is safe for her to go home. Dr. Richardson's note appreciated. Will await his decision regarding stopping corticosteroids (which are probably contributing to hypokalemia) and whether or not to renew doxycycline. Patient is also receiving iv Unasyn and Vancomycin. (Vanco trough level from this AM pending.) Dr. Anaya has ordered iv potassium for K of 2.8. Patient has not needed methadone so I will discontinue this, but continue Ativan 0.25mg q12h prn. Cymbalta and acetaminophen appear to be managing her pain for now. Objective - Vital Signs/Intake and Output Vital Signs (last 24 hours): Temp Pulse Resp BP Pulse Ox 98.8 F 65 20 136/62 96 12/24/18 08:00 12/24/18 10:00 12/24/18 10:00 12/24/18 10:00 12/24/18 10:00 Intake and Output: 12/24/18 12/24/18 06:59 18:59 Intake Total 550 890 Output Total 0 Balance 550 890 - Medications Medications: Current Medications Acetaminophen (Tylenol 325mg Tab) 650 mg PO Q4 PRN PRN Reason: Temperature Last Admin: 12/16/18 07:18 Dose: 650 mg Acetaminophen (Tylenol 325mg Tab) 650 mg PO Q6 PRN PRN Reason: Pain, Mild (1-3) Last Admin: 12/19/18 06:18 Dose: 650 mg Al Hydrox/Mg Hydrox/Simethicone (Maalox Plus 30 Ml) 30 ml PO Q6 PRN PRN Reason: Indigestion / Heartburn Last Admin: 12/18/18 20:08 Dose: 30 ml Albuterol Sulfate (Albuterol 0.083% Inhal Judith (2.5 Mg/3 Ml) Ud) 2.5 mg INH RQ4 PRN PRN Reason: Shortness of Breath Clotrimazole (Lotrimin 1% Cream) 1 applic TOP BID COUNTS INCLUDE 234 BEDS AT [facility] Last Admin: 12/24/18 08:19 Dose: 1 applic Duloxetine HCl (Cymbalta) 40 mg PO DAILY COUNTS INCLUDE 234 BEDS AT THE [facility] Last Admin: 12/24/18 08:18 Dose: 40 mg Enoxaparin Sodium (Lovenox) 40 mg SC DAILY COUNTS INCLUDE 234 BEDS AT THE [facility]; Protocol Last Admin: 12/24/18 08:16 Dose: 40 mg Famotidine (Pepcid) 40 mg PO DAILY COUNTS INCLUDE 234 BEDS AT THE [facility] Last Admin: 12/24/18 10:49 Dose: 40 mg Gabapentin (Neurontin) 300 mg PO TID COUNTS INCLUDE 234 BEDS AT THE [facility] Last Admin: 12/24/18 08:16 Dose: 300 mg Hydrocortisone Sodium Succinate (Solu-Cortef) 100 mg IV DAILY COUNTS INCLUDE 234 BEDS AT THE [facility] Stop: 12/24/18 23:59 Last Admin: 12/24/18 08:20 Dose: 100 mg Doxycycline Hyclate 100 mg/ (Sodium Chloride) 100 mls @ 100 mls/hr IVPB Q12 COUNTS INCLUDE 234 BEDS AT THE [facility]; Protocol Stop: 12/24/18 12:00 Last Admin: 12/24/18 08:13 Dose: 100 mls/hr Vancomycin HCl 1 gm/ Sodium (Chloride) 250 mls @ 166.667 mls/hr IVPB Q12 [facility]; Protocol Last Admin: 12/24/18 09:08 Dose: 166.667 mls/hr Ampicillin Sodium/Sulbactam (Sodium 1.5 gm/ Sodium Chloride) 100 mls @ 100 mls/hr IVPB Q8H COUNTS INCLUDE 234 BEDS AT [facility]; Protocol Last Admin: 12/24/18 05:45 Dose: 100 mls/hr Potassium Chloride (Potassium Chloride 10 Meq/100 Ml) 100 mls @ 100 mls/hr IVPB Q1 [facility] Stop: 12/24/18 11:59 Last Admin: 12/24/18 10:47 Dose: 100 mls/hr Ketorolac Tromethamine (Toradol) 30 mg IVP Q6 PRN PRN Reason: Pain, severe (8-10) Last Admin: 12/19/18 04:03 Dose: 30 mg Levothyroxine Sodium (Synthroid) 75 mcg PO DAILY@0630 [facility]A Last Admin: 12/24/18 05:59 Dose: 75 mcg Lorazepam (Ativan) 0.25 mg PO Q12 PRN PRN Reason: Anxiety Last Admin: 12/24/18 02:05 Dose: 0.25 mg Ondansetron HCl (Zofran Inj) 4 mg IVP Q4 PRN PRN Reason: Nausea/Vomiting Last Admin: 12/22/18 03:05 Dose: 4 mg Quetiapine Fumarate (Seroquel) 25 mg PO HS [facility] Last Admin: 12/23/18 21:15 Dose: 25 mg - Labs Labs: 12/24/18 05:40 12/24/18 05:40 PT 11.7 Seconds (9.8-13.1) 12/11/18 23:50 INR 1.0 12/11/18 23:50 APTT 32.7 Seconds (25.6-37.1) 12/11/18 23:50 - Constitutional Appears: No Acute Distress - Head Exam Head Exam: NORMAL INSPECTION - Eye Exam Eye Exam: Normal appearance - ENT Exam ENT Exam: Mucous Membranes Moist - Neck Exam Neck Exam: Normal Inspection - Respiratory Exam Additional comments: Much improved air flow although still with inspiratory crackles at both bases. No wheezes. Still not coughing up sputum. - Cardiovascular Exam Cardiovascular Exam: REGULAR RHYTHM, +S1, +S2 - GI/Abdominal Exam GI & Abdominal Exam: Soft - Extremities Exam Additional comments: Still with edema in LEs. - Back Exam Back Exam: NORMAL INSPECTION - Neurological Exam Neurological Exam: Alert, Awake, CN II-XII Intact, Oriented x3 Additional comments: Was able to be OOB in chair. - Psychiatric Exam Psychiatric exam: Anxious, Depressed, Flat Affect - Skin Skin Exam: Dry, Intact, Normal Color, Warm Assessment and Plan (1) Overdose of drug/medicinal substance Assessment & Plan: SEE SUBJECTIVE. Status: Acute (2) Aspiration pneumonia due to inhalation of vomitus Assessment & Plan: SEE SUBJECTIVE. Status: Acute (3) Major depression, chronic Assessment & Plan: SEE SUBJECTIVE. Status: Acute (4) Fibromyalgia affecting multiple sites Assessment & Plan: SEE SUBJECTIVE. Status: Acute (5) Mel's thyroiditis Assessment & Plan: Good levels. Ongoing care per Dr. Monk. Status: Acute (6) Parathyroid adenoma Assessment & Plan: Ongoing care per Dr. Monk. Status: Chronic (7) GERD (gastroesophageal reflux disease) Status: Acute (8) Other specified dorsopathies, cervical region Status: Acute
--- NOTE | 2018-12-24 18:21 | CP.CCUPN ---
CCU Subjective - Physician Review Subjective (Free Text): Able to sit up OOB in chair, in better mood today, remains on 1:1 as per Psych. Afebrile, no temp spikes last 3 days. SBP 130s, HR 80s, RR 18, SPO2 98% on regular NC. ROS: No other pertinent negs or positives on 10+ system review: unobtainable due to sedation. PMSFH: All other Nursing and physician documentation reviewed to date; no new pertinent info noted relevant to current medical problems. EXAM- HEENT: no icterus, no gaze preference, pupils 3 mm equal and reactive NECK: no JVD visible, supple, carotids equal upstroke bilat/no bruit CHEST: few bilat rhonchi, decreased BS at the bases, no wheezes audible HEART: irregular, distant S1S2, no rubs ABD: soft, no distension, no focal tenderness, no tympany, no guarding, no organomegaly, BS hypoactive. EXT: trace LE edema, no mottling; no calf tenderness or palpable cords, distal pulses intact and symmetrical NEURO: no gross focal motor deficits SKIN: no rashes, warm and dry. LABS: WBC= 18.6 HGB= 10.7 PLTs= 471K Na= 137 K= 2.8 CL= 99 HCO3= 35 BUN/Cr= 10/0.5 BS= 80 IMPRESSION / MAJOR PROBLEMS NOW: 1. s/p Obtundation 2 Multiple Medication OD including antipsychotics, opioids, and BZDPs (amounts unknown) 2. Acute Resp Insuff 2 #1 and Aspiration pneumonitis, r/o Cavitary disease 3. Hypokalemia 4. h/o Suicide Attempts 5. h/o Chronic Back pain Syndrome, H/o Depression PLAN: 1. Ongoing Abx coverage with Unasyn and Vanco. 2. Todays CXR official report noted, CT Chest with IV contrast for further eval. 3. Approx 80 meq supplemental K ordered as well as Magnesium. No arrhythmias nor any new weakness noted. 4. SBP trends occasionally up to 160-170s, ?? due to occult agitation / anxiety, monitor for now, no new assoc symptomology.
--- NOTE | 2018-12-24 21:35 | PN ---
DATE: 12/24/2018 SUBJECTIVE: This is a 58-year-old female with recent acute aspiration pneumonitis following a drug overdose and with underlying chronic schizoaffective disorder and major depression and is now being followed closely for metabolic management. She also has remained clinically and biochemically euthyroid at this time following the initial abnormal thyroid studies as noted. LABORATORY DATA: Her latest chemistries showed a BUN of 10, sodium 137, potassium 2.8, chloride 99, CO2 of 35, glucose 80 and creatinine 0.5. Her repeat thyroxine levels showed a T4 of 9.94 with a TSH of 4.41 and a free T4 of 1.47. ASSESSMENT: This is a 58-year-old female who remains clinically euthyroid with underlying autoimmune thyroiditis and now is evolving to have subclinical hypothyroidism as expected thereof, especially with her intercurrent physical stressors which would increase the dose requirement of the levothyroxine accordingly. She has an acute aspiration pneumonitis as noted with ongoing intravenous antibiotic management as given. PLAN OF MANAGEMENT: We will modify at this time her levothyroxine to 88 mcg once daily as ordered to start tonight. We will obtain serial chemistries and supplement accordingly as needed. We will also obtain serial thyroid studies and titrate her dose regimen accordingly. We will follow and advise accordingly. Ashlee Monk MD
[2018-12-24] MEDS ORDERED: Iohexol 300 100 ML IJ ONE (23:00)
[2018-12-24] MEDS ORDERED: Sodium Chloride 0.9% 50 ML IV ONE (23:01)
[2018-12-25 05:51] LABS: HEMOGLOBIN 10.1 g/dL (12.0-16.0); MEAN CELL VOLUME 89.1 fl (81.0-99.0); MEAN CORPUSCULAR HEMOGLOBIN 29.8 pg (27.0-31.0); MEAN CORPUSCULAR HGB CONC 33.4 g/dL (33.0-37.0); RBC 3.39 Mil/uL (3.80-5.20); RED CELL DISTRIBUTION WIDTH 13.6 % (11.5-14.5); WHITE BLOOD COUNT 15.8 K/uL (4.8-10.8)
[2018-12-25] MEDS: Levothyroxine 88 MCG TAB PO SCH (05:51)
[2018-12-25 06:06] LABS: BLOOD UREA NITROGEN 7 mg/dl (7-17); CALCIUM 8.1 mg/dL (8.4-10.2); GFR NON-AFRICAN AMERICAN > 60
[2018-12-25] MEDS: Enoxaparin 40 mg Syringe SC SCH (08:49)
--- NOTE | 2018-12-25 10:02 | CP.PCM.PN ---
Subjective - Date & Time of Evaluation Date of Evaluation: 12/25/18 Time of Evaluation: 10:00 - Subjective Subjective: CT chest done last night does not show any cavitary/necrotic process. There are indeed diffuse parenchymal infiltrates bilaterally with moderate pleural effusions. She appears comfortable this morning and her vital signs remain stable. Her leukocytosis has dropped slightly to 15.8 thios morning, but she remains very hypokalemic. Diagnostic thoracentesis to rule out empyema should be considered (discussed with ANP and consult in to IR). Potassium supplements are being given, magnesium should be re-checked as well. I would continue the present antibiotics until there is clearly no occult empyema going on. Objective - Vital Signs/Intake and Output Vital Signs (last 24 hours): Temp Pulse Resp BP Pulse Ox 98.0 F 78 20 166/87 H 92 L 12/25/18 08:34 12/25/18 08:34 12/25/18 08:34 12/25/18 08:34 12/25/18 08:34 Intake and Output: 12/24/18 12/25/18 23:59 11:59 Intake Total 860 Balance 860 - Medications Medications: Current Medications Acetaminophen (Tylenol 325mg Tab) 650 mg PO Q4 PRN PRN Reason: Temperature Last Admin: 12/16/18 07:18 Dose: 650 mg Acetaminophen (Tylenol 325mg Tab) 650 mg PO Q6 PRN PRN Reason: Pain, Mild (1-3) Last Admin: 12/19/18 06:18 Dose: 650 mg Al Hydrox/Mg Hydrox/Simethicone (Maalox Plus 30 Ml) 30 ml PO Q6 PRN PRN Reason: Indigestion / Heartburn Last Admin: 12/18/18 20:08 Dose: 30 ml Albuterol Sulfate (Albuterol 0.083% Inhal Judith (2.5 Mg/3 Ml) Ud) 2.5 mg INH RQ4 PRN PRN Reason: Shortness of Breath Clotrimazole (Lotrimin 1% Cream) 1 applic TOP BID [facility] Last Admin: 12/24/18 16:13 Dose: 1 applic Duloxetine HCl (Cymbalta) 40 mg PO DAILY [facility] Last Admin: 12/25/18 08:49 Dose: 40 mg Enoxaparin Sodium (Lovenox) 40 mg SC DAILY [facility]; Protocol Last Admin: 12/25/18 08:49 Dose: 40 mg Famotidine (Pepcid) 40 mg PO DAILY [facility] Last Admin: 12/25/18 08:46 Dose: 40 mg Gabapentin (Neurontin) 300 mg PO TID [facility] Last Admin: 12/25/18 08:46 Dose: 300 mg Vancomycin HCl 1 gm/ Sodium (Chloride) 250 mls @ 166.667 mls/hr IVPB Q12 [facility]; Protocol Last Admin: 12/24/18 22:08 Dose: 166.667 mls/hr Ampicillin Sodium/Sulbactam (Sodium 1.5 gm/ Sodium Chloride) 100 mls @ 100 mls/hr IVPB Q8H [facility]; Protocol Last Admin: 12/25/18 05:26 Dose: 100 mls/hr Ketorolac Tromethamine (Toradol) 30 mg IVP Q6 PRN PRN Reason: Pain, severe (8-10) Last Admin: 12/19/18 04:03 Dose: 30 mg Levothyroxine Sodium (Synthroid) 88 mcg PO DAILY@0630 [facility] Last Admin: 12/25/18 05:51 Dose: 88 mcg Lorazepam (Ativan) 0.25 mg PO Q12 PRN PRN Reason: Anxiety Last Admin: 12/24/18 02:05 Dose: 0.25 mg Ondansetron HCl (Zofran Inj) 4 mg IVP Q4 PRN PRN Reason: Nausea/Vomiting Last Admin: 12/22/18 03:05 Dose: 4 mg Quetiapine Fumarate (Seroquel) 25 mg PO HS [facility] Last Admin: 12/24/18 22:10 Dose: 25 mg - Labs Labs: 12/25/18 05:15 12/25/18 05:15 PT 11.7 Seconds (9.8-13.1) 12/11/18 23:50 INR 1.0 12/11/18 23:50 APTT 32.7 Seconds (25.6-37.1) 12/11/18 23:50 Assessment and Plan (1) Aspiration pneumonia due to inhalation of vomitus Status: Acute (2) Hypoxemia requiring supplemental oxygen Status: Acute (3) Hypercapnia Status: Acute
--- NOTE | 2018-12-25 11:39 | CP.PCM.PCO ---
Assessment/Plan - Assessment/Plan Assessment: pt. requesting to be d/c from hospital; Explained to pt. that she is not m edically cleared and is recommended for inpatient psych tx pt. refusing inpt psych tx patient seen by ; recommendation for [facility] [place] [place] screening for involuntary commitment
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
[2018-12-25] MEDS ORDERED: Potassium Chloride 20 mEq ER Tab PO ONE (15:02)
--- NOTE | 2018-12-25 15:16 | CT ---
Date of service: 12/24/2018 PROCEDURE: CT Chest with contrast HISTORY: cavitary pneumonia? COMPARISON: None available. TECHNIQUE: Contiguous axial images were obtained through the chest with intravenous contrast enhancement. Sagittal and coronal reconstructions were performed. IV contrast: 90 mL Omnipaque 300 Radiation dose: Total exam DLP = 169.35 mGy-cm. This CT exam was performed using one or more of the following dose reduction techniques: Automated exposure control, adjustment of the mA and/or kV according to patient size, and/or use of iterative reconstruction technique. FINDINGS: LUNGS: There is a complex parenchymal pattern bilaterally. In the right upper lobe and right middle lobe, there is a combination of reticular interstitial infiltrate, heterogeneous ground-glass opacity and patchy areas of evelio opacity or consolidation. In the right lower lobe there is diffuse nodular interstitial pattern noted. In the left upper lobe there is more extensive heterogeneous opacity with probable superimposed reticular interstitial component. In the left lower lobe, combination of nodular interstitial disease and ground-glass opacities. These findings are nonspecific. Possible atypical pneumonia. Possible UIP. No cavitary process noted. There is right lower lobe linear scar/atelectasis. MEDIASTINUM: Unremarkable thoracic aorta. No aneurysm or dissection. Normal sized heart. Main pulmonary artery unremarkable. No vascular congestion. No lymphadenopathy. No aortic atherosclerotic calcification or mural plaque present. PLEURA: Small moderate bilateral pleural effusions. No pneumothorax. BONES: No fracture. No destructive lesion. UPPER ABDOMEN: Status post cholecystectomy. No additional abnormality identified OTHER FINDINGS: None. IMPRESSION: Complex mixed parenchymal disease including reticular and nodular interstitial infiltrates, ground-glass opacities, patchy areas of consolidation and discrete areas of ground-glass opacity. Bilateral small to moderate pleural effusions. Right lower lobe linear scar/atelectasis. No associated lymphadenopathy. Nonspecific findings. Consider the possibility of UIP. Possible atypical pneumonia. Given the history of overdose with vomiting, consider aspiration pneumonia though the appearance is atypical. The preliminary findings for this examination were reported by [facility] at 11:39 p.m. on 12/24/2018. There is concurrence of this report with the preliminary findings.
--- NOTE | 2018-12-25 16:57 | CP.PCM.PN ---
Subjective - Date & Time of Evaluation Date of Evaluation: 12/25/18 Time of Evaluation: 16:43 - Subjective Subjective: Follow-up for pneumonia following massive aspiration of gastric contents. Patient has been on a number of antibiotics and remains on IV Unasyn and Vancomycin because of persistently abnormal examination and xrays with inability to raise sputum and negative blood culture. Vanco trough was ordered but I cannot find the result, so will reorder. The CT scan of the chest shows reticular and nodular infiltrates throughout both lungs with small bilateral pleural effusions. Although Dr. Richardson had proposed thoracentesis by the interventional radiologist, the patient has been refusing this so far. I told her Dr. Richardson would probably speak with her about this tomorrow. Meanwhile, she is insisting that she is "fine," and removed her nasal oxygen. Much to my surprise her oxygen saturation off oxygen was 94% !!! Of more immediate concern is the patient's desire to leave the hospital, even to the point of signing herself out. When reminded that she is here because of a suicide attempt that almost succeeded and that the stresses that led to that attempt still remain in her life and that she has not so far been able to be successfully treated for her major depression - when reminded of this she shows little insight and no reality testing. Dr. Chavez has re-evaluated the patient today and concluded that the patient remains a high suicide risk and cannot be allowed to leave the hospital. If necessary, the patient will require an involuntary admission to [facility] psychiatric unit, but it is hoped that once medically cleared the patient will accept admission to our voluntary unit here for further treatment. Hypokalemia is being treated with oral KCl. The IV's have been decreased, and we will repeat the BMP in the am. Dr. Monk has increased the levothyroxine to 88 mcg per day. The patient said she did not take the Seroquel 25mg last night, but according to the nurse the patient did take the Seroquel. Considering that the patient is now off all opioids and has an order for Ativan 0..25mg q12h prn only.. she is doing quite well on that front. Cymbalta and Tylenol are controlling the fibromyalgia pain. Objective - Vital Signs/Intake and Output Vital Signs (last 24 hours): Temp Pulse Resp BP Pulse Ox 98.5 F 82 20 125/63 95 04/11/19 15:43 12/25/18 15:43 12/25/18 15:43 12/25/18 15:43 12/25/18 15:43 - Medications Medications: Current Medications Acetaminophen (Tylenol 325mg Tab) 650 mg PO Q4 PRN PRN Reason: Temperature Last Admin: 12/16/18 07:18 Dose: 650 mg Acetaminophen (Tylenol 325mg Tab) 650 mg PO Q6 PRN PRN Reason: Pain, Mild (1-3) Last Admin: 12/19/18 06:18 Dose: 650 mg Al Hydrox/Mg Hydrox/Simethicone (Maalox Plus 30 Ml) 30 ml PO Q6 PRN PRN Reason: Indigestion / Heartburn Last Admin: 12/18/18 20:08 Dose: 30 ml Albuterol Sulfate (Albuterol 0.083% Inhal Judith (2.5 Mg/3 Ml) Ud) 2.5 mg INH RQ4 PRN PRN Reason: Shortness of Breath Clotrimazole (Lotrimin 1% Cream) 1 applic TOP BID [facility] Last Admin: 12/24/18 16:13 Dose: 1 applic Duloxetine HCl (Cymbalta) 40 mg PO DAILY [facility] Last Admin: 12/25/18 08:49 Dose: 40 mg Enoxaparin Sodium (Lovenox) 40 mg SC DAILY [facility]; Protocol Last Admin: 12/25/18 08:49 Dose: 40 mg Famotidine (Pepcid) 40 mg PO DAILY [facility] Last Admin: 12/25/18 08:46 Dose: 40 mg Gabapentin (Neurontin) 300 mg PO TID [facility] Last Admin: 12/25/18 11:59 Dose: 300 mg Vancomycin HCl 1 gm/ Sodium (Chloride) 250 mls @ 166.667 mls/hr IVPB Q12 [facility]; Protocol Last Admin: 12/25/18 11:55 Dose: 166.667 mls/hr Ampicillin Sodium/Sulbactam (Sodium 1.5 gm/ Sodium Chloride) 100 mls @ 100 mls/hr IVPB Q8H [facility]; Protocol Last Admin: 12/25/18 15:15 Dose: 100 mls/hr Ketorolac Tromethamine (Toradol) 30 mg IVP Q6 PRN PRN Reason: Pain, severe (8-10) Last Admin: 12/19/18 04:03 Dose: 30 mg Levothyroxine Sodium (Synthroid) 88 mcg PO DAILY@0630 [facility] Last Admin: 12/25/18 05:51 Dose: 88 mcg Lorazepam (Ativan) 0.25 mg PO Q12 PRN PRN Reason: Anxiety Last Admin: 12/24/18 02:05 Dose: 0.25 mg Ondansetron HCl (Zofran Inj) 4 mg IVP Q4 PRN PRN Reason: Nausea/Vomiting Last Admin: 12/22/18 03:05 Dose: 4 mg Potassium Chloride (Potassium Chloride Oral Soln) 20 meq PO BID [facility] Quetiapine Fumarate (Seroquel) 25 mg PO HS [facility] Last Admin: 12/24/18 22:10 Dose: 25 mg - Labs Labs: 12/25/18 05:15 12/25/18 05:15 PT 11.7 Seconds (9.8-13.1) 12/11/18 23:50 INR 1.0 12/11/18 23:50 APTT 32.7 Seconds (25.6-37.1) 12/11/18 23:50 - Constitutional Appears: Chronically Ill, Other (Calm now, but was acutely agitated earlier this afternoon whe she removed nasal oxygen and ? IV lines ?) - Head Exam Head Exam: NORMAL INSPECTION - Eye Exam Eye Exam: EOMI, Normal appearance - ENT Exam ENT Exam: Mucous Membranes Moist - Neck Exam Neck Exam: Normal Inspection - Respiratory Exam Additional comments: Improved breath sounds throughout the lungs, but still with inspiratory crackles, jet at the bases. - Cardiovascular Exam Cardiovascular Exam: REGULAR RHYTHM, +S1, +S2 - GI/Abdominal Exam GI & Abdominal Exam: Soft - Extremities Exam Additional comments: Less leg and foot edema. No calf tenderness. - Back Exam Back Exam: NORMAL INSPECTION - Neurological Exam Neurological Exam: Alert, Awake, CN II-XII Intact, Oriented x3 - Psychiatric Exam Psychiatric exam: Anxious, Depressed, Flat Affect - Skin Skin Exam: Dry, Intact, Normal Color, Warm Assessment and Plan (1) Overdose of drug/medicinal substance Assessment & Plan: Risk of another suicide attempt remains as problems at home persist. Logan is trying to conceal her depression, but her sunken and sad eyes betray her. She is not safe to leave the hospital. I am in agreement with Dr. Chavez that if patient refuses voluntary stay, then involuntary transfer will be necessary. Status: Acute (2) Aspiration pneumonia due to inhalation of vomitus Assessment & Plan: Dr. Richardson's note appreciated. He will be revisiting the possible need for thoracentesis tomorrow. To continue antibiotics. Status: Acute (3) Major depression, chronic Assessment & Plan: See above and see Dr. Chavez's note of today. Status: Acute (4) Fibromyalgia affecting multiple sites Status: Acute (5) Mel's thyroiditis Status: Acute (6) Parathyroid adenoma Status: Chronic (7) GERD (gastroesophageal reflux disease) Status: Acute (8) Other specified dorsopathies, cervical region Status: Acute
--- NOTE | 2018-12-25 23:06 | PN ---
DATE: 12/25/2018 ENDOCRINOLOGY FOLLOWUP NOTE LOCATION: Room 418. SUBJECTIVE: This is a 58-year-old female with recent acute drug overdose with underlying major depressive disorder and is now being followed closely for metabolic management. She also has ongoing IV antibiotics for acute aspiration pneumonitis as noted thereof. LABORATORY DATA: Her latest chemistry showed a BUN of 7, sodium 136, potassium 2.7, chloride 100, CO2 of 35, glucose 86 and creatinine 0.5. Her latest thyroxine level showed T4 of 9.94 with a TSH of 4.41 and a free T4 of 1.47. PLAN OF MANAGEMENT: So, at this time we will continue the modified levothyroxine given as 88 mcg once daily in the morning as ordered. We will obtain serial chemistries and supplement accordingly as needed. We will follow. Ashlee Monk MD
[2018-12-26] MEDS: Levothyroxine 88 MCG TAB PO SCH (05:47)
[2018-12-26 06:58] LABS: BLOOD UREA NITROGEN 5 mg/dl (7-17); CALCIUM 8.3 mg/dL (8.4-10.2); GFR NON-AFRICAN AMERICAN > 60
[2018-12-26 09:06] LABS: HEMOGLOBIN 11.4 g/dL (12.0-16.0); MEAN CELL VOLUME 88.6 fl (81.0-99.0); MEAN CORPUSCULAR HEMOGLOBIN 29.5 pg (27.0-31.0); MEAN CORPUSCULAR HGB CONC 33.3 g/dL (33.0-37.0); RBC 3.88 Mil/uL (3.80-5.20); RED CELL DISTRIBUTION WIDTH 13.7 % (11.5-14.5); WHITE BLOOD COUNT 12.9 K/uL (4.8-10.8)
[2018-12-26] MEDS ORDERED: Potassium Chloride 20 mEq ER Tab PO ONE (09:42)
--- NOTE | 2018-12-26 09:45 | CP.PCM.PN ---
Subjective - Date & Time of Evaluation Date of Evaluation: 12/26/18 Time of Evaluation: 09:45 - Subjective Subjective: Seated upright in bed, appears comfortable. Vital signs have remained stable, she continues to be afebrile. Adequate oxygenation, even maintains 92% when she takes the nasal canula off. There is still some dullness at the left base and diminished breath sounds in the bases. She may still have some pleural effusion, but for the most part she has recovered well. A PA/LATERAL chest x-ray has been requested for today. CBC will be followed again tomorrow. If fluid is decreased (or hopefully gone) and the WBCs continue to decrease I'll discuss with ID the possibility of stopping the remaining antibiotics. Objective - Vital Signs/Intake and Output Vital Signs (last 24 hours): Temp Pulse Resp BP Pulse Ox 98.9 F 63 20 134/61 92 L 12/26/18 08:41 12/26/18 08:41 12/26/18 08:41 12/26/18 08:41 12/26/18 08:41 - Medications Medications: Current Medications Acetaminophen (Tylenol 325mg Tab) 650 mg PO Q4 PRN PRN Reason: Temperature Last Admin: 12/16/18 07:18 Dose: 650 mg Acetaminophen (Tylenol 325mg Tab) 650 mg PO Q6 PRN PRN Reason: Pain, Mild (1-3) Last Admin: 12/19/18 06:18 Dose: 650 mg Al Hydrox/Mg Hydrox/Simethicone (Maalox Plus 30 Ml) 30 ml PO Q6 PRN PRN Reason: Indigestion / Heartburn Last Admin: 12/18/18 20:08 Dose: 30 ml Albuterol Sulfate (Albuterol 0.083% Inhal Judith (2.5 Mg/3 Ml) Ud) 2.5 mg INH RQ4 PRN PRN Reason: Shortness of Breath Clotrimazole (Lotrimin 1% Cream) 1 applic TOP BID [facility] Last Admin: 12/25/18 18:00 Dose: Not Given Duloxetine HCl (Cymbalta) 40 mg PO DAILY [facility] Last Admin: 12/25/18 08:49 Dose: 40 mg Enoxaparin Sodium (Lovenox) 40 mg SC DAILY [facility]; Protocol Last Admin: 12/25/18 08:49 Dose: 40 mg Famotidine (Pepcid) 40 mg PO DAILY [facility] Last Admin: 12/25/18 08:46 Dose: 40 mg Gabapentin (Neurontin) 300 mg PO TID [facility] Last Admin: 12/25/18 18:15 Dose: 300 mg Vancomycin HCl 1 gm/ Sodium (Chloride) 250 mls @ 166.667 mls/hr IVPB Q12 [facility]; Protocol Last Admin: 12/25/18 21:41 Dose: 166.667 mls/hr Ampicillin Sodium/Sulbactam (Sodium 1.5 gm/ Sodium Chloride) 100 mls @ 100 mls/hr IVPB Q8H [facility]; Protocol Last Admin: 12/26/18 05:47 Dose: 100 mls/hr Ketorolac Tromethamine (Toradol) 30 mg IVP Q6 PRN PRN Reason: Pain, severe (8-10) Last Admin: 12/19/18 04:03 Dose: 30 mg Levothyroxine Sodium (Synthroid) 88 mcg PO DAILY@0630 [facility] Last Admin: 12/26/18 05:47 Dose: 88 mcg Lorazepam (Ativan) 0.25 mg PO Q12 PRN PRN Reason: Anxiety Last Admin: 12/24/18 02:05 Dose: 0.25 mg Ondansetron HCl (Zofran Inj) 4 mg IVP Q4 PRN PRN Reason: Nausea/Vomiting Last Admin: 12/22/18 03:05 Dose: 4 mg Potassium Chloride (Potassium Chloride Oral Soln) 20 meq PO BID [facility] Potassium Chloride (K-Dur 20 Meq Er Tab) 20 meq PO ONCE ONE Stop: 12/26/18 09:43 Quetiapine Fumarate (Seroquel) 25 mg PO HS [facility] Last Admin: 12/25/18 21:43 Dose: Not Given - Labs Labs: 12/26/18 08:35 12/26/18 05:00 PT 11.7 Seconds (9.8-13.1) 12/11/18 23:50 INR 1.0 12/11/18 23:50 APTT 32.7 Seconds (25.6-37.1) 12/11/18 23:50 Assessment and Plan (1) Aspiration pneumonia due to inhalation of vomitus Status: Acute (2) Hypoxemia requiring supplemental oxygen Status: Acute (3) Hypercapnia Status: Acute
[2018-12-26] MEDS: Enoxaparin 40 mg Syringe SC SCH (10:02)
[2018-12-26] MEDS: Potassium Chloride 20 mEq/15 ml LIQ UD PO SCH ×2 (10:21→17:45)
--- NOTE | 2018-12-26 11:10 | CP.PCM.PN ---
Subjective - Date & Time of Evaluation Date of Evaluation: 12/26/18 Time of Evaluation: 11:03 - Subjective Subjective: Patient is becoming increasingly restless and demanding to be released to home once medically cleared. She is improving from a respiratory perspective - with looser cough (although still not providing a sputum sample) and oxygen saturation of 92% on room air (she refuses nasal oxygen, and her nose is irritated from previous use). We have had to replace potassium frequently. This morning's potassium level was again just under 3, so we have increased the oral KCl from 20 to 40 meq bid. This hypokalemia may be a side effect of vancomycin. She is off corticosteroid and is not on diuretics. I have decreased the vancomycin level from 1000mg to 750 mg q12h because the vancomycin trough level was 11 this morning. Awaiting further pulmonary evaluation and recommendations per Drs. Richardson and Joshua. Patient is now insisting that all is well between her and her , that she has been here too long, that she needs to get home to care for her grandbaby. When I explained to her that I still have concerns because her depression is severe and that I would be relying heavily on the recommendations of the psyc hiatrists she became very angry with me. In fact, Cassy Medina our [employer] has confirmed to me today that Dr. Chavez did request [facility] evaluation for potential involutary psychiatric admission. The patient when offered a choice between our 3rd floor unit and the possibility of going to [facility], she did not appear to appreciate this and became even angrier. Objective - Vital Signs/Intake and Output Vital Signs (last 24 hours): Temp Pulse Resp BP Pulse Ox 98.9 F 63 20 134/61 92 L 12/26/18 08:41 12/26/18 08:41 12/26/18 08:41 12/26/18 08:41 12/26/18 08:41 - Medications Medications: Current Medications Acetaminophen (Tylenol 325mg Tab) 650 mg PO Q4 PRN PRN Reason: Temperature Last Admin: 12/16/18 07:18 Dose: 650 mg Acetaminophen (Tylenol 325mg Tab) 650 mg PO Q6 PRN PRN Reason: Pain, Mild (1-3) Last Admin: 12/19/18 06:18 Dose: 650 mg Al Hydrox/Mg Hydrox/Simethicone (Maalox Plus 30 Ml) 30 ml PO Q6 PRN PRN Reason: Indigestion / Heartburn Last Admin: 12/18/18 20:08 Dose: 30 ml Albuterol Sulfate (Albuterol 0.083% Inhal Judith (2.5 Mg/3 Ml) Ud) 2.5 mg INH RQ4 PRN PRN Reason: Shortness of Breath Clotrimazole (Lotrimin 1% Cream) 1 applic TOP BID [facility] Last Admin: 12/26/18 10:33 Dose: Not Given Duloxetine HCl (Cymbalta) 40 mg PO DAILY [facility] Last Admin: 12/26/18 10:02 Dose: 40 mg Enoxaparin Sodium (Lovenox) 40 mg SC DAILY [facility]; Protocol Last Admin: 12/26/18 10:02 Dose: 40 mg Famotidine (Pepcid) 40 mg PO DAILY [facility] Last Admin: 12/26/18 10:04 Dose: 40 mg Gabapentin (Neurontin) 300 mg PO TID [facility] Last Admin: 12/26/18 10:03 Dose: 300 mg Ampicillin Sodium/Sulbactam (Sodium 1.5 gm/ Sodium Chloride) 100 mls @ 100 mls/hr IVPB Q8H [facility]; Protocol Last Admin: 12/26/18 05:47 Dose: 100 mls/hr Vancomycin HCl 750 mg/ Sodium (Chloride) 250 mls @ 166.667 mls/hr IVPB Q12 [facility]; Protocol Ketorolac Tromethamine (Toradol) 30 mg IVP Q6 PRN PRN Reason: Pain, severe (8-10) Last Admin: 12/19/18 04:03 Dose: 30 mg Levothyroxine Sodium (Synthroid) 88 mcg PO DAILY@0630 [facility] Last Admin: 12/26/18 05:47 Dose: 88 mcg Lorazepam (Ativan) 0.25 mg PO Q12 PRN PRN Reason: Anxiety Last Admin: 12/24/18 02:05 Dose: 0.25 mg Ondansetron HCl (Zofran Inj) 4 mg IVP Q4 PRN PRN Reason: Nausea/Vomiting Last Admin: 12/22/18 03:05 Dose: 4 mg Potassium Chloride (Potassium Chloride Oral Soln) 20 meq PO BID [facility] Last Admin: 12/26/18 10:21 Dose: 20 meq Quetiapine Fumarate (Seroquel) 25 mg PO HS [facility] Last Admin: 12/25/18 21:43 Dose: Not Given - Labs Labs: 12/26/18 08:35 12/26/18 05:00 PT 11.7 Seconds (9.8-13.1) 12/11/18 23:50 INR 1.0 12/11/18 23:50 APTT 32.7 Seconds (25.6-37.1) 12/11/18 23:50 Vancomycin trough 12/26/18 am: 11.9 mcg/ml (Therapeutic is 4-10) - Constitutional Appears: Agitated - Head Exam Head Exam: NORMAL INSPECTION - Eye Exam Eye Exam: Normal appearance - ENT Exam ENT Exam: Mucous Membranes Moist - Neck Exam Neck Exam: Normal Inspection - Respiratory Exam Additional comments: Improved air flow, but still with inspiratory crackles at bases. - Cardiovascular Exam Cardiovascular Exam: REGULAR RHYTHM, +S1, +S2 - GI/Abdominal Exam GI & Abdominal Exam: Soft - Extremities Exam Additional comments: Still with 1+ edema of feet and lower legs, but much improved. Good pulses. No tenderness. - Back Exam Back Exam: NORMAL INSPECTION - Neurological Exam Neurological Exam: Alert (Patient took a few steps today.), Awake, Oriented x3 - Psychiatric Exam Psychiatric exam: Agitated, Depressed Additional comments: Limited insight into her medical and psychiatric illness. - Skin Skin Exam: Dry, Intact, Normal Color, Warm Assessment and Plan (1) Overdose of drug/medicinal substance Assessment & Plan: Potential for repeat suicide attempt remains high - awaiting final psychiatric determination and plans for ongoing psychiatric care. Status: Acute (2) Aspiration pneumonia due to inhalation of vomitus Assessment & Plan: Much improved clinically. Awaiting further ID and pulmonary advice. Status: Acute (3) Major depression, chronic Assessment & Plan: See above and see subjective. I left a message with Dr. Chavez about the possibility of increasing the Seroquel to 50mg at supper/bedtime as this particular medication has seemed to help her not only to be calmer but to be more focused. Status: Acute (4) Fibromyalgia affecting multiple sites Assessment & Plan: managed. Status: Acute (5) Mel's thyroiditis Assessment & Plan: Managed by Dr. Monk. Status: Acute (6) Parathyroid adenoma Assessment & Plan: Managed by Dr. Monk. Status: Chronic (7) GERD (gastroesophageal reflux disease) Assessment & Plan: Stable on oral Pepcid. Status: Acute (8) Other specified dorsopathies, cervical region Assessment & Plan: Quiescent. Status: Acute
--- NOTE | 2018-12-26 17:57 | RAD ---
Date of service: 12/26/2018 HISTORY: f/u COMPARISON: 12/24/2018 TECHNIQUE: Chest PA and lateral views FINDINGS: LUNGS: Extensive bilateral interstitial/alveolar opacity, predominantly in the upper lobes. There is pleural-based opacity in the lateral left upper lobe. This corresponds to focal pleural-based consolidation as well as pleural fluid on CT examination of 12/24/2018. It is mildly improved in appearance compared to prior chest radiograph. No other focal consolidation.. PLEURA: No significant pleural effusion identified. No pneumothorax apparent. CARDIOVASCULAR: No aortic atherosclerotic calcification present. Normal cardiac size. No pulmonary vascular congestion. OSSEOUS STRUCTURES: No significant abnormalities. VISUALIZED UPPER ABDOMEN: Normal. OTHER FINDINGS: None. IMPRESSION: Interstitial/alveolar opacities bilaterally with some focal consolidation along the left upper lateral chest wall. Mildly improved compared to 12/24/2018.
--- NOTE | 2018-12-27 00:55 | PN ---
DATE: 12/26/2018 ENDOCRINOLOGY FOLLOWUP NOTE LOCATION: Room [address]A. This is a 58-year-old female with recent acute drug overdose and underlying major depressive disorder and currently being followed closely for metabolic management. She also has a recent acute aspiration pneumonitis with ongoing IV antibiotic management as noted. She remains clinically euthyroid at this time. The latest chemistry showed a BUN of 5, sodium 138, potassium 2.9, chloride 102, CO2 of 33, glucose 97 and creatinine 0.5. Her thyroxine levels have improved but the TSH was slightly elevated indicative of subclinical hypothyroidism as noted thereof. So, at this time, we will continue the modified levothyroxine given at a higher dose of 88 mcg once daily as ordered. We will obtain serial chemistries and supplement accordingly as needed. We will follow up with you. Ashlee Monk MD
[2018-12-27] MEDS: Levothyroxine 88 MCG TAB PO SCH (06:09)
[2018-12-27 07:32] LABS: HEMOGLOBIN 10.5 g/dL (12.0-16.0); MEAN CELL VOLUME 88.6 fl (81.0-99.0); MEAN CORPUSCULAR HEMOGLOBIN 29.6 pg (27.0-31.0); MEAN CORPUSCULAR HGB CONC 33.4 g/dL (33.0-37.0); RBC 3.56 Mil/uL (3.80-5.20); RED CELL DISTRIBUTION WIDTH 13.9 % (11.5-14.5); WHITE BLOOD COUNT 11.3 K/uL (4.8-10.8)
[2018-12-27 07:40] LABS: BLOOD UREA NITROGEN 5 mg/dl (7-17); CALCIUM 8.5 mg/dL (8.4-10.2); GFR NON-AFRICAN AMERICAN > 60
[2018-12-27] MEDS: Potassium Chloride 20 mEq/15 ml LIQ UD PO SCH ×2 (09:10→10:03)
[2018-12-27] MEDS: Enoxaparin 40 mg Syringe SC SCH (09:12)
--- NOTE | 2018-12-27 11:29 | CP.PCM.PN ---
Subjective - Date & Time of Evaluation Date of Evaluation: 12/27/18 Time of Evaluation: 11:27 - Subjective Subjective: Seated in a chair at the bedside. Appears comfortable and is cooperative with the exam. Answers all questions, denies any chest discomfort. No cough or sputum production. Vital signs remain stable and she is afebrile. SpO2 remains 92%+ on room air. Leukocytosis down to 11.3 this morning. Yesterday's x-ray looked pretty good. The infiltrates continue to resolve, there is good expansion bilaterally, and any effusion seems to be resolved. The potassium remains very low, and this could be a secondary effect of the Seroquel. Supplemental K is being given, and I will add magnesium despite a 'normal' level previously. On exam she breathes comfortably w/o recruitment. There is no dullness on percussion, good expansion bilaterally. Breath sounds are still a little diminished bilaterally with a few rhonchi, but otherwise seem pretty good. Have contacted ID and we are in agreement that the antibiotics can be discontinued at this point. A follow up chest x-ray can be done Saturday just to monitor clearing. K is being given, and I added some more magnesium. Objective - Vital Signs/Intake and Output Vital Signs (last 24 hours): Temp Pulse Resp BP Pulse Ox 98.3 F 88 20 129/75 95 12/27/18 08:18 12/27/18 08:18 12/27/18 08:18 12/27/18 08:18 12/27/18 08:18 Intake and Output: 12/26/18 12/27/18 23:59 11:59 Intake Total 1550 Output Total 3 Balance 1547 - Medications Medications: Current Medications Acetaminophen (Tylenol 325mg Tab) 650 mg PO Q4 PRN PRN Reason: Temperature Last Admin: 12/16/18 07:18 Dose: 650 mg Acetaminophen (Tylenol 325mg Tab) 650 mg PO Q6 PRN PRN Reason: Pain, Mild (1-3) Last Admin: 12/19/18 06:18 Dose: 650 mg Al Hydrox/Mg Hydrox/Simethicone (Maalox Plus 30 Ml) 30 ml PO Q6 PRN PRN Reason: Indigestion / Heartburn Last Admin: 12/18/18 20:08 Dose: 30 ml Albuterol Sulfate (Albuterol 0.083% Inhal Judith (2.5 Mg/3 Ml) Ud) 2.5 mg INH RQ4 PRN PRN Reason: Shortness of Breath Clotrimazole (Lotrimin 1% Cream) 1 applic TOP BID [facility] Last Admin: 12/27/18 09:11 Dose: 1 applic Duloxetine HCl (Cymbalta) 40 mg PO DAILY [facility] Last Admin: 12/27/18 09:11 Dose: 40 mg Enoxaparin Sodium (Lovenox) 40 mg SC DAILY [facility]; Protocol Last Admin: 12/27/18 09:12 Dose: 40 mg Famotidine (Pepcid) 40 mg PO DAILY [facility] Last Admin: 12/27/18 09:11 Dose: 40 mg Gabapentin (Neurontin) 300 mg PO TID [facility] Last Admin: 12/27/18 09:11 Dose: 300 mg Ampicillin Sodium/Sulbactam (Sodium 1.5 gm/ Sodium Chloride) 100 mls @ 100 mls/hr IVPB Q8H [facility]; Protocol Last Admin: 12/27/18 04:59 Dose: Not Given Ketorolac Tromethamine (Toradol) 30 mg IVP Q6 PRN PRN Reason: Pain, severe (8-10) Last Admin: 12/19/18 04:03 Dose: 30 mg Levothyroxine Sodium (Synthroid) 88 mcg PO DAILY@0630 [facility] Last Admin: 12/27/18 06:09 Dose: 88 mcg Lorazepam (Ativan) 0.25 mg PO Q12 PRN PRN Reason: Anxiety Last Admin: 12/26/18 22:00 Dose: 0.25 mg Magnesium Oxide (Mag-Ox) 400 mg PO DAILY [facility] Ondansetron HCl (Zofran Inj) 4 mg IVP Q4 PRN PRN Reason: Nausea/Vomiting Last Admin: 12/22/18 03:05 Dose: 4 mg Potassium Chloride (Potassium Chloride Oral Soln) 40 meq PO BID [facility] Last Admin: 12/27/18 10:03 Dose: Not Given Quetiapine Fumarate (Seroquel) 25 mg PO HS [facility] Last Admin: 12/26/18 22:03 Dose: 25 mg - Labs Labs: 12/27/18 05:45 12/27/18 05:45 PT 11.7 Seconds (9.8-13.1) 12/11/18 23:50 INR 1.0 12/11/18 23:50 APTT 32.7 Seconds (25.6-37.1) 12/11/18 23:50 Assessment and Plan (1) Aspiration pneumonia due to inhalation of vomitus Status: Acute (2) Hypoxemia requiring supplemental oxygen Status: Acute (3) Hypercapnia Status: Acute
[2018-12-27] MEDS ORDERED: Potassium Chloride 20 mEq ER Tab PO SCH (11:30)
[2018-12-27] MEDS: Magnesium Oxide 400 mg Tab UD PO SCH (12:52)
[2018-12-27] MEDS: Potassium Chloride 20 mEq ER Tab PO SCH ×2 (12:52→17:05)
--- NOTE | 2018-12-27 16:27 | CP.PCM.PN ---
Subjective - Date & Time of Evaluation Date of Evaluation: 12/27/18 Time of Evaluation: 16:20 - Subjective Subjective: Patient is sitting up in a chair - gives the appearance of calm, but that seems to be for show. She wants to go home, says she has been here "long enough" and has "put in her time." She does not appear to appreciate the seriousness of the depression which led to her suicide attempt which is why she is here and why she almost . Now she says it is not about her "grandbaby," but it is just about going home. I explained to her that the decision for inpatient versus outpatient psychiatric care would rest with Dr. Chavez. Patient is not happy to hear that. Notes by Drs. Richardson and Lacho appreciated. I looked up Seroquel but did not see hypokalemia as a side effect - although all things are possible. It can cause QT prolongation - as can Cymbalta. So, I would like to get another electrocardiogram to be on the safe side. Lungs are clearly better with better breath sounds, oxygen saturations around 92 % on room air and no dyspnea. As per Dr. Richardson, we have stopped the antibiotics and will monitor her. As per Dr. Monk, the levothyroxine is not at 88 mcg per day to maintain a euthyroid state. The patient does not complain of pain - is on Cymbalta 40mg daily and gabapentin. Objective - Vital Signs/Intake and Output Vital Signs (last 24 hours): Temp Pulse Resp BP Pulse Ox 98.6 F 96 H 18 112/67 97 12/27/18 16:14 12/27/18 16:14 12/27/18 16:14 12/27/18 16:14 12/27/18 16:14 - Medications Medications: Current Medications Acetaminophen (Tylenol 325mg Tab) 650 mg PO Q4 PRN PRN Reason: Temperature Last Admin: 12/16/18 07:18 Dose: 650 mg Acetaminophen (Tylenol 325mg Tab) 650 mg PO Q6 PRN PRN Reason: Pain, Mild (1-3) Last Admin: 12/19/18 06:18 Dose: 650 mg Al Hydrox/Mg Hydrox/Simethicone (Maalox Plus 30 Ml) 30 ml PO Q6 PRN PRN Reason: Indigestion / Heartburn Last Admin: 12/18/18 20:08 Dose: 30 ml Albuterol Sulfate (Albuterol 0.083% Inhal Judith (2.5 Mg/3 Ml) Ud) 2.5 mg INH RQ4 PRN PRN Reason: Shortness of Breath Clotrimazole (Lotrimin 1% Cream) 1 applic TOP BID [facility] Last Admin: 12/27/18 09:11 Dose: 1 applic Duloxetine HCl (Cymbalta) 40 mg PO DAILY [facility] Last Admin: 12/27/18 09:11 Dose: 40 mg Enoxaparin Sodium (Lovenox) 40 mg SC DAILY [facility]; Protocol Last Admin: 12/27/18 09:12 Dose: 40 mg Famotidine (Pepcid) 40 mg PO DAILY [facility] Last Admin: 12/27/18 09:11 Dose: 40 mg Gabapentin (Neurontin) 300 mg PO TID [facility] Last Admin: 12/27/18 12:52 Dose: 300 mg Ketorolac Tromethamine (Toradol) 30 mg IVP Q6 PRN PRN Reason: Pain, severe (8-10) Last Admin: 12/19/18 04:03 Dose: 30 mg Levothyroxine Sodium (Synthroid) 88 mcg PO DAILY@0630 [facility] Last Admin: 12/27/18 06:09 Dose: 88 mcg Lorazepam (Ativan) 0.25 mg PO Q12 PRN PRN Reason: Anxiety Last Admin: 12/26/18 22:00 Dose: 0.25 mg Magnesium Oxide (Mag-Ox) 400 mg PO DAILY [facility] Last Admin: 12/27/18 12:52 Dose: 400 mg Ondansetron HCl (Zofran Inj) 4 mg IVP Q4 PRN PRN Reason: Nausea/Vomiting Last Admin: 12/22/18 03:05 Dose: 4 mg Potassium Chloride (K-Dur 20 Meq Er Tab) 40 meq PO BID [facility] Last Admin: 12/27/18 12:52 Dose: 40 meq Quetiapine Fumarate (Seroquel) 25 mg PO HS [facility] Last Admin: 12/26/18 22:03 Dose: 25 mg - Labs Labs: 12/27/18 05:45 12/27/18 05:45 PT 11.7 Seconds (9.8-13.1) 12/11/18 23:50 INR 1.0 12/11/18 23:50 APTT 32.7 Seconds (25.6-37.1) 12/11/18 23:50 - Constitutional Appears: Non-toxic, Other (A bit restless and unhappy. ) - Head Exam Head Exam: NORMAL INSPECTION - Eye Exam Eye Exam: Normal appearance - ENT Exam ENT Exam: Mucous Membranes Moist - Neck Exam Neck Exam: Normal Inspection - Respiratory Exam Respiratory Exam: NORMAL BREATHING PATTERN Additional comments: Sl. decreased breath sounds. Few inspiratory crackles. Good air flow in all snow. No wheezes. - Cardiovascular Exam Cardiovascular Exam: REGULAR RHYTHM, +S1, +S2 - GI/Abdominal Exam GI & Abdominal Exam: Soft - Extremities Exam Additional comments: Still with 1-2+ pedal and lower leg edema. No calf tenderness. Good pulses. - Back Exam Back Exam: NORMAL INSPECTION - Neurological Exam Neurological Exam: Alert, Awake, CN II-XII Intact, Normal Gait, Oriented x3 - Psychiatric Exam Psychiatric exam: Depressed, Flat Affect Additional comments: No genuine insight into her depressive illness and no appreciation of the seriousness or risks involved if she goes home before depression is better controlled. - Skin Skin Exam: Dry, Intact, Normal Color, Warm Assessment and Plan (1) Overdose of drug/medicinal substance Assessment & Plan: Risk may be less, but without insight the risk of repeat suicide attempt is substantial. Will await re-evaluation by Dr. Chavez. Status: Acute (2) Aspiration pneumonia due to inhalation of vomitus Assessment & Plan: Resolving, and antibiotics have been stopped. CXR is clearly better. Will monitor. Status: Acute (3) Major depression, chronic Assessment & Plan: Patient is currently on Seroquel because she was very agitated last week. This may be cause of hypokalemia (KCl is being replaced). Would ask psychiatrists if there is a better choice for an agtitated depression. Status: Acute (4) Fibromyalgia affecting multiple sites Assessment & Plan: Controlled on Cymbalta and gabapentin. Status: Acute (5) Mel's thyroiditis Assessment & Plan: Continue current medication, see subjective. Status: Chronic (6) Parathyroid adenoma Assessment & Plan: We are monitoring this. Status: Chronic (7) GERD (gastroesophageal reflux disease) Status: Acute (8) Other specified dorsopathies, cervical region Status: Acute
--- NOTE | 2018-12-28 02:38 | PN ---
DATE: 12/27/2018 ENDO FOLLOWUP NOTE LOCATION: In room 418, bed 2. This is a 58-year-old female with known history of hypothyroidism related to underlying autoimmune thyroiditis and presenting here with an acute suicidal gesture and drug overdose, and is being followed closely for metabolic management. Latest thyroid studies showed a T4 thyroxine level of 9.94 with a TSH of 4.41 and free T4 of 1.47. Her latest chemistries showed a BUN of 5, sodium 138, potassium 2.8, chloride 104, CO2 of 30, glucose 93 and creatinine 0.5. So at this time, we will continue the same levothyroxine, modified to a higher dosing of 88 mcg once daily in the morning as ordered. We will continue the potassium supplementation as given. We will follow and advise accordingly. Ashlee Monk MD
[2018-12-28] MEDS: Levothyroxine 88 MCG TAB PO SCH (06:06)
[2018-12-28] MEDS: Potassium Chloride 20 mEq ER Tab PO SCH ×2 (08:59→18:40)
[2018-12-28] MEDS: Magnesium Oxide 400 mg Tab UD PO SCH (08:59)
[2018-12-28] MEDS: Enoxaparin 40 mg Syringe SC SCH (09:01)
--- NOTE | 2018-12-28 11:40 | CP.PCM.PN ---
Subjective - Date & Time of Evaluation Date of Evaluation: 12/28/18 Time of Evaluation: 11:36 - Subjective Subjective: Patient remains afebrile off antibiotics. She is breathing easily. Her legs remain edematous. She is on KDur 40meq po bid for hypokalemia. Dr. Richardson thought it might be due to the Seroquel. I do not see any potassium level from this AM. She is upset about the possibility of going to a psychiatric unit after being hospitalized for 2 weeks. She wants to go home and have outpatient therapy. There have been two or three psychiatric "evaluations," but there has been no actual therapy and no change in the medications. Awaiting final evaluation by Dr. Richardson. Will recheck CBC and BMP in AM If both are OK, then patient will be medically stable for discharge either to home with plans for ongoing psychiatric care or to inpatient psychiatric unit. It will depend upon the final psychiatric evaluation. Objective - Vital Signs/Intake and Output Vital Signs (last 24 hours): Temp Pulse Resp BP Pulse Ox 98.3 F 78 20 121/65 97 12/28/18 08:14 12/28/18 08:14 12/28/18 08:14 12/28/18 08:14 12/28/18 08:14 - Medications Medications: Current Medications Acetaminophen (Tylenol 325mg Tab) 650 mg PO Q4 PRN PRN Reason: Temperature Last Admin: 12/16/18 07:18 Dose: 650 mg Acetaminophen (Tylenol 325mg Tab) 650 mg PO Q6 PRN PRN Reason: Pain, Mild (1-3) Last Admin: 12/19/18 06:18 Dose: 650 mg Al Hydrox/Mg Hydrox/Simethicone (Maalox Plus 30 Ml) 30 ml PO Q6 PRN PRN Reason: Indigestion / Heartburn Last Admin: 12/18/18 20:08 Dose: 30 ml Albuterol Sulfate (Albuterol 0.083% Inhal Judith (2.5 Mg/3 Ml) Ud) 2.5 mg INH RQ4 PRN PRN Reason: Shortness of Breath Clotrimazole (Lotrimin 1% Cream) 1 applic TOP BID [facility] Last Admin: 12/28/18 09:01 Dose: 1 applic Duloxetine HCl (Cymbalta) 40 mg PO DAILY [facility] Last Admin: 12/28/18 09:00 Dose: 40 mg Enoxaparin Sodium (Lovenox) 40 mg SC DAILY [facility]; Protocol Last Admin: 12/28/18 09:01 Dose: 40 mg Famotidine (Pepcid) 40 mg PO DAILY [facility] Last Admin: 12/28/18 09:00 Dose: 40 mg Gabapentin (Neurontin) 300 mg PO TID [facility] Last Admin: 12/28/18 08:59 Dose: 300 mg Ketorolac Tromethamine (Toradol) 30 mg IVP Q6 PRN PRN Reason: Pain, severe (8-10) Last Admin: 12/19/18 04:03 Dose: 30 mg Levothyroxine Sodium (Synthroid) 88 mcg PO DAILY@0630 [facility] Last Admin: 12/28/18 06:06 Dose: 88 mcg Lorazepam (Ativan) 0.25 mg PO Q12 PRN PRN Reason: Anxiety Last Admin: 12/26/18 22:00 Dose: 0.25 mg Magnesium Oxide (Mag-Ox) 400 mg PO DAILY [facility] Last Admin: 12/28/18 08:59 Dose: 400 mg Ondansetron HCl (Zofran Inj) 4 mg IVP Q4 PRN PRN Reason: Nausea/Vomiting Last Admin: 12/22/18 03:05 Dose: 4 mg Potassium Chloride (K-Dur 20 Meq Er Tab) 40 meq PO BID [facility] Last Admin: 12/28/18 08:59 Dose: 40 meq Quetiapine Fumarate (Seroquel) 25 mg PO HS [facility] Last Admin: 12/27/18 21:47 Dose: 25 mg - Labs Labs: 12/27/18 05:45 12/27/18 05:45 PT 11.7 Seconds (9.8-13.1) 12/11/18 23:50 INR 1.0 12/11/18 23:50 APTT 32.7 Seconds (25.6-37.1) 12/11/18 23:50 - Head Exam Head Exam: NORMAL INSPECTION - Eye Exam Eye Exam: Normal appearance - ENT Exam ENT Exam: Mucous Membranes Moist - Neck Exam Neck Exam: Normal Inspection - Respiratory Exam Respiratory Exam: Clear to Ausculation Bilateral, NORMAL BREATHING PATTERN - Cardiovascular Exam Cardiovascular Exam: REGULAR RHYTHM, +S1, +S2 - GI/Abdominal Exam GI & Abdominal Exam: Soft - Extremities Exam Extremities Exam: Pedal Edema - Back Exam Back Exam: NORMAL INSPECTION - Neurological Exam Neurological Exam: Alert, CN II-XII Intact, Normal Gait, Oriented x3 - Psychiatric Exam Psychiatric exam: Depressed Additional comments: Upset. - Skin Skin Exam: Dry, Intact, Normal Color, Warm Assessment and Plan (1) Overdose of drug/medicinal substance Status: Acute (2) Aspiration pneumonia due to inhalation of vomitus Status: Acute (3) Major depression, chronic Status: Acute (4) Fibromyalgia affecting multiple sites Status: Acute (5) Mel's thyroiditis Status: Chronic (6) Parathyroid adenoma Status: Chronic (7) GERD (gastroesophageal reflux disease) Status: Acute (8) Other specified dorsopathies, cervical region Status: Acute
--- NOTE | 2018-12-28 12:39 | CP.PCM.CON ---
History of Present Illness - History of Present Illness History of Present Illness: I HAVE BEEN ASKED TO SEE THIS PATIENT REGARDING HYPOKALEMIA AND SEROQUEL. THE PATIENT IS A 58 YEAR OLD FEMALE WITH A HISTORY OF DEPRESSION AND SUICIDE ATTEMPTS IN THE PAST. SHE ALSO HAS A HISTORY OF FIBROMYALGIA, RORY'D THYROIDITIS AND A PARATHYROID ADENOMA. SHE WAS ADMITTED ON 12/12/18 FOLLOWING AN MEDICATION OVERDOSE AND HER HOME MEDICINES INCLUDED OXYCODONE, ALPRAZOLAM, TRADAZONE AND CYMBALTA. SHE HAD ASPIRATION PNEUMONIA AND WAS TREATED WITH CLINDAMYCIN, VANCOMYCIN, ZOSYN AND DOXYCYCLINE. SHE IS PRESENTLY OFF ANTIBIOT ICS. Past Patient History - Past Medical History & Family History Past Medical History?: Yes - Past Social History Smoking Status: Heavy Smoker > 10 Cigarettes Daily Chewing Tobacco Use: No Cigar Use: No Alcohol: None Drugs: Denies, Prescription medications Home Situation {Lives}: With Family - CARDIAC Hx Cardiac Disorders: No - PULMONARY Hx Respiratory Disorders: No - NEUROLOGICAL Hx Neurological Disorder: Yes (Fibromyalgia) Hx Migraine: Yes (Had received Botox injections in the past with relief.) - HEENT Hx HEENT Problems: No - RENAL Hx Chronic Kidney Disease: No - ENDOCRINE/METABOLIC Hx Hypothyroidism: Yes - HEMATOLOGICAL/ONCOLOGICAL Hx Blood Disorders: No - INTEGUMENTARY Hx Dermatological Problems: No - MUSCULOSKELETAL/RHEUMATOLOGICAL Hx Back Pain: Yes Hx Herniated Disk: Yes (Cervical spine) - GASTROINTESTINAL Hx Gastroesophageal Reflux: Yes - GENITOURINARY/GYNECOLOGICAL Hx Genitourinary Disorders: No - PSYCHIATRIC Hx Substance Use: No - SURGICAL HISTORY Hx Cholecystectomy: Yes Hx Hysterectomy: Yes ([facility] and BSO 2012) - ANESTHESIA Hx Anesthesia: Yes Hx Anesthesia Reactions: No Meds Allergies/Adverse Reactions: Allergies Allergy/AdvReac Type Severity Reaction Status Date / Time hydromorphone [From Dilaudid] AdvReac HEADACHE Verified 12/11/18 23:24 Abilify AdvReac Severe agitation Uncoded 12/12/18 10:21 Lyrica AdvReac Severe SWELLING Uncoded 12/12/18 10:19 - Medications Medications: Current Medications Acetaminophen (Tylenol 325mg Tab) 650 mg PO Q4 PRN PRN Reason: Temperature Last Admin: 12/16/18 07:18 Dose: 650 mg Acetaminophen (Tylenol 325mg Tab) 650 mg PO Q6 PRN PRN Reason: Pain, Mild (1-3) Last Admin: 12/19/18 06:18 Dose: 650 mg Al Hydrox/Mg Hydrox/Simethicone (Maalox Plus 30 Ml) 30 ml PO Q6 PRN PRN Reason: Indigestion / Heartburn Last Admin: 12/18/18 20:08 Dose: 30 ml Albuterol Sulfate (Albuterol 0.083% Inhal Judith (2.5 Mg/3 Ml) Ud) 2.5 mg INH RQ4 PRN PRN Reason: Shortness of Breath Clotrimazole (Lotrimin 1% Cream) 1 applic TOP BID [facility] Last Admin: 12/28/18 09:01 Dose: 1 applic Duloxetine HCl (Cymbalta) 40 mg PO DAILY [facility] Last Admin: 12/28/18 09:00 Dose: 40 mg Enoxaparin Sodium (Lovenox) 40 mg SC DAILY [facility]; Protocol Last Admin: 12/28/18 09:01 Dose: 40 mg Famotidine (Pepcid) 40 mg PO DAILY [facility] Last Admin: 12/28/18 09:00 Dose: 40 mg Gabapentin (Neurontin) 300 mg PO TID [facility] Last Admin: 12/28/18 08:59 Dose: 300 mg Ketorolac Tromethamine (Toradol) 30 mg IVP Q6 PRN PRN Reason: Pain, severe (8-10) Last Admin: 12/19/18 04:03 Dose: 30 mg Levothyroxine Sodium (Synthroid) 88 mcg PO DAILY@0630 [facility] Last Admin: 12/28/18 06:06 Dose: 88 mcg Lorazepam (Ativan) 0.25 mg PO Q12 PRN PRN Reason: Anxiety Last Admin: 12/26/18 22:00 Dose: 0.25 mg Magnesium Oxide (Mag-Ox) 400 mg PO DAILY [facility] Last Admin: 12/28/18 08:59 Dose: 400 mg Ondansetron HCl (Zofran Inj) 4 mg IVP Q4 PRN PRN Reason: Nausea/Vomiting Last Admin: 12/22/18 03:05 Dose: 4 mg Potassium Chloride (K-Dur 20 Meq Er Tab) 40 meq PO BID [facility] Last Admin: 12/28/18 08:59 Dose: 40 meq Quetiapine Fumarate (Seroquel) 25 mg PO HS [facility] Last Admin: 12/27/18 21:47 Dose: 25 mg Physical Exam - Respiratory Exam Respiratory Exam: Clear to Auscultation Bilateral - Cardiovascular Exam Cardiovascular Exam: REGULAR RHYTHM, +S1, +S2 - Extremities Exam Additional comments: MILD LE EDEMA - Additional Findings Additional findings: EKG ON 12/12/18 SHOWED SINUS ARRYTHMIA, PROLONGED QT INTERVAL AND NSSTT CHANGED EKG TODAY SHOWS NSR, NORMAL QT INTERVAL AND NO STT CHANGES OR ECTOPY K+ 2.8 YESTERDAY K+ TODAY NOT DRAWN Results - Vital Signs Recent Vital Signs: Last Vital Signs Temp 98.2 F 12/28/18 11:52 Pulse 91 H 12/28/18 11:52 Resp 20 12/28/18 11:52 BP 119/62 12/28/18 11:52 Pulse Ox 97 12/28/18 11:52 - Labs Result Diagrams: 12/27/18 05:45 12/27/18 05:45 Assessment & Plan - Assessment and Plan (Free Text) Assessment: MAJOR DEPRESSION WITH DRUG OVERDOSE AND ASPRATION PNEUMONIA-TREATED ABNORMAL EKG INCLUDING PROLONED QT INTERVAL ON 12/11/18 SECONDARY TO DRUG OVERDOSE-EKG TODAY IS NORMAL INCLUDING NORMAL QT INTERVAL. SINUS ARRYTHMIA IS NORMAL. HYPOKALEMIA HYPOTHYROIDISM FIBROMYALGIA Plan: CONTINUE CYMBALTA AND SEROQUEL I RESEARCHED THEM WITH PHARMACY AND THEY HAVE LESS THAN 1% CHANCE OF CAUSING HYPOKALEMIA. ALSO VANCOMYCIN CAN CAUSE IT MORE OFTEN BUT HAS ALREADY BEEN DISCONTINUED. CONTINUE MONITORING K+ LEVEL AND REPLACING STAT BMP ORDERED
[2018-12-28 14:00] LABS: BLOOD UREA NITROGEN 9 mg/dl (7-17); CALCIUM 8.9 mg/dL (8.4-10.2); GFR NON-AFRICAN AMERICAN > 60
--- NOTE | 2018-12-29 01:44 | PN ---
DATE: 12/28/2018 LOCATION: Room 418. SUBJECTIVE: This is a 58-year-old female with known history of hypothyroidism related to underlying autoimmune thyroiditis, presenting here with acute suicidal gesture and drug overdose and is also now with also supervening acute aspiration pneumonitis and is receiving ongoing IV antibiotic management and is followed closely for clinical and hemodynamic management at this time. She remains clinically euthyroid at this time and her latest chemistry showed a BUN of 9, sodium 139, potassium 4.7, chloride 103, CO2 of 30, glucose 94 and creatinine 0.5. Her latest thyroid studies showed a free T4 of 1.47 with a T4 of 9.94 and TSH of 4.41. So, at this time, we will continue with the same modified levothyroxine given as 88 mcg once daily in the morning as ordered. We will obtain serial thyroid studies and titrate her dose regimen accordingly. Concur with the present medical and hemodynamic management as ordered. Ashlee Monk MD
[2018-12-29 05:46] LABS: HEMOGLOBIN 11.4 g/dL (12.0-16.0); MEAN CELL VOLUME 90.4 fl (81.0-99.0); MEAN CORPUSCULAR HEMOGLOBIN 29.3 pg (27.0-31.0); MEAN CORPUSCULAR HGB CONC 32.4 g/dL (33.0-37.0); RBC 3.89 Mil/uL (3.80-5.20); RED CELL DISTRIBUTION WIDTH 14.5 % (11.5-14.5); WHITE BLOOD COUNT 12.3 K/uL (4.8-10.8)
[2018-12-29 05:56] LABS: BLOOD UREA NITROGEN 9 mg/dl (7-17); CALCIUM 9.3 mg/dL (8.4-10.2); GFR NON-AFRICAN AMERICAN > 60
[2018-12-29] MEDS: Levothyroxine 88 MCG TAB PO SCH (06:13)
--- NOTE | 2018-12-29 08:26 | CARD ---
APPROVED REPORT Date of service: 12/28/2018 EKG Measurement Heart [id number] <Conclusion> Sinus rhythm with sinus arrhythmia Normal Electrocardiogram
[2018-12-29] MEDS: Enoxaparin 40 mg Syringe SC SCH (09:59)
[2018-12-29] MEDS: Magnesium Oxide 400 mg Tab UD PO SCH (10:02)
--- NOTE | 2018-12-29 10:03 | CP.PCM.PN ---
Subjective - Date & Time of Evaluation Date of Evaluation: 12/29/18 Time of Evaluation: 10:03 - Subjective Subjective: Seated in bedside chair, appears comfortable at rest. She has remained afebrile and offers no complaint of cough or sputum expectoration. There has been a slight rise in her WBC to 12.7 this morning. Her chest x-ray remains stable with residual infiltrates in the upper lobes. There is no evidence of pleural effusion on the regular CXR. These infiltrates probably represent slowly resolving parenchymal changes and NOT active infection. Despite this I have spoken with ID and we have agreed to use PO doxycycline as a precautionary treatment. She has maintained a clinically stable status and I doubt any active infection. On exam the breath sounds are diminished bilaterally, but are present to the bases bilaterally. There are few sonorous rhonchi (post-tussic), but no bronchial breath sounds. She is medically stable from a pulmonary standpoint and can be discharged on PO doxycycline BID. A follow up chest x-ray with lateral decubitus views can be obtained later in the week. Would follow her CBC to insure the WBC does remain stable. Objective - Vital Signs/Intake and Output Vital Signs (last 24 hours): Temp Pulse Resp BP Pulse Ox 98.2 F 95 H 20 125/74 96 12/29/18 09:00 12/29/18 09:00 12/29/18 09:00 12/29/18 09:00 12/29/18 09:00 - Medications Medications: Current Medications Acetaminophen (Tylenol 325mg Tab) 650 mg PO Q4 PRN PRN Reason: Temperature Last Admin: 12/16/18 07:18 Dose: 650 mg Acetaminophen (Tylenol 325mg Tab) 650 mg PO Q6 PRN PRN Reason: Pain, Mild (1-3) Last Admin: 12/19/18 06:18 Dose: 650 mg Al Hydrox/Mg Hydrox/Simethicone (Maalox Plus 30 Ml) 30 ml PO Q6 PRN PRN Reason: Indigestion / Heartburn Last Admin: 12/18/18 20:08 Dose: 30 ml Albuterol Sulfate (Albuterol 0.083% Inhal Judith (2.5 Mg/3 Ml) Ud) 2.5 mg INH RQ4 PRN PRN Reason: Shortness of Breath Clotrimazole (Lotrimin 1% Cream) 1 applic TOP BID [facility] Last Admin: 12/29/18 10:00 Dose: 1 applic Duloxetine HCl (Cymbalta) 40 mg PO DAILY [facility] Last Admin: 12/29/18 10:01 Dose: 40 mg Enoxaparin Sodium (Lovenox) 40 mg SC DAILY [facility]; Protocol Last Admin: 12/29/18 09:59 Dose: 40 mg Gabapentin (Neurontin) 300 mg PO TID [facility] Last Admin: 12/29/18 09:59 Dose: 300 mg Ketorolac Tromethamine (Toradol) 30 mg IVP Q6 PRN PRN Reason: Pain, severe (8-10) Last Admin: 12/19/18 04:03 Dose: 30 mg Levothyroxine Sodium (Synthroid) 88 mcg PO DAILY@0630 [facility] Last Admin: 12/29/18 06:13 Dose: 88 mcg Lorazepam (Ativan) 0.25 mg PO Q12 PRN PRN Reason: Anxiety Last Admin: 12/26/18 22:00 Dose: 0.25 mg Magnesium Oxide (Mag-Ox) 400 mg PO DAILY [facility] Last Admin: 12/29/18 10:02 Dose: 400 mg Ondansetron HCl (Zofran Inj) 4 mg IVP Q4 PRN PRN Reason: Nausea/Vomiting Last Admin: 12/22/18 03:05 Dose: 4 mg Quetiapine Fumarate (Seroquel) 25 mg PO HS [facility] Last Admin: 12/28/18 21:17 Dose: 25 mg - Labs Labs: 12/29/18 05:10 12/29/18 05:10 PT 11.7 Seconds (9.8-13.1) 12/11/18 23:50 INR 1.0 12/11/18 23:50 APTT 32.7 Seconds (25.6-37.1) 12/11/18 23:50 Assessment and Plan (1) Aspiration pneumonia due to inhalation of vomitus Status: Acute (2) Hypoxemia requiring supplemental oxygen (3) Hypercapnia
--- NOTE | 2018-12-29 10:20 | CP.PCM.PN ---
Subjective - Date & Time of Evaluation Date of Evaluation: 12/29/18 Time of Evaluation: 09:00 - Subjective Subjective: NO COMPLAINTS TODAY Objective - Vital Signs/Intake and Output Vital Signs (last 24 hours): Temp Pulse Resp BP Pulse Ox 98.2 F 95 H 20 125/74 96 12/29/18 09:00 12/29/18 09:00 12/29/18 09:00 12/29/18 09:00 12/29/18 09:00 - Medications Medications: Current Medications Acetaminophen (Tylenol 325mg Tab) 650 mg PO Q4 PRN PRN Reason: Temperature Last Admin: 12/16/18 07:18 Dose: 650 mg Acetaminophen (Tylenol 325mg Tab) 650 mg PO Q6 PRN PRN Reason: Pain, Mild (1-3) Last Admin: 12/19/18 06:18 Dose: 650 mg Al Hydrox/Mg Hydrox/Simethicone (Maalox Plus 30 Ml) 30 ml PO Q6 PRN PRN Reason: Indigestion / Heartburn Last Admin: 12/18/18 20:08 Dose: 30 ml Albuterol Sulfate (Albuterol 0.083% Inhal Judith (2.5 Mg/3 Ml) Ud) 2.5 mg INH RQ4 PRN PRN Reason: Shortness of Breath Clotrimazole (Lotrimin 1% Cream) 1 applic TOP BID [facility] Last Admin: 12/29/18 10:00 Dose: 1 applic Duloxetine HCl (Cymbalta) 40 mg PO DAILY [facility] Last Admin: 12/29/18 10:01 Dose: 40 mg Enoxaparin Sodium (Lovenox) 40 mg SC DAILY [facility]; Protocol Last Admin: 12/29/18 09:59 Dose: 40 mg Gabapentin (Neurontin) 300 mg PO TID [facility] Last Admin: 12/29/18 09:59 Dose: 300 mg Ketorolac Tromethamine (Toradol) 30 mg IVP Q6 PRN PRN Reason: Pain, severe (8-10) Last Admin: 12/19/18 04:03 Dose: 30 mg Levothyroxine Sodium (Synthroid) 88 mcg PO DAILY@0630 [facility] Last Admin: 12/29/18 06:13 Dose: 88 mcg Lorazepam (Ativan) 0.25 mg PO Q12 PRN PRN Reason: Anxiety Last Admin: 12/26/18 22:00 Dose: 0.25 mg Magnesium Oxide (Mag-Ox) 400 mg PO DAILY [facility] Last Admin: 12/29/18 10:02 Dose: 400 mg Ondansetron HCl (Zofran Inj) 4 mg IVP Q4 PRN PRN Reason: Nausea/Vomiting Last Admin: 12/22/18 03:05 Dose: 4 mg Quetiapine Fumarate (Seroquel) 25 mg PO HS [facility] Last Admin: 12/28/18 21:17 Dose: 25 mg - Labs Labs: 12/29/18 05:10 12/29/18 05:10 PT 11.7 Seconds (9.8-13.1) 12/11/18 23:50 INR 1.0 12/11/18 23:50 APTT 32.7 Seconds (25.6-37.1) 12/11/18 23:50 - Respiratory Exam Respiratory Exam: Clear to Ausculation Bilateral - Cardiovascular Exam Cardiovascular Exam: REGULAR RHYTHM, +S1, +S2 - Additional Findings Additional findings: WELL [employer] NSR K+ 5.6 Assessment and Plan - Assessment and Plan (Free Text) Assessment: STABLE CARDIAC STATUS MAJOR DEPRESSION Plan: KCL HAS BEEN STOPPED CONTINUE PRESENT TREATMENT
--- NOTE | 2018-12-29 11:58 | RAD ---
Date of service: 12/29/2018 HISTORY: pneumonia COMPARISON: Chest radiographs 12/26/2018. TECHNIQUE: Chest PA and lateral views FINDINGS: LUNGS: There has been an interval reduction in right upper lobe diminishing infiltrate once again. Mixed infiltrate at the left upper lobe persists, not significant changed in the interval. No new infiltrate bilaterally. PLEURA: No significant pleural effusion identified. No pneumothorax apparent. CARDIOVASCULAR: No aortic atherosclerotic calcification present. Normal cardiac size. No pulmonary vascular congestion. OSSEOUS STRUCTURES: No significant abnormalities. VISUALIZED UPPER ABDOMEN: Surgical clips again evident, right upper quadrant. OTHER FINDINGS: None. IMPRESSION: Further reduction in right upper lobe mixed infiltrate with stable mild mixed infiltrate left upper lobe. No acute cardiovascular disease appreciable.
--- NOTE | 2018-12-29 12:05 | CP.PCM.PN ---
Subjective - Date & Time of Evaluation Date of Evaluation: 12/29/18 Time of Evaluation: 12:01 - Subjective Subjective: I spoke with Dr. Chavez, who feels that patient is very depressed and at high risk for repeat suicide attempt. So, patient has been evaluated and accepted for involuntary admission to the psychiatric unit at [facility]. We are awaiting an available bed there. For now she remains on Seroquel 25mg qhs and Ativan 0.25mg po q12h prn Notes by Drs. Richardson and Aditya appreciated. They consider patient stable for discharge to [facility]. The potassium was high this morning at 6.5, so KDur was discontinued and we will repeat the BMP at 2pm today. As per Dr. Lewis, pt will take Doxycycline 100mg bid x 7 days for some residual infiltrate in upper lobes, most likely resolving chemical pneumonitits. To have repeat CXR in [address] Monk appreciated. To continue Levothyroxine 88 mcg daily. Fibromyalgia and cervical disc pain controlled on Cymbalta 40mg qd and acetaminophen prn. Objective - Vital Signs/Intake and Output Vital Signs (last 24 hours): Temp Pulse Resp BP Pulse Ox 98.2 F 95 H 20 125/74 96 12/29/18 09:00 12/29/18 09:00 12/29/18 09:00 12/29/18 09:00 12/29/18 09:00 - Medications Medications: Current Medications Acetaminophen (Tylenol 325mg Tab) 650 mg PO Q4 PRN PRN Reason: Temperature Last Admin: 12/16/18 07:18 Dose: 650 mg Acetaminophen (Tylenol 325mg Tab) 650 mg PO Q6 PRN PRN Reason: Pain, Mild (1-3) Last Admin: 12/19/18 06:18 Dose: 650 mg Al Hydrox/Mg Hydrox/Simethicone (Maalox Plus 30 Ml) 30 ml PO Q6 PRN PRN Reason: Indigestion / Heartburn Last Admin: 12/18/18 20:08 Dose: 30 ml Albuterol Sulfate (Albuterol 0.083% Inhal Judith (2.5 Mg/3 Ml) Ud) 2.5 mg INH RQ4 PRN PRN Reason: Shortness of Breath Clotrimazole (Lotrimin 1% Cream) 1 applic TOP BID [facility] Last Admin: 12/29/18 10:00 Dose: 1 applic Doxycycline Hyclate (Doryx) 100 mg PO Q12 [facility]; Protocol Last Admin: 12/29/18 11:27 Dose: 100 mg Duloxetine HCl (Cymbalta) 40 mg PO DAILY [facility] Last Admin: 12/29/18 10:01 Dose: 40 mg Gabapentin (Neurontin) 300 mg PO TID [facility] Last Admin: 12/29/18 09:59 Dose: 300 mg Ketorolac Tromethamine (Toradol) 30 mg IVP Q6 PRN PRN Reason: Pain, severe (8-10) Last Admin: 12/19/18 04:03 Dose: 30 mg Levothyroxine Sodium (Synthroid) 88 mcg PO DAILY@0630 [facility] Last Admin: 12/29/18 06:13 Dose: 88 mcg Lorazepam (Ativan) 0.25 mg PO Q12 PRN PRN Reason: Anxiety Last Admin: 12/26/18 22:00 Dose: 0.25 mg Magnesium Oxide (Mag-Ox) 400 mg PO DAILY [facility] Last Admin: 12/29/18 10:02 Dose: 400 mg Ondansetron HCl (Zofran Inj) 4 mg IVP Q4 PRN PRN Reason: Nausea/Vomiting Last Admin: 12/22/18 03:05 Dose: 4 mg Quetiapine Fumarate (Seroquel) 25 mg PO HS [facility] Last Admin: 12/28/18 21:17 Dose: 25 mg - Labs Labs: 12/29/18 05:10 12/29/18 05:10 PT 11.7 Seconds (9.8-13.1) 12/11/18 23:50 INR 1.0 12/11/18 23:50 APTT 32.7 Seconds (25.6-37.1) 12/11/18 23:50 - Constitutional Appears: Other (Patient is calm and appears resigned to going to [facility].) - Head Exam Head Exam: NORMAL INSPECTION - Eye Exam Eye Exam: Normal appearance - ENT Exam ENT Exam: Mucous Membranes Moist - Neck Exam Neck Exam: Normal Inspection - Respiratory Exam Respiratory Exam: Clear to Ausculation Bilateral, NORMAL BREATHING PATTERN - Cardiovascular Exam Cardiovascular Exam: REGULAR RHYTHM, +S1, +S2 - GI/Abdominal Exam GI & Abdominal Exam: Soft - Extremities Exam Additional comments: Edema has almost completely resolved. - Back Exam Back Exam: NORMAL INSPECTION - Neurological Exam Neurological Exam: Alert, CN II-XII Intact, Normal Gait, Oriented x3 - Psychiatric Exam Psychiatric exam: Depressed, Flat Affect - Skin Skin Exam: Dry, Intact, Normal Color, Warm Assessment and Plan (1) Overdose of drug/medicinal substance Status: Acute (2) Aspiration pneumonia due to inhalation of vomitus Status: Acute (3) Major depression, chronic Status: Acute (4) Fibromyalgia affecting multiple sites Status: Acute (5) Mel's thyroiditis Status: Chronic (6) Parathyroid adenoma Status: Chronic (7) GERD (gastroesophageal reflux disease) Status: Acute (8) Other specified dorsopathies, cervical region Status: Acute - Assessment and Plan (Free Text) Plan: PATIENT IS CLINICALLY STABLE FROM A MEDICAL POINT OF VIEW. IF POTASSIUM LEVEL IS AT OR BELOW 5.5 SHE MAY BE TRANSFERED TO THE INPATIENT PSYCHIATRIC FACILITY AT [facility] ON THE SAME MEDS. SHE WILL NEED PULOMONARY FOLLOW-UP FOR THE CHEMICAL ASPIRATION PNEUMONITIS. I CAN BE CONTACTED FOR ANY NEEDED INFORMATION SHARON PACHECO MD OFFICE: [phone] CELL: [phone]
[2018-12-29 16:09] VITALS: BP 105/67; PULSE 94; RESP 18; TEMP 98.4; O2SAT 98
[2018-12-29 16:23] LABS: BLOOD UREA NITROGEN 8 mg/dl (7-17); CALCIUM 9.3 mg/dL (8.4-10.2); GFR NON-AFRICAN AMERICAN > 60
--- NOTE | 2018-12-30 03:24 | PN ---
DATE: 12/29/2018 ENDOCRINOLOGY FOLLOWUP NOTE LOCATION: Room 418. This is a 58-year-old female with recent admission for drug overdose and suicidal gesture, currently undergoing and receiving IV antibiotic management for acute aspiration pneumonitis and is being followed closely also for metabolic management. She remains clinically and biochemically euthyroid at this time. Her latest chemistry showed a BUN of 9, sodium 140, potassium 5.6, chloride 104, CO2 of 32, glucose 101, and creatinine 0.7. Her latest thyroxine or T4 level is 9.94 with a TSH of 4.41 and a free T4 of 1.47. So at this time, we will continue the modified levothyroxine given as 88 mcg once daily in the morning as ordered. We will titrate incrementally as indicated to optimize metabolic control. We will follow and advise accordingly. Ashlee Monk MD
== END 2018-12-29 19:40 | DRG 917 ==
LOC: H.ER 23:20 → H.ERHOLD 12-12 01:24 → H.ICU/CCU 12-12 07:06 → H.TEL 12-24 17:48
PROVIDERS: ADMIT Internal Medicine; ATTEND Internal Medicine
PROC: 0BH17EZ Insertion of Endotracheal Airway into Trachea, Via Natural or Artificial Opening (ICD-10-PCS; principal; 2018-12-12)
PROC: 5A1945Z Respiratory Ventilation, 24-96 Consecutive Hours (ICD-10-PCS; 2018-12-12)
PROC: 05HM33Z Insertion of Infusion Device into Right Internal Jugular Vein, Percutaneous Approach (ICD-10-PCS; 2018-12-12)
PROC: 5A0955Z Assistance with Respiratory Ventilation, Greater than 96 Consecutive Hours (ICD-10-PCS; 2018-12-13)
DX: T43.212A Poisoning by selective serotonin and norepinephrine reuptake inhibitors, intentional self-harm, initial encounter (principal); J69.0 Pneumonitis due to inhalation of food and vomit; G92 Toxic encephalopathy; J96.01 Acute respiratory failure with hypoxia; F33.2 Major depressive disorder, recurrent severe without psychotic features; F05 Delirium due to known physiological condition; F41.1 Generalized anxiety disorder; K29.70 Gastritis, unspecified, without bleeding; K21.9 Gastro-esophageal reflux disease without esophagitis; M79.7 Fibromyalgia; Z78.1 Physical restraint status; D35.1 Benign neoplasm of parathyroid gland; E06.3 Autoimmune thyroiditis; F17.210 Nicotine dependence, cigarettes, uncomplicated; G43.909 Migraine, unspecified, not intractable, without status migrainosus; T42.4X2A Poisoning by benzodiazepines, intentional self-harm, initial encounter; T40.2X2A Poisoning by other opioids, intentional self-harm, initial encounter; R00.1 Bradycardia, unspecified; Y92.003 Bedroom of unspecified non-institutional (private) residence as the place of occurrence of the external cause; I45.81 Long QT syndrome; E87.6 Hypokalemia; M53.82 Other specified dorsopathies, cervical region; E04.9 Nontoxic goiter, unspecified; R73.9 Hyperglycemia, unspecified; M47.812 Spondylosis without myelopathy or radiculopathy, cervical region; Z63.0 Problems in relationship with spouse or partner; T68.XXXA Hypothermia, initial encounter